=== PATIENT | female | born 1940 | race Caucasian/White ===

== ENCOUNTER → 2017-10-02 13:10 | Outpatient (CLI) | payer MEDICARE, OTHER, SELFPAY ==
[2017-10-02 16:22] LABS: Absolute Lymphocyte Count 1.46 X10^3/ul (0.83-4.51); Absolute Neutrophil Count 5.2 X10^3/uL (2.0-7.7); Basophil# 0.03 X10^3/uL; Basophil% 0.4 % (0-1); Eosinophil# 0.06 X10^3/uL; Eosinophils% 0.8 % (0-5); Hematocrit 39.6 % (37-47); Lymphocyte # 1.46 X10^3/ul (4.0); Lymphocyte % 19.6 % (19-41); Mean Corp Hgb Conc 32.8 g/gl (32-36); Mean Corpuscular Hgb 30.4 pg (27.0-32.0); Mean Corpuscular Volume 92.7 fL (81-99); Mean Platelet Vol. 9.5 fl (6.2-12.0); Monocyte# 0.67 X10^3/uL; Neutrophil % 69.8 % (47-70); Platelet Count 321 K/mm3 (150-450); RBC Distribution Width CV 13.4 % (11.6-14.6); RBC Distribution Width SD 44.6 fl (35.1-43.9); Red Blood Count 4.27 M/mm3 (4.2-5.4); White Blood Count 7.5 K/mm3 (4.4-11.0)
[2017-10-02 16:24] LABS: POSITIVE COUNT NO; POSITIVE DIFFERENTIAL NO; POSITIVE MORPHOLOGY NO
[2017-10-02 16:40] LABS: Vitamin D,25 Hydroxy 45.8 ng/mL (29.95-100.01)
[2017-10-02 16:42] LABS: ALB/GLOB Ratio 0.9 RATIO (0.9-2.4); AST(SGOT) 28 U/L (15-37); Alanine Aminotransfer ALT/SGPT 31 U/L (13-56); Albumin, Serum 3.4 g/dL (3.2-5.0); Alkaline Phosphatase 78 U/L (45-117); Anion Gap 6 (5-15); BUN 19 mg/dL (7-18); BUN/Creat Ratio 23.5 RATIO (10-20); Calcium,Total 8.5 mg/dL (8.5-10.1); Chloride 98 mmol/L (98-107); Creatinine, Serum 0.81 mg/dL (0.55-1.02); EST Glomerular Filtration Rate 73 mL/min (>60); Est Glom Filt Rate - Afr Amer 88 mL/min (>60); Globulin 3.6 g/dL (2.2-4.2); Glucose 83 mg/dL (74-106); Potassium 4.3 mmol/L (3.5-5.1); Sodium Level 134 mmol/L (136-145)
== END ==
PROVIDERS: Family Provider Family Medicine Geriatric Medicine; PCP Family Medicine Geriatric Medicine; Visit Provider Family Medicine Geriatric Medicine
DX: I10 Essential (primary) hypertension (principal); E55.9 Vitamin D deficiency, unspecified
CPT/HCPCS: 36415; 80053; 82306; 84443; 85025

== ENCOUNTER → 2017-10-08 15:44 | Outpatient (CLI) | payer MEDICARE, OTHER, SELFPAY | PROVIDERS: Family Provider Family Medicine Geriatric Medicine; PCP Family Medicine Geriatric Medicine; Visit Provider Family Medicine Geriatric Medicine | DX: R68.83 Chills (without fever) (principal) | CPT/HCPCS: 87633 ==

== ENCOUNTER 2017-10-12 21:29 | Emergency (ER) | payer OTHER, MEDICARE, SELFPAY ==
[2017-10-12 21:31] VITALS: BP 212/98; PULSE 76; RESP 16; TEMP 36.6; O2SAT 94; BMI 22.2
--- NOTE | 2017-10-12 22:11 | CT_ITS ---
CT Spine Cervical W/O Contrast INDICATION: FALL,NECK PAIN COMPARISON: None TECHNIQUE: High-resolution axial CT imaging of the cervical spine with coronal and sagittal reformatted images. Radiation dose optimization technique applied. FINDINGS: The osseous structures are diffusely osteopenic. There is mild retrolisthesis of C3 on C4 and mild anterolisthesis of C4 on C5 and C5 on C6. There is normal alignment at the atlantoaxial articulation, craniocervical junction, and at the facet joints. Mild facet arthritic changes are noted. Anterior bridging osteophytes are noted at C5-6 and C6-7. No evidence of osseous spinal stenosis. No evidence of fracture. CT/Spine Cervical without Contras IMPRESSION: Osteopenia and multilevel degenerative changes. No evidence of acute fracture. at 0001 Reported and signed by: Stella Holland MD Electronically Signed: Stella Holland MD at 22:59 EDT Tel , Service support ,
--- NOTE | 2017-10-12 22:11 | CT_ITS ---
STUDY: CT BRAIN WITHOUT CONTRAST REASON FOR EXAM: Female, 77 years old. Fall, neck pain, laceration back of head. RADIATION DOSAGE (If Supplied By Facility): CTDIvol = ( 44.99 ) mGy, DLP = ( 762.36 ) mGycm TECHNIQUE: Transaxial CT imaging of the brain was performed without administration of intravenous contrast material. Individualized dose optimization techniques were used for this CT. COMPARISON: October 05, 2016. FINDINGS: Left posterior parietal scalp swelling. 2 cm peripheral hematoma. Normal calvarium. Normal size ventricles and extra-axial spaces for the patient's age. Normal white matter tracts of the cerebral hemispheres. Normal basal ganglia and thalami. Normal brainstem. Normal cerebellum. There is no intracranial hemorrhage. There are no findings of an acute ischemic infarction. Mild ethmoid sinus mucosal thickening unchanged. Mild right maxillary sinus mucosal thickening. Moderate air-fluid level left maxillary sinus acute versus chronic sinusitis. On the prior study there was near total opacification of the left maxillary sinus. CT/Brain/Head without Contrast IMPRESSION: No acute intracranial abnormality. Left posterior parietal scalp swelling. Air-fluid level left maxillary sinus, acute versus chronic sinusitis. Additional mild paranasal sinus mucosal thickening as above. Electronically Signed: Jus Faith MD at 0:22 EDT , Service support ,
--- NOTE | 2017-10-12 22:12 | RAD_ITS ---
STUDY: X-RAY - THORACIC SPINE REASON FOR EXAM: Female, 77 years old. Pain after fall TECHNIQUE: 2 view(s) of the thoracic spine were obtained. COMPARISON: Chest x-ray 10/05/2016 FINDINGS: A mild compression deformity is suggested involving a lower thoracic vertebral body on the lateral view. Exact level is uncertain based on the frontal view, likely T10 or T11. An acute injury cannot be excluded. Consider CT or MRI correlation if possible. RAD/Thoracic Spine 3 Views IMPRESSION: A mild lower thoracic compression deformity cannot be excluded. Consider CT or MRI correlation if possible. Electronically Signed: Renato Reveles MD at 23:37 EDT Tel , Service support ,
--- NOTE | 2017-10-12 22:14 | ED.VISSUMM ---
- ER Visit Summary Date of Service: 10/12/17 Chief Complaint: Fall History of Present Illness: The patient is a 77 F presenting after fall. Patient was square dancing and tripped. She fell hitting her head. She had no loss of consciousness. No vomiting. Denies chest pain or shortness of breath. She complains of neck and upper back pain. No other complaints. Physical Examination: Vitals are stable. Patient is afebrile. Alert no acute distress. HEENT exam is unremarkable. Posterior scalp hematoma with mild abrasion, no laceration. Neck is right paraspinal tenderness, no stepoff Lungs are clear and equal bilaterally. Heart is regular rate and rhythm. Abdomen is soft nontender nondistended. Back: right paraspinal thoracic muscle tenderness, no midline tenderness Extremities are unremarkable. Skin is warm and dry. No focal neurologic deficit. Remainder of exam is unremarkable. Emergency Department Course and Treatment: Patient was given tetanus IM. Thoracic spine x-ray read as unable to rule out compression deformity recommending CT scan. CT thoracic spine shows no fracture. CT cervical spine shows no fracture. CT head shows no acute intracranial abnormality, left posterior parietal scalp swelling. Patient is resting comfortably in the ED. She is able to ambulate in the ED without difficulty. She will be discharged to follow-up with her primary care physician. Advised return to ED for worsening complaints. Disposition: Discharge home Impression: Status post mechanical fall, closed head injury, neck strain This note was generated with [employer] dictation software. It may contain incorrect words, spelling, and punctuation that were not noted in review of the chart prior to signing ED Disposition - Plan for ED Patient: Chief Complaint: Fall Instructions: ED Mechanical Fall Referrals: Yang Washington Chi, MD [Primary Care Provider] -
[2017-10-12] MEDS: Diphth,Pertuss(Acell),Tet Vac 0.5 ML Vial IM (23:16)
[2017-10-13 00:12] VITALS: BP 213/97; PULSE 70; RESP 18; O2SAT 100
--- NOTE | 2017-10-13 02:00 | ED.DEP ---
ED Disposition - Plan for ED Patient: Chief Complaint: Fall Instructions: ED Mechanical Fall Referrals: Yang Washington Chi, MD [Primary Care Provider] -
[2017-10-13 02:20] VITALS: BP 171/94; PULSE 89; RESP 18; O2SAT 98
--- NOTE | 2017-10-13 23:54 | CT_ITS ---
STUDY: CT THORACIC SPINE WITHOUT CONTRAST REASON FOR EXAM: Female, 77 years old. Fall RADIATION DOSAGE (If Supplied By Facility): CTDIvol = ( 18.42 ) mGy, DLP = ( 650.27 ) mGycm TECHNIQUE: The patient was scanned in a multi detector CT scanner. High resolution imaging was performed. Images were obtained from T1 to T12. Sagittal and coronal images were reconstructed. Individualized dose optimization techniques were used for this CT. COMPARISON: Radiographs 10/12/2017 FINDINGS: No fractures or dislocations. Diffuse degenerative disease. Multiple remote rib deformities. No paraspinal hematoma is seen. CT/Spine Thoracic without Contras IMPRESSION: No acute osseous injury is evident. Electronically Signed: Renato Reveles MD at 1:45 EDT Tel , Service support ,
== END 2017-10-13 02:21 | disposition home or self-care (01) ==
LOC: ED 23:23
PROVIDERS: Emergency Provider Emergency Medicine; Family Provider Family Medicine Geriatric Medicine; PCP Family Medicine Geriatric Medicine
DX: S09.90XA Unspecified injury of head, initial encounter (principal); S16.1XXA Strain of muscle, fascia and tendon at neck level, initial encounter; W01.198A Fall on same level from slipping, tripping and stumbling with subsequent striking against other object, initial encounter; Y93.41 Activity, dancing; Y92.89 Other specified places as the place of occurrence of the external cause; Y99.9 Unspecified external cause status; I10 Essential (primary) hypertension
CPT/HCPCS: 70450; 72072; 72125; 72128; 90715; 99284; A4216

== ENCOUNTER → 2017-12-23 14:00 | Outpatient (CLI) | payer MEDICARE, OTHER, SELFPAY ==
[2017-12-23 17:29] LABS: Absolute Neutrophil Count 6.3 X10^3/uL (2.0-7.7); Basophil# 0.03 X10^3/uL; Basophil% 0.3 % (0-1); Eosinophil# 0.06 X10^3/uL; Eosinophils% 0.7 % (0-5); Hematocrit 38.3 % (37-47); Hemoglobin 13.3 g/dl (12.0-15.0); Lymphocyte % 16.3 % (19-41); Mean Corp Hgb Conc 34.7 g/gl (32-36); Mean Corpuscular Hgb 31.7 pg (27.0-32.0); Mean Corpuscular Volume 91.4 fL (81-99); Mean Platelet Vol. 9.5 fl (6.2-12.0); Monocyte# 0.81 X10^3/uL; Monocyte% 9.4 % (0-10); Neutrophil # 6.26 X10^3/uL (2.7-7.7); Neutrophil % 72.8 % (47-70); Platelet Count 299 K/mm3 (150-450); RBC Distribution Width CV 13.4 % (11.6-14.6); RBC Distribution Width SD 44.6 fl (35.1-43.9); Red Blood Count 4.19 M/mm3 (4.2-5.4); White Blood Count 8.6 K/mm3 (4.4-11.0)
[2017-12-23 17:31] LABS: POSITIVE COUNT NO; POSITIVE DIFFERENTIAL NO; POSITIVE MORPHOLOGY NO
[2017-12-23 17:32] LABS: Anion Gap 6 (5-15); BUN 12 mg/dL (7-18); BUN/Creat Ratio 17.1 RATIO (10-20); Calcium,Total 8.4 mg/dL (8.5-10.1); Chloride 95 mmol/L (98-107); EST Glomerular Filtration Rate 86 mL/min (>60); Est Glom Filt Rate - Afr Amer 104 mL/min (>60); Glucose 90 mg/dL (74-106); Potassium 4.1 mmol/L (3.5-5.1); Sodium Level 130 mmol/L (136-145)
== END ==
PROVIDERS: Family Provider Family Medicine Geriatric Medicine; PCP Family Medicine Geriatric Medicine; Visit Provider Family Medicine Geriatric Medicine
DX: R11.0 Nausea (principal)
CPT/HCPCS: 36415; 80048; 85025

== ENCOUNTER → 2018-01-02 09:00 | Outpatient (CLI) | payer MEDICARE, OTHER, SELFPAY ==
[2018-01-02 17:47] LABS: Absolute Neutrophil Count 5.5 X10^3/uL (2.0-7.7); Basophil# 0.03 X10^3/uL; Basophil% 0.4 % (0-1); Eosinophil# 0.05 X10^3/uL; Eosinophils% 0.7 % (0-5); Hemoglobin 12.4 g/dl (12.0-15.0); Lymphocyte % 16.2 % (19-41); Mean Corp Hgb Conc 33.5 g/gl (32-36); Mean Corpuscular Hgb 30.4 pg (27.0-32.0); Mean Corpuscular Volume 90.7 fL (81-99); Mean Platelet Vol. 9.2 fl (6.2-12.0); Monocyte# 0.64 X10^3/uL; Monocyte% 8.6 % (0-10); Neutrophil # 5.46 X10^3/uL (2.7-7.7); Neutrophil % 73.7 % (47-70); Platelet Count 317 K/mm3 (150-450); RBC Distribution Width CV 13.3 % (11.6-14.6); RBC Distribution Width SD 43.6 fl (35.1-43.9); Red Blood Count 4.08 M/mm3 (4.2-5.4); White Blood Count 7.4 K/mm3 (4.4-11.0)
[2018-01-02 17:51] LABS: POSITIVE DIFFERENTIAL NO; POSITIVE MORPHOLOGY NO
[2018-01-02 17:52] LABS: POSITIVE COUNT NO
[2018-01-02 18:09] LABS: ALB/GLOB Ratio 0.9 RATIO (0.9-2.4); AST(SGOT) 23 U/L (15-37); Alanine Aminotransfer ALT/SGPT 28 U/L (13-56); Albumin, Serum 3.3 g/dL (3.2-5.0); Alkaline Phosphatase 65 U/L (45-117); Anion Gap 8 (5-15); BUN 18 mg/dL (7-18); BUN/Creat Ratio 21.1 RATIO (10-20); Calcium,Total 8.4 mg/dL (8.5-10.1); Chloride 96 mmol/L (98-107); Creatinine, Serum 0.85 mg/dL (0.55-1.02); EST Glomerular Filtration Rate 68 mL/min (>60); Est Glom Filt Rate - Afr Amer 83 mL/min (>60); Globulin 3.5 g/dL (2.2-4.2); Glucose 90 mg/dL (74-106); Potassium 4.6 mmol/L (3.5-5.1); Protein, Total 6.8 g/dL (6.4-8.2); Sodium Level 129 mmol/L (136-145); Thyroid Stim Hormone (TSH) 1.03 uIU/mL (0.358-3.74)
[2018-01-03 08:45] LABS: Vitamin D,25 Hydroxy 44.6 ng/mL (29.95-100.01)
== END ==
PROVIDERS: Family Provider Family Medicine Geriatric Medicine; PCP Family Medicine Geriatric Medicine; Visit Provider Family Medicine Geriatric Medicine
DX: I10 Essential (primary) hypertension (principal); E55.9 Vitamin D deficiency, unspecified
CPT/HCPCS: 36415; 80053; 82306; 84443; 85025

== ENCOUNTER 2018-03-19 14:31 | Emergency (ER) | payer MEDICARE, OTHER, SELFPAY ==
[2018-03-19 14:32] VITALS: BP 172/91; PULSE 63; RESP 18; TEMP 36.6; O2SAT 97; BMI 29.2
[2018-03-19] MEDS: Acetaminophen 500 MG Tablet 1000 MG PO (15:00)
[2018-03-19] MEDS: LORazepam 0.5 MG Tablet PO (15:01)
[2018-03-19 15:15] VITALS: O2SAT 99
--- NOTE | 2018-03-19 16:05 | ED.VISSUMM ---
- ER Visit Summary Date of Service: 03/19/18 Chief Complaint: Fall History of Present Illness: 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 Washington and [facility]. She reports it is prior to coming emergency permit she lost her balance fell and hit her head on the pavement. No loss of consciousness. She is not anticoagulated. Tetanus is up-to-date. Patient reports that she has facial pain is 4 out of 10 severity. She denies any neck, back, shoulder, wrist, or hip pain. Physical Examination: Vitals: Stable. Afebrile. Head: Approximately 4 cm abrasion to the lateral portion of her left maxilla. She has 2 1 cm lacerations to her upper lip. 1 of these does cross the vermilion border. She has Camacho 2 fractures of her right and left central incisors and her left lateral incisor. Neck: No vertebral tenderness. Full ROM without difficulty. Cleared by NEXUS criteria. Back: No vertebral tenderness. General: A&O x 3. NAD. Cardiovascular exam: Regular rate and rhythm, no murmur, rub or gallop. Respiratory exam: Chest nontender. No crepitus. Clear to auscultation bilaterally. No wheezes or stridor. Abdominal exam: Soft, nontender, nondistended, normal bowel sounds. No pain in RUQ or LUQ specifically. No peritoneal signs. Extremity: Atraumatic. No pain with range of motion. Emergency Department Course and Treatment: Patient was quite anxious about having his sutures placed. She was pretreated with Tylenol and Ativan p.o. She had her wound anesthetized and repaired. She tolerated it well. She had Dycal placed to the fractured teeth. Treatment Plan: Patient was discussed with her dental office. She will be instructed to follow-up with her dentist as soon as possible. She is instructed to keep her wounds clean and place antibiotic ointment on them. Follow-up with Dr. Smith as needed. Return to the emergency department for any signs of infection. Disposition: To home in improved and stable condition. Impression: 1. Fall. 2. Laceration upper lip, 1 cm, repaired. 3. Camacho 2 fractures right central incisor, left central and lateral incisors. Procedure note: Wound was cleansed with chlorhexidine soap. Anesthetized with 1% lidocaine without epinephrine. Copiously irrigated with normal saline. Wound was explored there is no foreign material present. It was closed with 5 simple interrupted 5-0 rapid Vicryl sutures. The first of these sutures was placed across the vermilion border and meticulous care was undertaken to align this. The patient tolerated it well. This note was generated with [employer] dictation software. It may contain incorrect words, spelling, and punctuation that were not noted in review of the chart prior to signing ED Disposition - Plan for ED Patient: Chief Complaint: Fall Instructions: ED Fx Tooth, ED Laceration Facial Sutr Tape Referrals: Yang Washington Chi, MD [Primary Care Provider] - As Needed Dentist,Your [STAFF PHYSICIAN] - As soon as possible
--- NOTE | 2018-03-19 16:08 | ED.DCSUM_ITS ---
- ER Visit Summary Date of Service: 03/19/18 Chief Complaint: Fall History of Present Illness: 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 Washington and [facility]. She reports it is prior to coming emergency permit she lost her balance fell and hit her head on the pavement. No loss of consciousness. She is not anticoagulated. Tetanus is up-to-date. Patient reports that she has facial pain is 4 out of 10 severity. She denies any neck, back, shoulder, wrist, or hip pain. Physical Examination: Vitals: Stable. Afebrile. Head: Approximately 4 cm abrasion to the lateral portion of her left maxilla. She has 2 1 cm lacerations to her upper lip. 1 of these does cross the vermilion border. She has Camacho 2 fractures of her right and left central incisors and her left lateral incisor. Neck: No vertebral tenderness. Full ROM without difficulty. Cleared by NEXUS criteria. Back: No vertebral tenderness. General: A&O x 3. NAD. Cardiovascular exam: Regular rate and rhythm, no murmur, rub or gallop. Respiratory exam: Chest nontender. No crepitus. Clear to auscultation bilaterally. No wheezes or stridor. Abdominal exam: Soft, nontender, nondistended, normal bowel sounds. No pain in RUQ or LUQ specifically. No peritoneal signs. Extremity: Atraumatic. No pain with range of motion. Emergency Department Course and Treatment: Patient was quite anxious about having his sutures placed. She was pretreated with Tylenol and Ativan p.o. She had her wound anesthetized and repaired. She tolerated it well. She had Dycal placed to the fractured teeth. Treatment Plan: Patient was discussed with her dental office. She will be instructed to follow-up with her dentist as soon as possible. She is instructed to keep her wounds clean and place antibiotic ointment on them. Follow-up with Dr. Smith as needed. Return to the emergency department for any signs of infection. Disposition: To home in improved and stable condition. Impression: 1. Fall. 2. Laceration upper lip, 1 cm, repaired. 3. Camacho 2 fractures right central incisor, left central and lateral incisors. Procedure note: Wound was cleansed with chlorhexidine soap. Anesthetized with 1% lidocaine without epinephrine. Copiously irrigated with normal saline. Wound was explored there is no foreign material present. It was closed with 5 simple interrupted 5- 0 rapid Vicryl sutures. The first of these sutures was placed across the vermilion border and meticulous care was undertaken to align this. The patient tolerated it well. This note was generated with [employer] dictation software. It may contain incorrect words, spelling, and punctuation that were not noted in review of the chart prior to signing ED Disposition - Plan for ED Patient: Chief Complaint: Fall Instructions: ED Fx Tooth, ED Laceration Facial Sutr Tape Referrals: Yang Washington Chi, MD [Primary Care Provider] - As Needed Dentist,Your [STAFF PHYSICIAN] - As soon as possible
== END 2018-03-19 16:41 | disposition home or self-care (01) ==
PROVIDERS: Emergency Provider Emergency Medicine; Family Provider Family Medicine Geriatric Medicine; PCP Family Medicine Geriatric Medicine
DX: S01.511A Laceration without foreign body of lip, initial encounter (principal); S02.5XXA Fracture of tooth (traumatic), initial encounter for closed fracture; W19.XXXA Unspecified fall, initial encounter; Y93.9 Activity, unspecified; Y92.480 Sidewalk as the place of occurrence of the external cause; S00.81XA Abrasion of other part of head, initial encounter; Z79.82 Long term (current) use of aspirin; Z79.899 Other long term (current) drug therapy; I10 Essential (primary) hypertension; F03.90 Unspecified dementia, unspecified severity, without behavioral disturbance, psychotic disturbance, mood disturbance, and anxiety
CPT/HCPCS: 12011; 99284

== ENCOUNTER → 2018-03-24 16:40 | Outpatient (CLI) | payer MEDICARE, OTHER, SELFPAY ==
[2018-03-24 17:30] LABS: Absolute Lymphocyte Count 1.36 X10^3/ul (0.83-4.51); Absolute Neutrophil Count 6.3 X10^3/uL (2.0-7.7); Basophil# 0.03 X10^3/uL; Basophil% 0.3 % (0-1); Eosinophil# 0.19 X10^3/uL; Eosinophils% 2.2 % (0-5); Hemoglobin 13.3 g/dl (12.0-15.0); Lymphocyte # 1.36 X10^3/ul (4.0); Lymphocyte % 15.6 % (19-41); Mean Corp Hgb Conc 34.1 g/gl (32-36); Mean Corpuscular Hgb 30.8 pg (27.0-32.0); Mean Corpuscular Volume 90.3 fL (81-99); Mean Platelet Vol. 9.4 fl (6.2-12.0); Monocyte% 9.2 % (0-10); Neutrophil % 72.2 % (47-70); Platelet Count 322 K/mm3 (150-450); RBC Distribution Width CV 13.2 % (11.6-14.6); Red Blood Count 4.32 M/mm3 (4.2-5.4); White Blood Count 8.7 K/mm3 (4.4-11.0)
[2018-03-24 17:31] LABS: POSITIVE COUNT NO; POSITIVE DIFFERENTIAL NO; POSITIVE MORPHOLOGY NO
[2018-03-24 17:46] LABS: Vitamin D,25 Hydroxy 42.2 ng/mL (29.95-100.01)
[2018-03-24 17:48] LABS: AST(SGOT) 22 U/L (15-37); Alanine Aminotransfer ALT/SGPT 30 U/L (13-56); Albumin, Serum 3.5 g/dL (3.2-5.0); Alkaline Phosphatase 74 U/L (45-117); Anion Gap 8 (5-15); BUN 19 mg/dL (7-18); BUN/Creat Ratio 23.5 RATIO (10-20); Calcium,Total 8.8 mg/dL (8.5-10.1); Chloride 94 mmol/L (98-107); Creatinine, Serum 0.81 mg/dL (0.55-1.02); EST Glomerular Filtration Rate 73 mL/min (>60); Est Glom Filt Rate - Afr Amer 88 mL/min (>60); Globulin 3.5 g/dL (2.2-4.2); Glucose 100 mg/dL (74-106); Potassium 4.5 mmol/L (3.5-5.1); Sodium Level 131 mmol/L (136-145); Thyroid Stim Hormone (TSH) 1.66 uIU/mL (0.358-3.74)
== END ==
PROVIDERS: Family Provider Family Medicine Geriatric Medicine; PCP Family Medicine Geriatric Medicine; Visit Provider Family Medicine Geriatric Medicine
DX: I10 Essential (primary) hypertension (principal); E55.9 Vitamin D deficiency, unspecified
CPT/HCPCS: 36415; 80053; 82306; 84443; 85025

== ENCOUNTER 2018-03-31 17:13 | Observation (INO) | payer MEDICARE, OTHER, SELFPAY ==
[2018-03-31 17:14] VITALS: BP 150/106; PULSE 57; PULSE 77; RESP 16; RESP 17; O2SAT 100; O2SAT 97; BMI 22.4
[2018-03-31] MEDS: MethylPREDNISolone 125 MG/2 ML Vial IV (17:20)
--- NOTE | 2018-03-31 17:28 | ED.VISSUMM ---
- ER Visit Summary Date of Service: 03/31/18 Chief Complaint: Allergic reaction History of Present Illness: The patient is a 77 F who presents with anaphylaxis reaction that began today. Patient has a history of dementia and is a poor historian. Patient had injection of Rocephin today for cellulitis of her left leg. Patient was also given prescriptions for Keflex and doxycycline. Patient developed redness and swelling to her face, chest, trunk, and upper extremities. Patient denies any difficulty swallowing or shortness of breath at the present time. Patient denies any chest pain. Patient was given a dose of subcu epinephrine and IV Benadryl by EMS Physical Examination: Oral mucosa is pink and moist. Oropharynx is clear. Airway is patent. Neck is supple. Trachea is midline. There is no JVD noted. Heart was regular rate and rhythm. Lungs are clear and equal bilaterally. There is good respiratory effort noted. Abdomen is soft. Bowel sounds are normal. There is no tenderness. Cranial nerves II through XII are intact. There are no focal motor or sensory deficits noted. Extremities are intact. There is some erythema around a superficial wound over the anterior aspect of the left lower leg. There is no discharge or drainage. There is no fluctuance. Skin is warm and dry. There is erythema and edema over the face, chest, and upper extremities. There are no vesicles or pustules noted. The remaining physical exam is within normal limits. Emergency Department Course and Treatment: Patient was given a dose of subcutaneous epinephrine here. Patient was given Solu-Medrol and Pepcid here. Patient was observed here in emergency department. Patient swelling appeared to improve however, family is concerned that this may rebound when she goes home. Patient will be admitted for observation. Patient and family understood and were agreeable with the plan. All questions were answered. Disposition: Admit for observation Impression: Anaphylactic reaction This note was generated with [employer] dictation software. It may contain incorrect words, spelling, and punctuation that were not noted in review of the chart prior to signing ED Disposition - Plan for ED Patient: Disposition: Acute Care Hospital [facility] Chief Complaint: Allergic Reaction Diagnosis: Anaphylactic reaction Referrals: Yang Washington Chi, MD [Primary Care Provider] -
--- NOTE | 2018-03-31 17:32 | ED.DCSUM_ITS ---
- ER Visit Summary Date of Service: 03/31/18 Chief Complaint: Allergic reaction History of Present Illness: The patient is a 77 F who presents with anaphylaxis reaction that began today. Patient has a history of dementia and is a poor historian. Patient had injection of Rocephin today for cellulitis of her left leg. Patient was also given prescriptions for Keflex and doxycycline. Patient developed redness and swelling to her face, chest, trunk, and upper extremities. Patient denies any difficulty swallowing or shortness of breath at the present time. Patient denies any chest pain. Patient was given a dose of subcu epinephrine and IV Benadryl by EMS Physical Examination: Oral mucosa is pink and moist. Oropharynx is clear. Airway is patent. Neck is supple. Trachea is midline. There is no JVD noted. Heart was regular rate and rhythm. Lungs are clear and equal bilaterally. There is good respiratory effort noted. Abdomen is soft. Bowel sounds are normal. There is no tenderness. Cranial nerves II through XII are intact. There are no focal motor or sensory deficits noted. Extremities are intact. There is some erythema around a superficial wound over the anterior aspect of the left lower leg. There is no discharge or drainage. There is no fluctuance. Skin is warm and dry. There is erythema and edema over the face, chest, and upper extremities. There are no vesicles or pustules noted. The remaining physical exam is within normal limits. Emergency Department Course and Treatment: Patient was given a dose of subcutaneous epinephrine here. Patient was given Solu-Medrol and Pepcid here. Patient was observed here in emergency department. Patient swelling appeared to improve however, family is concerned that this may rebound when she goes home. Patient will be admitted for observation. Patient and family understood and were agreeable with the plan. All questions were answered. Disposition: Admit for observation Impression: Anaphylactic reaction This note was generated with [employer] dictation software. It may contain incorrect words, spelling, and punctuation that were not noted in review of the chart prior to signing ED Disposition - Plan for ED Patient: Disposition: Acute Care Hospital [facility] Chief Complaint: Allergic Reaction Diagnosis: Anaphylactic reaction Referrals: Yang Washington Chi, MD [Primary Care Provider] -
[2018-03-31 18:18] VITALS: BP 194/96; PULSE 56; RESP 16; O2SAT 99
[2018-03-31 19:00] VITALS: BP 140/79; PULSE 60; RESP 16; O2SAT 99
[2018-03-31 20:00] VITALS: BP 132/74; PULSE 60; RESP 16; O2SAT 98
--- NOTE | 2018-03-31 20:16 | HP.PCM_ITS ---
Problem List (1) Anaphylactic reaction Status: Acute Qualifiers: Encounter type: initial encounter Qualified Code(s): T78.2XXA - Anaphylactic shock, unspecified, initial encounter (2) History of cholecystectomy Status: Resolved (3) History of tonsillectomy Status: Resolved (4) H/O: hysterectomy Status: Resolved (5) Non-rheumatic tricuspid valve insufficiency Status: Chronic (6) Nonrheumatic aortic valve insufficiency Status: Chronic (7) Nonrheumatic mitral valve insufficiency Status: Chronic (8) Hyperlipidemia Status: Chronic Qualifiers: (9) Cardiomyopathy Status: Chronic Qualifiers: (10) HTN (hypertension) Status: Chronic Qualifiers: History of Present Illness Date of Admission: 03/31/18 Chief Complaint: acute anaphylaxis The patient is a 77 year old female patient who presents to the ER following an acute allergic reaction. The patient has dementia and is therefore a poor historian. The patient was being treated by her primary care physician for a skin infection of her left leg. She received a dose of IM Rocephin and also a prescription for doxycycline and Keflex. The patient developed swelling of her face, chest and upper extremities. She received a dose of sc Epinephrine and Benadryl in the squad and a second dose of subcutaneous Epinephrine and steroids were initiated in the ER. She improved yet still has facial swelling. No chest pain or shortness of breath. She will be admitted for overnight observation Past Medical History Past Medical History (Chronic Problems): Chronic Problems Non-rheumatic tricuspid valve insufficiency (Chronic) Nonrheumatic aortic valve insufficiency (Chronic) Nonrheumatic mitral valve insufficiency (Chronic) Hyperlipidemia (Chronic) Cardiomyopathy (Chronic) Confusion (Chronic) HTN (hypertension) (Chronic) Medical History: Medical History Hyperlipidemia (Chronic) E78.5 Cardiomyopathy (Chronic) I42.9 HTN (hypertension) (Chronic) I10 Allergies ceftriaxone [From Rocephin] Allergy (Verified 03/31/18 20:03) Anaphylaxis cephalexin [From Keflex] Allergy (Verified 03/31/18 20:03) Angioedema doxycycline Allergy (Verified 03/31/18 20:03) Angioedema sulfamethoxazole [From Bactrim] Allergy (Verified 03/19/18 14:34) Hives trimethoprim [From Bactrim] Allergy (Verified 03/19/18 14:34) Hives Home Medications: Ambulatory Orders Medication Instructions Recorded Cholecalciferol (VIT D3) [Vitamin 2,000 unit PO DAILY 06/26/14 D3] Propranolol HCl [Inderal LA (Beta 80 mg PO DAILY #30 cap.sa.24h 06/18/16 Leigh Ann)] Ramipril [Ramipril] 10 mg PO DAILY 10/12/17 escitalopram 5 mg tablet 5 mg PO QDAY MDD t 02/14/18 galantamine 4 mg tablet 4 mg PO BID tab 02/14/18 multivitamin tablet 1 tab PO QDAY #30 tab 02/14/18 omega-3 fatty acids 1,000 mg 1,000 mg PO TID #90 cap 02/14/18 capsule Aspirin E.C. 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 SCIENTIST history Smoking Status: Never smoker - *Family History Paternal Family History: Family History (Last Updated 02/14/18 @ 10:05 by Amanda Peoples) Father CAD (coronary artery disease) Hypertension Mother Hypertension Sister Hypertension CAD (coronary artery disease) History Items: No pertinent history Maternal Family History: Family History (Last Updated 02/14/18 @ 10:05 by Amanda Peoples) Father CAD (coronary artery disease) Hypertension Mother Hypertension Sister Hypertension CAD (coronary artery disease) History Items: No pertinent history Review of Systems Constitutional: Denies: Chills, Fever, Weight Change HEENT: Reports: - - facial swelling. Denies: Head Aches, Sinus Congestion, Sinus Drainage Cardiovascular: Denies: Chest Pain, Palpitations Respiratory: Denies: Cough, Shortness of breath at rest, Sputum production Gastrointestinal: Denies: Abdominal Pain, Nausea, Vomiting Genitourinary: Denies: Dysuria Musculoskeletal: Denies: Joint Pain, Joint Tenderness Skin: Reports: Skin Changes. Denies: Rash, Wounds Neurological: Denies: Numbness, Tingling, Focal weakness Psychiatric: Reports: Anxiety. Denies: Depression, Homicidal Ideations, Suicidal Ideations Hematologic/ Lymphatic: Denies: Easy Bruising, Easy Bleeding VTE Information - Inpt Only VTE Present on Admission: No VTE Mechan Device Prophylaxis: SCD's VTE Pharm Prophylaxis ordered?: No Patient Problems: Active and Suspected Problems Anaphylactic reaction (Acute) - Physical Exam General: Alert, Oriented x3, Cooperative HEENT: Atraumatic, Normocephalic, - - lips swollen, tongue and oral mucosa within normal limits Neck: Supple Lungs: Clear to auscultation, Normal air movement Cardiovascular: Regular rate, Normal S1, Normal S2, No murmurs Abdomen: Bowel Sounds Present Extremities: No edema, Capillary Refill Less than 3 Seconds Skin: No rashes Musculoskeletal: No Tenderness to Palpation of Joints or Extremities Neurological: Neuro grossly intact Psych/Mental Status: Normal Affect, Appropriate Vital Signs Pulse Resp BP Pulse Ox 60 16 132/74 H 98 03/31/18 20:00 03/31/18 20:00 03/31/18 20:00 03/31/18 20:00 Oxygen Flow Rate (L/min) 2 Oxygen Delivery Method Nasal Cannula Weight: 130 lb 4.338 oz Body Mass Index (BMI) 22.4 Finger Stick Blood Glucose 114 Assessment/Plan All Active Problems (Last Updated 02/14/18 @ 10:06 by Amanda Peoples) Anaphylactic reaction (Acute) History of cholecystectomy (Resolved) History of tonsillectomy (Resolved) H/O: hysterectomy (Resolved) Plan - admit to general medical floor for observation - benadryl 25mg IV q 6 hrs - solumedrol 40mg IV q 8hrs - cbc, bmp in am - continue routine oral medications for stable medical conditions - regular diet. - SCDs for DVT prophylaxis Code Visit OBSV E&M: 08555 Initial observation care L2
[2018-03-31 20:41] VITALS: BP 131/62; PULSE 80; RESP 15; TEMP 36.6; O2SAT 96
[2018-03-31 21:06] VITALS: BMI 24.5
[2018-03-31 21:12] VITALS: BMI 24.6
[2018-03-31 21:22] VITALS: BP 143/70; PULSE 58; RESP 16; TEMP 36.8; O2SAT 96
[2018-03-31] MEDS: 0.9% NaCl Peripheral Flush Adult/Peds IV (22:05)
[2018-03-31] MEDS: Galantamine Hydrobromide 4 MG Tablet PO (22:09)
[2018-04-01 03:22] VITALS: BP 153/89; PULSE 76; RESP 16; TEMP 36.8; O2SAT 98
[2018-04-01] MEDS: 0.9% NaCl Peripheral Flush Adult/Peds IV (05:21)
[2018-04-01 06:30] LABS: BUN 15 mg/dL (7-18); Creatinine, Serum 0.97 mg/dL (0.55-1.02); Glucose 164 mg/dL (74-106)
[2018-04-01 06:31] LABS: Anion Gap 9 (5-15); BUN/Creat Ratio 15.4 RATIO (10-20); Calcium,Total 8.2 mg/dL (8.5-10.1); Chloride 97 mmol/L (98-107); EST Glomerular Filtration Rate 59 mL/min (>60); Est Glom Filt Rate - Afr Amer 71 mL/min (>60); Estimated Creatinine Clearance 40.61 ml/min; Potassium 4.5 mmol/L (3.5-5.1); Sodium Level 130 mmol/L (136-145)
[2018-04-01 07:05] LABS: Absolute Neutrophil Count 7.4 X10^3/uL (2.0-7.7); Basophil# 0.01 X10^3/uL; Basophil% 0.1 % (0-1); Hematocrit 40.8 % (37-47); Hemoglobin 14.4 g/dl (12.0-15.0); Lymphocyte % 7.4 % (19-41); Mean Corp Hgb Conc 35.3 g/gl (32-36); Mean Corpuscular Volume 87.7 fL (81-99); Mean Platelet Vol. 8.7 fl (6.2-12.0); Monocyte# 0.08 X10^3/uL; Neutrophil # 7.42 X10^3/uL (2.7-7.7); Platelet Count 342 K/mm3 (150-450); RBC Distribution Width CV 13.5 % (11.6-14.6); RBC Distribution Width SD 42.4 fl (35.1-43.9); Red Blood Count 4.65 M/mm3 (4.2-5.4); White Blood Count 8.2 K/mm3 (4.4-11.0)
[2018-04-01 07:09] LABS: Differential Indicated SCAN CRITERIA MET; POSITIVE COUNT NO; POSITIVE DIFFERENTIAL YES; POSITIVE MORPHOLOGY NO
--- NOTE | 2018-04-01 07:52 | DCINST_ITS ---
- Discharge Diagnoses Current Active Problems: Current Active and Chronic Problems Anaphylactic reaction (Acute) You will use the following diet at home:: No restrictions Allergies/Adverse Reactions: Allergies ceftriaxone [From Rocephin] Allergy (Verified 03/31/18 20:03) Anaphylaxis cephalexin [From Keflex] Allergy (Verified 03/31/18 20:03) Angioedema doxycycline Allergy (Verified 03/31/18 20:03) Angioedema sulfamethoxazole [From Bactrim] Allergy (Verified 03/19/18 14:34) Hives trimethoprim [From Bactrim] Allergy (Verified 03/19/18 14:34) Hives Medications to take at Discharge Cholecalciferol (VIT D3) [Vitamin D3] 2,000 unit PO DAILY 06/26/14 Propranolol HCl [Inderal LA (Beta Leigh Ann)] 80 mg PO DAILY #30 cap.sa.24h 06/18/16 escitalopram 5 mg tablet 5 mg PO QDAY MDD t 02/14/18 galantamine 4 mg tablet 4 mg PO BID tab 02/14/18 multivitamin tablet 1 tab PO QDAY #30 tab 02/14/18 omega-3 fatty acids 1,000 mg capsule 1,000 mg PO TID #90 cap 02/14/18 Aspirin E.C. [Ecotrin] 81 mg PO DAILY 03/19/18 Donepezil HCl 5 mg PO DAILY 03/19/18 Amlodipine [Norvasc] 5 mg PO DAILY #30 tablet 04/01/18 Famotidine [Pepcid] 20 mg PO BID #14 tablet 04/01/18 Prednisone 20 mg PO BID #10 tablet 04/01/18 The following prescriptions were given: Amlodipine [Norvasc] 5 mg PO DAILY #30 tablet Famotidine [Pepcid] 20 mg PO BID #14 tablet Prednisone 20 mg PO BID #10 tablet Primary Care Physician: Yang Washington Chi, MD [Primary Care Provider] - Please follow up with your Primary Care Physician in: IN 2-3 DAYS Test Results: Test results from this visit will be discussed in further detail at your follow- up appointment, if applicable. Proposed Discharge Date: 04/01/18
--- NOTE | 2018-04-01 07:55 | DS.PCM_ITS ---
Discharge Date and Diagnosis - Problem List Patient Problems: Active and Suspected Problems Anaphylactic reaction (Acute) Date of Admission: 03/31/18 Date of Discharge: 04/01/18 - Primary Discharge Diagnosis Active and Suspected Problems Anaphylactic reaction (Acute) - Secondary Discharge Diagnosis Chronic Problems Non-rheumatic tricuspid valve insufficiency (Chronic) Nonrheumatic aortic valve insufficiency (Chronic) Nonrheumatic mitral valve insufficiency (Chronic) Hyperlipidemia (Chronic) Cardiomyopathy (Chronic) Confusion (Chronic) HTN (hypertension) (Chronic) Hospital Course and Treatment Summary of Care Provided: The patient is a 77 year old F admitted following allergic reaction to Rocephin 1. Allergic reaction to Rocephin administered by patient's PCP for a scalp on her left lower extremity. Patient did develop facial and lip swelling seen in the ED did receive epinephrine Benadryl and monitored overnight on a regular nursing floor without any further reaction. Patient facial swelling did resolve. She was discharged home on Pepcid as well as prednisone 2. Hypertension patient was on ramipril discontinued prescribed amlodipine instead 3. Mild dementia supportive care; patient also on Aricept Discharge Diet: No Restrictions Discharge Activity: Return to Normal Activity Home Medications: Medications to take at Discharge Cholecalciferol (VIT D3) [Vitamin D3] 2,000 unit PO DAILY 06/26/14 Propranolol HCl [Inderal LA (Beta Leigh Ann)] 80 mg PO DAILY #30 cap.sa.24h 06/18/16 escitalopram 5 mg tablet 5 mg PO QDAY MDD t 02/14/18 galantamine 4 mg tablet 4 mg PO BID tab 02/14/18 multivitamin tablet 1 tab PO QDAY #30 tab 02/14/18 omega-3 fatty acids 1,000 mg capsule 1,000 mg PO TID #90 cap 02/14/18 Aspirin E.C. [Ecotrin] 81 mg PO DAILY 03/19/18 Donepezil HCl 5 mg PO DAILY 03/19/18 Amlodipine [Norvasc] 5 mg PO DAILY #30 tablet 04/01/18 Famotidine [Pepcid] 20 mg PO BID #14 tablet 04/01/18 Prednisone 20 mg PO BID #10 tablet 04/01/18 Following Prescrptions Were Given to Patient: Amlodipine [Norvasc] 5 mg PO DAILY #30 tablet Famotidine [Pepcid] 20 mg PO BID #14 tablet Prednisone 20 mg PO BID #10 tablet Primary Care Physician: Yang Washington Chi, MD [Primary Care Provider] - Please follow up with your Primary Care Physician in: IN 2-3 DAYS Disposition: Home Minutes spent on discharge:: 35 Medical Necessity - Tobacco Use Smoking Status: Never smoker Meaningful Use Info Meaningful Use Diagnoses (Choose all that apply): None applicable Code Visit OBSV E&M: 83126 Observation care discharge Patient Problems: Active and Suspected Problems Anaphylactic reaction (Acute) - Physical Exam General: Alert HEENT: Atraumatic Neck: No JVD Neurological: Neuro grossly intact Psych/Mental Status: Normal Affect Vital Signs Temp Pulse Resp BP Pulse Ox 98.3 F 76 16 153/89 H 98 04/01/18 03:22 04/01/18 03:22 04/01/18 03:22 04/01/18 03:22 04/01/18 03:22 Oxygen Flow Rate (L/min) 1 Oxygen Delivery Method Nasal Cannula Weight: 65 kg Body Mass Index (BMI) 24.5 Finger Stick Blood Glucose 114 Laboratory Tests Past 24 Hrs 04/01/18 04/01/18 06:05 06:05 WBC 8.2 RBC 4.65 Hgb 14.4 Hct 40.8 MCV 87.7 MCH 31.0 MCHC 35.3 RDW 13.5 RDW Differential 42.4 Plt Count 342 MPV 8.7 Immature Gran % (Auto) 0.500 Neut % (Auto) 91.0 H Lymph % (Auto) 7.4 L [place] % (Auto) 1.0 Eos % (Auto) 0.0 Baso % (Auto) 0.1 Absolute Neuts (auto) 7.4 Absolute Lymphs (auto) 0.60 L Total Counted Not Reportable Differential Comment COMMENT Sodium 130 L Potassium 4.5 Chloride 97 L Carbon Dioxide 24.0 Anion Gap 9 BUN 15 Creatinine 0.97 Estim Creat Clear Calc 40.61 Est GFR (MDRD) Af Amer 71 Est GFR (MDRD) Non-Af 59 L BUN/Creatinine Ratio 15.4 Glucose 164 H Calcium 8.2 L
[2018-04-01 09:51] VITALS: BP 133/68; PULSE 72; RESP 18; TEMP 36.5; O2SAT 99
[2018-04-01] MEDS: amLODIPine 5 MG Tablet PO (09:53)
[2018-04-01] MEDS: Famotidine 20 MG Tablet PO (09:53)
[2018-04-01] MEDS: Galantamine Hydrobromide 4 MG Tablet PO (09:54)
[2018-04-01] MEDS: Aspirin E.C. 81 MG Tablet PO (09:54)
[2018-04-01] MEDS: Escitalopram Oxalate 10 MG Tablet 5 MG PO (09:55)
[2018-04-01] MEDS: Donepezil HCl 5 MG Tablet PO (09:55)
[2018-04-01] MEDS: Multivitamins,Therapeutic Tablet 1 TABLET PO (09:55)
[2018-04-01] MEDS: Omega-3 Acid Ethyl Esters 1 GM Capsule PO (09:55)
[2018-04-01] MEDS: Propranolol LA 80 MG Capsule PO (09:56)
== END 2018-04-01 10:50 | disposition home or self-care (01) ==
LOC: ED 20:06 → MS2 20:37
PROVIDERS: Admitting Provider Family Medicine; Emergency Provider Emergency Medicine; Family Provider Family Medicine Geriatric Medicine; PCP Family Medicine Geriatric Medicine; Visit Provider Internal Medicine
DX: T88.6XXA Anaphylactic reaction due to adverse effect of correct drug or medicament properly administered, initial encounter (principal); T36.1X5A Adverse effect of cephalosporins and other beta-lactam antibiotics, initial encounter; I10 Essential (primary) hypertension; E78.5 Hyperlipidemia, unspecified; F03.90 Unspecified dementia, unspecified severity, without behavioral disturbance, psychotic disturbance, mood disturbance, and anxiety; Z79.899 Other long term (current) drug therapy; Z79.82 Long term (current) use of aspirin
CPT/HCPCS: 36415; 80048; 85025; 96365; 96375; 96376; 99218; 99283; J7030; A4216; G0378; J3490

== ENCOUNTER 2018-04-05 09:23 | Emergency (ER) | payer MEDICARE, OTHER, SELFPAY ==
[2018-04-05 09:23] VITALS: BP 188/83; PULSE 64; RESP 20; TEMP 36.9; O2SAT 97; BMI 25.9
[2018-04-05] MEDS: MethylPREDNISolone 125 MG/2 ML Vial IV (09:46)
--- NOTE | 2018-04-05 10:12 | ED.VISSUMM ---
- ER Visit Summary Date of Service: 04/05/18 Chief Complaint: [Allergic reaction] History of Present Illness: The patient is a 77 F [presents the emergency department complaint of allergic reaction that started around 8:30 AM. Patient states that she took a dose of doxycycline and Keflex about half an hour prior to her symptoms starting. Patient then follow-up itching and swelling of her lip. Patient is concerned because she was admitted to the hospital 5 days ago after having an anaphylactic reaction to Rocephin. Patient currently being treated for a wound on her left lower extremity sustained from a fall about 10 days ago. Patient was seen by her primary care physician who initially gave her the dose of Rocephin and prescribed Keflex and doxycycline. Patient was seen by her primary care physician yesterday who gave the patient the okay apparently to continue with the doxycycline and the Keflex. On arrival patient denies any difficulty breathing.] Physical Examination: [HEENT-PERRLA, EOMI. Cranial nerves II through XII grossly intact. TMs clear. Mucous membranes moist. No adenopathy. Patient does have some facial erythema noted. Patient does have some mild swelling of the left upper lip. No angioedema of the tongue noted or oropharynx. Cardiovascular-regular rate and rhythm without murmur or ectopy Lungs-clear to auscultation, chest wall stable without crepitus or subcu emphysema Abdomen-normoactive bowel sounds, soft, nontender, no rebound or rigidity, no peritoneal signs. Extremities-intact ?4, normal range of motion, normal pulses, atraumatic] Test Results: [None indicated] Emergency Department Course and Treatment: [Patient received Benadryl via EMS prior to arrival in the emergency department. Patient was given Solu-Medrol and Pepcid in the emergency department.] Treatment Plan: [Patient will be observed for 4 hours.] Patient will be started on prednisone for 3 days. Disposition: [Discharged home in stable condition.] Impression: Allergic reaction-suspect secondary to Keflex [] This note was generated with [employer] dictation software. It may contain incorrect words, spelling, and punctuation that were not noted in review of the chart prior to signing ED Disposition - Plan for ED Patient: Chief Complaint: Allergic Reaction Referrals: Yang Washington Chi, MD [Primary Care Provider] -
[2018-04-05 10:24] VITALS: BP 172/69; PULSE 56; RESP 16; O2SAT 98
[2018-04-05 11:33] VITALS: BP 169/75; PULSE 57; RESP 16; O2SAT 97
--- NOTE | 2018-04-05 13:21 | ED.DEP ---
ED Disposition - Plan for ED Patient: Chief Complaint: Allergic Reaction Instructions: ED Drug React Adverse Other Prescriptions: Prednisone [Deltasone] 20 mg PO BID #6 tab Referrals: Yang Washington Chi, MD [Primary Care Provider] - 3-5 Days Additional Instructions: Do not take Keflex or other Cephalosporin antibiotics.
[2018-04-05 13:32] VITALS: BP 141/83
== END 2018-04-05 13:32 | disposition home or self-care (01) ==
LOC: ED 09:54
PROVIDERS: Emergency Provider Emergency Medicine; Family Provider Family Medicine Geriatric Medicine; PCP Family Medicine Geriatric Medicine
DX: T88.6XXA Anaphylactic reaction due to adverse effect of correct drug or medicament properly administered, initial encounter (principal); T36.1X5A Adverse effect of cephalosporins and other beta-lactam antibiotics, initial encounter; Y92.9 Unspecified place or not applicable; I10 Essential (primary) hypertension
CPT/HCPCS: 99284; J7030; J3490

== ENCOUNTER → 2018-04-08 09:40 | Outpatient (CLI) | payer MEDICARE, OTHER, SELFPAY ==
--- NOTE | 2018-04-08 09:43 | NM_ITS ---
CLINICAL: 77-year-old female with apparent history of clinical gastroparesis. SEMI-SOLID PHASE 99m Tc SULFUR COLLOID GASTRIC EMPTYING STUDY COMPARISON: None available FINDINGS: The patient was administered 1.0 mCi of 99m Tc sulfur colloid mixed with oatmeal and consumed per os. Image acquisitions in the anterior-posterior projections for a total of 60 minutes. There is prompt visualization of the stomach. There is no gastroesophageal reflux identified. First order kinetics are maintained throughout the duration of the acquisitions. The T1/2 linear fit was calculated to be 58.53 minutes, (Normal: 12-56 minutes). NM/Gastric Emptying Study IMPRESSION: 1. MILDLY ABNORMAL 99m Tc sulfur colloid semi-solid phase (oatmeal) gastric emptying imaging examination. A. There is minimal delayed semi-solid phase gastric emptying compared to normal controls with maintained first order kinetics throughout all components of the examination. (Keyona et al, J Nucl Med Tech 38: 186, 2010). Electronically Signed: Trever Schultz DO at 23:09 EDT Tel , Service support ,
== END ==
PROVIDERS: Family Provider Family Medicine Geriatric Medicine; PCP Family Medicine Geriatric Medicine; Referring Provider Family Medicine Geriatric Medicine; Visit Provider Family Medicine Geriatric Medicine
DX: R11.0 Nausea (principal)
CPT/HCPCS: 78264; A9541

== ENCOUNTER 2018-04-25 14:51 | Emergency (ER) | payer MEDICARE, OTHER, SELFPAY ==
[2018-04-25 14:53] VITALS: BP 208/91; PULSE 60; RESP 14; TEMP 36.5; O2SAT 98; BMI 23.8
[2018-04-25 15:11] LABS: Bedside Glucose 109 mg/dL (70-110)
--- NOTE | 2018-04-25 15:13 | EKG12_ITS ---
Test Reason : Blood Pressure : / mmHG Vent. Rate : 061 BPM Atrial Rate : 061 BPM P-R Int : 166 ms QRS Dur : 098 ms QT Int : 432 ms P-R-T Axes : 013 -09 049 degrees QTc Int : 434 ms Normal sinus rhythm Nonspecific ST abnormality Abnormal ECG Confirmed by JOSE ROBERTO MERCHANT, KAITLIN ([id number]), state editor EBONY MEDLEY ([id number]) on 04/28/2018 12:23:10 PM Referred By: DEXTER Confirmed By:KAITLIN CID MD
--- NOTE | 2018-04-25 15:13 | CT_ITS ---
STUDY: CT BRAIN WITHOUT CONTRAST REASON FOR EXAM: Female, 77 years old. Confusion RADIATION DOSAGE (If Supplied By Facility): CTDIvol = ( 44.99 ) mGy, DLP = ( 745.49 ) mGycm TECHNIQUE: Transaxial CT imaging of the brain was performed without administration of intravenous contrast material. Individualized dose optimization techniques were used for this CT. COMPARISON: 10/12/2017 FINDINGS: There is no acute bleed or infarct. 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 There are stable chronic ischemic and atrophic changes. The ventricles are normal in configuration. There is no hydrocephalus. The visualized paranasal sinuses are clear. The mastoid air cells are well aerated. There is no skull fracture. CT/Brain/Head without Contrast IMPRESSION: Stable chronic ischemic and atrophic changes. 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 No acute intracranial abnormality. Electronically Signed: Ayad Tobias, at 16:15 EDT Tel , Service support ,
--- NOTE | 2018-04-25 15:15 | RAD_ITS ---
STUDY: X-RAY CHEST REASON FOR EXAM: Female, 77 years old. PT WITH INCREASED CONFUSION SINCE YESTERDAY. UNABLE TO FORM THOUGHTS. PT REPORTS TIREDNESS. HX OF DEMENTIA TECHNIQUE: Single AP portable view of the chest. # of Images: 1 COMPARISON: None. FINDINGS: The lungs are clear and expanded. There is no demonstrated pleural abnormality. Normal size heart. Normal mediastinum and janice. Normal visualized pulmonary arteries. There is atherosclerotic tortuosity of the aortic arch and descending thoracic aorta. There is a dextroscoliosis of the thoracic spine. There is degenerative osteoarthritis of the bilateral shoulders. There is no demonstrated abnormality of the visualized soft tissue structures of the upper abdomen. RAD/Chest 1 View (Portable) IMPRESSION: Degenerative changes, as described above. No demonstrated acute cardiopulmonary process. Electronically Signed: Cedric Lewis MD at 15:29 EDT Tel , Service support ,
--- NOTE | 2018-04-25 15:16 | ED.DCSUM_ITS ---
- ER Visit Summary Date of Service: 04/25/18 Chief Complaint: Confusion History of Present Illness: The patient is a 77 F presenting with fatigue and confusion. Patient states she woke up this morning and felt generally weak. She had trouble finding her blood pressure cuff which is unusual for her. She h as a history of dementia. Denies speech or vision changes. Denies weakness or numbness. Denies chest pain or shortness of breath. Denies fever. Denies abdominal pain, nausea, vomiting. Denies other complaints. Physical Examination: Vitals are stable. Patient is afebrile. Alert no acute distress. HEENT exam is unremarkable. Neck is supple. Lungs are clear and equal bilaterally. Heart is regular rate and rhythm. Abdomen is soft nontender nondistended. Extremities are unremarkable. Skin is warm and dry. No focal neurologic deficit. NIH 0 Remainder of exam is unremarkable. Emergency Department Course and Treatment: EKG is sinus rate of 61 with no acute ischemic changes. Chest x-ray shows no acute process. CT head shows chronic changes. CBC, chemistries unremarkable other than sodium 128. This is near her baseline. Troponin is negative. Urinalysis unremarkable. Patient and are comfortable with discharge home. She will follow-up with Dr. Washington. Advised return to ED if worsening complaints. Disposition: Discharge home Impression: Confusion, history of dementia This note was generated with [employer] dictation software. It may contain incorrect words, spelling, and punctuation that were not noted in review of the chart prior to signing ED Disposition - Plan for ED Patient: Chief Complaint: Confusion Instructions: ED Dementia Alzheimer Referrals: Yang Washington Chi, MD [Primary Care Provider] -
[2018-04-25 15:29] LABS: Absolute Lymphocyte Count 1.12 X10^3/ul (0.83-4.51); Absolute Neutrophil Count 4.6 X10^3/uL (2.0-7.7); Basophil# 0.03 X10^3/uL; Basophil% 0.4 % (0-1); Eosinophil# 0.16 X10^3/uL; Eosinophils% 2.4 % (0-5); Hematocrit 38.8 % (37-47); Lymphocyte # 1.12 X10^3/ul (4.0); Lymphocyte % 16.8 % (19-41); Mean Corp Hgb Conc 33.5 g/gl (32-36); Mean Corpuscular Hgb 30.2 pg (27.0-32.0); Mean Platelet Vol. 8.5 fl (6.2-12.0); Monocyte# 0.69 X10^3/uL; Monocyte% 10.3 % (0-10); Neutrophil # 4.63 X10^3/uL (2.7-7.7); Neutrophil % 69.5 % (47-70); Platelet Count 300 K/mm3 (150-450); RBC Distribution Width CV 13.6 % (11.6-14.6); RBC Distribution Width SD 45.1 fl (35.1-43.9); Red Blood Count 4.31 M/mm3 (4.2-5.4); White Blood Count 6.7 K/mm3 (4.4-11.0)
[2018-04-25 15:30] LABS: POSITIVE COUNT NO; POSITIVE DIFFERENTIAL NO; POSITIVE MORPHOLOGY NO
[2018-04-25 15:42] LABS: Anion Gap 8 (5-15); BUN 13 mg/dL (7-18); BUN/Creat Ratio 15.7 RATIO (10-20); Calcium,Total 8.3 mg/dL (8.5-10.1); Chloride 93 mmol/L (98-107); Creatinine, Serum 0.83 mg/dL (0.55-1.02); EST Glomerular Filtration Rate 70 mL/min (>60); Est Glom Filt Rate - Afr Amer 85 mL/min (>60); Estimated Creatinine Clearance 51.45 ml/min; Glucose 95 mg/dL (74-106); Potassium 3.9 mmol/L (3.5-5.1); Sodium Level 128 mmol/L (136-145)
[2018-04-25 16:21] VITALS: BP 157/75; PULSE 60; RESP 14; O2SAT 97
[2018-04-25 16:52] LABS: Bacteria 0 SEEN /hpf (None Seen); Mucous, Urine 0 SEEN /hpf (<or=2+); Red Blood Cells-Urine 0 SEEN /hpf (0-5); Squamous Epithelial Cells - UA 0 SEEN /hpf (5-10); White Blood Cells 0 SEEN /hpf (0-5)
[2018-04-25 16:53] LABS: Color, Urine Yellow (Yellow); Glucose, Dipstick Normal (Normal); Ketone-Dipstick 5 mg/dl (Negative); Leukocyte Esterase-Dipstick Negative /ul (Negative); Nitrite-Dipstick Negative (Negative); Occult Blood-Urine Negative /ul (Negative); Protein-Dipstick Negative (Negative); Urine Bilirubin Dipstick Negative (Negative); Urine Clarity Clear (Clear); Urine Urobilinogen Normal (Normal)
[2018-04-25 17:05] VITALS: PULSE 58; RESP 15; O2SAT 94
--- NOTE | 2018-04-25 18:07 | ED.DEP ---
ED Disposition - Plan for ED Patient: Chief Complaint: Confusion Instructions: ED Dementia Alzheimer Referrals: Yang Washington Chi, MD [Primary Care Provider] -
[2018-04-25 18:23] VITALS: BP 163/78; PULSE 63; RESP 18; O2SAT 95
--- NOTE | 2018-04-25 18:24 | ED.RN ---
REVIEWED D/C INSTRUCTIONS, FOLLOW UP CARE, AND S/S THAT WOULD WARRANT A RETURN TO THE ED WITH PT AND PT'S . BOTH VERBALIZED AN UNDERSTANDING. PT AND VERBALIZED FRUSTRATION WITH HOW LONG THEY HAVE BEEN WAITING FOR RESULTS. REASSURED PT. PT SKIN P/W/D, RESP EVEN AND UNLABORED, NO DISTRESS NOTED. PT AMBULATED OUT OF ED, GAIT STEADY.
== END 2018-04-25 18:28 | disposition home or self-care (01) ==
PROVIDERS: Emergency Provider Emergency Medicine; Family Provider Family Medicine Geriatric Medicine; PCP Family Medicine Geriatric Medicine
DX: R41.0 Disorientation, unspecified (principal); Z79.899 Other long term (current) drug therapy
CPT/HCPCS: 70450; 71045; 80048; 81001; 82962; 84484; 85025; 93005; 99284; A4216

== ENCOUNTER → 2018-05-08 15:39 | Outpatient (CLI) | payer MEDICARE, OTHER, SELFPAY ==
[2018-05-08 16:44] LABS: Absolute Lymphocyte Count 1.43 X10^3/ul (0.83-4.51); Absolute Neutrophil Count 4.6 X10^3/uL (2.0-7.7); Basophil# 0.04 X10^3/uL; Basophil% 0.6 % (0-1); Eosinophil# 0.04 X10^3/uL; Eosinophils% 0.6 % (0-5); Hematocrit 40.2 % (37-47); Hemoglobin 13.9 g/dl (12.0-15.0); Lymphocyte # 1.43 X10^3/ul (4.0); Lymphocyte % 20.8 % (19-41); Mean Corp Hgb Conc 34.6 g/gl (32-36); Mean Corpuscular Hgb 31.2 pg (27.0-32.0); Mean Corpuscular Volume 90.1 fL (81-99); Mean Platelet Vol. 8.7 fl (6.2-12.0); Monocyte# 0.73 X10^3/uL; Monocyte% 10.6 % (0-10); Neutrophil # 4.58 X10^3/uL (2.7-7.7); Neutrophil % 66.7 % (47-70); Platelet Count 399 K/mm3 (150-450); RBC Distribution Width CV 13.4 % (11.6-14.6); RBC Distribution Width SD 43.6 fl (35.1-43.9); Red Blood Count 4.46 M/mm3 (4.2-5.4); White Blood Count 6.9 K/mm3 (4.4-11.0)
[2018-05-08 16:47] LABS: POSITIVE COUNT NO; POSITIVE DIFFERENTIAL NO; POSITIVE MORPHOLOGY NO
[2018-05-08 17:13] LABS: BUN 10 mg/dL (7-18); Creatinine, Serum 0.82 mg/dL (0.55-1.02); Glucose 103 mg/dL (74-106)
[2018-05-08 17:14] LABS: AST(SGOT) 28 U/L (15-37); Alanine Aminotransfer ALT/SGPT 28 U/L (13-56); Albumin, Serum 3.5 g/dL (3.2-5.0); Alkaline Phosphatase 92 U/L (45-117); Anion Gap 10 (5-15); BUN/Creat Ratio 12.2 RATIO (10-20); Calcium,Total 8.7 mg/dL (8.5-10.1); Chloride 97 mmol/L (98-107); EST Glomerular Filtration Rate 71 mL/min (>60); Est Glom Filt Rate - Afr Amer 86 mL/min (>60); Globulin 3.6 g/dL (2.2-4.2); Potassium 4.2 mmol/L (3.5-5.1); Protein, Total 7.1 g/dL (6.4-8.2); Sodium Level 133 mmol/L (136-145); Thyroid Stim Hormone (TSH) 1.03 uIU/mL (0.358-3.74)
== END ==
PROVIDERS: Family Provider Family Medicine Geriatric Medicine; PCP Family Medicine Geriatric Medicine; Visit Provider Family Medicine Geriatric Medicine
DX: R10.9 Unspecified abdominal pain (principal); R53.83 Other fatigue; N39.0 Urinary tract infection, site not specified
CPT/HCPCS: 36415; 80053; 84443; 85025; 87086; 87088

== ENCOUNTER → 2018-05-14 13:51 | Outpatient (CLI) | payer MEDICARE, OTHER, SELFPAY ==
[2018-05-14 16:35] LABS: Anion Gap 10 (5-15); BUN 11 mg/dL (7-18); BUN/Creat Ratio 12.5 RATIO (10-20); Chloride 100 mmol/L (98-107); Creatinine, Serum 0.88 mg/dL (0.55-1.02); EST Glomerular Filtration Rate 66 mL/min (>60); Est Glom Filt Rate - Afr Amer 80 mL/min (>60); Glucose 115 mg/dL (74-106); Potassium 3.6 mmol/L (3.5-5.1); Sodium Level 136 mmol/L (136-145)
== END ==
PROVIDERS: Family Provider Family Medicine Geriatric Medicine; PCP Family Medicine Geriatric Medicine; Visit Provider Internal Medicine Nephrology
DX: I10 Essential (primary) hypertension (principal)
CPT/HCPCS: 36415; 80048

== ENCOUNTER → 2018-05-15 11:31 | Outpatient (CLI) | payer MEDICARE, OTHER, SELFPAY ==
[2018-05-15 12:54] LABS: Urine Sodium 17 mmol/L (Not Establ.)
[2018-05-15 13:02] LABS: Osmolality, Urine 545 mOsm/KG
== END ==
PROVIDERS: Family Provider Family Medicine Geriatric Medicine; PCP Family Medicine Geriatric Medicine; Visit Provider Internal Medicine Nephrology
DX: E87.1 Hypo-osmolality and hyponatremia (principal)
CPT/HCPCS: 83935; 84300

== ENCOUNTER 2018-05-27 11:45 | Emergency (ER) | payer MEDICARE, OTHER, SELFPAY ==
[2018-05-27 11:46] VITALS: BP 166/98; PULSE 109; RESP 16; TEMP 36.7; O2SAT 98; BMI 21.9
[2018-05-27] MEDS: LORazepam 0.5 MG Tablet PO (12:54)
[2018-05-27 12:56] LABS: Bacteria 0 SEEN /hpf (None Seen); Mucous, Urine 0 SEEN /hpf (<or=2+); Red Blood Cells-Urine 0 SEEN /hpf (0-5); Squamous Epithelial Cells - UA 0 SEEN /hpf (5-10); White Blood Cells 0 SEEN /hpf (0-5)
[2018-05-27 13:08] LABS: Color, Urine Yellow (Yellow); Glucose, Dipstick Normal (Normal); Ketone-Dipstick Negative (Negative); Leukocyte Esterase-Dipstick 25 /ul (Negative); Nitrite-Dipstick Negative (Negative); Occult Blood-Urine Negative /ul (Negative); Protein-Dipstick Negative (Negative); Urine Bilirubin Dipstick Negative (Negative); Urine Clarity Cloudy (Clear); Urine Urobilinogen Normal (Normal)
[2018-05-27 13:09] LABS: Absolute Lymphocyte Count 1.32 X10^3/ul (0.83-4.51); Absolute Neutrophil Count 6.6 X10^3/uL (2.0-7.7); Basophil# 0.02 X10^3/uL; Basophil% 0.2 % (0-1); Eosinophil# 0.02 X10^3/uL; Eosinophils% 0.2 % (0-5); Hematocrit 42.5 % (37-47); Hemoglobin 14.4 g/dl (12.0-15.0); Lymphocyte # 1.32 X10^3/ul (4.0); Lymphocyte % 15.3 % (19-41); Mean Corp Hgb Conc 33.9 g/gl (32-36); Mean Corpuscular Hgb 30.2 pg (27.0-32.0); Mean Corpuscular Volume 89.1 fL (81-99); Mean Platelet Vol. 8.6 fl (6.2-12.0); Monocyte# 0.68 X10^3/uL; Monocyte% 7.9 % (0-10); Neutrophil # 6.57 X10^3/uL (2.7-7.7); Neutrophil % 75.9 % (47-70); Platelet Count 355 K/mm3 (150-450); RBC Distribution Width CV 13.4 % (11.6-14.6); RBC Distribution Width SD 43.3 fl (35.1-43.9); Red Blood Count 4.77 M/mm3 (4.2-5.4); White Blood Count 8.7 K/mm3 (4.4-11.0)
[2018-05-27 13:10] LABS: Anion Gap 6 (5-15); BUN 9 mg/dL (7-18); BUN/Creat Ratio 11.2 RATIO (10-20); Calcium,Total 8.7 mg/dL (8.5-10.1); Chloride 101 mmol/L (98-107); EST Glomerular Filtration Rate 73 mL/min (>60); Est Glom Filt Rate - Afr Amer 88 mL/min (>60); Estimated Creatinine Clearance 51.31 ml/min; Glucose 102 mg/dL (74-106); Potassium 3.6 mmol/L (3.5-5.1); Sodium Level 134 mmol/L (136-145)
[2018-05-27 13:13] LABS: POSITIVE COUNT NO; POSITIVE DIFFERENTIAL NO; POSITIVE MORPHOLOGY NO
[2018-05-27 13:20] LABS: Amorphous Sediment 2+
--- NOTE | 2018-05-27 13:53 | ED.VISSUMM ---
- ER Visit Summary Date of Service: 05/27/18 Chief Complaint: Anxiety History of Present Illness: The patient is a 77 F here for evaluation Natasha with significant other. Patient history of dementia states has anxiety in the mornings. Been going on for the past couple years. Been having symptoms past few hours per significant other. Has seen PCP Dr. Washington, significant other states medications have been changed from her dementia status. Taken off her blood pressure medicines. She started on Celexa a week ago. Reports that by afternoon her symptoms would calm down. She denies any suicidal homicidal regions. Denies any upper respiratory symptoms. No nausea or vomiting. No urinary symptoms. She would have tremors in her upper extremities. Physical Examination: General: Alert and oriented, no acute distress HEENT: Normocephalic, atraumatic. Moist mucosa membranes Neck: supple, nontender. Cardiovascular: Regular rate and rhythm, no murmurs Respiratory: Normal breath sounds, symmetric, no distress Abdomen: Soft, nontender, nondistended Extremities: Nontender, no edema, pulses intact ?4 Neuro: no focal neurological deficits. Psych: No suicidal homicidal ideation. Admits to anxiety. Test Results: White count 8.7 hemoglobin 14.4. Platelets 355. potassium 3.6. Creatinine 0.8 Urine 25 leukocytes. No other findings. Emergency Department Course and Treatment: Patient admits to anxiety with out suicidal homicidal ideations. With their concerns for symptoms come the ED and have an ongoing symptoms for last couple years. She was treated with Ativan 0.5 p.o. in the ED. secondary to age, she was monitored, there is no immediate side effects. I did check labs, stable. Reevaluation improving symptoms. Discussed with patient's mother will write for 10 tabs to use in the morning as needed. She will follow-up with PCP for reevaluation for further management. Treatment Plan: [] Disposition: Discharge Impression: Anxiety This note was generated with [employer] dictation software. It may contain incorrect words, spelling, and punctuation that were not noted in review of the chart prior to signing ED Disposition - Plan for ED Patient: Disposition: Home or Assisted Living Chief Complaint: General Illness Diagnosis: Anxiety Instructions: Understanding Anxiety Disorders, Treating Anxiety Disorders with Medication Prescriptions: Lorazepam [Ativan] 0.5 mg PO DAILY PRN #10 tablet PRN Reason: Anxiety Referrals: Yang Washington Chi, MD [Primary Care Provider] - 3-5 Days
[2018-05-27 14:27] VITALS: BP 195/101; BP 195/105; PULSE 74; RESP 14; RESP 18
--- NOTE | 2018-05-27 14:29 | ED.RN ---
pt instructed to follow up with dr clinton about being placed back on blood pressure medications.
== END 2018-05-27 14:30 | disposition home or self-care (01) ==
PROVIDERS: Emergency Provider Emergency Medicine; Family Provider Family Medicine Geriatric Medicine; PCP Family Medicine Geriatric Medicine
DX: F41.9 Anxiety disorder, unspecified (principal); F03.90 Unspecified dementia, unspecified severity, without behavioral disturbance, psychotic disturbance, mood disturbance, and anxiety; I10 Essential (primary) hypertension; R25.1 Tremor, unspecified
CPT/HCPCS: 80048; 81001; 85025; 99283; A4216

== ENCOUNTER 2018-06-09 17:29 | Inpatient (IN) | payer MEDICARE, OTHER, SELFPAY ==
[2018-06-09 17:31] VITALS: BP 144/102; PULSE 87; RESP 16; TEMP 36.1; O2SAT 97; BMI 20.7
[2018-06-09 21:20] LABS: Absolute Lymphocyte Count 1.65 X10^3/ul (0.83-4.51); Absolute Neutrophil Count 4.5 X10^3/uL (2.0-7.7); Basophil# 0.02 X10^3/uL; Basophil% 0.3 % (0-1); Eosinophil# 0.05 X10^3/uL; Eosinophils% 0.7 % (0-5); Hematocrit 38.6 % (37-47); Hemoglobin 13.3 g/dl (12.0-15.0); Lymphocyte # 1.65 X10^3/ul (4.0); Lymphocyte % 24.6 % (19-41); Mean Corp Hgb Conc 34.5 g/gl (32-36); Mean Corpuscular Hgb 30.3 pg (27.0-32.0); Mean Corpuscular Volume 87.9 fL (81-99); Mean Platelet Vol. 8.4 fl (6.2-12.0); Monocyte# 0.48 X10^3/uL; Monocyte% 7.1 % (0-10); POSITIVE COUNT NO; POSITIVE DIFFERENTIAL NO; POSITIVE MORPHOLOGY NO; Platelet Count 291 K/mm3 (150-450); RBC Distribution Width CV 13.3 % (11.6-14.6); RBC Distribution Width SD 42.9 fl (35.1-43.9); Red Blood Count 4.39 M/mm3 (4.2-5.4); White Blood Count 6.7 K/mm3 (4.4-11.0)
[2018-06-09 21:26] LABS: Bacteria 0 SEEN /hpf (None Seen); Mucous, Urine 0 SEEN /hpf (<or=2+); Red Blood Cells-Urine 0 SEEN /hpf (0-5)
[2018-06-09 21:28] VITALS: RESP 14
[2018-06-09 21:37] LABS: Anion Gap 11 (5-15); BUN 8 mg/dL (7-18); BUN/Creat Ratio 10.1 RATIO (10-20); Calcium,Total 8.8 mg/dL (8.5-10.1); Chloride 99 mmol/L (98-107); EST Glomerular Filtration Rate 74 mL/min (>60); Est Glom Filt Rate - Afr Amer 89 mL/min (>60); Estimated Creatinine Clearance 51.04 ml/min; Glucose 96 mg/dL (74-106); Sodium Level 136 mmol/L (136-145)
[2018-06-09 21:45] LABS: Color, Urine Yellow (Yellow); Glucose, Dipstick Normal (Normal); Ketone-Dipstick 5 mg/dl (Negative); Leukocyte Esterase-Dipstick 25 /ul (Negative); Nitrite-Dipstick Negative (Negative); Occult Blood-Urine Negative /ul (Negative); Protein-Dipstick Negative (Negative); Specific Gravity, Urine 1.015 (1.002-1.030); Urine Bilirubin Dipstick Negative (Negative); Urine Clarity Clear (Clear); Urine Urobilinogen Normal (Normal)
[2018-06-09 21:46] LABS: Squamous Epithelial Cells - UA 0-5 SEEN /hpf (5-10); White Blood Cells 0-5 SEEN /hpf (0-5)
--- NOTE | 2018-06-09 22:00 | ED.DCSUM_ITS ---
- ER Visit Summary Date of Service: 06/09/18 Chief Complaint: Increased confusion and inability to care for self History of Present Illness: The patient is a 77 F who has history of dementia, hypertension, hypercholesterolemia and cardiomyopathy who was brought to the ER because she is unable to care for herself. Daughter and friend of 25 years concerned that she is no longer able to care for self. She is unable to dress herself nor make her meals. She is more forgetful according the daughter. She complains of abdominal pain and is under duress upon awakening. Symptoms improve as the day goes on. She has been seen numerous times by her PCP, Dr. Washington with no determine cause. Daughter states she was prescribed multiple medicines which has since been discontinued. Her only complaint is abdominal pain in the morning. Daughter is concerned regarding depression anxiety secondary dementia. Past medical history dementia, hypertension, hypercholesteremia and cardiomyopathy. Past surgical history cholecystectomy, hysterectomy and tonsillectomy. Physical Examination: Vital signs noted. Blood pressure is elevated 144 102. She is not febrile nor she hypoxic. She appears pale. Head is atraumatic normocephalic. Pupils are equal round reactive. Extraocular muscles are intact. TMs are pearly white with landmarks noted. Nares patent with no drainage. Posterior pharynx without erythema or exudate. Uvula is midline. There is no dysphonia or dysphasia. Trachea is midline. There is no stridor with auscultation of the neck. Heart is regular without murmur, gallop or rub. S1 and S2 are normal. Lungs are clear to auscultation with good movement of air bilaterally. Abdomen is soft nontender bowel sounds are present normal. She is alert but is not oriented. Motor sensory intact. DTRs symmetric. Cranial 2 through 12 intact. Test Results: CBC is unremarkable. Basic metabolic panel reveals a potassium of 3.0. UA is unremarkable. Patient had a CAT scan in April which was unremarkable. Emergency Department Course and Treatment: Will look for metabolic infectious causes otherwise patient will need 20-hour observation with consult to case management for discharge planning since patient is not able to care for herself nor is she is safe at home. Treatment Plan: Case management to assist with discharge planning and correction placement Disposition: 23 hours observation medical/surgical unit Impression: 1. Worsening dementia 2. Depression anxiety not suicidal 3. History of hypertension 4. History hypercholesterolemia This note was generated with Dragon dictation software. It may contain incorrect words, spelling, and punctuation that were not noted in review of the chart prior to signing ED Disposition - Plan for ED Patient: Chief Complaint: Confusion Referrals: Yang Washington Chi, MD [Primary Care Provider] -
--- NOTE | 2018-06-09 22:18 | PCM.HP.STD ---
Problem List (1) History of cholecystectomy Status: Resolved (2) History of tonsillectomy Status: Resolved (3) H/O: hysterectomy Status: Resolved (4) Non-rheumatic tricuspid valve insufficiency Status: Chronic (5) Hyperlipidemia Status: Chronic Qualifiers: (6) Cardiomyopathy Status: Chronic Qualifiers: (7) HTN (hypertension) Status: Chronic Qualifiers: (8) Dementia Status: Acute Qualifiers: Dementia type: unspecified type History of Present Illness Date of Admission: 06/09/18 Chief Complaint: unable to care for herself The patient is a 77 year old female patient with a history of progressive dementia presents to the ER with confusion. She lives alone at this time and has a male freight and passenger agent and daughter (durable power of telephone service representative) who are prsnt during my evaluation. Patient is a poor historian. Others report her having morning abdominal complaint that seems to relent as the day progresses. She has been seen several times by her PCP but underlying cause of abdominal discomfort in AM is undetermined. Medications have been changed but confusion has progressed. Potassium is noted to be low at admission. The patient is a risk to herself and will be admitted for observation for her safety. Past Medical History Past Medical History (Chronic Problems): Chronic Problems Non-rheumatic tricuspid valve insufficiency (Chronic) Nonrheumatic aortic valve insufficiency (Chronic) Nonrheumatic mitral valve insufficiency (Chronic) Hyperlipidemia (Chronic) Cardiomyopathy (Chronic) Confusion (Chronic) HTN (hypertension) (Chronic) Medical History: Medical History H/O: hysterectomy (Resolved) Z90.710 Hyperlipidemia (Chronic) E78.5 Cardiomyopathy (Chronic) I42.9 HTN (hypertension) (Chronic) I10 Allergies ceftriaxone [From Rocephin] Allergy (Verified 06/09/18 21:33) Anaphylaxis cephalexin [From Keflex] Allergy (Verified 06/09/18 21:33) Angioedema doxycycline Allergy (Verified 06/09/18 21:33) Angioedema sulfamethoxazole [From Bactrim] Allergy (Verified 06/09/18 21:33) Hives trimethoprim [From Bactrim] Allergy (Verified 06/09/18 21:33) Hives Home Medications: Ambulatory Orders Medication Instructions Recorded Aspirin E.C. [Ecotrin] 81 mg PO DAILY 03/19/18 Escitalopram Oxalate [Lexapro] 10 mg PO DAILY 05/27/18 Oxybutynin [Ditropan] 5 mg PO TID 05/27/18 Memantine HCl 5 mg PO DAILY 06/09/18 Surgical History: Surgical History (Last Updated 02/14/18 @ 10:06 by Amanda Peoples) History of cholecystectomy (Resolved) Z90.49 History of tonsillectomy (Resolved) Z90.89 Surgical History: cholecystectomy, tonsillectomy Psychiatric History: Anxiety NUCLEAR MEDICAL TECH History: No pertinent NUCLEAR MEDICAL TECH history Smoking Status: Never smoker - *Family History Paternal Family History: Family History (Last Updated 02/14/18 @ 10:05 by Amanda Peoples) Father CAD (coronary artery disease) Hypertension Mother Hypertension Sister Hypertension CAD (coronary artery disease) History Items: No pertinent history Maternal Family History: Family History (Last Updated 02/14/18 @ 10:05 by Amanda Peoples) Father CAD (coronary artery disease) Hypertension Mother Hypertension Sister Hypertension CAD (coronary artery disease) History Items: No pertinent history Review of Systems Constitutional: Denies: Chills, Fever, Weight Change HEENT: Denies: Head Aches, Sinus Congestion, Sinus Drainage Cardiovascular: Denies: Chest Pain, Palpitations Respiratory: Denies: Cough, Shortness of breath at rest, Sputum production Gastrointestinal: Reports: Abdominal Pain. Denies: Nausea, Vomiting Genitourinary: Denies: Dysuria Musculoskeletal: Denies: Joint Pain, Joint Tenderness Skin: Denies: Rash, Wounds Neurological: Reports: Confusion, - - alert to name but disoriented to time, she was vaguely able to answer the location. She has difficulty answering questions. She has a resting essential tremor. Denies: Focal weakness, Numbness, Tingling Psychiatric: Denies: Anxiety, Depression, Homicidal Ideations, Suicidal Ideations Hematologic/ Lymphatic: Denies: Easy Bruising, Easy Bleeding VTE Information - Inpt Only VTE Present on Admission: No VTE Mechan Device Prophylaxis: None VTE Pharm Prophylaxis ordered?: Yes Patient Problems: Active and Suspected Problems Dementia (Acute) - Physical Exam General: Alert, Cooperative, Confused, Disoriented, - HEENT: Atraumatic, Normocephalic Neck: Supple Lungs: Clear to auscultation, Normal air movement Cardiovascular: Regular rate, Regular Rhythm, Normal S1, Normal S2, No murmurs Abdomen: Bowel Sounds Present, Soft, Non Tender Extremities: No edema, Capillary Refill Less than 3 Seconds Skin: No rashes Musculoskeletal: No Tenderness to Palpation of Joints or Extremities Neurological: Neuro grossly intact, - - essential tremor present--slow to respond to questions Psych/Mental Status: Anxious Vital Signs Temp Pulse Resp BP Pulse Ox 96.9 F L 87 14 144/102 H 97 06/09/18 17:31 18 17:31 06/09/18 21:28 06/09/18 17:31 06/09/18 17:31 Oxygen Delivery Method Room Air Weight: 125 lb Body Mass Index (BMI) 20.7 Finger Stick Blood Glucose 109 Laboratory Tests Past 24 Hrs 06/09/18 06/09/18 06/09/18 21:05 21:05 21:20 WBC 6.7 RBC 4.39 Hgb 13.3 Hct 38.6 MCV 87.9 MCH 30.3 MCHC 34.5 RDW 13.3 RDW Differential 42.9 Plt Count 291 MPV 8.4 Immature Gran % (Auto) 0.300 Neut % (Auto) 67.0 Lymph % (Auto) 24.6 Lane % (Auto) 7.1 Eos % (Auto) 0.7 Baso % (Auto) 0.3 Absolute Neuts (auto) 4.5 Absolute Lymphs (auto) 1.65 Total Counted Not Reportable Sodium 136 Potassium 3.0 L Chloride 99 Carbon Dioxide 26.0 Anion Gap 11 BUN 8 Creatinine 0.80 Estim Creat Clear Calc 51.04 Est GFR (MDRD) Af Amer 89 Est GFR (MDRD) Non-Af 74 BUN/Creatinine Ratio 10.1 Glucose 96 Calcium 8.8 Urine Color Yellow Urine Clarity Clear Urine pH 8.0 Ur Specific [place] 1.015 Urine Protein Negative Urine Glucose (UA) Normal Urine Ketones 5 H Urine Occult Blood Negative Urine Nitrite Negative Urine Bilirubin Negative Urine Urobilinogen Normal Ur Leukocyte Esterase 25 H Urine RBC 0 SEEN Urine WBC 0-5 SEEN Ur Squamous Epith Cells 0-5 SEEN Urine Bacteria 0 SEEN Urine Mucus 0 SEEN Assessment/Plan All Active Problems Anaphylactic reaction (Acute) Dementia (Acute) History of cholecystectomy (Resolved) History of tonsillectomy (Resolved) H/O: hysterectomy (Resolved) Assessment - Risk to self , unable to live alone safely due to Dementia - patient is disoriented Plan - admit to general medical floor for observation - consult case management for DC plan in am - continue routine home medications - full code at this time - replace potassium - regular diet - fall precautions - replace potassium and check bmp in am Code Visit OBSV E&M: [id number] Initial observation care L2
--- NOTE | 2018-06-09 22:23 | HP.PCM_ITS ---
Problem List (1) History of cholecystectomy Status: Resolved (2) History of tonsillectomy Status: Resolved (3) H/O: hysterectomy Status: Resolved (4) Non-rheumatic tricuspid valve insufficiency Status: Chronic (5) Hyperlipidemia Status: Chronic Qualifiers: (6) Cardiomyopathy Status: Chronic Qualifiers: (7) HTN (hypertension) Status: Chronic Qualifiers: (8) Dementia Status: Acute Qualifiers: Dementia type: unspecified type History of Present Illness Date of Admission: 06/09/18 Chief Complaint: unable to care for herself The patient is a 77 year old female patient with a history of progressive dementia presents to the ER with confusion. She lives alone at this time and has a male entry level manufacturing engineer and daughter (durable power of claims attorney) who are prsnt during my evaluation. Patient is a poor historian. Others report her having morning abdominal complaint that seems to relent as the day progresses. She has been seen several times by her PCP but underlying cause of abdominal discomfort in AM is undetermined. Medications have been changed but confusion has progressed. Potassium is noted to be low at admission. The patient is a risk to herself and will be admitted for observation for her safety. Past Medical History Past Medical History (Chronic Problems): Chronic Problems Non-rheumatic tricuspid valve insufficiency (Chronic) Nonrheumatic aortic valve insufficiency (Chronic) Nonrheumatic mitral valve insufficiency (Chronic) Hyperlipidemia (Chronic) Cardiomyopathy (Chronic) Confusion (Chronic) HTN (hypertension) (Chronic) Medical History: Medical History H/O: hysterectomy (Resolved) Z90.710 Hyperlipidemia (Chronic) E78.5 Cardiomyopathy (Chronic) I42.9 HTN (hypertension) (Chronic) I10 Allergies ceftriaxone [From Rocephin] Allergy (Verified 06/09/18 21:33) Anaphylaxis cephalexin [From Keflex] Allergy (Verified 06/09/18 21:33) Angioedema doxycycline Allergy (Verified 06/09/18 21:33) Angioedema sulfamethoxazole [From Bactrim] Allergy (Verified 06/09/18 21:33) Hives trimethoprim [From Bactrim] Allergy (Verified 06/09/18 21:33) Hives Home Medications: Ambulatory Orders Medication Instructions Recorded Aspirin E.C. [Ecotrin] 81 mg PO DAILY 03/19/18 Escitalopram Oxalate [Lexapro] 10 mg PO DAILY 05/27/18 Oxybutynin [Ditropan] 5 mg PO TID 05/27/18 Memantine HCl 5 mg PO DAILY 06/09/18 Surgical History: Surgical History (Last Updated 02/14/18 @ 10:06 by Amanda Peoples) History of cholecystectomy (Resolved) Z90.49 History of tonsillectomy (Resolved) Z90.89 Surgical History: cholecystectomy, tonsillectomy Psychiatric History: Anxiety CULTURE MANAGER History: No pertinent CULTURE MANAGER history Smoking Status: Never smoker - *Family History Paternal Family History: Family History (Last Updated 02/14/18 @ 10:05 by Amanda Peoples) Father CAD (coronary artery disease) Hypertension Mother Hypertension Sister Hypertension CAD (coronary artery disease) History Items: No pertinent history Maternal Family History: Family History (Last Updated 02/14/18 @ 10:05 by Amanda Peoples) Father CAD (coronary artery disease) Hypertension Mother Hypertension Sister Hypertension CAD (coronary artery disease) History Items: No pertinent history Review of Systems Constitutional: Denies: Chills, Fever, Weight Change HEENT: Denies: Head Aches, Sinus Congestion, Sinus Drainage Cardiovascular: Denies: Chest Pain, Palpitations Respiratory: Denies: Cough, Shortness of breath at rest, Sputum production Gastrointestinal: Reports: Abdominal Pain. Denies: Nausea, Vomiting Genitourinary: Denies: Dysuria Musculoskeletal: Denies: Joint Pain, Joint Tenderness Skin: Denies: Rash, Wounds Neurological: Reports: Confusion, - - alert to name but disoriented to time, she was vaguely able to answer the location. She has difficulty answering questions. She has a resting essential tremor. Denies: Focal weakness, Numbness, Tingling Psychiatric: Denies: Anxiety, Depression, Homicidal Ideations, Suicidal Ideations Hematologic/ Lymphatic: Denies: Easy Bruising, Easy Bleeding VTE Information - Inpt Only VTE Present on Admission: No VTE Mechan Device Prophylaxis: None VTE Pharm Prophylaxis ordered?: Yes Patient Problems: Active and Suspected Problems Dementia (Acute) - Physical Exam General: Alert, Cooperative, Confused, Disoriented, - HEENT: Atraumatic, Normocephalic Neck: Supple Lungs: Clear to auscultation, Normal air movement Cardiovascular: Regular rate, Regular Rhythm, Normal S1, Normal S2, No murmurs Abdomen: Bowel Sounds Present, Soft, Non Tender Extremities: No edema, Capillary Refill Less than 3 Seconds Skin: No rashes Musculoskeletal: No Tenderness to Palpation of Joints or Extremities Neurological: Neuro grossly intact, - - essential tremor present--slow to respond to questions Psych/Mental Status: Anxious Vital Signs Temp Pulse Resp BP Pulse Ox 96.9 F L 87 14 144/102 H 97 06/09/18 17:31 18 17:31 06/09/18 21:28 06/09/18 17:31 06/09/18 17:31 Oxygen Delivery Method Room Air Weight: 125 lb Body Mass Index (BMI) 20.7 Finger Stick Blood Glucose 109 Laboratory Tests Past 24 Hrs 06/09/18 06/09/18 06/09/18 21:05 21:05 21:20 WBC 6.7 RBC 4.39 Hgb 13.3 Hct 38.6 MCV 87.9 MCH 30.3 MCHC 34.5 RDW 13.3 RDW Differential 42.9 Plt Count 291 MPV 8.4 Immature Gran % (Auto) 0.300 Neut % (Auto) 67.0 Lymph % (Auto) 24.6 [place] % (Auto) 7.1 Eos % (Auto) 0.7 Baso % (Auto) 0.3 Absolute Neuts (auto) 4.5 Absolute Lymphs (auto) 1.65 Total Counted Not Reportable Sodium 136 Potassium 3.0 L Chloride 99 Carbon Dioxide 26.0 Anion Gap 11 BUN 8 Creatinine 0.80 Estim Creat Clear Calc 51.04 Est GFR (MDRD) Af Amer 89 Est GFR (MDRD) Non-Af 74 BUN/Creatinine Ratio 10.1 Glucose 96 Calcium 8.8 Urine Color Yellow Urine Clarity Clear Urine pH 8.0 Ur Specific [place] 1.015 Urine Protein Negative Urine Glucose (UA) Normal Urine Ketones 5 H Urine Occult Blood Negative Urine Nitrite Negative Urine Bilirubin Negative Urine Urobilinogen Normal Ur Leukocyte Esterase 25 H Urine RBC 0 SEEN Urine WBC 0-5 SEEN Ur Squamous Epith Cells 0-5 SEEN Urine Bacteria 0 SEEN Urine Mucus 0 SEEN Assessment/Plan All Active Problems Anaphylactic reaction (Acute) Dementia (Acute) History of cholecystectomy (Resolved) History of tonsillectomy (Resolved) H/O: hysterectomy (Resolved) Assessment - Risk to self , unable to live alone safely due to Dementia - patient is disoriented Plan - admit to general medical floor for observation - consult case management for DC plan in am - continue routine home medications - full code at this time - replace potassium - regular diet - fall precautions - replace potassium and check bmp in am Code Visit OBSV E&M: [id number] Initial observation care L2
[2018-06-09 22:49] VITALS: BMI 21.4; BMI 21.5
[2018-06-09 23:00] VITALS: BP 191/85; PULSE 60; RESP 16; TEMP 36.6; O2SAT 95
[2018-06-10 05:00] VITALS: BP 164/96; PULSE 93; RESP 16; TEMP 36.8; O2SAT 96
[2018-06-10] MEDS: Oxybutynin 5 MG Tablet PO ×3 (05:20→21:16)
[2018-06-10 06:14] LABS: Anion Gap 9 (5-15); BUN 7 mg/dL (7-18); BUN/Creat Ratio 9.3 RATIO (10-20); Calcium,Total 8.4 mg/dL (8.5-10.1); Chloride 101 mmol/L (98-107); Creatinine, Serum 0.75 mg/dL (0.55-1.02); EST Glomerular Filtration Rate 79 mL/min (>60); Est Glom Filt Rate - Afr Amer 96 mL/min (>60); Estimated Creatinine Clearance 41.05 ml/min; Glucose 102 mg/dL (74-106); Potassium 3.7 mmol/L (3.5-5.1); Sodium Level 134 mmol/L (136-145)
--- NOTE | 2018-06-10 07:10 | PCM.PN.HOSP ---
Patient Problems: Active and Suspected Problems Dementia (Acute) Subjective: Patient with no acute events overnight per self and per nursing report. Patient with decreased orientation which is her baseline per discussion with family although has worsened but can wax and wane the note. Discussion with family today as well and family preference for transition to assisted facility for ongoing therapies given difficulty in caring for patient at home secondary to progressively worsening debility and dementia. Patient this morning did have mild abdominal discomfort primarily left upper quadrant although some midline which is chronic for her and often in the morning and has resolved since. Patient denies fevers, chills, nausea, emesis, chest pain or dyspnea. Objective: Physical Examination: General: awake, alert, oriented this AM to self, some recent events, family notes waxing and waning common, cooperative, seated upright in bedside chair, in no apparent distress. Skin: normal color, turgor, no icterus, cyanosis. HEENT: AT/NC, EOMI, PERRLA, mildly dry MM, no carotid bruits or JVD noted. Lungs: CTA bilaterally, moderate effort, mild decrease BL bases, no rales, ronchi or wheezing. Heart: Regular rate and rhythm; no gallop, rub audible. Abdomen: soft, NTTP, ND, normal BS. Extremities: no cyanosis, clubbing, or edema. Neurological: patient awake, alert, oriented as noted; cognitive function decreased, underlying dementia, family notes worsening; pupils equally reactive to light and accomodation; cranial nerves II-XII grossly normal, moving all 4 extremities, no focal deficits, strength moderately to severely globally decreased. Psychiatric: affect appears mildly agitated, fidgeting, no acute evidence of depressive or anxiety feelings. Vitals/I&O's: Vital Signs Temp Pulse Resp BP Pulse Ox 98.2 F 93 16 164/96 H 96 06/10/18 05:00 06/10/18 05:00 06/10/18 05:00 06/10/18 05:00 06/10/18 05:00 Oxygen Delivery Method Room Air Weight: 129 lb 3.054 oz Body Mass Index (BMI) 21.4 Finger Stick Blood Glucose 109 Intake and Output for Last 24 Hours 06/08/18 06/09/18 06/10/18 23:59 23:59 23:59 Intake Total 720 / 720 875 / 875 Balance 720 / 720 875 / 875 Laboratory Results 06/09/18 21:05: WBC 6.7, RBC 4.39, Hgb 13.3, Hct 38.6, MCV 87.9, MCH 30.3, MCHC 34.5, RDW 13.3, RDW Differential 42.9, Plt Count 291, MPV 8.4, Immature Gran % (Auto) 0.300, Neut % (Auto) 67.0, Lymph % (Auto) 24.6, [place] % (Auto) 7.1, Eos % (Auto) 0.7, Baso % (Auto) 0.3, Absolute Neuts (auto) 4.5, Absolute Lymphs (auto) 1.65, Total Counted Not Reportable 06/09/18 21:05: Sodium 136, Potassium 3.0 L, Chloride 99, Carbon Dioxide 26.0, Anion Gap 11, BUN 8, Creatinine 0.80, Estim Creat Clear Calc 51.04, Est GFR (MDRD) Af Amer 89, Est GFR (MDRD) Non-Af 74, BUN/Creatinine Ratio 10.1, Glucose 96, Calcium 8.8 06/09/18 21:20: Urine Color Yellow, Urine Clarity Clear, Urine pH 8.0, Ur Specific [place] 1.015, Urine Protein Negative, Urine Glucose (UA) Normal, Urine Ketones 5 H, Urine Occult Blood Negative, Urine Nitrite Negative, Urine Bilirubin Negative, Urine Urobilinogen Normal, Ur Leukocyte Esterase 25 H, Urine RBC 0 SEEN, Urine WBC 0-5 SEEN, Ur Squamous Epith Cells 0-5 SEEN, Urine Bacteria 0 SEEN, Urine Mucus 0 SEEN 06/10/18 05:42: Sodium 134 L, Potassium 3.7, Chloride 101, Carbon Dioxide 24.0, Anion Gap 9, BUN 7, Creatinine 0.75, Estim Creat Clear Calc 41.05, Est GFR (MDRD) Af Amer 96, Est GFR (MDRD) Non-Af 79, BUN/Creatinine Ratio 9.3 L, Glucose 102, Calcium 8.4 L Current Medications Aspirin (Ecotrin) 81 mg PO DAILYCM [facility] Escitalopram Oxalate (Lexapro) 10 mg PO DAILY [facility] Magnesium Hydroxide (Milk Of Magnesia) 30 ml PO DAILY PRN PRN PRN Reason: Constipation Memantine (Namenda) 5 mg PO DAILY [facility] Nutritional Formula (Lactose Free) (Ensure Enlive) 120 ml PO 4X/DAY [facility] Oxybutynin Chloride (Ditropan) 5 mg PO TID [facility] Last Admin: 06/10/18 05:20 Dose: 5 mg Pantoprazole Sodium (Protonix) 40 mg PO BID [facility] Sodium Chloride () 5 - 15 ml IV UD PRN PRN Reason: SALINE FLUSH Medical Necessity - Tobacco Use Smoking Status: Never smoker Assessment/Plan All Active Problems Anaphylactic reaction (Acute) Dementia (Acute) History of cholecystectomy (Resolved) History of tonsillectomy (Resolved) H/O: hysterectomy (Resolved) The patient is a 77 y/o F w/ PMHx: HTN, HLD, Dementia unclear type with unclear behavior disturbance history, Mild Cardiomyopathy, Valvular Heart Disease who presents to the [facility] ED on 06/09/18 with history of progressing dementia, unable to care for self at home, generalized debility and weakness. (1) Debility, Weakness, Failure to Thrive as Adult: Admitted to PA, given unsafe at home, unsafe caring for herself, maintain on fall precautions, PT, OT, CM for discharge planning. Mag, TSH pending. Additionally, given family noted progressive decline, suspect likely worsening dementia, but to be cautious will obtain brain MRI to evaluate for alternate etiology, lower suspicion. On ASA, BP regimen (2) Hypokalemia: Admission K+ 3.0, supplementation given, repeat level in AM normalized 3.7. (3) Mild Cardiomyopathy, Unclear Type: Noted in last Cardiology records as mild, 2015 ECHO w/ normal LV size, EF 52%, impaired relaxation LV, maintained on asa, propranolol, ramipril. (4) Hypertension: Had previously been on norvasc, currently not listed, will restart, PRN hydralazine. (5) Hyperlipidemia: Patient is not on statin and from prior records have discontinued her fish oil concentrate. (6) Valvular Heart Disease: Noted history of nonrheumatic mitral valve insufficiency, aortic valve insufficiency and tricuspid valve insufficiency, all mild on 2015 echocardiogram. (7) Dementia, Unclear Type, Unclear Behavioral Disturbance History: Continue home memantine regimen. MRI brain pending as noted. (8) Anxiety and Depression: Continue home escitalopram regimen. (9) Chronic Early AM Abdominal Pain: Chronic, noted to have had work-up with PCP, will need to assess if GI evaluation performed prior, possibilities including IBS versus gastritis/ulcer, unclear if had endoscopy prior. Will had protonix in interim and recommend GI outpatient evaluation prior to which family was amenable. (10) DVT Prophylaxis: SCDs, lovenox. Code Visit Inpatient E&M: [id number] Subs Hosp L2
--- NOTE | 2018-06-10 07:34 | PN_ITS ---
Patient Problems: Active and Suspected Problems Dementia (Acute) Subjective: Patient with no acute events overnight per self and per nursing report. Patient with decreased orientation which is her baseline per discussion with family although has worsened but can wax and wane the note. Discussion with family today as well and family preference for transition to [facility] facility for ongoing therapies given difficulty in caring for patient at home secondary to progressively worsening debility and dementia. Patient this morning did have mild abdominal discomfort primarily left upper quadrant although some midline which is chronic for her and often in the morning and has resolved since. Patient denies fevers, chills, nausea, emesis, chest pain or dyspnea. Objective: Physical Examination: General: awake, alert, oriented this AM to self, some recent events, family notes waxing and waning common, cooperative, seated upright in bedside chair, in no apparent distress. Skin: normal color, turgor, no icterus, cyanosis. HEENT: AT/NC, EOMI, PERRLA, mildly dry MM, no carotid bruits or JVD noted. Lungs: CTA bilaterally, moderate effort, mild decrease BL bases, no rales, ronchi or wheezing. Heart: Regular rate and rhythm; no gallop, rub audible. Abdomen: soft, NTTP, ND, normal BS. Extremities: no cyanosis, clubbing, or edema. Neurological: patient awake, alert, oriented as noted; cognitive function decreased, underlying dementia, family notes worsening; pupils equally reactive to light and accomodation; cranial nerves II-XII grossly normal, moving all 4 extremities, no focal deficits, strength moderately to severely globally decreased. Psychiatric: affect appears mildly agitated, fidgeting, no acute evidence of depressive or anxiety feelings. Vitals/I&O's: Vital Signs Temp Pulse Resp BP Pulse Ox 98.2 F 93 16 164/96 H 96 06/10/18 05:00 06/10/18 05:00 06/10/18 05:00 06/10/18 05:00 06/10/18 05:00 Oxygen Delivery Method Room Air Weight: 129 lb 3.054 oz Body Mass Index (BMI) 21.4 Finger Stick Blood Glucose 109 Intake and Output for Last 24 Hours 06/08/18 06/09/18 06/10/18 23:59 23:59 23:59 Intake Total 720 / 720 875 / 875 Balance 720 / 720 875 / 875 Laboratory Results 06/09/18 21:05: WBC 6.7, RBC 4.39, Hgb 13.3, Hct 38.6, MCV 87.9, MCH 30.3, MCHC 34.5, RDW 13.3, RDW Differential 42.9, Plt Count 291, MPV 8.4, Immature Gran % (Auto) 0.300, Neut % (Auto) 67.0, Lymph % (Auto) 24.6, [place] % (Auto) 7.1, Eos % (Auto) 0.7, Baso % (Auto) 0.3, Absolute Neuts (auto) 4.5, Absolute Lymphs (auto) 1.65, Total Counted Not Reportable 06/09/18 21:05: Sodium 136, Potassium 3.0 L, Chloride 99, Carbon Dioxide 26.0, Anion Gap 11, BUN 8, Creatinine 0.80, Estim Creat Clear Calc 51.04, Est GFR (MDRD) Af Amer 89, Est GFR (MDRD) Non-Af 74, BUN/Creatinine Ratio 10.1, Glucose 96, Calcium 8.8 06/09/18 21:20: Urine Color Yellow, Urine Clarity Clear, Urine pH 8.0, Ur Specific Diagonal 1.015, Urine Protein Negative, Urine Glucose (UA) Normal, Urine Ketones 5 H, Urine Occult Blood Negative, Urine Nitrite Negative, Urine Bilirubin Negative, Urine Urobilinogen Normal, Ur Leukocyte Esterase 25 H, Urine RBC 0 SEEN, Urine WBC 0-5 SEEN, Ur Squamous Epith Cells 0-5 SEEN, Urine Bacteria 0 SEEN, Urine Mucus 0 SEEN 06/10/18 05:42: Sodium 134 L, Potassium 3.7, Chloride 101, Carbon Dioxide 24.0, Anion Gap 9, BUN 7, Creatinine 0.75, Estim Creat Clear Calc 41.05, Est GFR (MDRD) Af Amer 96, Est GFR (MDRD) Non-Af 79, BUN/Creatinine Ratio 9.3 L, Glucose 102, Calcium 8.4 L Current Medications Aspirin (Ecotrin) 81 mg PO DAILYCM [facility] Escitalopram Oxalate (Lexapro) 10 mg PO DAILY [facility] Magnesium Hydroxide (Milk Of Magnesia) 30 ml PO DAILY PRN PRN PRN Reason: Constipation Memantine (Namenda) 5 mg PO DAILY [facility] Nutritional Formula (Lactose Free) (Ensure Enlive) 120 ml PO 4X/DAY [facility] Oxybutynin Chloride (Ditropan) 5 mg PO TID [facility] Last Admin: 06/10/18 05:20 Dose: 5 mg Pantoprazole Sodium (Protonix) 40 mg PO BID [facility] Sodium Chloride () 5 - 15 ml IV UD PRN PRN Reason: SALINE FLUSH Medical Necessity - Tobacco Use Smoking Status: Never smoker Assessment/Plan All Active Problems Anaphylactic reaction (Acute) Dementia (Acute) History of cholecystectomy (Resolved) History of tonsillectomy (Resolved) H/O: hysterectomy (Resolved) The patient is a 77 y/o F w/ PMHx: HTN, HLD, Dementia unclear type with unclear behavior disturbance history, Mild Cardiomyopathy, Valvular Heart Disease who presents to the [facility] ED on 06/09/18 with history of progressing dementia, unable to care for self at home, generalized debility and weakness. (1) Debility, Weakness, Failure to Thrive as Adult: Admitted to [place], given unsafe at home, unsafe caring for herself, maintain on fall precautions, PT, OT, CM for discharge planning. Mag, TSH pending. Additionally, given family noted progressive decline, suspect likely worsening dementia, but to be cautious will obtain brain MRI to evaluate for alternate etiology, lower suspicion. On ASA, BP regimen (2) Hypokalemia: Admission K+ 3.0, supplementation given, repeat level in AM normalized 3.7. (3) Mild Cardiomyopathy, Unclear Type: Noted in last Cardiology records as mild, 2015 ECHO w/ normal LV size, EF 52%, impaired relaxation LV, maintained on asa, propranolol, ramipril. (4) Hypertension: Had previously been on norvasc, currently not listed, will restart, PRN hydralazine. (5) Hyperlipidemia: Patient is not on statin and from prior records have discontinued her fish oil concentrate. (6) Valvular Heart Disease: Noted history of nonrheumatic mitral valve insufficiency, aortic valve insufficiency and tricuspid valve insufficiency, all mild on 2015 echocardiogram. (7) Dementia, Unclear Type, Unclear Behavioral Disturbance History: Continue home memantine regimen. MRI brain pending as noted. (8) Anxiety and Depression: Continue home escitalopram regimen. (9) Chronic Early AM Abdominal Pain: Chronic, noted to have had work-up with PCP, will need to assess if GI evaluation performed prior, possibilities including IBS versus gastritis/ulcer, unclear if had endoscopy prior. Will had protonix in interim and recommend GI outpatient evaluation prior to which family was amenable. (10) DVT Prophylaxis: SCDs, lovenox. Code Visit Inpatient E&M: 59021 Subs Hosp L2
[2018-06-10 07:59] LABS: Thyroid Stim Hormone (TSH) 1.44 uIU/mL (0.358-3.74)
--- NOTE | 2018-06-10 08:26 | NURSING ---
0820-PT CALLED OUT REPORTING NAUSEA. PER PATIENT, THIS HAS BEEN AN ONGOING PROBLEM AT HOME WELL. UPON ENTERING ROOM, NO ACTIVE SIGNS OF NAUSEA/DRY HEAVING PRESENT. SALTINES/NABOR JOMAR PROVIDED TO PATIENT. EMESIS BAG AT BEDSIDE IF NEEDED. NO PRN NAUSEA MEDICATIONS AVAILABLE. MD NOTIFIED. WILL UPDATE PRIMARY RN.
[2018-06-10] MEDS: Enoxaparin 40 MG/0.4 ML Syringe SC (09:09)
[2018-06-10] MEDS: Aspirin E.C. 81 MG Tablet PO (09:09)
[2018-06-10] MEDS: Escitalopram Oxalate 10 MG Tablet PO (09:10)
[2018-06-10] MEDS: Ondansetron 4 MG/2 ML Vial IV (09:10)
[2018-06-10] MEDS: Memantine Hydrochloride 5 MG Tablet PO (09:10)
[2018-06-10] MEDS: 0.9% NaCl Peripheral Flush Adult/Peds IV (09:10)
[2018-06-10] MEDS: Pantoprazole Sodium 40 MG Tablet PO ×2 (09:12→21:16)
[2018-06-10 09:23] VITALS: BP 176/91; PULSE 81; RESP 16; TEMP 36.6; O2SAT 95
--- NOTE | 2018-06-10 10:59 | CASEMGMT ---
RN KLAUS NOTE: Met with pt, pt's significant other/Vitaliy, and pt's daughter, Michelle Arteaga/LISA. Michelle/POLo states pt lives alone and has not been able to care for herself in the home and states is interested in pt going to a custodial facility for therapy to get stronger so she can return home if possible. Michelle states first choice for SNF is [facility], 2nd choice would be [facility], and 3rd choice [facility]. Alhaji DOUGHERTY, notified. Michelle made aware, per [facility] requirements, pt would need to meet 3 MN stay in hospital and hospitalization would need to be medically necessary in order to qualify for placement. Michelle voices understanding. David YANGN COLETTE ENRIQUE
--- NOTE | 2018-06-10 13:07 | MRI_ITS ---
STUDY: MRI BRAIN WITHOUT CONTRAST REASON FOR EXAM: Female, 77 years old. Confusion and dementia TECHNIQUE: Standardized multiplanar fat and water weighted pulse sequences were obtained. COMPARISON: MRI on June 18, 2016 CT of the brain on April 25, 2018 FINDINGS: Moderate atrophy and periventricular white matter ischemic changes without mass effect or restricted diffusion.. There is gliosis of the right anterior temporal lobe and encephalomalacia consistent with old infarct or other nonspecific brain injury. Normal bilateral basal ganglia. Normal thalami. There is no extra-axial fluid accumulation. Normal flow voids within the major intracranial circulation suggesting patency by spin echo criteria. Normal sella turcica, pituitary gland, infundibular stalk, optic chiasm and hypothalamus. Normal tectal plate and pineal gland. Normal midbrain, jese and medulla. Normal cerebellum. Normal basal cisterns. Normal bilateral temporal bones. Normal bilateral internal auditory canals. No demonstrated orbital abnormality, within the constraints of a routine brain study. Normal visualized paranasal sinuses. Normal calvarium and skull base. Normal visualized soft tissue structures. Normal visualized upper cervical spine. MRI/Brain without Contrast IMPRESSION: Moderate atrophy and periventricular white matter ischemic changes without evidence for acute infarct. 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
--- NOTE | 2018-06-10 13:42 | CASEMGMT ---
Addendum entered by Joyce Padilla 06/10/18 14:10: PT/OT notes are not available at this time. PT/OT will need faxed when available. Original Note: Social Work Note SW received referral from RN KLAUS Randle stating pt's daughter Michelle (LISA) is wanting to get patient placed at SNF from [facility]. Per Amanda Randle Michelle's choices for SNF are 1. [facility], 2. [facility] 3. [facility]. SW met with pt. Pt's daughter Michelle present in room. SW introduced self and and role at [facility]. Pt is listed as having dementia. LADONNA spoke with Michelle in regards to discharge plans. Michelle confirms that she would like pt to go to SNF at discharge. LADONNA explained three midnight requirement to Michelle and informed her that pt's midnight last night didn't count as pt is currently still in observation and pt's third midnight would be with a discharge of Saturday. LADONNA informed Michelle that if pt doesn't get third midnight, pt would have to pay privately for SNF. Michelle states that paying privately wouldn't be an option. LADONNA educated Michelle to other options instead of SNF including HHC, private duty aides, and [facility]. Per Michelle, if pt doesn't get three midnight she would take pt home. Michelle states she feels pt is safe to return home if not able to go to SNF. LADONNA informed Michelle that this worker can send an initial referral to [facility] to see about bed availability and to determine if [facility] would be able to accept. Michelle states understanding. LADONNA informed Michelle that the SW on assigned unit can follow up with her tomorrow to confirm discharge plans to determine if pt will get three midnights for Medicare. Michelle states understanding. LADONNA faxed initial referral to [facility]. Plan: SNF if pt is able to get three midnight stay or home with services if pt doesn't need three midnight stay Joyce Padilla [employer], DAY CARE TEACHER
--- NOTE | 2018-06-10 14:10 | CASEMGMT ---
COLETTE ENRIQUE NOTE: Pt is out of room for MRI. Daughter/POA not in room at present. The following care providers, pharmacy, and demographics verified. by pt's significant other, Vitaliy. Vitaliy states he and pt have been together for 28 yrs and he states he is with her every day. PCP: Felix. Preferred Pharmacy: [facility] on day of d/c only. Insurance: [facility] Prescription Benefit: [employer] Living Will/HPOA: Pt has both LW and HCPOA LNOK: DaughterMichelle Living Arrangements: Pt lives alone in a mobile home. 3 steps to enter. Vitaliy lives just 5 places away from pt and is with pt every day from morning til night. Vitaliy states they just do not live together or sleep in the same home. Vitaliy states pt does her own personal care such as bathing and dressing and cleaning, but that it has been becoming more difficult for her. States they eat out most of the time. Vitaliy states he helps with finances/bills, stating he prepares her checks for bills to be paid and Michelle/LISA signs the checks. Transportation: Pt was driving up until about 3 months ago. Vitaliy states he provides transportation for her. DME: Vitaliy states pt has rails/grab bars in the home but does not use any other DME. Independent with ambulation. States she does have a script for a cane that she got from PCP, but that she has not wanted to get it yet. Vitaliy states he has spoken with Michelle about getting a shower chair and they may look into getting one for pt soon. He states is interested in Medical Alert button information. Provided Medical alert button information sheet. HHC/SNF: Vitaliy states pt has never received HHC or been to a SNF previously. Discharge Plan: TBD CM to follow for any further discharge planning needs that may arise. David OJEDA RN, CM
--- NOTE | 2018-06-10 15:08 | PCA ---
pt off floor
[2018-06-10] MEDS: amLODIPine 5 MG Tablet PO (15:26)
[2018-06-10 15:30] VITALS: BP 133/81; PULSE 74; RESP 16; TEMP 37; O2SAT 94
[2018-06-10 20:24] VITALS: BP 124/77; PULSE 69; RESP 16; TEMP 36.8; O2SAT 95
[2018-06-11 02:30] VITALS: BP 139/83; PULSE 90; RESP 18; TEMP 37.2; O2SAT 97
[2018-06-11] MEDS: Enoxaparin 40 MG/0.4 ML Syringe SC (06:09)
[2018-06-11] MEDS: Oxybutynin 5 MG Tablet PO (06:09)
--- NOTE | 2018-06-11 07:06 | PCM.PN.HOSP ---
Patient Problems: Active and Suspected Problems Dementia (Acute) Subjective: Patient with no acute events overnight per self and per nursing report. Patient alert and oriented this morning but often times forgets prior conversations and can repeat statements. Patient with no obvious abdominal discomfort at this time but does often have it in the morning and can be very anxious. Patient denies fevers, chills, nausea, emesis, abdominal pain, chest pain or dyspnea. Objective: Physical Examination: General: awake, alert, oriented this AM to self, place, year, recent events, cooperative, seated upright in bedside chair, in no apparent distress. Skin: normal color, turgor, no icterus, cyanosis. HEENT: AT/NC, EOMI, PERRLA, improved MMM. Lungs: CTA bilaterally, moderate effort, mild decrease BL bases, no rales, ronchi or wheezing. Heart: Regular rate and rhythm; no gallop, rub audible. Abdomen: soft, NTTP, ND, normal BS. Extremities: no cyanosis, clubbing, or edema. Neurological: patient awake, alert, oriented as noted; cognitive function improved this AM, waxes and wanes, underlying dementia, family notes worsening; pupils equally reactive to light and accomodation; cranial nerves II-XII grossly normal, moving all 4 extremities, no focal deficits, strength improved, moderately globally decreased, chronic BL UE tremors, subsides with usage. Psychiatric: affect appears calm this AM, no acute evidence of depressive or anxiety feelings. Vitals/I&O's: Vital Signs Temp Pulse Resp BP Pulse Ox 99.0 F 90 18 139/83 H 97 06/11/18 02:30 06/11/18 02:30 06/11/18 02:30 06/11/18 02:30 06/11/18 02:30 Oxygen Delivery Method Room Air Weight: 129 lb 3.054 oz Body Mass Index (BMI) 21.4 Finger Stick Blood Glucose 109 Intake and Output for Last 24 Hours 06/09/18 06/10/18 06/11/18 23:59 23:59 23:59 Intake Total 720 / 720 1175 / 1175 120 / 120 Balance 720 / 720 1175 / 1175 120 / 120 Laboratory Results 06/10/18 05:42: Magnesium 2.0, TSH 1.44 Current Medications Amlodipine Besylate (Norvasc) 5 mg PO DAILY [facility] Aspirin (Ecotrin) 81 mg PO DAILYCM [facility] Last Admin: 06/10/18 09:09 Dose: 81 mg Enoxaparin Sodium (Lovenox) 40 mg SC DAILY@0600 [facility] Last Admin: 06/11/18 06:09 Dose: 40 mg Escitalopram Oxalate (Lexapro) 10 mg PO DAILY [facility] Last Admin: 06/10/18 09:10 Dose: 10 mg Magnesium Hydroxide (Milk Of Magnesia) 30 ml PO DAILY PRN PRN PRN Reason: Constipation Memantine (Namenda) 5 mg PO DAILY [facility] Last Admin: 06/10/18 09:10 Dose: 5 mg Nutritional Formula (Lactose Free) (Ensure Enlive) 120 ml PO 4X/DAY [facility] Last Admin: 06/10/18 21:16 Dose: 120 ml Ondansetron HCl (Zofran) 4 mg IV Q6H PRN PRN PRN Reason: nausea, emesis Last Admin: 06/10/18 09:10 Dose: 4 mg Oxybutynin Chloride (Ditropan) 5 mg PO TID [facility] Last Admin: 06/11/18 06:09 Dose: 5 mg Pantoprazole Sodium (Protonix) 40 mg PO BID [facility] Last Admin: 06/10/18 21:16 Dose: 40 mg Sodium Chloride () 5 - 15 ml IV UD PRN PRN Reason: SALINE FLUSH Last Admin: 06/10/18 09:10 Dose: 10 ml Medical Necessity - Tobacco Use Smoking Status: Never smoker Assessment/Plan All Active Problems Anaphylactic reaction (Acute) Dementia (Acute) History of cholecystectomy (Resolved) History of tonsillectomy (Resolved) H/O: hysterectomy (Resolved) The patient is a 77 y/o F w/ PMHx: HTN, HLD, Dementia unclear type with unclear behavior disturbance history, Mild Cardiomyopathy, Valvular Heart Disease who presents to the [facility] ED on 06/09/18 with history of progressing dementia, unable to care for self at home, generalized debility and weakness. (1) Debility, Weakness, Failure to Thrive as Adult: Admitted to [place], given unsafe at home, unsafe caring for herself, maintain on fall precautions, PT, OT, CM for discharge planning with current plan for home with home health and aid as patient notably debilitated, unstable on feet, needs assist daily activities to appropriate care of self. Mag, TSH normal. UA normal. No evidence infection. Given family noted progressive decline, suspect likely worsening dementia, but to be cautious obtained brain MRI to evaluate for alternate etiology w/ noted moderate atrophy and periventricular white matter ischemic changes without any evidence of acute infarct but noted old infarct or other nonspecific brain injury in the right temporal lobe region. On ASA, BP regimen, given MRI findings possible old CVA, obtained FLP and not marked and add low dose statin given age for future CVA prevention. Hepatic profile, [place] level unremarkable. (2) Hypokalemia: Admission K+ 3.0, supplementation given, repeat level in AM normalized 3.7. (3) Mild Cardiomyopathy, Unclear Type: Noted in last Cardiology records as mild, 2015 ECHO w/ normal LV size, EF 52%, impaired relaxation LV, maintained on asa, propranolol, ramipril. Added low dose statin. (4) Hypertension: Had previously been on norvasc, currently not listed, restarted w/ improvement in BP, PRN hydralazine. (5) Hyperlipidemia: FLP not marked, added low dose statin given prior CVA noted and Cardiomyopathy. (6) Valvular Heart Disease: Noted history of nonrheumatic mitral valve insufficiency, aortic valve insufficiency and tricuspid valve insufficiency, all mild on 2015 echocardiogram. (7) Dementia, Unclear Type, Unclear Behavioral Disturbance History w/ Tremors, Chronic: Continue home memantine regimen. MRI brain with prior evidence CVA but no acute findings. Will refer to Neurology at discharge. (8) Anxiety and Depression: Continue home escitalopram regimen. (9) Chronic Early AM Abdominal Pain: Chronic, noted to have had work-up with PCP, will need to assess if GI evaluation performed prior, possibilities including IBS versus gastritis/ulcer, unclear if had endoscopy prior. Added protonix and upon discharge will recommend GI outpatient evaluation prior to which family was amenable. (10) DVT Prophylaxis: SCDs, lovenox.
--- NOTE | 2018-06-11 07:09 | PN_ITS ---
Patient Problems: Active and Suspected Problems Dementia (Acute) Subjective: Patient with no acute events overnight per self and per nursing report. Patient alert and oriented this morning but often times forgets prior conversations and can repeat statements. Patient with no obvious abdominal discomfort at this time but does often have it in the morning and can be very anxious. Patient denies fevers, chills, nausea, emesis, abdominal pain, chest pain or dyspnea. Objective: Physical Examination: General: awake, alert, oriented this AM to self, place, year, recent events, cooperative, seated upright in bedside chair, in no apparent distress. Skin: normal color, turgor, no icterus, cyanosis. HEENT: AT/NC, EOMI, PERRLA, improved MMM. Lungs: CTA bilaterally, moderate effort, mild decrease BL bases, no rales, ronchi or wheezing. Heart: Regular rate and rhythm; no gallop, rub audible. Abdomen: soft, NTTP, ND, normal BS. Extremities: no cyanosis, clubbing, or edema. Neurological: patient awake, alert, oriented as noted; cognitive function improved this AM, waxes and wanes, underlying dementia, family notes worsening; pupils equally reactive to light and accomodation; cranial nerves II-XII grossly normal, moving all 4 extremities, no focal deficits, strength improved, moderately globally decreased, chronic BL UE tremors, subsides with usage. Psychiatric: affect appears calm this AM, no acute evidence of depressive or anxiety feelings. Vitals/I&O's: Vital Signs Temp Pulse Resp BP Pulse Ox 99.0 F 90 18 139/83 H 97 06/11/18 02:30 06/11/18 02:30 06/11/18 02:30 06/11/18 02:30 06/11/18 02:30 Oxygen Delivery Method Room Air Weight: 129 lb 3.054 oz Body Mass Index (BMI) 21.4 Finger Stick Blood Glucose 109 Intake and Output for Last 24 Hours 06/09/18 06/10/18 06/11/18 23:59 23:59 23:59 Intake Total 720 / 720 1175 / 1175 120 / 120 Balance 720 / 720 1175 / 1175 120 / 120 Laboratory Results 06/10/18 05:42: Magnesium 2.0, TSH 1.44 Current Medications Amlodipine Besylate (Norvasc) 5 mg PO DAILY PEPPER Aspirin (Ecotrin) 81 mg PO DAILYCM [facility] Last Admin: 06/10/18 09:09 Dose: 81 mg Enoxaparin Sodium (Lovenox) 40 mg SC DAILY@0600 [facility] Last Admin: 06/11/18 06:09 Dose: 40 mg Escitalopram Oxalate (Lexapro) 10 mg PO DAILY [facility] Last Admin: 06/10/18 09:10 Dose: 10 mg Magnesium Hydroxide (Milk Of Magnesia) 30 ml PO DAILY PRN PRN PRN Reason: Constipation Memantine (Namenda) 5 mg PO DAILY [facility] Last Admin: 06/10/18 09:10 Dose: 5 mg Nutritional Formula (Lactose Free) (Ensure Enlive) 120 ml PO 4X/DAY [facility] Last Admin: 06/10/18 21:16 Dose: 120 ml Ondansetron HCl (Zofran) 4 mg IV Q6H PRN PRN PRN Reason: nausea, emesis Last Admin: 06/10/18 09:10 Dose: 4 mg Oxybutynin Chloride (Ditropan) 5 mg PO TID [facility] Last Admin: 06/11/18 06:09 Dose: 5 mg Pantoprazole Sodium (Protonix) 40 mg PO BID [facility] Last Admin: 06/10/18 21:16 Dose: 40 mg Sodium Chloride () 5 - 15 ml IV UD PRN PRN Reason: SALINE FLUSH Last Admin: 06/10/18 09:10 Dose: 10 ml Medical Necessity - Tobacco Use Smoking Status: Never smoker Assessment/Plan All Active Problems Anaphylactic reaction (Acute) Dementia (Acute) History of cholecystectomy (Resolved) History of tonsillectomy (Resolved) H/O: hysterectomy (Resolved) The patient is a 77 y/o F w/ PMHx: HTN, HLD, Dementia unclear type with unclear behavior disturbance history, Mild Cardiomyopathy, Valvular Heart Disease who presents to the [facility] ED on 06/09/18 with history of progressing dementia, unable to care for self at home, generalized debility and weakness. (1) Debility, Weakness, Failure to Thrive as Adult: Admitted to [place], given unsafe at home, unsafe caring for herself, maintain on fall precautions, PT, OT, CM for discharge planning with current plan for home with home health and aid as patient notably debilitated, unstable on feet, needs assist daily activities to appropriate care of self. Mag, TSH normal. UA normal. No evidence infection. Given family noted progressive decline, suspect likely worsening dementia, but to be cautious obtained brain MRI to evaluate for alternate etiology w/ noted moderate atrophy and periventricular white matter ischemic changes without any evidence of acute infarct but noted old infarct or other nonspecific brain injury in the right temporal lobe region. On ASA, BP regimen, given MRI findings possible old CVA, obtained FLP and not marked and add low dose statin given age for future CVA prevention. Hepatic profile, NH level unremarkable. (2) Hypokalemia: Admission K+ 3.0, supplementation given, repeat level in AM normalized 3.7. (3) Mild Cardiomyopathy, Unclear Type: Noted in last Cardiology records as mild, 2015 ECHO w/ normal LV size, EF 52%, impaired relaxation LV, maintained on asa, propranolol, ramipril. Added low dose statin. (4) Hypertension: Had previously been on norvasc, currently not listed, restarted w/ improvement in BP, PRN hydralazine. (5) Hyperlipidemia: FLP not marked, added low dose statin given prior CVA noted and Cardiomyopathy. (6) Valvular Heart Disease: Noted history of nonrheumatic mitral valve insufficiency, aortic valve insufficiency and tricuspid valve insufficiency, all mild on 2015 echocardiogram. (7) Dementia, Unclear Type, Unclear Behavioral Disturbance History w/ Tremors, Chronic: Continue home memantine regimen. MRI brain with prior evidence CVA but no acute findings. Will refer to Neurology at discharge. (8) Anxiety and Depression: Continue home escitalopram regimen. (9) Chronic Early AM Abdominal Pain: Chronic, noted to have had work-up with PCP, will need to assess if GI evaluation performed prior, possibilities including IBS versus gastritis/ulcer, unclear if had endoscopy prior. Added protonix and upon discharge will recommend GI outpatient evaluation prior to which family was amenable. (10) DVT Prophylaxis: SCDs, lovenox.
[2018-06-11 07:49] LABS: AST(SGOT) 17 U/L (15-37); Alanine Aminotransfer ALT/SGPT 19 U/L (13-56); Albumin, Serum 3.2 g/dL (3.2-5.0); Alkaline Phosphatase 62 U/L (45-117); Bilirubin, Direct 0.14 mg/dL (0.00-0.30); Cholesterol 173 mg/dL (200); High Density Lipoprotein 43 mg/dL; Protein, Total 6.2 g/dL (6.4-8.2); Triglycerides 124 mg/dL; Very Low Density Lipoprotein 25 mg/dL (5-40)
[2018-06-11 07:52] VITALS: BP 151/79; PULSE 81; RESP 18; TEMP 37.2; O2SAT 96
[2018-06-11 07:52] LABS: Ammonia < 10.0 umol/L (11-32)
[2018-06-11] MEDS: Escitalopram Oxalate 10 MG Tablet PO (08:01)
[2018-06-11] MEDS: Aspirin E.C. 81 MG Tablet PO (08:01)
[2018-06-11] MEDS: Memantine Hydrochloride 5 MG Tablet PO (08:01)
[2018-06-11] MEDS: Pantoprazole Sodium 40 MG Tablet PO (08:02)
[2018-06-11] MEDS: amLODIPine 5 MG Tablet PO (08:09)
--- NOTE | 2018-06-11 10:59 | CASEMGMT ---
SW spoke w/physician, pt may be ready soon for discharge. SW spoke w/pt and boyfriend Vitaliy Kim in the room. SW spoke w/them about going somewhere for rehab, and that it is yet to be determined if pt will be here long enough to qualify for SNF under Medicare. SW explained will speak w/the daughter about this(as she is POA). Pt states that with the dementia, she can't do what she used to do. Vitaliy states that she does okay at home, and he is with her from 10am-10pm. He states her difficulties are more for Vitaliy asked about home health care, SW explained that home health through Medicare would cover PT/OT/RN and an aide. Vitaliy states that this all pt would need. SW explained to pt and Vitaliy will check in w/daughter regarding plan. SW spoke w/daughter Michelle Parmarler. SW explained that pt will likely not get a hospital stay long enough to cover snf. SW inquired w/daughter what she would like to do, private pay for SNF, apply for Medicaid for SNF, or have pt go home w/home health care. Daughter states that they could privately pay, was hoping to get the start of the SNF stay covered by Medicare however and then pay privately. She knows pt will not qualify for Medicaid. Daughter states she thinks that once pt goes to SNF will not come home. After much discussion, daughter would like to try having pt go home w/[facility], daughter does not have preference for agency. Daughter also discussed that pt's boyfriend does not fully understand pt's needs, so daughter struggles w/getting pt what she needs without upsetting Vitaliy. Daughter explains that she will do what her mother needs however, even if it upsets him. SW offered support to daughter. SW explained can have the SW also come from [facility] to speak w/pt and family also, to help in discussing what pt needs w/Vitaliy. Daughter states understanding and is agreeable to this. SW called [facility], referral made, they can take pt. SW let physician know, she will discharge pt today. LADONNA called daughter back, let her know that [facility] can take pt. SW also left a message for SW in home health with daughter's concerns and to ask her to follow up w/daughter. SW also let daughter know therapy is recommending a cane for pt. Daughter may look into purchasing for pt. SW also asked daughter about pt at night, daughter feels pt is still safe at night at this time. SW also will email daughter some information on home health care agencies for private hire and nursing homes in the area. Otherwise, no further needs are anticipated. SW did also let Vitaliy and pt know the discharge plan. URBANO Major, SEMICONDUCTOR PROCESSOR
--- NOTE | 2018-06-11 11:33 | DCINST_ITS ---
- Discharge Diagnoses Current Active Problems: Current Active and Chronic Problems (1) Debility, Weakness, Failure to Thrive as Adult, Suspected likely to Advancing Dementia (2) Hypokalemia (3) Mild Cardiomyopathy, Unclear Type (4) Hypertension (5) Hyperlipidemia (6) Valvular Heart Disease (7) Dementia, Unclear Type, Unclear Behavioral Disturbance History w/ Tremors, Chronic (8) Anxiety and Depression (9) Chronic Early AM Abdominal Pain, Suspected secondary to IBS You will use the following diet at home:: Cardiac Your food should be the consistency of: Regular Your liquids should be the consistency of: Regular/Thin Discharge Activity: May Not Drive, Use Walker - Use assistive devices including walker or cane. May resume sexual activity in: No Restrictions Weight Bearing Status: Weight bearing as tolerated Call your doctor if you observe: Fever of 101 or Higher, Inability to urinate, Inability to have a bowel movement, Shortness of breath, Dizziness, Fainting spells, Chest pain, Uncontrolled pain Instructions: For Caregivers: Safety Tips for Dementia Patients, For Caregivers: Daily Care for Dementia Patients, Understanding Dementia Additional Instructions: Please have repeat blood pressure assessment with primary care at follow-up and may increase or add to your regimen to achieve control. Allergies/Adverse Reactions: Allergies ceftriaxone [From Rocephin] Allergy (Verified 06/09/18 21:33) Anaphylaxis cephalexin [From Keflex] Allergy (Verified 06/09/18 21:33) Angioedema doxycycline Allergy (Verified 06/09/18 21:33) Angioedema sulfamethoxazole [From Bactrim] Allergy (Verified 06/09/18 21:33) Hives trimethoprim [From Bactrim] Allergy (Verified 06/09/18 21:33) Hives Medications to take at Discharge Aspirin E.C. [Ecotrin] 81 mg PO DAILY 03/19/18 Escitalopram Oxalate [Lexapro] 10 mg PO DAILY 05/27/18 Oxybutynin [Ditropan] 5 mg PO TID 05/27/18 Memantine HCl 5 mg PO DAILY 06/09/18 Amlodipine [Norvasc] 5 mg PO DAILY #30 tablet 06/11/18 Atorvastatin Calcium [Lipitor] 10 mg PO QHS #30 tablet 06/11/18 Pantoprazole Sodium [Protonix] 20 mg PO BID #60 tablet 06/11/18 The following prescriptions were given: Amlodipine [Norvasc] 5 mg PO DAILY #30 tablet Atorvastatin Calcium [Lipitor] 10 mg PO QHS #30 tablet Pantoprazole Sodium [Protonix] 20 mg PO BID #60 tablet Primary Care Physician: Yang Washington Chi, MD [Primary Care Provider] - Please follow up with your Primary Care Physician in: Follow-up within 3-5 days to review admission. Test Results: Test results from this visit will be discussed in further detail at your follow- up appointment, if applicable. Please Follow Up With: Krystian Gonzalez MD When: Follow-up within 1-2 weeks, evaluation chronic AM abdominal pain. Please Follow Up With: Reina Tang MD When: Evaluation for dementia, advancing in 2-4 weeks. Proposed Discharge Date: 06/11/18
--- NOTE | 2018-06-11 11:33 | PCM.DC.SUM ---
Discharge Date and Diagnosis - Problem List Patient Problems: Active and Suspected Problems Dementia (Acute) Date of Admission: 06/09/18 Date of Discharge: 06/11/18 - Primary Discharge Diagnosis Active and Suspected Problems (1) Debility, Weakness, Failure to Thrive as Adult, Suspected likely to Advancing Dementia (2) Hypokalemia (3) Mild Cardiomyopathy, Unclear Type (4) Hypertension (5) Hyperlipidemia (6) Valvular Heart Disease (7) Dementia, Unclear Type, Unclear Behavioral Disturbance History w/ Tremors, Chronic (8) Anxiety and Depression (9) Chronic Early AM Abdominal Pain, Suspected secondary to IBS - Secondary Discharge Diagnosis Chronic Problems Non-rheumatic tricuspid valve insufficiency (Chronic) Nonrheumatic aortic valve insufficiency (Chronic) Nonrheumatic mitral valve insufficiency (Chronic) Hyperlipidemia (Chronic) Cardiomyopathy (Chronic) Confusion (Chronic) HTN (hypertension) (Chronic) Hospital Course and Treatment Operations: None Procedures: EKG Summary of Care Provided: The patient is a 77 y/o F w/ PMHx: HTN, HLD, Dementia unclear type with unclear behavior disturbance history, Mild Cardiomyopathy, Valvular Heart Disease who presented to the [facility] ED on 06/09/18 with history of progressing dementia, unable to care for self at home, generalized debility and weakness. Admitted to [place], given unsafe at home, unsafe caring for herself, maintain on fall precautions, PT, OT, CM for discharge planning with current plan for home with home health and aid as patient notably debilitated, unstable on feet, needs assist daily activities to appropriate care of self. Mag, TSH normal. UA normal. No evidence infection. Given family noted progressive decline, suspect likely worsening dementia, but to be cautious obtained brain MRI to evaluate for alternate etiology w/ noted moderate atrophy and periventricular white matter ischemic changes without any evidence of acute infarct but noted old infarct or other nonspecific brain injury in the right temporal lobe region. On ASA, BP regimen, given MRI findings possible old CVA, obtained FLP and not marked and added low dose statin given age for future CVA prevention. Hepatic profile, NH level unremarkable. Dementia, Unclear Type, Unclear Behavioral Disturbance History w/ Tremors, Chronic with as noted unremarkable MRI for acute findings, noted prior evidence remote CVA. Chronic Early AM Abdominal Pain, noted to have had work-up with PCP. Discussed patient dementia and GI upset chronic discomfort with patient and family and will upon discharge refer to Dr. Gonzalez for IBS/possible upper endoscopy evaluation in addition to Dr. Tang for dementia assessment and further evaluation if felt appropriate. Patient Problems: Active and Suspected Problems Dementia (Acute) - Physical Exam Vital Signs Temp Pulse Resp BP Pulse Ox 99.0 F 81 18 151/79 H 96 06/11/18 07:52 06/11/18 07:52 06/11/18 07:52 06/11/18 07:52 06/11/18 07:52 Oxygen Delivery Method Room Air Weight: 129 lb 3.054 oz Body Mass Index (BMI) 21.4 Finger Stick Blood Glucose 109 Intake and Output for Last 24 Hours 06/09/18 06/10/18 06/11/18 23:59 23:59 23:59 Intake Total 720 / 720 1175 / 1175 120 / 120 Balance 720 / 720 1175 / 1175 120 / 120 Laboratory Tests Past 24 Hrs 06/11/18 06/11/18 07:22 07:22 Total Bilirubin 0.40 Direct Bilirubin 0.14 AST 17 ALT 19 Alkaline Phosphatase 62 Ammonia < 10.0 L Total Protein 6.2 L Albumin 3.2 Globulin 3.0 Triglycerides 124 Cholesterol 173 LDL Cholesterol 105 VLDL Cholesterol 25 HDL Cholesterol 43 Discharge Activity: May Not Drive, Use Walker - Use assistive devices including walker or cane. May resume sexual activity in: No Restrictions Weight Bearing Status: Weight bearing as tolerated Call your doctor if you observe: Fever of 101 or Higher, Inability to urinate, Inability to have a bowel movement, Shortness of breath, Dizziness, Fainting spells, Chest pain, Uncontrolled pain Home Medications: Medications to take at Discharge Aspirin E.C. [Ecotrin] 81 mg PO DAILY 03/19/18 Escitalopram Oxalate [Lexapro] 10 mg PO DAILY 05/27/18 Oxybutynin [Ditropan] 5 mg PO TID 05/27/18 Memantine HCl 5 mg PO DAILY 06/09/18 Amlodipine [Norvasc] 5 mg PO DAILY #30 tablet 06/11/18 Atorvastatin Calcium [Lipitor] 10 mg PO QHS #30 tablet 06/11/18 Pantoprazole Sodium [Protonix] 20 mg PO BID #60 tablet 06/11/18 Following Prescrptions Were Given to Patient: Amlodipine [Norvasc] 5 mg PO DAILY #30 tablet Atorvastatin Calcium [Lipitor] 10 mg PO QHS #30 tablet Pantoprazole Sodium [Protonix] 20 mg PO BID #60 tablet Primary Care Physician: Yang Washington Chi, MD [Primary Care Provider] - Please follow up with your Primary Care Physician in: Follow-up within 3-5 days to review admission. Please Follow Up With: Krystian Gonzalez MD When: Follow-up within 1-2 weeks, evaluation chronic AM abdominal pain. Please Follow Up With: Reina Tang MD When: Evaluation for dementia, advancing in 2-4 weeks. Patient Instructions: For Caregivers: Safety Tips for Dementia Patients, For Caregivers: Daily Care for Dementia Patients, Understanding Dementia Disposition: Home with Home Health Minutes spent on discharge:: 35 Patient Condition:: Fair Medical Necessity - Tobacco Use Smoking Status: Never smoker Meaningful Use Info Meaningful Use Diagnoses (Choose all that apply): None applicable Code Visit Inpatient E&M: 15477 Disch Hosp
--- NOTE | 2018-06-11 11:44 | NURSING ---
Pharmacy called and notified that patient has been d/c'ed and that medications can be delivered to her room when ready. Understanding verbalized.
--- NOTE | 2018-06-11 11:49 | NURSING ---
Addendum entered by Zoë Montes 06/11/18 12:28: Daughter Michelle returned call and verified that it is fine for Vitaliy to transport her mother, Xuan, home at time of discharge today. Original Note: significant other Vitaliy at bedside and states that he will be transporting patient home. This RN attempted to call daughter- left message for her to return phone call when able.
--- NOTE | 2018-06-11 12:29 | NURSING ---
retail pharmacy in at this time to give patient her discharge medications.
[2018-06-11 13:53] VITALS: BP 107/70; PULSE 89; RESP 20; TEMP 36.7; O2SAT 95
--- NOTE | 2018-06-11 13:56 | NURSING ---
disc at length w/pt and her boyfriend need for diligence in safety. He remains very resistant to the idea pt is unable to make safe choices for herself. disc at length meds to be taken and time to start. He indicates understanding but remains short/irritated. pt mentioned she took meds out of her purse during this hospital stay. disc importance of allowing hosp staff to give meds as pt current condition may have required a change. He indicates understanding but then says but she didn't hurt anything
--- NOTE | 2018-06-12 14:02 | CASEMGMT ---
COLETTE ENRIQUE Discharge Follow-Up Phone Call. RANDY: 13 Strata: 4 Discharge Date: 06/11/18 Adm Dx: Confusion Call placed to pt's daughter, Nilson, to inquire with her about how pt has been doing since she left the hospital. Michelle states that pt was clearer last night than she has been. Michelle states she has talked with [facility] and they are going to be calling her back to set up appt for the initial visit. She stated Vitaliy, pt's significant other, was able to pickle sorter her prescriptions last evening. Discussed the 3 follow-up appts that need to be made. Michelle states she has not been able to look over the discharge instructions yet, but plans on doing so this evening and stated she will call and make the appts. She states that Vitaliy and pt would have the D/C instructions at pt's home. Informed Michelle that if she is not able to locate the d/c instructions that the [facility] nurse would have them or she can call into CM office to get another copy. She was also made aware that if she would have any questions, concerns, or needs to call in to CM office. She voiced understanding. David OJEDA RN, CM
== END 2018-06-11 13:59 | disposition home or self-care (01) | DRG 884 ==
LOC: ED 20:37 → MS2 22:13
PROVIDERS: Admitting Provider Family Medicine; Emergency Provider Emergency Medicine; Family Provider Family Medicine Geriatric Medicine; PCP Family Medicine Geriatric Medicine; Visit Provider Family Medicine
DX: F03.90 Unspecified dementia, unspecified severity, without behavioral disturbance, psychotic disturbance, mood disturbance, and anxiety (principal); I42.9 Cardiomyopathy, unspecified; E87.6 Hypokalemia; I10 Essential (primary) hypertension; F41.8 Other specified anxiety disorders; R10.9 Unspecified abdominal pain; R62.7 Adult failure to thrive; R53.1 Weakness; R53.81 Other malaise; E78.5 Hyperlipidemia, unspecified; K58.9 Irritable bowel syndrome, unspecified; I36.1 Nonrheumatic tricuspid (valve) insufficiency; I35.1 Nonrheumatic aortic (valve) insufficiency; I34.0 Nonrheumatic mitral (valve) insufficiency; Z90.49 Acquired absence of other specified parts of digestive tract; Z90.710 Acquired absence of both cervix and uterus; Z79.899 Other long term (current) drug therapy; Z79.82 Long term (current) use of aspirin
CPT/HCPCS: 36415; 70551; 80048; 80061; 80076; 81001; 82140; 83735; 84443; 85025; 97161; 97165; 97802; 99284; P9612; A4216; J2405

== ENCOUNTER 2018-06-21 17:58 | Emergency (ER) | payer MEDICARE, OTHER, SELFPAY ==
[2018-06-21 17:58] VITALS: BMI 20.7
[2018-06-21 17:59] VITALS: BP 125/100; PULSE 100; RESP 24; TEMP 36.6; O2SAT 98; BMI 20.5
[2018-06-21 18:12] VITALS: BP 158/82; BP 164/92; PULSE 77; PULSE 99; RESP 19; TEMP 36.5; O2SAT 99
--- NOTE | 2018-06-21 18:20 | EKG12_ITS ---
Test Reason : SOB Blood Pressure : / mmHG Vent. Rate : 076 BPM Atrial Rate : 076 BPM P-R Int : 142 ms QRS Dur : 102 ms QT Int : 416 ms P-R-T Axes : -14 -05 042 degrees QTc Int : 468 ms Normal sinus rhythm Normal ECG Confirmed by MATILDA JAY MD ([id number]), supervising editor trailer GEETA JAMES ([id number]) on 06/25/2018 3:32:08 PM Referred By: TORI Confirmed By:MATILDA JAY MD
--- NOTE | 2018-06-21 18:28 | RAD_ITS ---
STUDY: X-RAY CHEST REASON FOR EXAM: Female, 77 years old. Increasing shortness of breath TECHNIQUE: AP COMPARISON: 04/25/2018 FINDINGS: EKG leads project over the chest. The lungs are clear and expanded. There is no demonstrated pleural abnormality. Normal size heart. Normal mediastinum and janice. Normal visualized pulmonary arteries. There is atherosclerotic calcification of the aortic arch with tortuosity. Normal visualized thoracic spine. Normal visualized ribs, clavicles, and shoulders. There is no demonstrated abnormality of the visualized soft tissue structures of the upper abdomen. RAD/Chest 1 View (Portable) IMPRESSION: Stable, nonacute portable x-ray examination of the chest. Electronically Signed: Bobby Stein MD at 18:52 EST , Service support ,
--- NOTE | 2018-06-21 18:34 | ED.VISSUMM ---
- ER Visit Summary Date of Service: 06/21/18 Chief Complaint: Shortness of breath History of Present Illness: The patient is a 77 F presenting with shortness of breath. Patient states that she has had shortness of breath today. Her friend noticed this while she was at [employer]. She denies chest pain. Shortness of breath is worse with exertion. She was recently admitted to the hospital June 09 - June 11. At that time it was felt she was not safe to be at home alone. She was sent home with plan for home health care. Friend states that home health never contacted them and she continues to live alone. Physical Examination: Vitals are stable. Patient is afebrile. Alert no acute distress. HEENT exam is unremarkable. Neck is supple. Lungs are clear and equal bilaterally. Heart is regular rate and rhythm. Abdomen is soft nontender nondistended. Extremities are unremarkable. Skin is warm and dry. No focal neurologic deficit. Remainder of exam is unremarkable. Emergency Department Course and Treatment: EKG is sinus rate of 76 with no acute ischemic changes. Chest x-ray shows no acute process. CBC, chemistries unremarkable other than sodium 130, potassium 3.3. Urinalysis unremarkable. Troponin is negative. Patient remains 98% on room air. There is still concern for her ability to care for herself at home and whether she is safe at home alone. Will discuss with the hospitalist for admission. Disposition: Admission Impression: Hyponatremia, dyspnea, functional decline This note was generated with [employer] dictation software. It may contain incorrect words, spelling, and punctuation that were not noted in review of the chart prior to signing ED Disposition - Plan for ED Patient: Chief Complaint: Shortness of Breath Referrals: Yang Washington Chi, MD [Primary Care Provider] -
[2018-06-21 18:47] LABS: Basophil# 0.01 X10^3/uL; Basophil% 0.1 % (0-1); Eosinophil# 0.04 X10^3/uL; Eosinophils% 0.5 % (0-5); Hematocrit 38.2 % (37-47); Hemoglobin 13.3 g/dl (12.0-15.0); Mean Corp Hgb Conc 34.8 g/gl (32-36); Mean Corpuscular Hgb 30.5 pg (27.0-32.0); Mean Corpuscular Volume 87.6 fL (81-99); Mean Platelet Vol. 8.3 fl (6.2-12.0); Monocyte# 0.75 X10^3/uL; Neutrophil % 72.2 % (47-70); POSITIVE COUNT NO; POSITIVE DIFFERENTIAL NO; POSITIVE MORPHOLOGY NO; Platelet Count 318 K/mm3 (150-450); RBC Distribution Width CV 13.2 % (11.6-14.6); RBC Distribution Width SD 42.7 fl (35.1-43.9); Red Blood Count 4.36 M/mm3 (4.2-5.4); White Blood Count 8.3 K/mm3 (4.4-11.0)
[2018-06-21 19:13] LABS: Anion Gap 10 (5-15); BUN 9 mg/dL (7-18); BUN/Creat Ratio 11.4 RATIO (10-20); Calcium,Total 8.9 mg/dL (8.5-10.1); Chloride 96 mmol/L (98-107); Creatinine, Serum 0.79 mg/dL (0.55-1.02); EST Glomerular Filtration Rate 74 mL/min (>60); Est Glom Filt Rate - Afr Amer 90 mL/min (>60); Glucose 108 mg/dL (74-106); Potassium 3.3 mmol/L (3.5-5.1); Sodium Level 130 mmol/L (136-145)
[2018-06-21 19:32] VITALS: BP 150/75; PULSE 90; RESP 15; TEMP 36.4
[2018-06-21 19:35] LABS: Bacteria 0 SEEN /hpf (None Seen); Mucous, Urine 0 SEEN /hpf (<or=2+); Red Blood Cells-Urine 0 SEEN /hpf (0-5)
[2018-06-21 19:36] VITALS: O2SAT 100
[2018-06-21 19:45] LABS: Color, Urine Straw (Yellow); Glucose, Dipstick Normal (Normal); Ketone-Dipstick 15 mg/dl (Negative); Leukocyte Esterase-Dipstick 25 /ul (Negative); Nitrite-Dipstick Negative (Negative); Occult Blood-Urine Negative /ul (Negative); Protein-Dipstick Negative (Negative); Specific Gravity, Urine 1.015 (1.002-1.030); Urine Bilirubin Dipstick Negative (Negative); Urine Clarity Clear (Clear); Urine Urobilinogen Normal (Normal)
[2018-06-21 19:57] LABS: Squamous Epithelial Cells - UA 0-5 SEEN /hpf (5-10); White Blood Cells 0-5 SEEN /hpf (0-5)
[2018-06-21 20:47] VITALS: BP 144/80; BP 148/75; PULSE 85; PULSE 95; RESP 14; RESP 16; TEMP 36.4; O2SAT 93
[2018-06-21 21:10] VITALS: BP 177/81; PULSE 74; RESP 22; O2SAT 95
--- NOTE | 2018-06-22 11:04 | ED.RN ---
Pt's daughter called today asking why she was not notified her mother was here as a pt. She is the pt's POA though I verified there was no POA paperwork attached to chart. Daughter understands and has concern over pt possibly needing placement to ECF.
--- OUTSIDE RECORDS SUMMARY | 2018-09-24 12:23 | XMS RPT_ITS ---
:1940 Author Organization OHIP Support Name Relationship Address Phone DALILA ORELLANA Unavailable [address] + [place] [address] R Unavailable Unavailable Unavailable WATSON, CHELSEA Unavailable [address] + [address] [place] [address] REYNA DALILA Unavailable [address] + [place] [address] R Unavailable Unavailable Unavailable WATSON, CHELSEA Unavailable [address] + [address] [place] [address] REYNA, DALILA Unavailable [address] + [place] [address] R Unavailable Unavailable Unavailable WATSON, CHELSEA Unavailable [address] + [address] [place] [address] REYNA, DALILA Unavailable [address] + [place] [address] R Unavailable Unavailable Unavailable WATSON, CHELSEA Unavailable [address] + [address] [place] [address] REYNA, DALILA Unavailable [address] + [place] [address] R Unavailable Unavailable Unavailable WATSON, CHELSEA Unavailable [address] + [address] [place] [address] REYNA, DALILA Unavailable [address] + [place] [address] R Unavailable Unavailable Unavailable WATSON, CHELSEA Unavailable [address] + [address] [place] [address] REYNA, DALILA Unavailable [address] + [place] [address] R Unavailable Unavailable Unavailable WATSON, CHELSEA Unavailable [address] + [address] [place] [address] REYNA, DALILA Unavailable [address] + [place] [address] R Unavailable Unavailable Unavailable WATSON, CHELSEA Unavailable [address] + [address] [place] [address] REYNA, DALILA Unavailable [address] + [place] [address] R Unavailable Unavailable Unavailable WATSON, CHELSEA Unavailable [address] + [address] [place] [address] REYNA, DALILA Unavailable [address] + [place] [address] R Unavailable Unavailable Unavailable WATSON, CHELSEA Unavailable [address] + [address] [place] [address] REYNA, DALILA Unavailable [address] + [place] [address] R Unavailable Unavailable Unavailable WATSON, CHELSEA Unavailable [address] + [address] [place] [address] REYNA, DALILA Unavailable [address] + [place] [address] R Unavailable Unavailable Unavailable WATSON, CHELSEA Unavailable [address] + [address] [place] [address] REYNA, DALILA Unavailable [address] + [place] [address] R Unavailable Unavailable Unavailable WATSON, CHELSEA Unavailable [address] + [address] [place] [address] REYNA, DALILA Unavailable [address] + [place] [address] R Unavailable Unavailable Unavailable WATSON, CHELSEA Unavailable [address] + [address] [place] [address] REYNA, DALILA Unavailable [address] + [place] [address] R Unavailable Unavailable Unavailable WATSON, CHELSEA Unavailable [address] + [address] [place] [address] REYNA, ADLILA Unavailable [address] + [place] [address] R Unavailable Unavailable Unavailable WATSON, CHELSEA Unavailable [address] + [address] [place] [address] REYNA, DALILA Unavailable [address] + [place] [address] R Unavailable Unavailable Unavailable WATSON, CHELSEA Unavailable [address] + [address] [place] [address] REYNA, DALILA Unavailable [address] + [place] [address] R Unavailable Unavailable Unavailable WATSON, CHELSEA Unavailable [address] + [address] [place] [address] REYNA, DALILA Unavailable [address] + [place] [address] R Unavailable Unavailable Unavailable WATSON, CHELSEA Unavailable [address] + [address] [place] [address] REYNA, DALILA Unavailable [address] + [place] [address] R Unavailable Unavailable Unavailable WATSON, CHELSEA Unavailable [address] + [address] [place] [address] REYNA, DALILA Unavailable [address] + [place] [address] R Unavailable Unavailable Unavailable WATSON, CHELSEA Unavailable [address] + [address] [place] [address] REYNA, DALILA Unavailable [address] + [place] [address] R Unavailable Unavailable Unavailable WATSON, CHELSEA Unavailable [address] + [address] [place] [address] REYNA, DALILA Unavailable [address] + [place] [address] R Unavailable Unavailable Unavailable WATSON, CHELSEA Unavailable [address] + [address] [place] [address] REYNA, DALILA Unavailable [address] + [place] [address] R Unavailable Unavailable Unavailable WATSON, CHELSEA Unavailable [address] + [address] [place] [address] REYNA, DALILA Unavailable [address] [phone] [place] [address] R Unavailable Unavailable Unavailable WATSON, CHELSEA Unavailable [address] + [address] [place] [address] FUENTES ORELLANAY Unavailable [address] [phone] [place] [address] R Unavailable Unavailable Unavailable WATSON, CHELSEA Unavailable [address] + [address] [place] [address] FUENTES ORELLANAY Unavailable [address] [phone] [place] [address] R Unavailable Unavailable Unavailable WATSON, CHELSEA Unavailable [address] + [address] [place] [address] Care Team Providers Name Role Phone Felix, Yang Chi Primary Care Unavailable Kamilah Mejias Attending Unavailable Oseas Milton Admitting Unavailable Felix, Yang Chi Primary Care Unavailable Lv Abernathy Attending Unavailable Ana María Coyne Attending Unavailable Felix, Yang Chi Primary Care Unavailable Felix, Yang Chi Primary Care Unavailable Baez, Trenton Admitting Unavailable Connie Mota Attending Unavailable Baez, Trenton Admitting Unavailable Connie Mota Attending Unavailable Felix, Yang Chi Primary Care Unavailable White, Connie Consulting Unavailable Baez, Trenton Admitting Unavailable WhiteConnie Attending Unavailable Felix, Yang Chi Primary Care Unavailable White Connie Consulting Unavailable Baez, Trenton Admitting Unavailable Baez, [place]on Attending Unavailable Felix, Yang Chi Primary Care Unavailable Baez, [place] Consulting Unavailable Felix, Yang Chi Primary Care Unavailable Angel Leonard Attending Unavailable Felix, Yang Chi Primary Care Unavailable Ana María Coyne Attending Unavailable Felix, Yang Chi Attending Unavailable Felix, Yang Chi Primary Care Unavailable Felix, Yang Chi Primary Care Unavailable Kamilah Mejias Attending Unavailable Felix, Yang Chi Attending Unavailable Felix, Yang Chi Referring Unavailable Felix, Yang Chi Primary Care Unavailable Felix, Yang Chi Primary Care Unavailable Vincent Damon Attending Unavailable Baez, Trenton Admitting Unavailable Lopez March Attending Unavailable Felix, Yang Chi Primary Care Unavailable Lopez March Consulting Unavailable [place] Baez Attending Unavailable Felix, Yang Chi Primary Care Unavailable Felix, Yang Chi Primary Care Unavailable Baez, [place]on Admitting Unavailable Lopez March Attending Unavailable Felix, Yang Chi Primary Care Unavailable Dick Cornell Attending Unavailable Mauricio Perez Attending Unavailable Felix, Yang Chi Referring Unavailable Felix, Yang Chi Primary Care Unavailable Felix, Yang Chi Attending Unavailable Felix, Yang Chi Primary Care Unavailable Felix, Yang Chi Attending Unavailable Felix, Yang Chi Primary Care Unavailable Felix, Yang Chi Primary Care Unavailable Kamilah Mejias Attending Unavailable Felix, Yang Chi Attending Unavailable Felix, Yang Chi Primary Care Unavailable Ana María Coyne Attending Unavailable Felix, Yang Chi Primary Care Unavailable Felix, Yang Chi Attending Unavailable Felix, Yang Chi Primary Care Unavailable Felix, Yang Chi Attending Unavailable Felix, Yang Chi Primary Care Unavailable Felix, Yang Chi Attending Unavailable Felix, Yang Chi Referring Unavailable Felix, Yang Chi Primary Care Unavailable Felix, Yang Chi Attending Unavailable Felix, Yang Chi Primary Care Unavailable PROBLEMS PROBLEMS DATE TYPE CONDITION / CODE ATTENDING STATUS SOURCE 06/18/2018 Unknown F41.9 - Anxiety Le, Angel Active [place] disorder, Community unspecified / Hospital F41.9(ICD-10) Repository 01/23/2018 Unknown I10 - Essential Felix, Yang Chi Active [place] (primary) Community hypertension / Hospital I10(ICD-10) Repository 01/23/2018 Unknown R11.0 - Nausea / Felix, Yang Chi Active [place] R11.0(ICD-10) [facility] Repository 10/02/2017 Unknown E55.9 - Vitamin D Felix, Yang Chi Active [place] deficiency, Community unspecified / Hospital E55.9(ICD-10) Repository PROCEDURES PROCEDURES No Procedure Records FoundRESULTS RESULTS EMERGENCY DEPARTMENT Observed: 07/29/2018 Status: F Source: [place] SUMMARY 4:21 PM [facility] REPOSITORY [facility] Medical Records Department [address] [facility] [place] [address] Emergency Department Summary 07/29/18 1521 MR#: [id number] Acct: [id number] Name: FRANK LUNDY Rep #: [id number] : 1940 77 From: Lv Abernathy MD PCP: Yang Carver MD, Chi Status: REG ER - ER Visit Summary Date of Service: 07/29/18 Chief Complaint: Unable to care for self History of Present Illness: The patient is a 77 F who was seen approximately 1 month ago. She declined admission. Her significant other was with her. Significant other is not the POA. The daughter who is in the room is the POA. Patient was diagnosed with dementia 2 years ago. Patient denies fever, chills night sweats. Denies weight gain or weight loss. She denies ocular, visual or auditory symptoms. She denies cardiac respiratory symptoms. She denies nausea, vomiting diarrhea. She denies dysuria, frequency, urgency or hematuria. She denies paresthesia, anesthesia motors. She has not fallen since March. Review of prior records indicates she has a history of hypercholesterolemia, hypertension, cardiomyopathy and depression. There is a history of tricuspid regurgitation, aortic insufficiency and mitral regurgitation. Physical Examination: Pleasant elderly woman in no distress. HEENT exam is unremarkable. Heart is regular without murmur, gallop or rub. S1 and S2 are normal. Lungs are clear to auscultation with good movement of air bilaterally. Abdomen is soft nontender bowel sounds are present normal. Patient is alert and oriented 3. Motor is 5 over 5. Sensory is intact. DTRs are symmetric with no clonus or Babinski sign. Cranial 2 through 12 are intact. Cerebellar testing is normal. Test Results: CBC is unremarkable. Electric panel is unremarkable. UA is unremarkable. Emergency Department Course and Treatment: With history of dementia, urinary tract infection and hyponatremia in the past metabolic infectious workup was undertaken for a asymptomatic elderly woman. Treatment Plan: nurse case manager was consulted for [place] [facility] [place] Disposition: Recommend [place] [facility] [place] since patient is unable to care for herself. She admits now she is unable to care for herself. Daughter brings her prepared meals that she needs to warm up in the microwave. She will not warm up her food. Case management was able to arrange for meeting at [facility] tomorrow morning at 10 AM. Daughter feels comfortable taking home her mother. Impression: 1. Dementia 2. Inability to care for self 3. History of hypercholesterolemia 4. History of hypertension 5. History of nonrheumatic valvular heart disease 6. History of depression This note was generated with Yurpy dictation software. It may contain incorrect words, spelling, and punctuation that were not noted in review of the chart prior to signing ED Disposition - Plan for ED Patient: Disposition: Home or Assisted Living Chief Complaint: Dizziness Instructions: ED Dementia Caregiver Support Referrals: Yang Carver Chi, MD [Primary Care Provider] - As Needed What to do if you have Problems For any increased pain, shortness of breath, bleeding, nausea or vomiting, chest pain, or any unexpected problems, contact your Primary Care Provider. Call [facility] ([phone]) or report to the closest Emergency Room. Call 911 if necessary. 07/29/18 1621 <Electronically signed by Lv Abernathy MD> Date Lv Abernathy MD Cosigner Signature (If Indicated): Date CC: Yang Carver MD URINALYSIS, COMPLETE Collected: 07/29/2018 Status: F Source: [place] 1:55 PM [facility] REPOSITORY Order Comment: How was Urine Obtained? METER AND SERVICE LINE INSPECTOR TO SPECIFY TYPE CODE TESTS RESULT OUT OF RANGE REFERENCE UNITS LAB L400.3000 Yellow COLOR Normal Yellow LAB L400.3050 Clear Normal CLARITY Clear LAB L400.3200 Normal mg/dl Normal GLUCOSE, UR Normal LAB L400.3300 Negative mg/dL Normal BILIRUBIN URINE Negative LAB L400.3400 Negative mg/dl High 5 KETONE UR LAB L400.3465 1.002-1.030 Normal SP.GR. DIPSTX 1.020 LAB L400.3550 5.0 - 8.0 pH UR Normal 6.5 LAB L400.3600 Negative mg/dl High PROT 30 DIPSTX LAB L400.3700 Normal mg/dl High 1 UROBILI LAB L400.3750 Negative Normal NITRITE UR Negative LAB L400.3780 Negative /ul High 25 OCCULT BLOOD-UR LAB L400.3800 Negative /ul High LEUK ESTERASE 500 LAB L400.4050 0-5 /hpf WBC Normal 0-5 SEEN LAB L400.4100 0-5 /hpf Normal RBC-UA 0-5 SEEN LAB L400.4150 5-10 /hpf SQUAM Normal EPI 0-5 SEEN LAB L400.4300 None Seen /hpf Normal BACTERIA RARE LAB L400.4350 <or=2+ /hpf 0 Normal MUCUS, URINE SEEN LAB L400.4700 <or=2+ /hpf CA OX Normal CRYSTAL RARE Performed By: #### L400.0001 #### [facility] [address] [place], [place], [address] CBC W/DIFF, AUTOMATED Collected: 07/29/2018 Status: F Source: [place] 1:35 PM [facility] REPOSITORY TYPE CODE TESTS RESULT OUT OF RANGE REFERENCE UNITS LAB L100.1000 4.4-11.0 K/mm3 Normal WBC 8.1 LAB L100.1200 4.2-5.4 M/mm3 Normal RBC 4.43 LAB L100.1300 12.0-15.0 g/dl Normal HGB 13.4 LAB L100.1400 37-47 % Normal HCT 40.2 LAB L100.1500 81-99 fL Normal MCV 90.7 LAB L100.1600 27.0-32.0 pg Normal MCH 30.2 LAB L100.1700 32-36 g/gl Normal MCHC 33.3 LAB L100.1810 11.6-14.6 % Normal RDW CV 13.8 LAB L100.1820 35.1-43.9 fl High RDW SD 45.9 LAB L100.1900 150-450 K/mm3 Normal PLT 272 LAB L100.2000 6.2-12.0 fl Normal MPV 8.8 LAB L100.2100 47-70 % High NEUT% 75.7 LAB L100.2200 19-41 % Low LY% 14.7 LAB L100.2300 0-10 % Normal MONO% 8.3 LAB L100.2400 0-5 % Normal EO% 0.5 LAB L100.2500 0-1 % Normal BASO% 0.4 LAB L100.2550 0.0-0.9 % Normal IM GRAN % 0.400 Result Comment: IG% - Immature Granulocytes (promyelocytes, myelocytes and metamyelocytes) > 1% indicates that a LEFT SHIFT is Present. LAB L100.2620 2.0-7.7 X10 3/uL Normal Absolute Neut 6.1 LAB L100.2720 0.83-4.51 X10 3/ul Normal Absolute Lymph 1.19 Performed By: #### L100.0100 #### [facility] [place], [address] BASIC METABOLIC Collected: 07/29/2018 Status: F Source: [place] PROFILE (BMP) 1:35 PM [facility] REPOSITORY TYPE CODE TESTS RESULT OUT OF RANGE REFERENCE UNITS LAB L501.0100 74-106 mg/dL High GLU 127 Result Comment: Fasting Glucose result greater than or equal to 126 mg/dL suggests DIABETES MELLITUS per A.D.A. criteria. Please note revised GLUCOSE reference range effective 2017. LAB L501.1000 7-18 mg/dL Normal BUN 9 LAB L501.1100 0.55-1.02 mg/dL Normal CREAT,SERUM 0.92 Result Comment: The validity of the calculated GFR AND GFRAA in patients over 70 years has not been determined. Clinical correlation is essential. LAB L501.1110 >60 mL/min Normal EST GFR 62 Result Comment: Non- GFR Calc LAB L501.1115 >60 mL/min Normal EST GFR - AA 75 Result Comment: GFR Calc LAB L501.1255 ml/min Normal Estimated CRCL 42.82 LAB L501.1300 10-20 RATIO Low BUN/CRE 9.8 LAB L501.2200 8.5-10 mg/dL Normal .1 CA 8.9 LAB L501.5300 136-14 mmol/L Low 5 NA 135 LAB L501.5600 3.5-5. mmol/L Low 1 K 3.4 LAB L501.5900 98-107 mmol/L Normal CL 99 LAB L501.6100 21.0-3 mmol/L Normal 2.0 CO2 25.0 LAB L501.6200 5-15 Normal GAP 11 Performed By: #### L500.2500 #### [facility] [address] [place], [place], [address] VITAMIN D,25 HYDROXY Collected: 07/14/2018 Status: F Source: [place] 2:39 PM [facility] REPOSITORY TYPE CODE TESTS RESULT OUT OF RANGE REFERENCE UNITS LAB L506.1000 29.95-100.01 ng/mL Normal Vitamin D 43.3 25-OH Result Comment: Vitamin D 25(OH) Status Range Deficiency <20 ng/mL (50nmol/L) Insuffciency 20 - 30 ng/mL (50 - 75 nmol/L) Sufficiency 30 - 100 ng/mL (75 - 250 nmol/L) Toxicity >100 ng/mL (>250 nmol/L) Performed By: #### L506.1000 #### [facility] [address] [place], [address] COMPREHENSIVE METABOLIC Collected: 07/14/2018 Status: F Source: [place] 2:39 PM [facility] REPOSITORY TYPE CODE TESTS RESULT OUT OF RANGE REFERENCE UNITS LAB L501.0100 74-106 mg/dL Normal GLU 101 Result Comment: Fasting Glucose result from 100 to 125 mg/dL suggests IMPAIRED HOMEOSTASIS per A.D.A. criteria. Please note revised GLUCOSE reference range effective 2017. LAB L501.1000 7-18 mg/dL Normal BUN 11 LAB L501.1100 0.55-1.02 mg/dL Normal CREAT,SERUM 0.82 Result Comment: The validity of the calculated GFR AND GFRAA in patients over 70 years has not been determined. Clinical correlation is essential. LAB L501.1110 >60 mL/min Normal EST GFR 72 Result Comment: Non- GFR Calc LAB L501.1115 >60 mL/min Normal EST GFR - AA 87 Result Comment: GFR Calc LAB L501.1300 10-20 RATIO Normal BUN/CRE 13.5 LAB L501.1500 6.4-8.2 g/dL T Normal PROT 6.5 LAB L501.1800 3.2-5.0 g/dL Normal ALB 3.5 LAB L501.1950 2.2-4.2 g/dL Normal GLOB 3.0 LAB L501.2000 0.9-2.4 RATIO Normal A/G 1.2 LAB L501.2200 8.5-10.1 mg/dL CA Normal 8.6 LAB L501.4100 15-37 U/L Normal AST 18 LAB L501.4305 45-117 U/L Normal ALK P 77 LAB L501.4405 13-56 U/L Normal ALT 23 LAB L501.4600 0.20-1.00 mg/dL T Normal BILI 0.30 LAB L501.5300 136-145 mmol/L Low NA 133 LAB L501.5600 3.5-5.1 mmol/L K Normal 4.2 LAB L501.5900 98-107 mmol/L Low CL 96 LAB L501.6100 21.0-32.0 mmol/L Normal CO2 27.0 LAB L501.6200 5-15 Normal GAP 10 Performed By: #### L500.4050, L501.9520 #### [facility] [address] [place], [place], [address] THYROID STIM HORMONE Collected: 07/14/2018 Status: F Source: [place] (TSH) 2:39 PM [facility] REPOSITORY TYPE CODE TESTS RESULT OUT OF RANGE REFERENCE UNITS LAB L501.9520 0.358-3.74 uIU/mL Normal TSH 1.29 Performed By: #### L500.4050, L501.9520 #### [facility] [address] [place], [address] CBC W/DIFF, AUTOMATED Collected: 07/14/2018 Status: F Source: [place] 2:39 PM [facility] REPOSITORY TYPE CODE TESTS RESULT OUT OF RANGE REFERENCE UNITS LAB L100.1000 4.4-11.0 K/mm3 Normal WBC 8.2 LAB L100.1200 4.2-5.4 M/mm3 Low RBC 4.11 LAB L100.1300 12.0-15.0 g/dl Normal HGB 12.7 LAB L100.1400 37-47 % Normal HCT 37.4 LAB L100.1500 81-99 fL Normal MCV 91.0 LAB L100.1600 27.0-32.0 pg Normal MCH 30.9 LAB L100.1700 32-36 g/gl Normal MCHC 34.0 LAB L100.1810 11.6-14.6 % Normal RDW CV 13.6 LAB L100.1820 35.1-43.9 fl High RDW SD 44.8 LAB L100.1900 150-450 K/mm3 Normal PLT 348 LAB L100.2000 6.2-12.0 fl Normal MPV 9.4 LAB L100.2100 47-70 % High NEUT% 76.4 LAB L100.2200 19-41 % Low LY% 15.3 LAB L100.2300 0-10 % Normal MONO% 7.3 LAB L100.2400 0-5 % Normal EO% 0.4 LAB L100.2500 0-1 % Normal BASO% 0.4 LAB L100.2550 0.0-0.9 % Normal IM GRAN % 0.200 Result Comment: IG% - Immature Granulocytes (promyelocytes, myelocytes and metamyelocytes) > 1% indicates that a LEFT SHIFT is Present. LAB L100.2620 2.0-7.7 X10 3/uL Normal Absolute Neut 6.3 LAB L100.2720 0.83-4.51 X10 3/ul Normal Absolute Lymph 1.25 LAB L100.5500 ADEQ Normal PLT EST ADEQUATE LAB L100.7000 NORM C AND C NORMAL Normal RED CELL MORPH NORM C+C Performed By: #### L100.0100 #### [facility] [address] [place], [address] ABD INC DECUB Observed: 06/26/2018 Status: F Source: [place] AND/OR ERECT 12:50 PM [facility] REPOSITORY [facility] Imaging Services [address] [facility] [address] Abd Inc Decub and/or Erect MR#: [id number] Acct: [id number] Name: FRANK LUNDY Rep #: [id number] : 1940 F 77 From: Howard Kinsey MD PCP: Yang Carver MD, Chi Status: REG CLI Study: Abd Inc Decub and/or Erect Date of Exam: 06/26/18 Exam# [id number] Ordering Dr: Yang Carver MD STUDY: X-RAY - ABDOMEN/PELVIS REASON FOR EXAM: Female, 77 years old. Constipation. TECHNIQUE: AP supine and upright views of the abdomen and pelvis on 4 images. COMPARISON: Supine and upright views of the abdomen and pelvis on 3 films February 19, 2017. FINDINGS: Normal visualized lung bases. There are a few non-distended to borderline distended gas- filled small bowel loops in the medial left flank, accompanied by segments of nondistended colon down to the rectum. On upright exam, there are occasional fluid levels that may reflect a mild generalized ileus. There is no demonstrated free abdominal air. The visualized liver, spleen and kidneys are grossly normal in size and morphology. Normal soft tissue structures. There are stable multilevel degenerative changes of the visualized lumbar spine and 15 degree levorotoscoliosis centered near L4. RAD/Abd Inc Decub and/or Erect IMPRESSION: Findings suggesting mild ileus without significant distention. No free gas. Electronically Signed: Mack Kinsey MD at 14:57 EST , Service support , CC: Yang Carver MD License Examiner: Signed 12 LEAD ELECTROCARDIOGRAM Observed: 06/25/2018 Status: F Source: [place] 3:32 PM [facility] REPOSITORY [facility] Cardiovascular Services [address] [place] [address] 12 Lead EKG 06/21/18 1830 MR#: [id number] Acct: [id number] Name: FRANK LUNDY Rep #: [id number] : 1940 77 From: Angel Humphries MD Attending Dr: Status: DEP ER Ordering Dr: Kamilah Mejias MD Date: 06/21/18 Location: ED Sex: F C Admitted: Test Reason : SOB Blood Pressure : / mmHG Vent. Rate : 076 BPM Atrial Rate : 076 BPM P-R Int : 142 ms QRS Dur : 102 ms QT Int : 416 ms P-R-T Axes : -14 -05 042 degrees QTc Int : 468 ms Normal sinus rhythm Normal ECG Confirmed by PIERRE MERCHANT, ANGEL ([id number]), fan mail editor STELLA JAMES ([id number]) on 06/25/2018 3:32:08 PM Referred By: TORI Confirmed By:ANGEL HUMPHRIES MD 06/25/18 1532 Date Angel Humphries MD CC: Kamilah Mejias MD; Yang Carver MD Signed EMERGENCY DEPARTMENT Observed: 06/21/2018 Status: F Source: [place] SUMMARY 8:23 PM [facility] REPOSITORY [facility] Medical Records Department [address] [place] [address] Emergency Department Summary 06/21/18 1834 MR#: [id number] Acct: [id number] Name: FRANK LUNDY Rep #: [id number] : 1940 77 From: Kamilah Mejias MD PCP: Yang Carver MD, Chi Status: REG ER - ER Visit Summary Date of Service: 06/21/18 Chief Complaint: Shortness of breath History of Present Illness: The patient is a 77 F presenting with shortness of breath. Patient states that she has had shortness of breath today. Her friend noticed this while she was at [employer]. She denies chest pain. Shortness of breath is worse with exertion. She was recently admitted to the hospital June 09 - June 11. At that time it was felt she was not safe to be at home alone. She was sent home with plan for home health care. Friend states that home health never contacted them and she continues to live alone. Physical Examination: Vitals are stable. Patient is afebrile. Alert no acute distress. HEENT exam is unremarkable. Neck is supple. Lungs are clear and equal bilaterally. Heart is regular rate and rhythm. Abdomen is soft nontender nondistended. Extremities are unremarkable. Skin is warm and dry. No focal neurologic deficit. Remainder of exam is unremarkable. Emergency Department Course and Treatment: EKG is sinus rate of 76 with no acute ischemic changes. Chest x-ray shows no acute process. CBC, chemistries unremarkable other than sodium 130, potassium 3.3. Urinalysis unremarkable. Troponin is negative. Patient remains 98% on room air. There is still concern for her ability to care for herself at home and whether she is safe at home alone. Will discuss with the hospitalist for admission. Disposition: Admission Impression: Hyponatremia, dyspnea, functional decline This note was generated with Yurpy dictation software. It may contain incorrect words, spelling, and punctuation that were not noted in review of the chart prior to signing ED Disposition - Plan for ED Patient: Chief Complaint: Shortness of Breath Referrals: Yang Carver Chi, MD [Primary Care Provider] - What to do if you have Problems For any increased pain, shortness of breath, bleeding, nausea or vomiting, chest pain, or any unexpected problems, contact your Primary Care Provider. Call [facility]clog Registry ([phone]) or report to the closest Emergency Room. Call 911 if necessary. 06/21/182022 <Electronically signed by Kamilah Mejias MD> Date Kamilah Mejias MD Cosigner Signature (If Indicated): Date CC: Yang Carver MD URINALYSIS, COMPLETE Collected: 06/21/2018 Status: F Source: [place] 7:29 PM [facility] REPOSITORY Order Comment: Order Date: 06/21/18 Has pt arrived? Y How was Urine Obtained? METER AND SERVICE LINE INSPECTOR TO SPECIFY TYPE CODE TESTS RESULT OUT OF RANGE REFERENCE UNITS LAB L400.3000 Yellow COLOR Normal Straw LAB L400.3050 Clear Normal CLARITY Clear LAB L400.3200 Normal mg/dl Normal GLUCOSE, UR Normal LAB L400.3300 Negative mg/dL Normal BILIRUBIN URINE Negative LAB L400.3400 Negative mg/dl High 15 KETONE UR LAB L400.3465 1.002-1.030 Normal SP.GR. DIPSTX 1.015 LAB L400.3550 5.0 - 8.0 pH UR Normal 8.0 LAB L400.3600 Negative mg/dl PROT Normal DIPSTX Negative LAB L400.3700 Normal mg/dl Normal UROBILI Normal LAB L400.3750 Negative Normal NITRITE UR Negative LAB L400.3780 Negative /ul Normal OCCULT BLOOD-UR Negative LAB L400.3800 Negative /ul High LEUK 25 ESTERASE LAB L400.4050 0-5 /hpf WBC Normal 0-5 SEEN LAB L400.4100 0-5 /hpf 0 Normal RBC-UA SEEN LAB L400.4150 5-10 /hpf SQUAM Normal EPI 0-5 SEEN LAB L400.4300 None Seen /hpf 0 Normal BACTERIA SEEN LAB L400.4350 <or=2+ /hpf 0 Normal MUCUS, URINE SEEN Performed By: #### L400.0001 #### [facility] [address] [place], [place], [address] CBC W/DIFF, AUTOMATED Collected: 06/21/2018 Status: F Source: [place] 6:30 PM [facility] REPOSITORY TYPE CODE TESTS RESULT OUT OF RANGE REFERENCE UNITS LAB L100.1000 4.4-11.0 K/mm3 Normal WBC 8.3 LAB L100.1200 4.2-5.4 M/mm3 Normal RBC 4.36 LAB L100.1300 12.0-15.0 g/dl Normal HGB 13.3 LAB L100.1400 37-47 % Normal HCT 38.2 LAB L100.1500 81-99 fL Normal MCV 87.6 LAB L100.1600 27.0-32.0 pg Normal MCH 30.5 LAB L100.1700 32-36 g/gl Normal MCHC 34.8 LAB L100.1810 11.6-14.6 % Normal RDW CV 13.2 LAB L100.1820 35.1-43.9 fl Normal RDW SD 42.7 LAB L100.1900 150-450 K/mm3 Normal PLT 318 LAB L100.2000 6.2-12.0 fl Normal MPV 8.3 LAB L100.2100 47-70 % High NEUT% 72.2 LAB L100.2200 19-41 % Low LY% 18.0 LAB L100.2300 0-10 % Normal MONO% 9.0 LAB L100.2400 0-5 % Normal EO% 0.5 LAB L100.2500 0-1 % Normal BASO% 0.1 LAB L100.2550 0.0-0.9 % Normal IM GRAN % 0.200 Result Comment: IG% - Immature Granulocytes (promyelocytes, myelocytes and metamyelocytes) > 1% indicates that a LEFT SHIFT is Present. LAB L100.2620 2.0-7.7 X10 3/uL Normal Absolute Neut 6.0 LAB L100.2720 0.83-4.51 X10 3/ul Normal Absolute Lymph 1.50 Performed By: #### L100.0100 #### [facility] [address] [place], [address] BASIC METABOLIC Collected: 06/21/2018 Status: F Source: [place] PROFILE (BMP) 6:30 PM [facility] REPOSITORY TYPE CODE TESTS RESULT OUT OF RANGE REFERENCE UNITS LAB L501.0100 74-106 mg/dL High GLU 108 Result Comment: Fasting Glucose result from 100 to 125 mg/dL suggests IMPAIRED HOMEOSTASIS per A.D.A. criteria. Please note revised GLUCOSE reference range effective 2017. LAB L501.1000 7-18 mg/dL Normal BUN 9 LAB L501.1100 0.55-1.02 mg/dL Normal CREAT,SERUM 0.79 Result Comment: The validity of the calculated GFR AND GFRAA in patients over 70 years has not been determined. Clinical correlation is essential. LAB L501.1110 >60 mL/min Normal EST GFR 74 Result Comment: Non- GFR Calc LAB L501.1115 >60 mL/min Normal EST GFR - AA 90 Result Comment: GFR Calc LAB L501.1255 ml/min Normal Estimated CRCL 42.70 LAB L501.1300 10-20 RATIO Normal BUN/CRE 11.4 LAB L501.2200 8.5-10 mg/dL Normal .1 CA 8.9 LAB L501.5300 136-14 mmol/L Low 5 NA 130 LAB L501.5600 3.5-5. mmol/L Low 1 K 3.3 LAB L501.5900 98-107 mmol/L Low CL 96 LAB L501.6100 21.0-3 mmol/L Normal 2.0 CO2 24.0 LAB L501.6200 5-15 Normal GAP 10 Performed By: #### L500.2500, L501.4010 #### [facility] [place], [address] TROPONIN-I Collected: 06/21/2018 Status: F Source: [place] 6:30 PM [facility] REPOSITORY TYPE CODE TESTS RESULT OUT OF RANGE REFERENCE UNITS LAB L501.4010 <0.045 ng/mL Normal < 0.015 TROPONIN-I Result Comment: TROPONIN-I EXPECTED VALUES <0.045 Negative 0.045 - 0.590 Consistent with Cardiac Damage > OR = 0.600 Critical Value Not every elevated troponin is indicative of TN. These values should be used with clinical judgement in examining the patient's clinical picture for diagnosis. To establish a diagnosis of TN versus myocardial injury, there must be a demonstrated rise and/or fall in the troponin values, in addition to ischemic symptoms, EKG changes, new regional wall motion abnormality, and/or angiographical evidence. PLEASE NOTE: REFERENCE RANGES EDITED 17 Performed By: #### L500.2500, L501.4010 #### [facility] [address] [place], [address] CHEST 1 VIEW Observed: 06/21/2018 Status: F Source: [place] (PORTABLE) 6:21 PM [facility] REPOSITORY [facility] Imaging Services [address] [place] [address] Chest 1 View (Portable) MR#: [id number] Acct: [id number] Name: FRANK LUNDY Rep #: [id number] : 1940 F 77 From: Bobby Stein MD PCP: Felix MERCHANT,Yang James Status: REG ER Study: Chest 1 View (Portable) Date of Exam: 06/21/18 Exam# [id number] Ordering Dr: Kamilah Mejias MD STUDY: X-RAY CHEST REASON FOR EXAM: Female, 77 years old. Increasing shortness of breath TECHNIQUE: AP COMPARISON: 04/25/2018 FINDINGS: EKG leads project over the chest. The lungs are clear and expanded. There is no demonstrated pleural abnormality. Normal size heart. Normal mediastinum and janice. Normal visualized pulmonary arteries. There is atherosclerotic calcification of the aortic arch with tortuosity. Normal visualized thoracic spine. Normal visualized ribs, clavicles, and shoulders. There is no demonstrated abnormality of the visualized soft tissue structures of the upper abdomen. RAD/Chest 1 View (Portable) IMPRESSION: Stable, nonacute portable x-ray examination of the chest. Electronically Signed: Bobby Stein MD at 18:52 EST , Service support , CC: Kamilah Mejias MD; Yang Carver MD License Examiner: Signed DISCHARGE SUMMARY Observed: 06/11/2018 Status: F Source: [place] 11:36 AM [facility] REPOSITORY [facility] Medical Records Department [address] [place] [address] Discharge Summary 06/11/18 1133 MR#: [id number] Acct: [id number] Name: FRANK LUNDY Rep #: [id number] : 1940 77 From: Connie Mota PCP: Felix MERCHANT,Yang James Status: ADM IN Y Location: [place] [address] Discharge Date and Diagnosis - Problem List Patient Problems: Active and Suspected Problems Dementia (Acute) Date of Admission: 06/09/18 Date of Discharge: 06/11/18 - Primary Discharge Diagnosis Active and Suspected Problems (1) Debility, Weakness, Failure to Thrive as Adult, Suspected likely to Advancing Dementia (2) Hypokalemia (3) Mild Cardiomyopathy, Unclear Type (4) Hypertension (5) Hyperlipidemia (6) Valvular Heart Disease (7) Dementia, Unclear Type, Unclear Behavioral Disturbance History w/ Tremors, Chronic (8) Anxiety and Depression (9) Chronic Early AM Abdominal Pain, Suspected secondary to IBS - Secondary Discharge Diagnosis Chronic Problems Non-rheumatic tricuspid valve insufficiency (Chronic) Nonrheumatic aortic valve insufficiency (Chronic) Nonrheumatic mitral valve insufficiency (Chronic) Hyperlipidemia (Chronic) Cardiomyopathy (Chronic) Confusion (Chronic) HTN (hypertension) (Chronic) Hospital Course and Treatment Operations: None Procedures: EKG Summary of Care Provided: The patient is a 77 y/o F w/ PMHx: HTN, HLD, Dementia unclear type with unclear behavior disturbance history, Mild Cardiomyopathy, Valvular Heart Disease who presented to the [facility] ED on 06/09/18 with history of progressing dementia, unable to care for self at home, generalized debility and weakness. Admitted to [facility], given unsafe at home, unsafe caring for herself, maintain on fall precautions, PT, OT, CM for discharge planning with current plan for home with home health and aid as patient notably debilitated, unstable on feet, needs assist daily activities to appropriate care of self. Mag, TSH normal. UA normal. No evidence infection. Given family noted progressive decline, suspect likely worsening dementia, but to be cautious obtained brain MRI to evaluate for alternate etiology w/ noted moderate atrophy and periventricular white matter ischemic changes without any evidence of acute infarct but noted old infarct or other nonspecific brain injury in the right temporal lobe region. On ASA, BP regimen, given MRI findings possible old CVA, obtained FLP and not marked and added low dose statin given age for future CVA prevention. Hepatic profile, NH level unremarkable. Dementia, Unclear Type, Unclear Behavioral Disturbance History w/ Tremors, Chronic with as noted unremarkable MRI for acute findings, noted prior evidence remote CVA. Chronic Early AM Abdominal Pain, noted to have had work-up with PCP. Discussed patient dementia and GI upset chronic discomfort with patient and family and will upon discharge refer to Dr. Gonzalez for IBS/possible upper endoscopy evaluation in addition to Dr. Tang for dementia assessment and further evaluation if felt appropriate. Patient Problems: Active and Suspected Problems Dementia (Acute) - Physical Exam Vital Signs Temp Pulse Resp BP Pulse Ox 99.0 F 81 18 151/79 H 96 06/11/18 07:52 06/11/18 07:52 06/11/18 07:52 06/11/18 07:52 06/11/18 07:52 Oxygen Delivery Method Room Air Weight: 129 lb 3.054 oz Body Mass Index (BMI) 21.4 Finger Stick Blood Glucose 109 Intake and Output for Last 24 Hours Intake Total 720 / 720 1175 / 1175 120 / 120 Balance 720 / 720 1175 / 1175 120 / 120 Laboratory Tests Past 24 Hrs Total Bilirubin 0.40 Direct Bilirubin 0.14 AST 17 ALT 19 Alkaline Phosphatase 62 Discharge Activity: May Not Drive, Use Walker - Use assistive devices including walker or cane. May resume sexual activity in: No Restrictions Weight Bearing Status: Weight bearing as tolerated Call your doctor if you observe: Fever of 101 or Higher, Inability to urinate, Inability to have a bowel movement, Shortness of breath, Dizziness, Fainting spells, Chest pain, Uncontrolled pain Home Medications: Medications to take at Discharge Aspirin E.C. [Ecotrin] 81 mg PO DAILY 03/19/18 Escitalopram Oxalate [Lexapro] 10 mg PO DAILY 05/27/18 Oxybutynin [Ditropan] 5 mg PO TID 05/27/18 Memantine HCl 5 mg PO DAILY 06/09/18 Amlodipine [Norvasc] 5 mg PO DAILY #30 tablet 06/11/18 Atorvastatin Calcium [Lipitor] 10 mg PO QHS #30 tablet 06/11/18 Pantoprazole Sodium [Protonix] 20 mg PO BID #60 tablet 06/11/18 Following Prescrptions Were Given to Patient: Amlodipine [Norvasc] 5 mg PO DAILY #30 tablet Atorvastatin Calcium [Lipitor] 10 mg PO QHS #30 tablet Pantoprazole Sodium [Protonix] 20 mg PO BID #60 tablet Primary Care Physician: Yang Carver Chi, MD [Primary Care Provider] - Please follow up with your Primary Care Physician in: Follow- up within 3-5 days to review admission. Please Follow Up With: Krystian Gonzalez MD When: Follow-up within 1-2 weeks, evaluation chronic AM abdominal pain. Please Follow Up With: Reina Tang MD When: Evaluation for dementia, advancing in 2-4 weeks. Patient Instructions: For Caregivers: Safety Tips for Dementia Patients, For Caregivers: Daily Care for Dementia Patients, Understanding Dementia Disposition: Home with Home Health Minutes spent on discharge:: 35 Patient Condition:: Fair Medical Necessity - Tobacco Use Smoking Status: Never smoker Meaningful Use Info Meaningful Use Diagnoses (Choose all that apply): None applicable Code Visit Inpatient E AND M: 97594 Disch Hosp 06/11/18 1136 <Electronically signed by Connie Mota > Date Connie Mota Cosigner Signature (if applicable): Date CC: Connie Mota; Yang Carver MD Signed DISCHARGE INSTRUCTION Observed: 06/11/2018 Status: F Source: [place] 11:33 AM [facility] REPOSITORY [facility] Medical Records Department [address] [place] [address] Instructions for Home/Discharge Instructions 06/11/18 1129 MR#: [id number] Acct: [id number] Name: FRANK LUNDY Rep #: [id number] : 1940 77 From: Connie Mota PCP: Felix MERCHANT,Physcient Status: ADM IN - Discharge Diagnoses Current Active Problems: Current Active and Chronic Problems (1) Debility, Weakness, Failure to Thrive as Adult, Suspected likely to Advancing Dementia (2) Hypokalemia (3) Mild Cardiomyopathy, Unclear Type (4) Hypertension (5) Hyperlipidemia (6) Valvular Heart Disease (7) Dementia, Unclear Type, Unclear Behavioral Disturbance History w/ Tremors, Chronic (8) Anxiety and Depression (9) Chronic Early AM Abdominal Pain, Suspected secondary to IBS You will use the following diet at home:: Cardiac Your food should be the consistency of: Regular Your liquids should be the consistency of: Regular/Thin Discharge Activity: May Not Drive, Use Walker - Use assistive devices including walker or cane. May resume sexual activity in: No Restrictions Weight Bearing Status: Weight bearing as tolerated Call your doctor if you observe: Fever of 101 or Higher, Inability to urinate, Inability to have a bowel movement, Shortness of breath, Dizziness, Fainting spells, Chest pain, Uncontrolled pain Instructions: For Caregivers: Safety Tips for Dementia Patients, For Caregivers: Daily Care for Dementia Patients, Understanding Dementia Additional Instructions: Please have repeat blood pressure assessment with primary care at follow-up and may increase or add to your regimen to achieve control. Allergies/Adverse Reactions: Allergies ceftriaxone [From Rocephin] Allergy (Verified 06/09/18 21:33) Anaphylaxis cephalexin [From Keflex] Allergy (Verified 06/09/18 21:33) Angioedema doxycycline Allergy (Verified 06/09/18 21:33) Angioedema sulfamethoxazole [From Bactrim] Allergy (Verified 06/09/18 21:33) Hives trimethoprim [From Bactrim] Allergy (Verified 06/09/18 21:33) Hives Medications to take at Discharge Aspirin E.C. [Ecotrin] 81 mg PO DAILY 03/19/18 Escitalopram Oxalate [Lexapro] 10 mg PO DAILY 05/27/18 Oxybutynin [Ditropan] 5 mg PO TID 05/27/18 Memantine HCl 5 mg PO DAILY 06/09/18 Amlodipine [Norvasc] 5 mg PO DAILY #30 tablet 06/11/18 Atorvastatin Calcium [Lipitor] 10 mg PO QHS #30 tablet 06/11/18 Pantoprazole Sodium [Protonix] 20 mg PO BID #60 tablet 06/11/18 The following prescriptions were given: Amlodipine [Norvasc] 5 mg PO DAILY #30 tablet Atorvastatin Calcium [Lipitor] 10 mg PO QHS #30 tablet Pantoprazole Sodium [Protonix] 20 mg PO BID #60 tablet Primary Care Physician: Yang Carver Chi, MD [Primary Care Provider] - Please follow up with your Primary Care Physician in: Follow- up within 3-5 days to review admission. Test Results: Test results from this visit will be discussed in further detail at your follow-up appointment, if applicable. Please Follow Up With: Krystian Gonzalez MD When: Follow-up within 1-2 weeks, evaluation chronic AM abdominal pain. Please Follow Up With: Reina Tang MD When: Evaluation for dementia, advancing in 2-4 weeks. Proposed Discharge Date: 06/11/18 06/11/18 1133 <Electronically signed by Connie Mota > Date Connie Mota CC: Yang Carver MD LIVER PROFILE Collected: 06/11/2018 Status: F Source: [place] 7:22 AM [facility] REPOSITORY TYPE CODE TESTS RESULT OUT OF RANGE REFERENCE UNITS LAB L501.1500 6.4-8.2 g/dL Low T PROT 6.2 LAB L501.1800 3.2-5.0 g/dL Normal ALB 3.2 LAB L501.1950 2.2-4.2 g/dL Normal GLOB 3.0 LAB L501.4100 15-37 U/L Normal AST 17 LAB L501.4305 45-117 U/L Normal ALK P 62 LAB L501.4405 13-56 U/L Normal ALT 19 LAB L501.4600 0.20-1.00 mg/dL Normal T BILI 0.40 LAB L501.4700 0.00-0.30 mg/dL Normal D BILI 0.14 Performed By: #### L500.3400, L500.4100 #### [facility] [place], [address] LIPID PROFILE Collected: 06/11/2018 Status: F Source: [place] 7:22 AM [facility] REPOSITORY TYPE CODE TESTS RESULT OUT OF RANGE REFERENCE UNITS LAB L501.4900 200 mg/dL Normal CHOL 173 Result Comment: <200 mg/dL Desirable 200-240 mg/dL Borderline >240 mg/dL High Risk LAB L501.5000 mg/dL Normal TRIG 124 Result Comment: The drugs N-Acetylcysteine and Metamizole may falsely depress this assay. Serum Triglycerides Reference Interval Normal <150 mg/dL Borderline high 150 - 199 mg/dL High 200 - 499 mg/dL Very High > or = 500 mg/dL LAB L501.6400 mg/dL Normal HDL 43 Result Comment: The drugs N-Acetylcysteine and Metamizole may falsely depress this assay. Reference Range HDL <40 mg/dL Low HDL Cholesterol HDL >or= 60 mg/dL High HDL Cholesterol LAB L501.6500 0-130 mg/dL Normal LDL 105 LAB L501.6600 5-40 mg/dL Normal VLDL 25 Performed By: #### L500.3400, L500.4100 #### [facility] [address] [facility] [place], [address] AMMONIA Collected: 06/11/2018 Status: F Source: [place] 7:22 AM [facility] REPOSITORY TYPE CODE TESTS RESULT OUT OF REFERENCE UNITS RANGE LAB L503.5510 11-32 umol/L Low AMMONIA < 10.0 Performed By: #### L503.5510 #### [facility] [address] [place], [address] BRAIN WITHOUT Observed: 06/10/2018 Status: F Source: [place] CONTRAST 1:08 PM [facility] REPOSITORY [facility] Imaging Services [address] [place] [address] Brain without Contrast MR#: [id number] Acct: [id number] Name: FRANK LUNDY Rep #: [id number] : 1940 F 77 From: Ector Blake MD PCP: Felix MERCHANT,Yang Chi Status: ADM [place] Study: Brain without Contrast Date of Exam: 06/10/18 Exam# [id number] Ordering Dr: Connie Mota STUDY: MRI BRAIN WITHOUT CONTRAST REASON FOR EXAM: Female, 77 years old. Confusion and dementia TECHNIQUE: Standardized multiplanar fat and water weighted pulse sequences were obtained. COMPARISON: MRI on June 18, 2016 CT of the brain on April 25, 2018 FINDINGS: Moderate atrophy and periventricular white matter ischemic changes without mass effect or restricted diffusion.. There is gliosis of the right anterior temporal lobe and encephalomalacia consistent with old infarct or other nonspecific brain injury. Normal bilateral basal ganglia. Normal thalami. There is no extra-axial fluid accumulation. Normal flow voids within the major intracranial circulation suggesting patency by spin echo criteria. Normal sella turcica, pituitary gland, infundibular stalk, optic chiasm and hypothalamus. Normal tectal plate and pineal gland. Normal midbrain, jese and medulla. Normal cerebellum. Normal basal cisterns. Normal bilateral temporal bones. Normal bilateral internal auditory canals. No demonstrated orbital abnormality, within the constraints of a routine brain study. Normal visualized paranasal sinuses. Normal calvarium and skull base. Normal visualized soft tissue structures. Normal visualized upper cervical spine. MRI/Brain without Contrast IMPRESSION: Moderate atrophy and periventricular white matter ischemic changes without evidence for acute infarct. 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 criteria. Please note revised GLUCOSE reference range effective 2017. LAB L501.1000 7-18 mg/dL Normal BUN 7 LAB L501.1100 0.55-1.02 mg/dL Normal CREAT,SERUM 0.75 Result Comment: The validity of the calculated GFR AND GFRAA in patients over 70 years has not been determined. Clinical correlation is essential. LAB L501.1110 >60 mL/min Normal EST GFR 79 Result Comment: Non- GFR Calc LAB L501.1115 >60 mL/min Normal EST GFR - AA 96 Result Comment: GFR Calc LAB L501.1255 ml/min Normal Estimated CRCL 41.05 LAB L501.1300 10-20 RATIO Low BUN/CRE 9.3 LAB L501.2200 8.5-10 mg/dL Low .1 CA 8.4 LAB L501.5300 136-14 mmol/L Low 5 NA 134 LAB L501.5600 3.5-5. mmol/L Normal 1 K 3.7 LAB L501.5900 98-107 mmol/L Normal CL 101 LAB L501.6100 21.0-3 mmol/L Normal 2.0 CO2 24.0 LAB L501.6200 5-15 Normal GAP 9 Performed By: #### L500.2500 #### [facility] [address] [facility] [place], [place], [id number] MAGNESIUM Collected: 06/10/2018 Status: F Source: TOM 5:42 AM [facility] REPOSITORY TYPE CODE TESTS RESULT OUT OF RANGE REFERENCE UNITS LAB L501.5200 1.6-2.6 mg/dL Normal MG 2.0 Performed By: #### L501.5200, L501.9520 #### [facility] [address] [place], [address] THYROID STIM HORMONE Collected: 06/10/2018 Status: F Source: TOM (TSH) 5:42 AM [facility] REPOSITORY TYPE CODE TESTS RESULT OUT OF RANGE REFERENCE UNITS LAB L501.9520 0.358-3.74 uIU/mL Normal TSH 1.44 Performed By: #### L501.5200, L501.9520 #### [facility] [address] [place], [place], [id number] HISTORY AND PHYSICAL Observed: 06/09/2018 Status: F Source: [place] EXAM 10:29 PM [facility] REPOSITORY [facility] Medical Records Department [address] [place] [address] History and Physical 06/09/188 MR#: [id number] Acct: [id number] Name: FRANK LUNDY Rep #: [id number] : 1940 77 From: Trenton Baez MD PCP: Yang Carver MD, Chi Status: ADM [place] Y Location: [place] [address] Problem List (1) History of cholecystectomy Status: Resolved (2) History of tonsillectomy Status: Resolved (3) H/O: hysterectomy Status: Resolved (4) Non-rheumatic tricuspid valve insufficiency Status: Chronic (5) Hyperlipidemia Status: Chronic Qualifiers: (6) Cardiomyopathy Status: Chronic Qualifiers: (7) HTN (hypertension) Status: Chronic Qualifiers: (8) Dementia Status: Acute Qualifiers: Dementia type: unspecified type History of Present Illness Date of Admission: 06/09/18 Chief Complaint: unable to care for herself The patient is a 77 year old female patient with a history of progressive dementia presents to the ER with confusion. 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 Patient is a poor historian. Others report her having morning abdominal complaint that seems to relent as the day progresses. She has been seen several times by her PCP but underlying cause of abdominal discomfort in AM is undetermined. Medications have been changed but confusion has progressed. Potassium is noted to be low at admission. The patient is a risk to herself and will be admitted for observation for her safety. Past Medical History Past Medical History (Chronic Problems): Chronic Problems Non-rheumatic tricuspid valve insufficiency (Chronic) Nonrheumatic aortic valve insufficiency (Chronic) Nonrheumatic mitral valve insufficiency (Chronic) Hyperlipidemia (Chronic) Cardiomyopathy (Chronic) Confusion (Chronic) HTN (hypertension) (Chronic) Medical History: Medical History H/O: hysterectomy (Resolved) Z90.710 Hyperlipidemia (Chronic) E78.5 Cardiomyopathy (Chronic) I42.9 HTN (hypertension) (Chronic) I10 Allergies ceftriaxone [From Rocephin] Allergy (Verified 06/09/18 21:33) Anaphylaxis cephalexin [From Keflex] Allergy (Verified 06/09/18 21:33) Angioedema doxycycline Allergy (Verified 06/09/18 21:33) Angioedema sulfamethoxazole [From Bactrim] Allergy (Verified 06/09/18 21:33) Hives trimethoprim [From Bactrim] Allergy (Verified 06/09/18 21:33) Hives Home Medications: Ambulatory Orders Medication Instructions Recorded Surgical History: Surgical History (Last Updated 02/14/18 @ 10:06 by Amanda Peoples) History of cholecystectomy (Resolved) Z90.49 History of tonsillectomy (Resolved) Z90.89 Surgical History: cholecystectomy, tonsillectomy Psychiatric History: Anxiety 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 Smoking Status: Never smoker - *Family History Paternal Family History: Family History (Last Updated 02/14/18 @ 10:05 by Amanda Peoples) Father CAD (coronary artery disease) Hypertension Mother Hypertension Sister Hypertension CAD (coronary artery disease) History Items: No pertinent history Maternal Family History: Family History (Last Updated 02/14/18 @ 10:05 by Amanda Peoples) Father CAD (coronary artery disease) Hypertension Mother Hypertension Sister Hypertension CAD (coronary artery disease) History Items: No pertinent history Review of Systems Constitutional: Denies: Chills, Fever, Weight Change HEENT: Denies: Head Aches, Sinus Congestion, Sinus Drainage Cardiovascular: Denies: Chest Pain, Palpitations Respiratory: Denies: Cough, Shortness of breath at rest, Sputum production Gastrointestinal: Reports: Abdominal Pain. Denies: Nausea, Vomiting Genitourinary: Denies: Dysuria Musculoskeletal: Denies: Joint Pain, Joint Tenderness Skin: Denies: Rash, Wounds Neurological: Reports: Confusion, - - alert to name but disoriented to time, she was vaguely able to answer the location. She has difficulty answering questions. She has a resting essential tremor. Denies: Focal weakness, Numbness, Tingling Psychiatric: Denies: Anxiety, Depression, Homicidal Ideations, Suicidal Ideations Hematologic/ Lymphatic: Denies: Easy Bruising, Easy Bleeding VTE Information - Inpt Only VTE Present on Admission: No VTE Mechan Device Prophylaxis: None VTE Pharm Prophylaxis ordered?: Yes Patient Problems: Active and Suspected Problems Dementia (Acute) - Physical Exam General: Alert, Cooperative, Confused, Disoriented, - HEENT: Atraumatic, Normocephalic Neck: Supple Lungs: Clear to auscultation, Normal air movement Cardiovascular: Regular rate, Regular Rhythm, Normal S1, Normal S2, No murmurs Abdomen: Bowel Sounds Present, Soft, Non Tender Extremities: No edema, Capillary Refill Less than 3 Seconds Skin: No rashes Musculoskeletal: No Tenderness to Palpation of Joints or Extremities Neurological: Neuro grossly intact, - - essential tremor present--slow to respond to questions Psych/Mental Status: Anxious Vital Signs Temp Pulse Resp BP Pulse Ox 96.9 F L 87 14 144/102 H 97 06/09/18 17:31 06/09/18 17:31 06/09/18 21:28 06/09/18 17:31 06/09/18 17:31 Oxygen Delivery Method Room Air Weight: 125 lb Body Mass Index (BMI) 20.7 Finger Stick Blood Glucose 109 Laboratory Tests Past 24 Hrs Assessment/Plan All Active Problems Anaphylactic reaction (Acute) Dementia (Acute) History of cholecystectomy (Resolved) History of tonsillectomy (Resolved) H/O: hysterectomy (Resolved) Assessment - Risk to self , unable to live alone safely due to Dementia - patient is disoriented Plan - admit to general medical floor for observation - consult case management for DC plan in am - continue routine home medications - full code at this time - replace potassium - regular diet - fall precautions - replace potassium and check bmp in am Code Visit OBSV E AND M: [id number] Initial observation care L2 06/09/182228 <Electronically signed by Trenton Baez MD> Date Trenton Baez MD Cosigner Signature: Date (if applicable) CC: Trenton Baez MD; Yang Carver MD Signed EMERGENCY DEPARTMENT Observed: 06/09/2018 Status: F Source: [place] SUMMARY 10:00 PM [facility] RE[facility] Medical Records Department [address] [place] [address] [place] [address] Emergency Department Summary 12/09/22 2154 MR#: [id number] Acct: [id number] Name: FRANK LUNDY Rep #: [id number] : 1940 77 From: Lv Abernathy MD PCP: Felix MERCHANT,Yang James Status: REG ER - ER Visit Summary Date of Service: 06/09/18 Chief Complaint: Increased confusion and inability to care for self History of Present Illness: The patient is a 77 F who has history of dementia, hypertension, hypercholesterolemia and cardiomyopathy who was brought to the ER because she is unable to care for herself. Daughter and friend of 25 years concerned that she is no longer able to care for self. She is unable to dress herself nor make her meals. She is more forgetful according the daughter. She complains of abdominal pain and is under duress upon awakening. Symptoms improve as the day goes on. She has been seen numerous times by her PCP, Dr. Carver with no determine cause. Daughter states she was prescribed multiple medicines which has since been discontinued. Her only complaint is abdominal pain in the morning. Daughter is concerned regarding depression anxiety secondary dementia. Past medical history dementia, hypertension, hypercholesteremia and cardiomyopathy. Past surgical history cholecystectomy, hysterectomy and tonsillectomy. Physical Examination: Vital signs noted. Blood pressure is elevated 144 102. She is not febrile nor she hypoxic. She appears pale. Head is atraumatic normocephalic. Pupils are equal round reactive. Extraocular muscles are intact. TMs are pearly white with landmarks noted. Nares patent with no drainage. Posterior pharynx without erythema or exudate. Uvula is midline. There is no dysphonia or dysphasia. Trachea is midline. There is no stridor with auscultation of the neck. Heart is regular without murmur, gallop or rub. S1 and S2 are normal. Lungs are clear to auscultation with good movement of air bilaterally. Abdomen is soft nontender bowel sounds are present normal. She is alert but is not oriented. Motor sensory intact. DTRs symmetric. Cranial 2 through 12 intact. Test Results: CBC is unremarkable. Basic metabolic panel reveals a potassium of 3.0. UA is unremarkable. Patient had a CAT scan in April which was unremarkable. Emergency Department Course and Treatment: Will look for metabolic infectious causes otherwise patient will need 20-hour observation with consult to case management for discharge planning since patient is not able to care for herself nor is she is safe at home. Treatment Plan: Case management to assist with discharge planning and [place] [facility] placement Disposition: 23 hours observation medical/surgical unit Impression: 1. Worsening dementia 2. Depression anxiety not suicidal 3. History of hypertension 4. History hypercholesterolemia This note was generated with Yurpy dictation software. It may contain incorrect words, spelling, and punctuation that were not noted in review of the chart prior to signing ED Disposition - Plan for ED Patient: Chief Complaint: Confusion Referrals: Yang Carver Chi, MD [Primary Care Provider] - What to do if you have Problems For any increased pain, shortness of breath, bleeding, nausea or vomiting, chest pain, or any unexpected problems, contact your Primary Care Provider. Call [facility] ([phone]) or report to the closest Emergency Room. Call 911 if necessary. 06/09/18 2200 <Electronically signed by Lv Abernathy MD> Date Lv Abernathy MD Cosigner Signature (If Indicated): Date CC: Yang Carver MD URINALYSIS, COMPLETE Collected: 06/09/2018 Status: F Source: [place] 9:20 PM [facility] REPOSITORY Order Comment: How was Urine Obtained? CLEAN CATCH TYPE CODE TESTS RESULT OUT OF RANGE REFERENCE UNITS LAB L400.3000 Yellow COLOR Normal Yellow LAB L400.3050 Clear Normal CLARITY Clear LAB L400.3200 Normal mg/dl Normal GLUCOSE, UR Normal LAB L400.3300 Negative mg/dL Normal BILIRUBIN URINE Negative LAB L400.3400 Negative mg/dl High 5 KETONE UR LAB L400.3465 1.002-1.030 Normal SP.GR. DIPSTX 1.015 LAB L400.3550 5.0 - 8.0 pH UR Normal 8.0 LAB L400.3600 Negative mg/dl PROT Normal DIPSTX Negative LAB L400.3700 Normal mg/dl Normal UROBILI Normal LAB L400.3750 Negative Normal NITRITE UR Negative LAB L400.3780 Negative /ul Normal OCCULT BLOOD-UR Negative LAB L400.3800 Negative /ul High LEUK 25 ESTERASE LAB L400.4050 0-5 /hpf WBC Normal 0-5 SEEN LAB L400.4100 0-5 /hpf 0 Normal RBC-UA SEEN LAB L400.4150 5-10 /hpf SQUAM Normal EPI 0-5 SEEN LAB L400.4300 None Seen /hpf 0 Normal BACTERIA SEEN LAB L400.4350 <or=2+ /hpf 0 Normal MUCUS, URINE SEEN Performed By: #### L400.0001 #### [facility] [address] [place], [place], [id number] CBC W/DIFF, AUTOMATED Collected: 06/09/2018 Status: F Source: [place] 9:05 PM [facility] REPOS[facility] TYPE CODE TESTS RESULT OUT OF RANGE REFERENCE UNITS LAB L100.1000 4.4-11.0 K/mm3 Normal WBC 6.7 LAB L100.1200 4.2-5.4 M/mm3 Normal RBC 4.39 LAB L100.1300 12.0-15.0 g/dl Normal HGB 13.3 LAB L100.1400 37-47 % Normal HCT 38.6 LAB L100.1500 81-99 fL Normal MCV 87.9 LAB L100.1600 27.0-32.0 pg Normal MCH 30.3 LAB L100.1700 32-36 g/gl Normal MCHC 34.5 LAB L100.1810 11.6-14.6 % Normal RDW CV 13.3 LAB L100.1820 35.1-43.9 fl Normal RDW SD 42.9 LAB L100.1900 150-450 K/mm3 Normal PLT 291 LAB L100.2000 6.2-12.0 fl Normal MPV 8.4 LAB L100.2100 47-70 % Normal NEUT% 67.0 LAB L100.2200 19-41 % Normal LY% 24.6 LAB L100.2300 0-10 % Normal MONO% 7.1 LAB L100.2400 0-5 % Normal EO% 0.7 LAB L100.2500 0-1 % Normal BASO% 0.3 LAB L100.2550 0.0-0.9 % Normal IM GRAN % 0.300 Result Comment: IG% - Immature Granulocytes (promyelocytes, myelocytes and metamyelocytes) > 1% indicates that a LEFT SHIFT is Present. LAB L100.2620 2.0-7.7 X10 3/uL Normal Absolute Neut 4.5 LAB L100.2720 0.83-4.51 X10 3/ul Normal Absolute Lymph 1.65 Performed By: #### L100.0100 #### [facility] [address] [facility]. [place], [place], [id number] BASIC METABOLIC Collected: 06/09/2018 Status: F Source: [place] PROFILE (BMP) 9:05 PM [facility] REPOSITORY TYPE CODE TESTS RESULT OUT OF RANGE REFERENCE UNITS LAB L501.0100 74-106 mg/dL Normal GLU 96 Result Comment: Please note revised GLUCOSE reference range effective 2017. LAB L501.1000 7-18 mg/dL Normal BUN 8 LAB L501.1100 0.55-1.02 mg/dL Normal CREAT,SERUM 0.80 Result Comment: The validity of the calculated GFR AND GFRAA in patients over 70 years has not been determined. Clinical correlation is essential. LAB L501.1110 >60 mL/min Normal EST GFR 74 Result Comment: Non- GFR Calc LAB L501.1115 >60 mL/min Normal EST GFR - AA 89 Result Comment: GFR Calc LAB L501.1255 ml/min Normal Estimated CRCL 51.04 LAB L501.1300 10-20 RATIO Normal BUN/CRE 10.1 LAB L501.2200 8.5-10 mg/dL Normal .1 CA 8.8 LAB L501.5300 136-14 mmol/L Normal 5 NA 136 LAB L501.5600 3.5-5. mmol/L Low 1 K 3.0 LAB L501.5900 98-107 mmol/L Normal CL 99 LAB L501.6100 21.0-3 mmol/L Normal 2.0 CO2 26.0 LAB L501.6200 5-15 Normal GAP 11 Performed By: #### L500.2500 #### [facility] [address] [facility] [place], [address] EMERGENCY DEPARTMENT Observed: 05/27/2018 Status: F Source: [place] SUMMARY 1:59 PM [facility] REPOSITORY [facility] Medical Records Department [address] [place] [address] Emergency Department Summary 05/27/18 1353 MR#: [id number] Acct: [id number] Name: FRANK LUNDY Rep #: [id number] : 1940 77 From: Angel Mcdonald PCP: Felix MERCHANT,Yang James Status: REG ER - ER Visit Summary Date of Service: 05/27/18 Chief Complaint: Anxiety History of Present Illness: The patient is a 77 F here for evaluation Natasha with significant other. Patient history of dementia states has anxiety in the mornings. Been going on for the past couple years. Been having symptoms past few hours per significant other. Has seen PCP Dr. Carver, significant other states medications have been changed from her dementia status. Taken off her blood pressure medicines. She started on Celexa a week ago. Reports that by afternoon her symptoms would calm down. She denies any suicidal homicidal regions. Denies any upper respiratory symptoms. No nausea or vomiting. No urinary symptoms. She would have tremors in her upper extremities. Physical Examination: General: Alert and oriented, no acute distress HEENT: Normocephalic, atraumatic. Moist mucosa membranes Neck: supple, nontender. Cardiovascular: Regular rate and rhythm, no murmurs Respiratory: Normal breath sounds, symmetric, no distress Abdomen: Soft, nontender, nondistended Extremities: Nontender, no edema, pulses intact 4 Neuro: no focal neurological deficits. Psych: No suicidal homicidal ideation. Admits to anxiety. Test Results: White count 8.7 hemoglobin 14.4. Platelets 355. potassium 3.6. Creatinine 0.8 Urine 25 leukocytes. No other findings. Emergency Department Course and Treatment: Patient admits to anxiety with out suicidal homicidal ideations. With their concerns for symptoms come the ED and have an ongoing symptoms for last couple years. She was treated with Ativan 0.5 p.o. in the ED. secondary to age, she was monitored, there is no immediate side effects. I did check labs, stable. Reevaluation improving symptoms. Discussed with patient's mother will write for 10 tabs to use in the morning as needed. She will follow-up with PCP for reevaluation for further management. Treatment Plan: [] Disposition: Discharge Impression: Anxiety This note was generated with Yurpy dictation software. It may contain incorrect words, spelling, and punctuation that were not noted in review of the chart prior to signing ED Disposition - Plan for ED Patient: Disposition: Home or Assisted Living Chief Complaint: General Illness Diagnosis: Anxiety Instructions: Understanding Anxiety Disorders, Treating Anxiety Disorders with Medication Prescriptions: Lorazepam [Ativan] 0.5 mg PO DAILY PRN #10 tablet PRN Reason: Anxiety Referrals: Yang Carver Chi, MD [Primary Care Provider] - 3-5 Days What to do if you have Problems For any increased pain, shortness of breath, bleeding, nausea or vomiting, chest pain, or any unexpected problems, contact your Primary Care Provider. Call [facility] ([phone]) or report to the closest Emergency Room. Call 911 if necessary. 05/27/18 1359 <Electronically signed by Angel Mcdonald> Date Angel Mcdonald Cosigner Signature (If Indicated): Date CC: Yang Carver MD BASIC METABOLIC Collected: 05/27/2018 Status: F Source: [place] PROFILE ([facility]) 12:50 PM [facility] REPOSITORY TYPE CODE TESTS RESULT OUT OF RANGE REFERENCE UNITS LAB L501.0100 74-106 mg/dL Normal GLU 102 Result Comment: Fasting Glucose result from 100 to 125 mg/dL suggests IMPAIRED HOMEOSTASIS per A.D.A. criteria. Please note revised GLUCOSE reference range effective 2017. LAB L501.1000 7-18 mg/dL Normal BUN 9 LAB L501.1100 0.55-1.02 mg/dL Normal CREAT,SERUM 0.80 Result Comment: The validity of the calculated GFR AND GFRAA in patients over 70 years has not been determined. Clinical correlation is essential. LAB L501.1110 >60 mL/min Normal EST GFR 73 Result Comment: Non- GFR Calc LAB L501.1115 >60 mL/min Normal EST GFR - AA 88 Result Comment: GFR Calc LAB L501.1255 ml/min Normal Estimated CRCL 51.31 LAB L501.1300 10-20 RATIO Normal BUN/CRE 11.2 LAB L501.2200 8.5-10 mg/dL Normal .1 CA 8.7 LAB L501.5300 136-14 mmol/L Low 5 NA 134 LAB L501.5600 3.5-5. mmol/L Normal 1 K 3.6 LAB L501.5900 98-107 mmol/L Normal CL 101 LAB L501.6100 21.0-3 mmol/L Normal 2.0 CO2 27.0 LAB L501.6200 5-15 Normal GAP 6 Performed By: #### L500.2500 #### [facility] [address] [place], [address] CBC W/DIFF, AUTOMATED Collected: 05/27/2018 Status: F Source: [place] 12:50 PM [facility] REPOSITORY TYPE CODE TESTS RESULT OUT OF RANGE REFERENCE UNITS LAB L100.1000 4.4-11.0 K/mm3 Normal WBC 8.7 LAB L100.1200 4.2-5.4 M/mm3 Normal RBC 4.77 LAB L100.1300 12.0-15.0 g/dl Normal HGB 14.4 LAB L100.1400 37-47 % Normal HCT 42.5 LAB L100.1500 81-99 fL Normal MCV 89.1 LAB L100.1600 27.0-32.0 pg Normal MCH 30.2 LAB L100.1700 32-36 g/gl Normal MCHC 33.9 LAB L100.1810 11.6-14.6 % Normal RDW CV 13.4 LAB L100.1820 35.1-43.9 fl Normal RDW SD 43.3 LAB L100.1900 150-450 K/mm3 Normal PLT 355 LAB L100.2000 6.2-12.0 fl Normal MPV 8.6 LAB L100.2100 47-70 % High NEUT% 75.9 LAB L100.2200 19-41 % Low LY% 15.3 LAB L100.2300 0-10 % Normal MONO% 7.9 LAB L100.2400 0-5 % Normal EO% 0.2 LAB L100.2500 0-1 % Normal BASO% 0.2 LAB L100.2550 0.0-0.9 % Normal IM GRAN % 0.500 Result Comment: IG% - Immature Granulocytes (promyelocytes, myelocytes and metamyelocytes) > 1% indicates that a LEFT SHIFT is Present. LAB L100.2620 2.0-7.7 X10 3/uL Normal Absolute Neut 6.6 LAB L100.2720 0.83-4.51 X10 3/ul Normal Absolute Lymph 1.32 Performed By: #### L100.0100 #### [facility] [address] [place], [place], [address] URINALYSIS, COMPLETE Collected: 05/27/2018 Status: F Source: [place] 12:50 PM [facility] REPOSITORY Order Comment: Order Date: 05/27/18 How was Urine Obtained? CLEAN CATCH TYPE CODE TESTS RESULT OUT OF RANGE REFERENCE UNITS LAB L400.3000 Yellow COLOR Normal Yellow LAB L400.3050 Clear Normal CLARITY Cloudy LAB L400.3200 Normal mg/dl Normal GLUCOSE, UR Normal LAB L400.3300 Negative mg/dL Normal BILIRUBIN URINE Negative LAB L400.3400 Negative mg/dl Normal KETONE UR Negative LAB L400.3465 1.002-1.030 Normal SP.GR. DIPSTX 1.010 LAB L400.3550 5.0 - 8.0 pH UR Normal 8.0 LAB L400.3600 Negative mg/dl PROT Normal DIPSTX Negative LAB L400.3700 Normal mg/dl Normal UROBILI Normal LAB L400.3750 Negative Normal NITRITE UR Negative LAB L400.3780 Negative /ul Normal OCCULT BLOOD-UR Negative LAB L400.3800 Negative /ul High LEUK 25 ESTERASE LAB L400.4050 0-5 /hpf WBC 0 Normal SEEN LAB L400.4100 0-5 /hpf 0 Normal RBC-UA SEEN LAB L400.4150 5-10 /hpf SQUAM 0 Normal EPI SEEN LAB L400.4300 None Seen /hpf 0 Normal BACTERIA SEEN LAB L400.4350 <or=2+ /hpf 0 Normal MUCUS, URINE SEEN LAB L400.4900 2+ Normal AMORPHOUS Performed By: #### L400.0001 #### [facility] [address] [place], [address] URINE SODIUM Collected: 05/15/2018 Status: F Source: [place] 11:32 AM [facility] REPOSITORY Order Comment: PER DR COYNE DO NA URINE FIRST AND THEN IF THERE IS ENOUGH TO DO OSMOLOLITY URINE. TYPE CODE TESTS RESULT OUT OF RANGE REFERENCE UNITS LAB L501.5500 Not Establ. mmol/L Normal UR NA 17 Performed By: #### L501.5500, L501.7400 #### [facility] [address] [place], [address] OSMOLALITY, URINE Collected: 05/15/2018 Status: F Source: [place] 11:32 AM [facility] REPOS[facility]ORY Order Comment: PER DR CYONE DO NA URINE FIRST AND THEN IF THERE IS ENOUGH TO DO OSMOLOLITY URINE. TYPE CODE TESTS RESULT OUT OF RANGE REFERENCE UNITS LAB L501.7400 mOsm/KG Normal 545 OSMOLALITY,U R Result Comment: OSMOLALITY URINE REFERENCE INTERVALS 24-hour Urine 300 - 900 mOsm/kg Random Urine 50 - 1400 mOsm/kg After 12 Hr fluid restriction >850 mOsm/kg Performed By: #### L501.5500, L501.7400 #### [facility] [address] [facility] [place], [address] BASIC METABOLIC Collected: 05/14/2018 Status: F Source: [place] PROFILE (BMP) 1:53 PM [facility] REPOSIT[facility] TYPE CODE TESTS RESULT OUT OF RANGE REFERENCE UNITS LAB L501.0100 74-106 mg/dL High GLU 115 Result Comment: Fasting Glucose result from 100 to 125 mg/dL suggests IMPAIRED HOMEOSTASIS per A.D.A. criteria. Please note revised GLUCOSE reference range effective 2017. LAB L501.1000 7-18 mg/dL Normal BUN 11 LAB L501.1100 0.55-1.02 mg/dL Normal CREAT,SERUM 0.88 Result Comment: The validity of the calculated GFR AND GFRAA in patients over 70 years has not been determined. Clinical correlation is essential. LAB L501.1110 >60 mL/min Normal EST GFR 66 Result Comment: Non- GFR Calc LAB L501.1115 >60 mL/min Normal EST GFR - AA 80 Result Comment: GFR Calc LAB L501.1300 10-20 RATIO Normal BUN/CRE 12.5 LAB L501.2200 8.5-10.1 mg/dL CA Normal 9.0 LAB L501.5300 136-145 mmol/L NA Normal 136 LAB L501.5600 3.5-5.1 mmol/L K Normal 3.6 LAB L501.5900 98-107 mmol/L CL Normal 100 LAB L501.6100 21.0-32.0 mmol/L Normal CO2 26.0 LAB L501.6200 5-15 Normal GAP 10 Performed By: #### L500.2500 #### [facility] [address] [place], [place], [address] Observed: 05/08/2018 Status: F Source: [place] CULTURE, URINE 3:56 PM [facility] REPOSITORY Urine Culture Below infection level. ORGANISM 1: Mixed Gram Pos AND Gram Neg Org [place] Count <1000 Performed By: #### M100.0650 #### [facility] [address] [place], [address] CBC W/DIFF, AUTOMATED Collected: 05/08/2018 Status: F Source: [place] 3:40 PM [facility] REPOS[facility] TYPE CODE TESTS RESULT OUT OF RANGE REFERENCE UNITS LAB L100.1000 4.4-11.0 K/mm3 Normal WBC 6.9 LAB L100.1200 4.2-5.4 M/mm3 Normal RBC 4.46 LAB L100.1300 12.0-15.0 g/dl Normal HGB 13.9 LAB L100.1400 37-47 % Normal HCT 40.2 LAB L100.1500 81-99 fL Normal MCV 90.1 LAB L100.1600 27.0-32.0 pg Normal MCH 31.2 LAB L100.1700 32-36 g/gl Normal MCHC 34.6 LAB L100.1810 11.6-14.6 % Normal RDW CV 13.4 LAB L100.1820 35.1-43.9 fl Normal RDW SD 43.6 LAB L100.1900 150-450 K/mm3 Normal PLT 399 LAB L100.2000 6.2-12.0 fl Normal MPV 8.7 LAB L100.2100 47-70 % Normal NEUT% 66.7 LAB L100.2200 19-41 % Normal LY% 20.8 LAB L100.2300 0-10 % High MONO% 10.6 LAB L100.2400 0-5 % Normal EO% 0.6 LAB L100.2500 0-1 % Normal BASO% 0.6 LAB L100.2550 0.0-0.9 % Normal IM GRAN % 0.700 Result Comment: IG% - Immature Granulocytes (promyelocytes, myelocytes and metamyelocytes) > 1% indicates that a LEFT SHIFT is Present. LAB L100.2620 2.0-7.7 X10 3/uL Normal Absolute Neut 4.6 LAB L100.2720 0.83-4.51 X10 3/ul Normal Absolute Lymph 1.43 Performed By: #### L100.0100 #### [facility] [address] [place], [address] COMPREHENSIVE METABOLIC Collected: 05/08/2018 Status: F Source: [facility] 3:40 PM [facility] REPOSITORY TYPE CODE TESTS RESULT OUT OF RANGE REFERENCE UNITS LAB L501.0100 74-106 mg/dL Normal GLU 103 Result Comment: Fasting Glucose result from 100 to 125 mg/dL suggests IMPAIRED HOMEOSTASIS per A.D.A. criteria. Please note revised GLUCOSE reference range effective 2017. LAB L501.1000 7-18 mg/dL Normal BUN 10 LAB L501.1100 0.55-1.02 mg/dL Normal CREAT,SERUM 0.82 Result Comment: The validity of the calculated GFR AND GFRAA in patients over 70 years has not been determined. Clinical correlation is essential. LAB L501.1110 >60 mL/min Normal EST GFR 71 Result Comment: Non- GFR Calc LAB L501.1115 >60 mL/min Normal EST GFR - AA 86 Result Comment: GFR Calc LAB L501.1300 10-20 RATIO Normal BUN/CRE 12.2 LAB L501.1500 6.4-8.2 g/dL T Normal PROT 7.1 LAB L501.1800 3.2-5.0 g/dL Normal ALB 3.5 LAB L501.1950 2.2-4.2 g/dL Normal GLOB 3.6 LAB L501.2000 0.9-2.4 RATIO Normal A/G 1.0 LAB L501.2200 8.5-10.1 mg/dL CA Normal 8.7 LAB L501.4100 15-37 U/L Normal AST 28 LAB L501.4305 45-117 U/L Normal ALK P 92 LAB L501.4405 13-56 U/L Normal ALT 28 LAB L501.4600 0.20-1.00 mg/dL T Normal BILI 0.40 LAB L501.5300 136-145 mmol/L Low NA 133 LAB L501.5600 3.5-5.1 mmol/L K Normal 4.2 LAB L501.5900 98-107 mmol/L Low CL 97 LAB L501.6100 21.0-32.0 mmol/L Normal CO2 26.0 LAB L501.6200 5-15 Normal GAP 10 Performed By: #### L500.4050, L501.9520 #### [facility] [address] [place], [address] THYROID STIM HORMONE Collected: 05/08/2018 Status: F Source: [place] ([facility]) 3:40 PM [facility] REPOSITORY TYPE CODE TESTS RESULT OUT OF RANGE REFERENCE UNITS LAB L501.9520 0.358-3.74 uIU/mL Normal TSH 1.03 Performed By: #### L500.4050, L501.9520 #### [facility] [address] [place], [address] 12 LEAD ELECTROCARDIOGRAM Observed: 04/28/2018 Status: F Source: TOM 12:23 PM [facility] REPOSITORY [facility] Cardiovascular Services [address] [place] [id number] 12 Lead EKG 04/25/18 1455 MR#: [id number] Acct: [id number] Name: FRANK LUNDY Rep #: [id number] : 1940 77 From: Trenton Cid MD Attending Dr: Status: DEP ER Ordering Dr: Kamilah Mejias MD Date: 04/25/18 Location: ED Sex: F C Admitted: Test Reason : Blood Pressure : / mmHG Vent. Rate : 061 BPM Atrial Rate : 061 BPM P-R Int : 166 ms QRS Dur : 098 ms QT Int : 432 ms P-R-T Axes : 013 -09 049 degrees QTc Int : 434 ms Normal sinus rhythm Nonspecific ST abnormality Abnormal ECG Confirmed by JOSE ROBERTO MERCHANT, TRENTON ([id number]), fan mail editor EBONY MEDLEY ([id number]) on 04/28/2018 12:23:10 PM Referred By: DEXTER Confirmed By:TRENTON CID MD 04/28/18 1223 Date Trenton Cid MD CC: Kamilah Mejias MD; Yang Carver MD Signed EMERGENCY DEPARTMENT Observed: 04/26/2018 Status: F Source: [place] SUMMARY 1:38 AM [facility] REPOSITORY [facility] Medical Records Department [address] [place] [address] Emergency Department Summary 04/25/18 1514 MR#: [id number] Acct: [id number] Name: FRANK LUNDY Rep #: [id number] : 1940 77 From: Kamilah Mejias MD PCP: Yang Carver MD, Chi Status: DEP ER - ER Visit Summary Date of Service: 04/25/18 Chief Complaint: Confusion History of Present Illness: The patient is a 77 F presenting with fatigue and confusion. Patient states she woke up this morning and felt generally weak. She had trouble finding her blood pressure cuff which is unusual for her. She has a history of dementia. Denies speech or vision changes. Denies weakness or numbness. Denies chest pain or shortness of breath. Denies fever. Denies abdominal pain, nausea, vomiting. Denies other complaints. Physical Examination: Vitals are stable. Patient is afebrile. Alert no acute distress. HEENT exam is unremarkable. Neck is supple. Lungs are clear and equal bilaterally. Heart is regular rate and rhythm. Abdomen is soft nontender nondistended. Extremities are unremarkable. Skin is warm and dry. No focal neurologic deficit. NIH 0 Remainder of exam is unremarkable. Emergency Department Course and Treatment: EKG is sinus rate of 61 with no acute ischemic changes. Chest x-ray shows no acute process. CT head shows chronic changes. CBC, chemistries unremarkable other than sodium 128. This is near her baseline. Troponin is negative. Urinalysis unremarkable. Patient and are comfortable with discharge home. She will follow-up with Dr. Carver. Advised return to ED if worsening complaints. Disposition: Discharge home Impression: Confusion, history of dementia This note was generated with Yurpy dictation software. It may contain incorrect words, spelling, and punctuation that were not noted in review of the chart prior to signing ED Disposition - Plan for ED Patient: Chief Complaint: Confusion Instructions: ED Dementia Alzheimer Referrals: Yang Carver Chi, MD [Primary Care Provider] - What to do if you have Problems For any increased pain, shortness of breath, bleeding, nausea or vomiting, chest pain, or any unexpected problems, contact your Primary Care Provider. Call [facility] ([phone]) or report to the closest Emergency Room. Call 911 if necessary. 04/26/18 0138 <Electronically signed by Kamilah Mejias MD> Date Kamilah Mejias MD Cosigner Signature (If Indicated): Date CC: Yang Carver MD DISCHARGE INSTRUCTION Observed: 04/25/2018 Status: F Source: [place] 6:07 PM [facility] REPOSITORY [facility] Medical Records Department [address] [place] [address] Discharge Instruction 04/25/18 1807 MR#: [id number] Acct: [id number] Name: FRANK LUNDY Rep #: [id number] : 1940 77 From: Kamilah Mejias MD PCP: Yang Carver MD, Chi Status: REG ER ED Disposition - Plan for ED Patient: Chief Complaint: Confusion Instructions: ED Dementia Alzheimer Referrals: Yang Carver Chi, MD [Primary Care Provider] - What to do if you have Problems For any increased pain, shortness of breath, bleeding, nausea or vomiting, chest pain, or any unexpected problems, contact your Primary Care Provider. Call [facility] ([phone]) or report to the closest Emergency Room. Call 911 if necessary. 04/25/18 1807 <Electronically signed by Kamilah Mejias MD> Date Kamilah Mejias MD Cosigner Signature (If Indicated): Date CC: Yang Carver MD URINALYSIS, COMPLETE Collected: 04/25/2018 Status: F Source: TOM 4:35 PM [facility] REPOSITORY Order Comment: Order Date: 04/25/18 How was Urine Obtained? METER AND SERVICE LINE INSPECTOR TO SPECIFY TYPE CODE TESTS RESULT OUT OF RANGE REFERENCE UNITS LAB L400.3000 Yellow COLOR Normal Yellow LAB L400.3050 Clear Normal CLARITY Clear LAB L400.3200 Normal mg/dl Normal GLUCOSE, UR Normal LAB L400.3300 Negative mg/dL Normal BILIRUBIN URINE Negative LAB L400.3400 Negative mg/dl High 5 KETONE UR LAB L400.3465 1.002-1.030 Normal SP.GR. DIPSTX 1.010 LAB L400.3550 5.0 - 8.0 pH UR Normal 7.0 LAB L400.3600 Negative mg/dl PROT Normal DIPSTX Negative LAB L400.3700 Normal mg/dl Normal UROBILI Normal LAB L400.3750 Negative Normal NITRITE UR Negative LAB L400.3780 Negative /ul Normal OCCULT BLOOD-UR Negative LAB L400.3800 Negative /ul LEUK Normal ESTERASE Negative LAB L400.4050 0-5 /hpf WBC 0 Normal SEEN LAB L400.4100 0-5 /hpf 0 Normal RBC-UA SEEN LAB L400.4150 5-10 /hpf SQUAM 0 Normal EPI SEEN LAB L400.4300 None Seen /hpf 0 Normal BACTERIA SEEN LAB L400.4350 <or=2+ /hpf 0 Normal MUCUS, URINE SEEN Performed By: #### L400.0001 #### [facility] [address] [place], [address] CHEST 1 VIEW Observed: 04/25/2018 Status: F Source: TOM (PORTABLE) 3:15 PM [facility] REPOSITORY [facility] Imaging Services [address] [place] [address] Chest 1 View (Portable) MR#: [id number] Acct: [id number] Name: FRANK LUNDY Rep #: [id number] : 1940 F 77 From: Cedric Lewis MD PCP: Yang Carver MD, Chi Status: PRE ER Study: Chest 1 View (Portable) Date of Exam: 04/25/18 Exam# [id number] Ordering Dr: Kamilah Mejias MD STUDY: X-RAY CHEST REASON FOR EXAM: Female, 77 years old. PT WITH INCREASED CONFUSION SINCE YESTERDAY. UNABLE TO FORM THOUGHTS. PT REPORTS TIREDNESS. HX OF DEMENTIA TECHNIQUE: Single AP portable view of the chest. # of Images: 1 COMPARISON: None. FINDINGS: The lungs are clear and expanded. There is no demonstrated pleural abnormality. Normal size heart. Normal mediastinum and janice. Normal visualized pulmonary arteries. There is atherosclerotic tortuosity of the aortic arch and descending thoracic aorta. There is a dextroscoliosis of the thoracic spine. There is degenerative osteoarthritis of the bilateral shoulders. There is no demonstrated abnormality of the visualized soft tissue structures of the upper abdomen. RAD/Chest 1 View (Portable) IMPRESSION: Degenerative changes, as described above. No demonstrated acute cardiopulmonary process. Electronically Signed: Cedric Lewis MD at 15:29 EDT Tel , Service support , CC: Kamilah Mejias MD; Yang Carver MD License Examiner: Signed BRAIN/HEAD WITHOUT Observed: 04/25/2018 Status: F Source: [place] CONTRAST 3:15 PM [facility] REPOSITORY [facility] Imaging Services [address] [place] [address] Brain/Head without Contrast MR#: [id number] Acct: [id number] Name: FRANK LUNDY Rep #: [id number] : 1940 F 77 From: Ayad Tobias MD PCP: Yang Carver MD, Chi Status: REG ER Study: Brain/Head without Contrast Date of Exam: 04/25/18 Exam# [id number] Ordering Dr: Kamilah Mejias MD STUDY: CT BRAIN WITHOUT CONTRAST REASON FOR EXAM: Female, 77 years old. Confusion RADIATION DOSAGE (If Supplied By Facility): CTDIvol = ( 44.99 ) mGy, DLP = ( 745.49 ) mGycm TECHNIQUE: Transaxial CT imaging of the brain was performed without administration of intravenous contrast material. Individualized dose optimization techniques were used for this CT. COMPARISON: 10/12/2017 FINDINGS: There is no acute bleed or infarct. 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 There are stable chronic ischemic and atrophic changes. The ventricles are normal in configuration. There is no hydrocephalus. The visualized paranasal sinuses are clear. The mastoid air cells are well aerated. There is no skull fracture. CT/Brain/Head without Contrast IMPRESSION: Stable chronic ischemic and atrophic changes. 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 No acute intracranial abnormality. Electronically Signed: Ayad Tobias, at 16:15 EDT Tel , Service support , CC: Kamilah Mejias MD; Yang Carver MD License Examiner: Signed BEDSIDE GLUCOSE Collected: 04/25/2018 Status: F Source: TOM 3:05 PM [facility] REPOSITORY TYPE CODE TESTS RESULT OUT OF RANGE REFERENCE UNITS LAB L501.080 70-110 mg/dL Normal BEDSIDE GLU 109 Result Comment: MANAGEMENT OF PATIENT CARE PER NURSING PROTOCOL Performed By: #### L501.080 #### [facility] Point of Care [address] [place] [address] CBC W/DIFF, AUTOMATED Collected: 04/25/2018 Status: F Source: TOM 2:55 PM [facility] REPOSITORY TYPE CODE TESTS RESULT OUT OF RANGE REFERENCE UNITS LAB L100.1000 4.4-11.0 K/mm3 Normal WBC 6.7 LAB L100.1200 4.2-5.4 M/mm3 Normal RBC 4.31 LAB L100.1300 12.0-15.0 g/dl Normal HGB 13.0 LAB L100.1400 37-47 % Normal HCT 38.8 LAB L100.1500 81-99 fL Normal MCV 90.0 LAB L100.1600 27.0-32.0 pg Normal MCH 30.2 LAB L100.1700 32-36 g/gl Normal MCHC 33.5 LAB L100.1810 11.6-14.6 % Normal RDW CV 13.6 LAB L100.1820 35.1-43.9 fl High RDW SD 45.1 LAB L100.1900 150-450 K/mm3 Normal PLT 300 LAB L100.2000 6.2-12.0 fl Normal MPV 8.5 LAB L100.2100 47-70 % Normal NEUT% 69.5 LAB L100.2200 19-41 % Low LY% 16.8 LAB L100.2300 0-10 % High MONO% 10.3 LAB L100.2400 0-5 % Normal EO% 2.4 LAB L100.2500 0-1 % Normal BASO% 0.4 LAB L100.2550 0.0-0.9 % Normal IM GRAN % 0.600 Result Comment: IG% - Immature Granulocytes (promyelocytes, myelocytes and metamyelocytes) > 1% indicates that a LEFT SHIFT is Present. LAB L100.2620 2.0-7.7 X10 3/uL Normal Absolute Neut 4.6 LAB L100.2720 0.83-4.51 X10 3/ul Normal Absolute Lymph 1.12 Performed By: #### L100.0100 #### [facility] [address] [facility] [address] [place], [place], [address] BASIC METABOLIC Collected: 04/25/2018 Status: F Source: [place] PROFILE (BMP) 2:55 PM [facility] REPOSITORY TYPE CODE TESTS RESULT OUT OF RANGE REFERENCE UNITS LAB L501.0100 74-106 mg/dL Normal GLU 95 Result Comment: Please note revised GLUCOSE reference range effective 2017. LAB L501.1000 7-18 mg/dL Normal BUN 13 LAB L501.1100 0.55-1.02 mg/dL Normal CREAT,SERUM 0.83 Result Comment: The validity of the calculated GFR AND GFRAA in patients over 70 years has not been determined. Clinical correlation is essential. LAB L501.1110 >60 mL/min Normal EST GFR 70 Result Comment: Non- GFR Calc LAB L501.1115 >60 mL/min Normal EST GFR - AA 85 Result Comment: GFR Calc LAB L501.1255 ml/min Normal Estimated CRCL 51.45 LAB L501.1300 10-20 RATIO Normal BUN/CRE 15.7 LAB L501.2200 8.5-10 mg/dL Low .1 CA 8.3 LAB L501.5300 136-14 mmol/L Low 5 NA 128 LAB L501.5600 3.5-5. mmol/L Normal 1 K 3.9 LAB L501.5900 98-107 mmol/L Low CL 93 LAB L501.6100 21.0-3 mmol/L Normal 2.0 CO2 27.0 LAB L501.6200 5-15 Normal GAP 8 Performed By: #### L500.2500, L501.4010 #### [facility] [address] [place], [address] TROPONIN-I Collected: 04/25/2018 Status: F Source: TMO 2:55 PM [facility] REPOSITORY TYPE CODE TESTS RESULT OUT OF RANGE REFERENCE UNITS LAB L501.4010 <0.045 ng/mL Normal < 0.015 TROPONIN-I Result Comment: TROPONIN-I EXPECTED VALUES <0.045 Negative 0.045 - 0.590 Consistent with Cardiac Damage > OR = 0.600 Critical Value Not every elevated troponin is indicative of TN. These values should be used with clinical judgement in examining the patient's clinical picture for diagnosis. To establish a diagnosis of TN versus myocardial injury, there must be a demonstrated rise and/or fall in the troponin values, in addition to ischemic symptoms, EKG changes, new regional wall motion abnormality, and/or angiographical evidence. PLEASE NOTE: REFERENCE RANGES EDITED 17 Performed By: #### L500.2500, L501.4010 #### [facility] [address] [place], [address] GASTRIC EMPTYING Observed: 04/08/2018 Status: F Source: [place] STUDY 9:43 AM [facility] REPOSITORY [facility] Imaging Services [address] [place] [address] Gastric Emptying Study MR#: [id number] Acct: [id number] Name: FRANK LUNDY Rep #: [id number] : 1940 F 77 From: Trever Schultz DO PCP: Felix MERCHANT,Yang James Status: REG CLI Study: Gastric Emptying Study Date of Exam: 04/08/18 Exam# [id number] Ordering Dr: Yang Carver MD CLINICAL: 77-year-old female with apparent history of clinical gastroparesis. SEMI-SOLID PHASE 99m Tc SULFUR COLLOID GASTRIC EMPTYING STUDY COMPARISON: None available FINDINGS: The patient was administered 1.0 mCi of 99m Tc sulfur colloid mixed with oatmeal and consumed per os. Image acquisitions in the anterior-posterior projections for a total of 60 minutes. There is prompt visualization of the stomach. There is no gastroesophageal reflux identified. First order kinetics are maintained throughout the duration of the acquisitions. The T1/2 linear fit was calculated to be 58.53 minutes, (Normal: 12-56 minutes). NM/Gastric Emptying Study IMPRESSION: 1. MILDLY ABNORMAL 99m Tc sulfur colloid semi-solid phase (oatmeal) gastric emptying imaging examination. A. There is minimal delayed semi-solid phase gastric emptying compared to normal controls with maintained first order kinetics throughout all components of the examination. (Keyona dickinson al, J Nucl Med Tech 38: 186, 2010). Electronically Signed: Trever Schultz DO at 23:09 EDT Tel , Service support , CC: Yang Carver MD License Examiner: Signed EMERGENCY DEPARTMENT Observed: 04/06/2018 Status: F Source: [place] SUMMARY 3:00 PM [facility] REPOSITORY [facility] Medical Records Department [address] [place] [address] Emergency Department Summary 04/05/18 1012 MR#: [id number] Acct: [id number] Name: FRANK LUNDY Rep #: [id number] : 1940 77 From: Vincent Damon DO PCP: Yang Carver MD, Chi Status: DEP ER - ER Visit Summary Date of Service: 04/05/18 Chief Complaint: [Allergic reaction] History of Present Illness: The patient is a 77 F [presents the emergency department complaint of allergic reaction that started around 8:30 AM. Patient states that she took a dose of doxycycline and Keflex about half an hour prior to her symptoms starting. Patient then follow-up itching and swelling of her lip. Patient is concerned because she was admitted to the hospital 5 days ago after having an anaphylactic reaction to Rocephin. Patient currently being treated for a wound on her left lower extremity sustained from a fall about 10 days ago. Patient was seen by her primary care physician who initially gave her the dose of Rocephin and prescribed Keflex and doxycycline. Patient was seen by her primary care physician yesterday who gave the patient the okay apparently to continue with the doxycycline and the Keflex. On arrival patient denies any difficulty breathing.] Physical Examination: [HEENT-PERRLA, EOMI. Cranial nerves II through XII grossly intact. TMs clear. Mucous membranes moist. No adenopathy. Patient does have some facial erythema noted. Patient does have some mild swelling of the left upper lip. No angioedema of the tongue noted or oropharynx. Cardiovascular-regular rate and rhythm without murmur or ectopy Lungs-clear to auscultation, chest wall stable without crepitus or subcu emphysema Abdomen-normoactive bowel sounds, soft, nontender, no rebound or rigidity, no peritoneal signs. Extremities-intact 4, normal range of motion, normal pulses, atraumatic] Test Results: [None indicated] Emergency Department Course and Treatment: [Patient received Benadryl via EMS prior to arrival in the emergency department. Patient was given Solu-Medrol and Pepcid in the emergency department.] Treatment Plan: [Patient will be observed for 4 hours.] Patient will be started on prednisone for 3 days. Disposition: [Discharged home in stable condition.] Impression: Allergic reaction-suspect secondary to Keflex [] This note was generated with Yurpy dictation software. It may contain incorrect words, spelling, and punctuation that were not noted in review of the chart prior to signing ED Disposition - Plan for ED Patient: Chief Complaint: Allergic Reaction Referrals: Yang Carver Chi, MD [Primary Care Provider] - What to do if you have Problems For any increased pain, shortness of breath, bleeding, nausea or vomiting, chest pain, or any unexpected problems, contact your Primary Care Provider. Call [facility] ([phone]) or report to the closest Emergency Room. Call 911 if necessary. 04/06/18 1500 <Electronically signed by Vincent Damon DO> Date Vincent Damon DO Cosigner Signature (If Indicated): Date CC: Yang Carver MD DISCHARGE INSTRUCTION Observed: 04/05/2018 Status: F Source: [place] 1:22 PM [facility] REPOSITORY [facility] Medical Records Department [address] [place] [address] Discharge Instruction 04/05/18 1321 MR#: [id number] Acct: [id number] Name: FRANK LUNDY Rep #: [id number] : 1940 77 From: Vincent Damon DO PCP: Yang Carver MD, Chi Status: REG ER ED Disposition - Plan for ED Patient: Chief Complaint: Allergic Reaction Instructions: ED Drug React Adverse Other Prescriptions: Prednisone [Deltasone] 20 mg PO BID #6 tab Referrals: Yang Carver Chi, MD [Primary Care Provider] - 3-5 Days Additional Instructions: Do not take Keflex or other Cephalosporin antibiotics. What to do if you have Problems For any increased pain, shortness of breath, bleeding, nausea or vomiting, chest pain, or any unexpected problems, contact your Primary Care Provider. Call [facility] ([phone]) or report to the closest Emergency Room. Call 911 if necessary. 04/05/18 1322 <Electronically signed by Vincent Damon DO> Date Vincent Damon DO Cosigner Signature (If Indicated): Date CC: Yang Carver MD DISCHARGE SUMMARY Observed: 04/01/2018 Status: F Source: [place] 7:55 AM [facility] REPOSITORY [facility] Medical Records Department [address] [place] [address] Discharge Summary 04/01/18 0752 MR#: [id number] Acct: [id number] Name: FRANK LUNDY Rep #: [id number] : 1940 77 From: Lopez March MD PCP: Yang Carver MD, Chi Status: ADM [facility] Y Location: [place] [address] Discharge Date and Diagnosis - Problem List Patient Problems: Active and Suspected Problems Anaphylactic reaction (Acute) Date of Admission: 03/31/18 Date of Discharge: 04/01/18 - Primary Discharge Diagnosis Active and Suspected Problems Anaphylactic reaction (Acute) - Secondary Discharge Diagnosis Chronic Problems Non-rheumatic tricuspid valve insufficiency (Chronic) Nonrheumatic aortic valve insufficiency (Chronic) Nonrheumatic mitral valve insufficiency (Chronic) Hyperlipidemia (Chronic) Cardiomyopathy (Chronic) Confusion (Chronic) HTN (hypertension) (Chronic) Hospital Course and Treatment Summary of Care Provided: The patient is a 77 year old F admitted following allergic reaction to Rocephin 1. Allergic reaction to Rocephin administered by patient's PCP for a scalp on her left lower extremity. Patient did develop facial and lip swelling seen in the ED did receive epinephrine Benadryl and monitored overnight on a regular nursing floor without any further reaction. Patient facial swelling did resolve. She was discharged home on Pepcid as well as prednisone 2. Hypertension patient was on ramipril discontinued prescribed amlodipine instead 3. Mild dementia supportive care; patient also on Aricept Discharge Diet: No Restrictions Discharge Activity: Return to Normal Activity Home Medications: Medications to take at Discharge Cholecalciferol (VIT D3) [Vitamin D3] 2,000 unit PO DAILY 06/26/14 Propranolol HCl [Inderal LA (Beta Leigh Ann)] 80 mg PO DAILY #30 cap.sa.24h 06/18/16 escitalopram 5 mg tablet 5 mg PO QDAY MDD t 02/14/18 galantamine 4 mg tablet 4 mg PO BID tab 02/14/18 multivitamin tablet 1 tab PO QDAY #30 tab 02/14/18 omega-3 fatty acids 1,000 mg capsule 1,000 mg PO TID #90 cap 02/14/18 Aspirin E.C. [Ecotrin] 81 mg PO DAILY 03/19/18 Donepezil HCl 5 mg PO DAILY 03/19/18 Amlodipine [Norvasc] 5 mg PO DAILY #30 tablet 04/01/18 Famotidine [Pepcid] 20 mg PO BID #14 tablet 04/01/18 Prednisone 20 mg PO BID #10 tablet 04/01/18 Following Prescrptions Were Given to Patient: Amlodipine [Norvasc] 5 mg PO DAILY #30 tablet Famotidine [Pepcid] 20 mg PO BID #14 tablet Prednisone 20 mg PO BID #10 tablet Primary Care Physician: Yang Carver Chi, MD [Primary Care Provider] - Please follow up with your Primary Care Physician in: IN 2- 3 DAYS Disposition: Home Minutes spent on discharge:: 35 Medical Necessity - Tobacco Use Smoking Status: Never smoker Meaningful Use Info Meaningful Use Diagnoses (Choose all that apply): None applicable Code Visit OBSV E AND M: 81590 Observation care discharge Patient Problems: Active and Suspected Problems Anaphylactic reaction (Acute) - Physical Exam General: Alert HEENT: Atraumatic Neck: No JVD Neurological: Neuro grossly intact Psych/Mental Status: Normal Affect Vital Signs Temp Pulse Resp BP Pulse Ox 98.3 F 76 16 153/89 H 98 04/01/18 03:22 04/01/18 03:22 04/01/18 03:22 04/01/18 03:22 04/01/18 03:22 Oxygen Flow Rate (L/min) 1 Oxygen Delivery Method Nasal Cannula Weight: 65 kg Body Mass Index (BMI) 24.5 Finger Stick Blood Glucose 114 Laboratory Tests Past 24 Hrs WBC 8.2 RBC 4.65 Hgb 14.4 Hct 40.8 MCV 87.7 MCH 31.0 MCHC 35.3 RDW 13.5 RDW Differential 42.4 04/01/18 0755 <Electronically signed by Lopez March MD> Date Lopez March MD Cosigner Signature (if applicable): Date CC: Lopez March MD; Yang Carver MD Signed DISCHARGE INSTRUCTION Observed: 04/01/2018 Status: F Source: [place] 7:52 AM [facility] REPOSITORY [facility] Medical Records Department [address] [place] [address] Instructions for Home/Discharge Instructions 04/01/18 0751 MR#: [id number] Acct: [id number] Name: FRANK LUNDY Rep #: [id number] : 1940 77 From: Lopez March MD PCP: Yang Carver MD, Chi Status: ADM [place] - Discharge Diagnoses Current Active Problems: Current Active and Chronic Problems Anaphylactic reaction (Acute) You will use the following diet at home:: No restrictions Allergies/Adverse Reactions: Allergies ceftriaxone [From Rocephin] Allergy (Verified 03/31/18 20:03) Anaphylaxis cephalexin [From Keflex] Allergy (Verified 03/31/18 20:03) Angioedema doxycycline Allergy (Verified 03/31/18 20:03) Angioedema sulfamethoxazole [From Bactrim] Allergy (Verified 03/19/18 14:34) Hives trimethoprim [From Bactrim] Allergy (Verified 03/19/18 14:34) Hives Medications to take at Discharge Cholecalciferol (VIT D3) [Vitamin D3] 2,000 unit PO DAILY 06/26/14 Propranolol HCl [Inderal LA (Beta Leigh Ann)] 80 mg PO DAILY #30 cap.sa.24h 06/18/16 escitalopram 5 mg tablet 5 mg PO QDAY MDD t 02/14/18 galantamine 4 mg tablet 4 mg PO BID tab 02/14/18 multivitamin tablet 1 tab PO QDAY #30 tab 02/14/18 omega-3 fatty acids 1,000 mg capsule 1,000 mg PO TID #90 cap 02/14/18 Aspirin E.C. [Ecotrin] 81 mg PO DAILY 03/19/18 Donepezil HCl 5 mg PO DAILY 03/19/18 Amlodipine [Norvasc] 5 mg PO DAILY #30 tablet 04/01/18 Famotidine [Pepcid] 20 mg PO BID #14 tablet 04/01/18 Prednisone 20 mg PO BID #10 tablet 04/01/18 The following prescriptions were given: Amlodipine [Norvasc] 5 mg PO DAILY #30 tablet Famotidine [Pepcid] 20 mg PO BID #14 tablet Prednisone 20 mg PO BID #10 tablet Primary Care Physician: Yang Carver Chi, MD [Primary Care Provider] - Please follow up with your Primary Care Physician in: IN 2- 3 DAYS Test Results: Test results from this visit will be discussed in further detail at your follow-up appointment, if applicable. Proposed Discharge Date: 04/01/18 04/01/18 0752 <Electronically signed by Lopez March MD> Date Lopez March MD CC: Yang Carver MD BASIC METABOLIC Collected: 04/01/2018 Status: F Source: TOM PROFILE (BMP) 6:05 AM [facility] REPOSITORY TYPE CODE TESTS RESULT OUT OF RANGE REFERENCE UNITS LAB L501.0100 74-106 mg/dL High GLU 164 Result Comment: Fasting Glucose result greater than or equal to 126 mg/dL suggests DIABETES MELLITUS per A.D.A. criteria. Please note revised GLUCOSE reference range effective 2017. LAB L501.1000 7-18 mg/dL Normal BUN 15 LAB L501.1100 0.55-1.02 mg/dL Normal CREAT,SERUM 0.97 Result Comment: The validity of the calculated GFR AND GFRAA in patients over 70 years has not been determined. Clinical correlation is essential. LAB L501.1110 >60 mL/min Low EST GFR 59 Result Comment: Non- GFR Calc LAB L501.1115 >60 mL/min Normal EST GFR - AA 71 Result Comment: GFR Calc LAB L501.1255 ml/min Normal Estimated CRCL 40.61 LAB L501.1300 10-20 RATIO Normal BUN/CRE 15.4 LAB L501.2200 8.5-10 mg/dL Low .1 CA 8.2 LAB L501.5300 136-14 mmol/L Low 5 NA 130 LAB L501.5600 3.5-5. mmol/L Normal 1 K 4.5 LAB L501.5900 98-107 mmol/L Low CL 97 LAB L501.6100 21.0-3 mmol/L Normal 2.0 CO2 24.0 LAB L501.6200 5-15 Normal GAP 9 Performed By: #### L500.2500 #### [facility] [address] [place], [address] CBC W/DIFF, AUTOMATED Collected: 04/01/2018 Status: F Source: [place] 6:05 AM [facility] REPOSITORY TYPE CODE TESTS RESULT OUT OF RANGE REFERENCE UNITS LAB L100.1000 4.4-11.0 K/mm3 Normal WBC 8.2 LAB L100.1200 4.2-5.4 M/mm3 Normal RBC 4.65 LAB L100.1300 12.0-15.0 g/dl Normal HGB 14.4 LAB L100.1400 37-47 % Normal HCT 40.8 LAB L100.1500 81-99 fL Normal MCV 87.7 LAB L100.1600 27.0-32.0 pg Normal MCH 31.0 LAB L100.1700 32-36 g/gl Normal MCHC 35.3 LAB L100.1810 11.6-14.6 % Normal RDW CV 13.5 LAB L100.1820 35.1-43.9 fl Normal RDW SD 42.4 LAB L100.1900 150-450 K/mm3 Normal PLT 342 LAB L100.2000 6.2-12.0 fl Normal MPV 8.7 LAB L100.2100 47-70 % High NEUT% 91.0 LAB L100.2200 19-41 % Low LY% 7.4 LAB L100.2300 0-10 % Normal MONO% 1.0 LAB L100.2400 0-5 % Normal EO% 0.0 LAB L100.2500 0-1 % Normal BASO% 0.1 LAB L100.2550 0.0-0.9 % Normal IM GRAN % 0.500 Result Comment: IG% - Immature Granulocytes (promyelocytes, myelocytes and metamyelocytes) > 1% indicates that a LEFT SHIFT is Present. LAB L100.2620 2.0-7.7 X10 3/uL Normal Absolute Neut 7.4 LAB L100.2720 0.83-4.51 X10 3/ul Low Absolute Lymph 0.60 LAB L100.4500 Normal SMEAR COMMENT COMMENT Result Comment: SLIDE SCANNED - LYMPHOPENIA NOTED. Performed By: #### L100.0100 #### [facility] [address] [place], [address] HISTORY AND PHYSICAL Observed: 03/31/2018 Status: F Source: [place] EXAM 8:19 PM [facility] REPOSITORY [facility] Medical Records Department [address] [place] [address] History and Physical 03/31/182009 MR#: [id number] Acct: [id number] Name: FRANK LUNDY Rep #: [id number] : 1940 77 From: Trenton Baez MD PCP: Felix MERCHANT,Yang James Status: REG ER Y Location: ED Problem List (1) Anaphylactic reaction Status: Acute Qualifiers: Encounter type: initial encounter Qualified Code(s): T78.2XXA - Anaphylactic shock, unspecified, initial encounter (2) History of cholecystectomy Status: Resolved (3) History of tonsillectomy Status: Resolved (4) H/O: hysterectomy Status: Resolved (5) Non-rheumatic tricuspid valve insufficiency Status: Chronic (6) Nonrheumatic aortic valve insufficiency Status: Chronic (7) Nonrheumatic mitral valve insufficiency Status: Chronic (8) Hyperlipidemia Status: Chronic Qualifiers: (9) Cardiomyopathy Status: Chronic Qualifiers: (10) HTN (hypertension) Status: Chronic Qualifiers: History of Present Illness Date of Admission: 03/31/18 Chief Complaint: acute anaphylaxis The patient is a 77 year old female patient who presents to the ER following an acute allergic reaction. The patient has dementia and is therefore a poor historian. The patient was being treated by her primary care physician for a skin infection of her left leg. She received a dose of IM Rocephin and also a prescription for doxycycline and Keflex. The patient developed swelling of her face, chest and upper extremities. She received a dose of sc Epinephrine and Benadryl in the squad and a second dose of subcutaneous Epinephrine and steroids were initiated in the ER. She improved yet still has facial swelling. No chest pain or shortness of breath. She will be admitted for overnight observation Past Medical History Past Medical History (Chronic Problems): Chronic Problems Non-rheumatic tricuspid valve insufficiency (Chronic) Nonrheumatic aortic valve insufficiency (Chronic) Nonrheumatic mitral valve insufficiency (Chronic) Hyperlipidemia (Chronic) Cardiomyopathy (Chronic) Confusion (Chronic) HTN (hypertension) (Chronic) Medical History: Medical History Hyperlipidemia (Chronic) E78.5 Cardiomyopathy (Chronic) I42.9 HTN (hypertension) (Chronic) I10 Allergies ceftriaxone [From Rocephin] Allergy (Verified 03/31/18 20:03) Anaphylaxis cephalexin [From Keflex] Allergy (Verified 03/31/18 20:03) Angioedema doxycycline Allergy (Verified 03/31/18 20:03) Angioedema sulfamethoxazole [From Bactrim] Allergy (Verified 03/19/18 14:34) Hives trimethoprim [From Bactrim] Allergy (Verified 03/19/18 14:34) Hives Home Medications: Ambulatory Orders Medication Instructions Recorded Cholecalciferol (VIT D3) [Vitamin 2,000 unit PO DAILY 06/26/14 D3] Propranolol HCl [Inderal LA (Beta 80 mg PO DAILY #30 cap.sa.24h 06/18/16 Surgical History: Surgical History (Last Updated 02/14/18 @ 10:06 by Amanda Peoples) History of cholecystectomy (Resolved) Z90.49 History of tonsillectomy (Resolved) Z90.89 H/O: hysterectomy (Resolved) Z90.710 Surgical History: cholecystectomy, tonsillectomy Psychiatric History: Anxiety 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 Smoking Status: Never smoker - *Family History Paternal Family History: Family History (Last Updated 02/14/18 @ 10:05 by Amanda Peoples) Father CAD (coronary artery disease) Hypertension Mother Hypertension Sister Hypertension CAD (coronary artery disease) History Items: No pertinent history Maternal Family History: Family History (Last Updated 02/14/18 @ 10:05 by Amanda Peoples) Father CAD (coronary artery disease) Hypertension Mother Hypertension Sister Hypertension CAD (coronary artery disease) History Items: No pertinent history Review of Systems Constitutional: Denies: Chills, Fever, Weight Change HEENT: Reports: - - facial swelling. Denies: Head Aches, Sinus Congestion, Sinus Drainage Cardiovascular: Denies: Chest Pain, Palpitations Respiratory: Denies: Cough, Shortness of breath at rest, Sputum production Gastrointestinal: Denies: Abdominal Pain, Nausea, Vomiting Genitourinary: Denies: Dysuria Musculoskeletal: Denies: Joint Pain, Joint Tenderness Skin: Reports: Skin Changes. Denies: Rash, Wounds Neurological: Denies: Numbness, Tingling, Focal weakness Psychiatric: Reports: Anxiety. Denies: Depression, Homicidal Ideations, Suicidal Ideations Hematologic/ Lymphatic: Denies: Easy Bruising, Easy Bleeding VTE Information - Inpt Only VTE Present on Admission: No VTE Mechan Device Prophylaxis: SCD's VTE Pharm Prophylaxis ordered?: No Patient Problems: Active and Suspected Problems Anaphylactic reaction (Acute) - Physical Exam General: Alert, Oriented x3, Cooperative HEENT: Atraumatic, Normocephalic, - - lips swollen, tongue and oral mucosa within normal limits Neck: Supple Lungs: Clear to auscultation, Normal air movement Cardiovascular: Regular rate, Normal S1, Normal S2, No murmurs Abdomen: Bowel Sounds Present Extremities: No edema, Capillary Refill Less than 3 Seconds Skin: No rashes Musculoskeletal: No Tenderness to Palpation of Joints or Extremities Neurological: Neuro grossly intact Psych/Mental Status: Normal Affect, Appropriate Vital Signs Pulse Resp BP Pulse Ox 60 16 132/74 H 98 03/31/18 20:00 03/31/18 20:00 03/31/18 20:00 03/31/18 20:00 Oxygen Flow Rate (L/min) 2 Oxygen Delivery Method Nasal Cannula Weight: 130 lb 4.338 oz Body Mass Index (BMI) 22.4 Finger Stick Blood Glucose 114 Assessment/Plan All Active Problems (Last Updated 02/14/18 @ 10:06 by Amanda Peoples) Anaphylactic reaction (Acute) History of cholecystectomy (Resolved) History of tonsillectomy (Resolved) H/O: hysterectomy (Resolved) Plan - admit to general medical floor for observation - benadryl 25mg IV q 6 hrs - solumedrol 40mg IV q 8hrs - cbc, bmp in am - continue routine oral medications for stable medical conditions - regular diet. - SCDs for DVT prophylaxis Code Visit OBSV E AND M: [id number] Initial observation care L2 03/31/18 2019 <Electronically signed by Trenton Baez MD> Date Trenton Baez MD Cosigner Signature: Date (if applicable) CC: Trenton Baez MD; Yang Carvre MD Signed EMERGENCY DEPARTMENT Observed: 03/31/2018 Status: F Source: [place] SUMMARY 8:09 PM [facility] REPOSITORY [facility] Medical Records Department [address] [place] [address] Emergency Department Summary 03/31/18 1728 MR#: [id number] Acct: [id number] Name: FRANK LUNDY Rep #: [id number] : 1940 77 From: Siddhartha Almeida DO PCP: Yang Carver MD, Chi Status: REG ER - ER Visit Summary Date of Service: 03/31/18 Chief Complaint: Allergic reaction History of Present Illness: The patient is a 77 F who presents with anaphylaxis reaction that began today. Patient has a history of dementia and is a poor historian. Patient had injection of Rocephin today for cellulitis of her left leg. Patient was also given prescriptions for Keflex and doxycycline. Patient developed redness and swelling to her face, chest, trunk, and upper extremities. Patient denies any difficulty swallowing or shortness of breath at the present time. Patient denies any chest pain. Patient was given a dose of subcu epinephrine and IV Benadryl by EMS Physical Examination: Oral mucosa is pink and moist. Oropharynx is clear. Airway is patent. Neck is supple. Trachea is midline. There is no JVD noted. Heart was regular rate and rhythm. Lungs are clear and equal bilaterally. There is good respiratory effort noted. Abdomen is soft. Bowel sounds are normal. There is no tenderness. Cranial nerves II through XII are intact. There are no focal motor or sensory deficits noted. Extremities are intact. There is some erythema around a superficial wound over the anterior aspect of the left lower leg. There is no discharge or drainage. There is no fluctuance. Skin is warm and dry. There is erythema and edema over the face, chest, and upper extremities. There are no vesicles or pustules noted. The remaining physical exam is within normal limits. Emergency Department Course and Treatment: Patient was given a dose of subcutaneous epinephrine here. Patient was given Solu-Medrol and Pepcid here. Patient was observed here in emergency department. Patient swelling appeared to improve however, family is concerned that this may rebound when she goes home. Patient will be admitted for observation. Patient and family understood and were agreeable with the plan. All questions were answered. Disposition: Admit for observation Impression: Anaphylactic reaction This note was generated with Yurpy dictation software. It may contain incorrect words, spelling, and punctuation that were not noted in review of the chart prior to signing ED Disposition - Plan for ED Patient: Disposition: [facility] Chief Complaint: Allergic Reaction Diagnosis: Anaphylactic reaction Referrals: Yang Carver Chi, MD [Primary Care Provider] - What to do if you have Problems For any increased pain, shortness of breath, bleeding, nausea or vomiting, chest pain, or any unexpected problems, contact your Primary Care Provider. Call [facility] ([phone]) or report to the closest Emergency Room. Call 911 if necessary. 03/31/182008 <Electronically signed by Siddhartha Almeida DO> Date Siddhartha Almeida DO Cosigner Signature (If Indicated): Date CC: Yang Carver MD CBC W/DIFF, AUTOMATED Collected: 03/24/2018 Status: F Source: [place] 4:41 PM [facility] REPOSITORY TYPE CODE TESTS RESULT OUT OF RANGE REFERENCE UNITS LAB L100.1000 4.4-11.0 K/mm3 Normal WBC 8.7 LAB L100.1200 4.2-5.4 M/mm3 Normal RBC 4.32 LAB L100.1300 12.0-15.0 g/dl Normal HGB 13.3 LAB L100.1400 37-47 % Normal HCT 39.0 LAB L100.1500 81-99 fL Normal MCV 90.3 LAB L100.1600 27.0-32.0 pg Normal MCH 30.8 LAB L100.1700 32-36 g/gl Normal MCHC 34.1 LAB L100.1810 11.6-14.6 % Normal RDW CV 13.2 LAB L100.1820 35.1-43.9 fl Normal RDW SD 43.0 LAB L100.1900 150-450 K/mm3 Normal PLT 322 LAB L100.2000 6.2-12.0 fl Normal MPV 9.4 LAB L100.2100 47-70 % High NEUT% 72.2 LAB L100.2200 19-41 % Low LY% 15.6 LAB L100.2300 0-10 % Normal MONO% 9.2 LAB L100.2400 0-5 % Normal EO% 2.2 LAB L100.2500 0-1 % Normal BASO% 0.3 LAB L100.2550 0.0-0.9 % Normal IM GRAN % 0.500 Result Comment: IG% - Immature Granulocytes (promyelocytes, myelocytes and metamyelocytes) > 1% indicates that a LEFT SHIFT is Present. LAB L100.2620 2.0-7.7 X10 3/uL Normal Absolute Neut 6.3 LAB L100.2720 0.83-4.51 X10 3/ul Normal Absolute Lymph 1.36 Performed By: #### L100.0100 #### [facility] [address] [place], [place], [address] VITAMIN D,25 HYDROXY Collected: 03/24/2018 Status: F Source: [place] 4:41 PM [facility] REPOSITORY TYPE CODE TESTS RESULT OUT OF RANGE REFERENCE UNITS LAB L506.1000 29.95-100.01 ng/mL Normal Vitamin D 42.2 25-OH Result Comment: Vitamin D 25(OH) Status Range Deficiency <20 ng/mL (50nmol/L) Insuffciency 20 - 30 ng/mL (50 - 75 nmol/L) Sufficiency 30 - 100 ng/mL (75 - 250 nmol/L) Toxicity >100 ng/mL (>250 nmol/L) Performed By: #### L506.1000 #### [facility] [address] [place], [place], [address] COMPREHENSIVE METABOLIC Collected: 03/24/2018 Status: F Source: [facility] 4:41 PM [facility] REPOSITORY TYPE CODE TESTS RESULT OUT OF RANGE REFERENCE UNITS LAB L501.0100 74-106 mg/dL Normal GLU 100 Result Comment: Fasting Glucose result from 100 to 125 mg/dL suggests IMPAIRED HOMEOSTASIS per A.D.A. criteria. Please note revised GLUCOSE reference range effective 2017. LAB L501.1000 7-18 mg/dL High BUN 19 LAB L501.1100 0.55-1.02 mg/dL Normal CREAT,SERUM 0.81 Result Comment: The validity of the calculated GFR AND GFRAA in patients over 70 years has not been determined. Clinical correlation is essential. LAB L501.1110 >60 mL/min Normal EST GFR 73 Result Comment: Non- GFR Calc LAB L501.1115 >60 mL/min Normal EST GFR - AA 88 Result Comment: GFR Calc LAB L501.1300 10-20 RATIO High BUN/CRE 23.5 LAB L501.1500 6.4-8.2 g/dL T Normal PROT 7.0 LAB L501.1800 3.2-5.0 g/dL Normal ALB 3.5 LAB L501.1950 2.2-4.2 g/dL Normal GLOB 3.5 LAB L501.2000 0.9-2.4 RATIO Normal A/G 1.0 LAB L501.2200 8.5-10.1 mg/dL CA Normal 8.8 LAB L501.4100 15-37 U/L Normal AST 22 LAB L501.4305 45-117 U/L Normal ALK P 74 LAB L501.4405 13-56 U/L Normal ALT 30 LAB L501.4600 0.20-1.00 mg/dL T Normal BILI 0.40 LAB L501.5300 136-145 mmol/L Low NA 131 LAB L501.5600 3.5-5.1 mmol/L K Normal 4.5 LAB L501.5900 98-107 mmol/L Low CL 94 LAB L501.6100 21.0-32.0 mmol/L Normal CO2 29.0 LAB L501.6200 5-15 Normal GAP 8 Performed By: #### L500.4050, L501.9520 #### [facility] [address] [place], [address] THYROID STIM HORMONE Collected: 03/24/2018 Status: F Source: [place] (TSH) 4:41 PM [facility] REPOSITORY TYPE CODE TESTS RESULT OUT OF RANGE REFERENCE UNITS LAB L501.9520 0.358-3.74 uIU/mL Normal TSH 1.66 Performed By: #### L500.4050, L501.9520 #### [facility] [address] [place], [address] EMERGENCY DEPARTMENT Observed: 03/19/2018 Status: F Source: [place] SUMMARY 5:21 PM [facility] REPOSITORY [facility] Medical Records Department [address] [place] [address] Emergency Department Summary 03/19/18 1605 MR#: [id number] Acct: [id number] Name: FRANK LUNDY Rep #: [id number] : 1940 77 From: Dick Cornell MD PCP: Felix MERCHANT,Yang [facility] Status: DEP ER - ER Visit Summary Date of Service: 03/19/18 Chief Complaint: Fall History of Present Illness: 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 Carver and [facility]. She reports it is prior to coming emergency permit she lost her balance fell and hit her head on the pavement. No loss of consciousness. She is not anticoagulated. Tetanus is up-to-date. Patient reports that she has facial pain is 4 out of 10 severity. She denies any neck, back, shoulder, wrist, or hip pain. Physical Examination: Vitals: Stable. Afebrile. Head: Approximately 4 cm abrasion to the lateral portion of her left maxilla. She has 2 1 cm lacerations to her upper lip. 1 of these does cross the vermilion border. She has Camacho 2 fractures of her right and left central incisors and her left lateral incisor. Neck: No vertebral tenderness. Full ROM without difficulty. Cleared by NEXUS criteria. Back: No vertebral tenderness. General: A AND O x 3. NAD. Cardiovascular exam: Regular rate and rhythm, no murmur, rub or gallop. Respiratory exam: Chest nontender. No crepitus. Clear to auscultation bilaterally. No wheezes or stridor. Abdominal exam: Soft, nontender, nondistended, normal bowel sounds. No pain in RUQ or LUQ specifically. No peritoneal signs. Extremity: Atraumatic. No pain with range of motion. Emergency Department Course and Treatment: Patient was quite anxious about having his sutures placed. She was pretreated with Tylenol and Ativan p.o. She had her wound anesthetized and repaired. She tolerated it well. She had Dycal placed to the fractured teeth. Treatment Plan: Patient was discussed with her dental office. She will be instructed to follow-up with her dentist as soon as possible. She is instructed to keep her wounds clean and place antibiotic ointment on them. Follow-up with Dr. Smith as needed. Return to the emergency department for any signs of infection. Disposition: To home in improved and stable condition. Impression: 1. Fall. 2. Laceration upper lip, 1 cm, repaired. 3. Camacho 2 fractures right central incisor, left central and lateral incisors. Procedure note: Wound was cleansed with chlorhexidine soap. Anesthetized with 1% lidocaine without epinephrine. Copiously irrigated with normal saline. Wound was explored there is no foreign material present. It was closed with 5 simple interrupted 5-0 rapid Vicryl sutures. The first of these sutures was placed across the vermilion border and meticulous care was undertaken to align this. The patient tolerated it well. This note was generated with Yurpy dictation software. It may contain incorrect words, spelling, and punctuation that were not noted in review of the chart prior to signing ED Disposition - Plan for ED Patient: Chief Complaint: Fall Instructions: ED Fx Tooth, ED Laceration Facial Sutr Tape Referrals: Yang Carver Chi, MD [Primary Care Provider] - As Needed Dentist,Your [STAFF PHYSICIAN] - As soon as possible What to do if you have Problems For any increased pain, shortness of breath, bleeding, nausea or vomiting, chest pain, or any unexpected problems, contact your Primary Care Provider. Call [facility] ([phone]) or report to the closest Emergency Room. Call 911 if necessary. 03/19/18 1721 <Electronically signed by Dick Cornell MD> Date Dick Cornell MD Cosigner Signature (If Indicated): Date CC: Yang Carver MD CARDIOLOGY VISIT Observed: 02/19/2018 Status: F Source: [place] REPORT 11:51 AM [facility] REPOSITORY [facility] [address] [place] [address] [address] [place] [address] OFFICE VISIT Date of Service: 02/14/18 MR#: [id number] Acct: [id number] Name: FRANK LUNDY Rep #: [id number] : 1940 Provider: LITA Perez Age/Sex: 77/F [place] [facility] [place]: Signed HPI HPI Details: FRANK LUNDY, is a 77 F who presents to the office today for a cardiovascular outpatient follow-up. She has a history of hypertension, hyperlipidemia, mild cardiomyopathy, and dementia. Pt. denies chest, arm, jaw, or neck discomfort. Her exercise tolerance is stable via dancing. Pt. denies symptoms of CHF, palpitations, lightheadedness, dizziness, near syncope, or syncopal episodes. Pt. denies edema or claudication issues. Pt. denies orthopnea, PND, fever, chills, blood in urine, blood in stool, myalgia, or unexplainable fatigue. She states LUQ pain at times. He states some focus issues that causes her to trip and fall. Her main concern is frustration associated with her forgetfulness/dementia. 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 Accompanied by: Is patient in pain?: No Allergies sulfamethoxazole [From Bactrim] Allergy (Verified 10/12/17 21:34) Hives trimethoprim [From Bactrim] Allergy (Verified 10/12/17 21:34) Hives Medications Cholecalciferol (VIT D3) [Vitamin D3] 2,000 unit PO DAILY 06/26/14 [History Confirmed 02/14/18] Propranolol HCl [Inderal LA (Beta Leigh Ann)] 80 mg PO DAILY #30 cap.sa.24h 06/18/16 [Rx Confirmed 02/14/18] Aspirin [Aspirin, Baby] 81 mg PO DAILY 10/05/16 [History Confirmed 02/14/18] Ramipril [Ramipril] 10 mg PO DAILY 10/12/17 [History Confirmed 02/14/18] escitalopram 5 mg tablet 5 mg PO QDAY 02/14/18 [History Confirmed 02/14/18] galantamine 4 mg tablet 4 mg PO BID tab 02/14/18 [History Confirmed 02/14/18] multivitamin tablet 1 tab PO QDAY #30 tab 02/14/18 [Rx Confirmed 02/14/18] omega-3 fatty acids 1,000 mg capsule 1,000 mg PO TID #90 cap 02/14/18 [Rx Confirmed 02/14/18] PFSH Medical History Hyperlipidemia (Chronic) Cardiomyopathy (Chronic) HTN (hypertension) (Chronic) Surgical History History of cholecystectomy (Resolved) History of tonsillectomy (Resolved) H/O: hysterectomy (Resolved) Family History Father CAD (coronary artery disease) Hypertension Mother Hypertension Sister Hypertension CAD (coronary artery disease) Social History Smoking Status: Never smoker ROS Const Const: Negative for fatigue, weakness, body ache, fever(s) or chills ENT ENT: Negative for dizziness Cardio Chest Pain: No Palpitations: No Edema: None Muscle aches with walking: None Resp Respiratory: Negative for SOB with activity, SOB at rest, SOB orthopnea\SOB lying down or paroxysmal nocturnal dyspnea GI GI: Negative nausea, black,tarry stools, bright, red blood in stools or vomiting blood/hematemesis : Negative for hematuria or frequent nighttime urination/ nocturia Musc Musc: Negative for muscle aches/ myalgia Skin Skin: Negative non-healing lesions or rash Neuro Neuro: Positive for memory loss and lack of coordination; negative for weakness, dizziness, lightheadedness, near syncope, syncope or orthostatic symptoms Endo Endo: Negative for fatigue Allergy Allergy/Immunology: Negative for rash Cardiology Exam Const Appearance: cooperative, healthy appearing, comfortable and no acute distress Nutritional Appearance: average body habitus and well nourished Orientation: alert, awake and oriented x3 Head Head: normal to inspection Ears: hearing grossly normal bilaterally Nose: external nose normal Face and Sinus: face symmetric Mouth: oral mucosae normal Eyes General: appearance normal, both eyes and all related structures Eyelids: eyelids normal EOM: EOM intact bilaterally Neck Neck: no JVD and normal visual inspection Carotids: normal carotid upstroke Chest Chest inspection: normal inspection of the chest and normal respiratory effort; negative cough Auscultation: Bilateral: Clear to Auscultation Cardio Rate: regular rate Rhythm: regular rhythm Heart sounds: S1 normal and S2 normal; negative rub, gallop or murmur GI GI: normal to inspection Neuro General: alert, awake, oriented x3 and CN's II-XI intact bilaterally Skin Skin: no rashes or lesions noted Extremities Pulses: Normal: Right Posterior Tibial Pulse, Left Posterior Tibial Pulse, Right Radial Pulse, Left Radial Pulse Lower Extremity Edema: None: Bilateral Psych Psychological: normal affect Supplemental Info Echocardiogram from August 2014 showed normal LV size, estimated ejection fraction of 52%, impaired relaxation of left ventricle, mild mitral valve insufficiency, mild tricuspid valve insufficiency, and mild aortic valve insufficiency. Assessment AND Plan 1. Other cardiomyopathy I42.8 Plan - Mauricio Perez NP-Terri Echocardiogram in August 2014 showed normal LV size, estimated ejection fraction of 52%, and impaired relaxation of left ventricle. She denies any symptoms of congestive heart failure. She will continue current medications which include ramipril and propranolol. We will continue to monitor. 2. Essential hypertension I10 Plan - CECILE Leonard Patient's blood pressure is well-controlled today in the office. We will continue to monitor this. We will not make any medication regimen changes. 3. Pure hypercholesterolemia E78.00; E78.0 CECILE Dudley Lipid panel from March 2016 show cholesterol: 182, HDL: 38, LDL: 124, and triglycerides: 98. She states is being managed by primary care physician. She is not on any cholesterol lowering medication. 4. Nonrheumatic mitral valve insufficiency I34.0 Plan CECILE Garcia Echocardiogram August 2014 showed mild mitral valve insufficiency. She denies any shortness of breath or activity intolerance. She will continue current medications and we will continue to monitor. 5. Nonrheumatic aortic valve insufficiency I35.1 CECILE Dudley Echocardiogram from August 2014 showed mild aortic valve insufficiency. She denies any shortness of breath or activity intolerance. She will continue current medications and we will continue to monitor. 6. Non-rheumatic tricuspid valve insufficiency I36.1 CECILE Dudley Echocardiogram from August 2014 showed mild tricuspid valve insufficiency. She denies any shortness of breath or activity intolerance. She will continue current medications and we will continue to monitor. Plan Detail Other Medications New: Discontinued: Additional Comments - CECILE Leonard Discussed the above patient with Dr. Humphries, he agrees with the plan of care. Thank you for allowing us to participate in the patients plan of care, if you have any questions please do not hesitate to call. This note was generated using a voice recognition system and there may be incorrect words, spelling or punctuation that were not noted when reviewing the office note prior to saving. Follow Up 12 Months (DIRECTOR OF STRATEGIC ALLIANCES) Coding Level of Care Code Off vis,est,level 3 Diagnoses Other cardiomyopathy I42.8 Cardiomyopathy type: other Essential hypertension I10 Hypertension type: essential hypertension Pure hypercholesterolemia E78.00; E78.0 Hyperlipidemia type: pure hypercholesterolemia Nonrheumatic mitral valve insufficiency I34.0 Nonrheumatic aortic valve insufficiency I35.1 Non-rheumatic tricuspid valve insufficiency I36.1 Coding Level of Care Code Off vis,est,level 3 Diagnoses Other cardiomyopathy I42.8 Cardiomyopathy type: other Essential hypertension I10 Hypertension type: essential hypertension Pure hypercholesterolemia E78.00; E78.0 Hyperlipidemia type: pure hypercholesterolemia Nonrheumatic mitral valve insufficiency I34.0 Nonrheumatic aortic valve insufficiency I35.1 Non-rheumatic tricuspid valve insufficiency I36.1 02/14/18 1039 <Electronically signed by Mauricio Perez [facility]IN[facility] CMA-C> Date Mauricio Perez CLINIC CMA-C 02/19/18 1151<Electronically signed by Angel Humphries MD> Cosigner Signature: Date (if applicable) Angel Humphries MD CC: Yang Carver MD CBC W/DIFF, AUTOMATED Collected: 01/02/2018 Status: F Source: [place] 2:08 PM [facility] REPOSITORY TYPE CODE TESTS RESULT OUT OF RANGE REFERENCE UNITS LAB L100.1000 4.4-11.0 K/mm3 Normal WBC 7.4 LAB L100.1200 4.2-5.4 M/mm3 Low RBC 4.08 LAB L100.1300 12.0-15.0 g/dl Normal HGB 12.4 LAB L100.1400 37-47 % Normal HCT 37.0 LAB L100.1500 81-99 fL Normal MCV 90.7 LAB L100.1600 27.0-32.0 pg Normal MCH 30.4 LAB L100.1700 32-36 g/gl Normal MCHC 33.5 LAB L100.1810 11.6-14.6 % Normal RDW CV 13.3 LAB L100.1820 35.1-43.9 fl Normal RDW SD 43.6 LAB L100.1900 150-450 K/mm3 Normal PLT 317 LAB L100.2000 6.2-12.0 fl Normal MPV 9.2 LAB L100.2100 47-70 % High NEUT% 73.7 LAB L100.2200 19-41 % Low LY% 16.2 LAB L100.2300 0-10 % Normal MONO% 8.6 LAB L100.2400 0-5 % Normal EO% 0.7 LAB L100.2500 0-1 % Normal BASO% 0.4 LAB L100.2550 0.0-0.9 % Normal IM GRAN % 0.400 Result Comment: IG% - Immature Granulocytes (promyelocytes, myelocytes and metamyelocytes) > 1% indicates that a LEFT SHIFT is Present. LAB L100.2620 2.0-7.7 X10 3/uL Normal Absolute Neut 5.5 LAB L100.2720 0.83-4.51 X10 3/ul Normal Absolute Lymph 1.20 Performed By: #### L100.0100 #### [facility] [address] [place], [place], [address] COMPREHENSIVE METABOLIC Collected: 01/02/2018 Status: F Source: [facility] 2:08 PM [facility] REPOSITORY TYPE CODE TESTS RESULT OUT OF RANGE REFERENCE UNITS LAB L501.0100 74-106 mg/dL Normal GLU 90 Result Comment: Please note revised GLUCOSE reference range effective 2017. LAB L501.1000 7-18 mg/dL Normal BUN 18 LAB L501.1100 0.55-1.02 mg/dL Normal CREAT,SERUM 0.85 Result Comment: The validity of the calculated GFR AND GFRAA in patients over 70 years has not been determined. Clinical correlation is essential. LAB L501.1110 >60 mL/min Normal EST GFR 68 Result Comment: Non- GFR Calc LAB L501.1115 >60 mL/min Normal EST GFR - AA 83 Result Comment: GFR Calc LAB L501.1300 10-20 RATIO High BUN/CRE 21.1 LAB L501.1500 6.4-8.2 g/dL T Normal PROT 6.8 LAB L501.1800 3.2-5.0 g/dL Normal ALB 3.3 LAB L501.1950 2.2-4.2 g/dL Normal GLOB 3.5 LAB L501.2000 0.9-2.4 RATIO Normal A/G 0.9 LAB L501.2200 8.5-10.1 mg/dL Low CA 8.4 LAB L501.4100 15-37 U/L Normal AST 23 LAB L501.4305 45-117 U/L Normal ALK P 65 LAB L501.4405 13-56 U/L Normal ALT 28 LAB L501.4600 0.20-1.00 mg/dL T Normal BILI 0.30 LAB L501.5300 136-145 mmol/L Low NA 129 LAB L501.5600 3.5-5.1 mmol/L K Normal 4.6 LAB L501.5900 98-107 mmol/L Low CL 96 LAB L501.6100 21.0-32.0 mmol/L Normal CO2 25.0 LAB L501.6200 5-15 Normal GAP 8 Performed By: #### L500.4050, L501.9520 #### [facility] [address] [place], [place], [address] THYROID STIM HORMONE Collected: 01/02/2018 Status: F Source: [place] (TSH) 2:08 PM [facility] REPOSITORY TYPE CODE TESTS RESULT OUT OF RANGE REFERENCE UNITS LAB L501.9520 0.358-3.74 uIU/mL Normal TSH 1.03 Performed By: #### L500.4050, L501.9520 #### [facility] [address] [place], [place], [address] VITAMIN D,25 HYDROXY Collected: 01/02/2018 Status: F Source: [place] 2:08 PM [facility] REPOSITORY TYPE CODE TESTS RESULT OUT OF RANGE REFERENCE UNITS LAB L506.1000 29.95-100.01 ng/mL Normal Vitamin D 44.6 25-OH Result Comment: Vitamin D 25(OH) Status Range Deficiency <20 ng/mL (50nmol/L) Insuffciency 20 - 30 ng/mL (50 - 75 nmol/L) Sufficiency 30 - 100 ng/mL (75 - 250 nmol/L) Toxicity >100 ng/mL (>250 nmol/L) Performed By: #### L506.1000 #### [facility] [address] [place], [place], [address] BASIC METABOLIC Collected: 12/23/2017 Status: F Source: [place] PROFILE (BMP) 2:03 PM [facility] REPOSITORY TYPE CODE TESTS RESULT OUT OF RANGE REFERENCE UNITS LAB L501.0100 74-106 mg/dL Normal GLU 90 Result Comment: Please note revised GLUCOSE reference range effective 2017. LAB L501.1000 7-18 mg/dL Normal BUN 12 LAB L501.1100 0.55-1.02 mg/dL Normal CREAT,SERUM 0.70 Result Comment: The validity of the calculated GFR AND GFRAA in patients over 70 years has not been determined. Clinical correlation is essential. LAB L501.1110 >60 mL/min Normal EST GFR 86 Result Comment: Non- GFR Calc LAB L501.1115 >60 mL/min Normal EST GFR - AA 104 Result Comment: GFR Calc LAB L501.1300 10-20 RATIO Normal BUN/CRE 17.1 LAB L501.2200 8.5-10.1 mg/dL Low CA 8.4 LAB L501.5300 136-145 mmol/L Low NA 130 LAB L501.5600 3.5-5.1 mmol/L K Normal 4.1 LAB L501.5900 98-107 mmol/L Low CL 95 LAB L501.6100 21.0-32.0 mmol/L Normal CO2 29.0 LAB L501.6200 5-15 Normal GAP 6 Performed By: #### L500.2500 #### [facility] [facility] [place], [place], [id number] CBC W/DIFF, AUTOMATED Collected: 12/23/2017 Status: F Source: [place] 2:03 PM [facility] REPOSITORY TYPE CODE TESTS RESULT OUT OF RANGE REFERENCE UNITS LAB L100.1000 4.4-11.0 K/mm3 Normal WBC 8.6 LAB L100.1200 4.2-5.4 M/mm3 Low RBC 4.19 LAB L100.1300 12.0-15.0 g/dl Normal HGB 13.3 LAB L100.1400 37-47 % Normal HCT 38.3 LAB L100.1500 81-99 fL Normal MCV 91.4 LAB L100.1600 27.0-32.0 pg Normal MCH 31.7 LAB L100.1700 32-36 g/gl Normal MCHC 34.7 LAB L100.1810 11.6-14.6 % Normal RDW CV 13.4 LAB L100.1820 35.1-43.9 fl High RDW SD 44.6 LAB L100.1900 150-450 K/mm3 Normal PLT 299 LAB L100.2000 6.2-12.0 fl Normal MPV 9.5 LAB L100.2100 47-70 % High NEUT% 72.8 LAB L100.2200 19-41 % Low LY% 16.3 LAB L100.2300 0-10 % Normal MONO% 9.4 LAB L100.2400 0-5 % Normal EO% 0.7 LAB L100.2500 0-1 % Normal BASO% 0.3 LAB L100.2550 0.0-0.9 % Normal IM GRAN % 0.500 Result Comment: IG% - Immature Granulocytes (promyelocytes, myelocytes and metamyelocytes) > 1% indicates that a LEFT SHIFT is Present. LAB L100.2620 2.0-7.7 X10 3/uL Normal Absolute Neut 6.3 LAB L100.2720 0.83-4.51 X10 3/ul Normal Absolute Lymph 1.40 Performed By: #### L100.0100 #### [facility] [address] [facility] [place], [address] EMERGENCY DEPARTMENT Observed: 10/13/2017 Status: F Source: [place] SUMMARY 2:07 AM [facility] REPOSITORY [facility] Medical Records Department [address] [place] [address] Emergency Department Summary 10/12/17 2214 MR#: [id number] Acct: [id number] Name: FRANK LUNDY Rep #: [id number] : 1940 77 From: Kamilah Mejias MD PCP: Felix MERCHANT,Physcient Status: REG ER - ER Visit Summary Date of Service: 10/12/17 Chief Complaint: Fall History of Present Illness: The patient is a 77 F presenting after fall. Patient was square dancing and tripped. She fell hitting her head. She had no loss of consciousness. No vomiting. Denies chest pain or shortness of breath. She complains of neck and upper back pain. No other complaints. Physical Examination: Vitals are stable. Patient is afebrile. Alert no acute distress. HEENT exam is unremarkable. Posterior scalp hematoma with mild abrasion, no laceration. Neck is right paraspinal tenderness, no stepoff Lungs are clear and equal bilaterally. Heart is regular rate and rhythm. Abdomen is soft nontender nondistended. Back: right paraspinal thoracic muscle tenderness, no midline tenderness Extremities are unremarkable. Skin is warm and dry. No focal neurologic deficit. Remainder of exam is unremarkable. Emergency Department Course and Treatment: Patient was given tetanus IM. Thoracic spine x-ray read as unable to rule out compression deformity recommending CT scan. CT thoracic spine shows no fracture. CT cervical spine shows no fracture. CT head shows no acute intracranial abnormality, left posterior parietal scalp swelling. Patient is resting comfortably in the ED. She is able to ambulate in the ED without difficulty. She will be discharged to follow-up with her primary care physician. Advised return to ED for worsening complaints. Disposition: Discharge home Impression: Status post mechanical fall, closed head injury, neck strain This note was generated with Yur[employer] dictation software. It may contain incorrect words, spelling, and punctuation that were not noted in review of the chart prior to signing ED Disposition - Plan for ED Patient: Chief Complaint: Fall Instructions: ED Mechanical Fall Referrals: Yang Carver Chi, MD [Primary Care Provider] - What to do if you have Problems For any increased pain, shortness of breath, bleeding, nausea or vomiting, chest pain, or any unexpected problems, contact your Primary Care Provider. Call [facility] ([phone]) or report to the closest Emergency Room. Call 911 if necessary. 10/13/17206 <Electronically signed by Kamilah Mejias MD> Date Kamilah Mejias MD Cosigner Signature (If Indicated): Date CC: Yang Carver MD DISCHARGE INSTRUCTION Observed: 10/13/2017 Status: F Source: [place] 2:00 AM [facility] REPOSITORY [facility] Medical Records Department [address] [place] [address] Discharge Instruction 10/13/17199 MR#: [id number] Acct: [id number] Name: FRANK LUNDY Rep #: [id number] : 1940 77 From: Kamilah Mejias MD PCP: Yang Carver MD, Chi Status: REG ER ED Disposition - Plan for ED Patient: Chief Complaint: Fall Instructions: ED Mechanical Fall Referrals: Yang Carver Chi, MD [Primary Care Provider] - What to do if you have Problems For any increased pain, shortness of breath, bleeding, nausea or vomiting, chest pain, or any unexpected problems, contact your Primary Care Provider. Call [facility] ([phone]) or report to the closest Emergency Room. Call 911 if necessary. 10/13/17 0200 <Electronically signed by Kamilah Mejias MD> Date Kamilah Mejias MD Cosigner Signature (If Indicated): Date CC: Yang Carver MD SPINE THORACIC Observed: 10/12/2017 Status: F Source: [place] WITHOUT CONTRAS 11:55 PM [facility] REPOSITORY [facility] Imaging Services [address] [place] [address] Spine Thoracic without Contras MR#: [id number] Acct: [id number] Name: FRANK LUNDY Rep #: [id number] : 1940 F 77 From: Renato Reveles MD PCP: Yang Carver MD, Chi Status: REG ER Study: Spine Thoracic without Contras Date of Exam: 10/13/17 Exam# [id number] Ordering Dr: Kamilah Mejias MD STUDY: CT THORACIC SPINE WITHOUT CONTRAST REASON FOR EXAM: Female, 77 years old. Fall RADIATION DOSAGE (If Supplied By Facility): CTDIvol = ( 18.42 ) mGy, DLP = ( 650.27 ) mGycm TECHNIQUE: The patient was scanned in a multi detector CT scanner. High resolution imaging was performed. Images were obtained from T1 to T12. Sagittal and coronal images were reconstructed. Individualized dose optimization techniques were used for this CT. COMPARISON: Radiographs 10/12/2017 FINDINGS: No fractures or dislocations. Diffuse degenerative disease. Multiple remote rib deformities. No paraspinal hematoma is seen. CT/Spine Thoracic without Contras IMPRESSION: No acute osseous injury is evident. Electronically Signed: Renato Reveles MD at 1:45 EDT Tel , Service support , CC: Kamilah Mejias MD; Yang Carver MD License Examiner: Signed THORACIC SPINE 3 Observed: 10/12/2017 Status: F Source: [place] VIEWS 10:13 PM [facility] REPOSITORY [facility] Imaging Services [address] [place] [address] Thoracic Spine 3 Views MR#: [id number] Acct: [id number] Name: FRANK LUNDY Rep #: [id number] : 1940 F 77 From: Renato Reveles MD PCP: Yang Carver MD, Chi Status: REG ER Study: Thoracic Spine 3 Views Date of Exam: 10/12/17 Exam# [id number] Ordering Dr: Kamilah Mejias MD STUDY: X-RAY - THORACIC SPINE REASON FOR EXAM: Female, 77 years old. Pain after fall TECHNIQUE: 2 view(s) of the thoracic spine were obtained. COMPARISON: Chest x-ray 10/05/2016 FINDINGS: A mild compression deformity is suggested involving a lower thoracic vertebral body on the lateral view. Exact level is uncertain based on the frontal view, likely T10 or T11. An acute injury cannot be excluded. Consider CT or MRI correlation if possible. RAD/Thoracic Spine 3 Views IMPRESSION: A mild lower thoracic compression deformity cannot be excluded. Consider CT or MRI correlation if possible. Electronically Signed: Renato Reveles MD at 23:37 EDT Tel , Service support , CC: Kamilah Mejias MD; Yang Carver MD License Examiner: Signed SPINE CERVICAL Observed: 10/12/2017 Status: F Source: [place] WITHOUT CONTRAS 10:12 PM [facility] REPOSITORY [facility] Imaging Services [address] [place] [address] Spine Cervical without Contras MR#: [id number] Acct: [id number] Name: FRANK LUNDY Rep #: [id number] : 1940 F 77 From: Stella Holland MD PCP: Yang Carver MD, Chi Status: REG ER Study: Spine Cervical without Contras Date of Exam: 10/12/17 Exam# [id number] Ordering Dr: Kamilah Mejias MD CT Spine Cervical W/O Contrast INDICATION: FALL,NECK PAIN COMPARISON: None TECHNIQUE: High-resolution axial CT imaging of the cervical spine with coronal and sagittal reformatted images. Radiation dose optimization technique applied. FINDINGS: The osseous structures are diffusely osteopenic. There is mild retrolisthesis of C3 on C4 and mild anterolisthesis of C4 on C5 and C5 on C6. There is normal alignment at the atlantoaxial articulation, craniocervical junction, and at the facet joints. Mild facet arthritic changes are noted. Anterior bridging osteophytes are noted at C5-6 and C6-7. No evidence of osseous spinal stenosis. No evidence of fracture. CT/Spine Cervical without Contras IMPRESSION: Osteopenia and multilevel degenerative changes. No evidence of acute fracture. at 0001 Reported and signed by: Stella Holland MD Electronically Signed: Stella Holland MD at 22:59 EDT Tel , Service support , CC: Kamilah Mejias MD; Yang Carver MD License Examiner: Signed BRAIN/HEAD WITHOUT Observed: 10/12/2017 Status: F Source: [place] CONTRAST 10:12 PM [facility] REPOSITORY [facility] Imaging Services [address] [place] [address] Brain/Head without Contrast MR#: [id number] Acct: [id number] Name: FRANK LUNDY Rep #: [id number] : 1940 F 77 From: Jus Faith PCP: Yang Carver MD, Chi Status: REG ER Study: Brain/Head without Contrast Date of Exam: 10/12/17 Exam# [id number] Ordering Dr: Kamilah Mejias MD STUDY: CT BRAIN WITHOUT CONTRAST REASON FOR EXAM: Female, 77 years old. Fall, neck pain, laceration back of head. RADIATION DOSAGE (If Supplied By Facility): CTDIvol = ( 44.99 ) mGy, DLP = ( 762.36 ) mGycm TECHNIQUE: Transaxial CT imaging of the brain was performed without administration of intravenous contrast material. Individualized dose optimization techniques were used for this CT. COMPARISON: October 05, 2016. FINDINGS: Left posterior parietal scalp swelling. 2 cm peripheral hematoma. Normal calvarium. Normal size ventricles and extra-axial spaces for the patient's age. Normal white matter tracts of the cerebral hemispheres. Normal basal ganglia and thalami. Normal brainstem. Normal cerebellum. There is no intracranial hemorrhage. There are no findings of an acute ischemic infarction. Mild ethmoid sinus mucosal thickening unchanged. Mild right maxillary sinus mucosal thickening. Moderate air-fluid level left maxillary sinus acute versus chronic sinusitis. On the prior study there was near total opacification of the left maxillary sinus. CT/Brain/Head without Contrast IMPRESSION: No acute intracranial abnormality. Left posterior parietal scalp swelling. Air-fluid level left maxillary sinus, acute versus chronic sinusitis. Additional mild paranasal sinus mucosal thickening as above. Electronically Signed: Jus Faith MD at 0:22 EDT , Service support , CC: Kamilah Mejias MD; Yang Carver MD License Examiner: Signed Observed: 10/08/2017 Status: C Source: [place] RESPIRATORY PANEL 3:53 PM [facility] MOLECULAR REPOSITORY RESULTS CALLED TO VIKY YATES 10/09/17 1511 Jenny Torres. REPORT READ BACK BY SAME. RP PANEL Normal Reference Range = Not Detected Copy of report sent to Infection Control Printer [id number] 10/09/17 4712 DGRADY. RESULTS CALLED TO DR CARVER NURSE LINE 10/09/17 1503 Jenny Torres. REPORT READ BACK BY NO ONE. ADENOVIRUS Not Detected HUMAN METAPHNEUMO Positive for HUMAN METAPHNEUMO VIRUS by NAAT technology INFLUENZA A Not Detected INFLUENZA A (SUBTYPE H1) Not Detected INFLUENZA A (SUBTYPE H3) Not Detected INFLUENZA B Not Detected PARAINFLUENZA 1 Not Detected PARAINFLUENZA 2 Not Detected PARAINFLUENZA 3 Not Detected PARAINFLUENZA 4 Not Detected RHINOVIRUS Not Detected RSV A Not Detected RSV B Not Detected NAAT METHOD Testing was performed using nucleic acid amplification ORGANISM 1: HUMAN META Performed By: #### M100.638 #### [facility] [place], [address] CBC W/DIFF, AUTOMATED Collected: 10/02/2017 Status: F Source: [place] 1:13 PM [facility] REPOSITORY TYPE CODE TESTS RESULT OUT OF RANGE REFERENCE UNITS LAB L100.1000 4.4-11.0 K/mm3 Normal WBC 7.5 LAB L100.1200 4.2-5.4 M/mm3 Normal RBC 4.27 LAB L100.1300 12.0-15.0 g/dl Normal HGB 13.0 LAB L100.1400 37-47 % Normal HCT 39.6 LAB L100.1500 81-99 fL Normal MCV 92.7 LAB L100.1600 27.0-32.0 pg Normal MCH 30.4 LAB L100.1700 32-36 g/gl Normal MCHC 32.8 LAB L100.1810 11.6-14.6 % Normal RDW CV 13.4 LAB L100.1820 35.1-43.9 fl High RDW SD 44.6 LAB L100.1900 150-450 K/mm3 Normal PLT 321 LAB L100.2000 6.2-12.0 fl Normal MPV 9.5 LAB L100.2100 47-70 % Normal NEUT% 69.8 LAB L100.2200 19-41 % Normal LY% 19.6 LAB L100.2300 0-10 % Normal MONO% 9.0 LAB L100.2400 0-5 % Normal EO% 0.8 LAB L100.2500 0-1 % Normal BASO% 0.4 LAB L100.2550 0.0-0.9 % Normal IM GRAN % 0.400 Result Comment: IG% - Immature Granulocytes (promyelocytes, myelocytes and metamyelocytes) > 1% indicates that a LEFT SHIFT is Present. LAB L100.2620 2.0-7.7 X10 3/uL Normal Absolute Neut 5.2 LAB L100.2720 0.83-4.51 X10 3/ul Normal Absolute Lymph 1.46 Performed By: #### L100.0100 #### [facility] [address] [place] [address], [id number] VITAMIN D,25 HYDROXY Collected: 10/02/2017 Status: F Source: [place] 1:13 PM [facility] REPOSITORY TYPE CODE TESTS RESULT OUT OF RANGE REFERENCE UNITS LAB L506.1000 29.95-100.01 ng/mL Normal Vitamin D 45.8 25-OH Result Comment: Vitamin D 25(OH) Status Range Deficiency <20 ng/mL (50nmol/L) Insuffciency 20 - 30 ng/mL (50 - 75 nmol/L) Sufficiency 30 - 100 ng/mL (75 - 250 nmol/L) Toxicity >100 ng/mL (>250 nmol/L) Performed By: #### L506.1000 #### [facility] [address] [place], [place], [id number] COMPREHENSIVE METABOLIC Collected: 10/02/2017 Status: F Source: [place] 1:13 PM [facility] REPOSITORY TYPE CODE TESTS RESULT OUT OF RANGE REFERENCE UNITS LAB L501.0100 74-106 mg/dL Normal GLU 83 Result Comment: Please note revised GLUCOSE reference range effective 2017. LAB L501.1000 7-18 mg/dL High BUN 19 LAB L501.1100 0.55-1.02 mg/dL Normal CREAT,SERUM 0.81 Result Comment: The validity of the calculated GFR AND GFRAA in patients over 70 years has not been determined. Clinical correlation is essential. LAB L501.1110 >60 mL/min Normal EST GFR 73 Result Comment: Non- GFR Calc LAB L501.1115 >60 mL/min Normal EST GFR - AA 88 Result Comment: GFR Calc LAB L501.1300 10-20 RATIO High BUN/CRE 23.5 LAB L501.1500 6.4-8.2 g/dL T Normal PROT 7.0 LAB L501.1800 3.2-5.0 g/dL Normal ALB 3.4 LAB L501.1950 2.2-4.2 g/dL Normal GLOB 3.6 LAB L501.2000 0.9-2.4 RATIO Normal A/G 0.9 LAB L501.2200 8.5-10.1 mg/dL CA Normal 8.5 LAB L501.4100 15-37 U/L Normal AST 28 Result Comment: Slight Hemolysis, Result may be falsely increased. LAB L501.4305 45-117 U/L Normal ALK P 78 LAB L501.4405 13-56 U/L Normal ALT 31 Result Comment: Please note revised ALT reference range effective 2017. LAB L501.4600 0.20-1.00 mg/dL Normal T BILI 0.30 LAB L501.5300 136-145 mmol/L Low NA 134 LAB L501.5600 3.5-5.1 mmol/L Normal K 4.3 Result Comment: Slight Hemolysis, Result may be falsely increased. LAB L501.5900 98-107 mmol/L Normal CL 98 LAB L501.6100 21.0-32.0 mmol/L Normal CO2 30.0 LAB L501.6200 5-15 Normal GAP 6 Performed By: #### L500.4050, L501.9520 #### [facility] [address] [place], [address] THYROID STIM HORMONE Collected: 10/02/2017 Status: F Source: [place] (TSH) 1:13 PM [facility] REPOSITORY TYPE CODE TESTS RESULT OUT OF RANGE REFERENCE UNITS LAB L501.9520 0.358-3.74 uIU/mL Normal TSH 1.40 Performed By: #### L500.4050, L5.9520 #### [facility] [address] [place], [address] ALLERGIES ALLERGIES DATE TYPE / CODE NAME / CODE REACTION SEVERITY SOURCE 07/29/2018 Drug cephalexin/ Angioedema Unknown [facility] Allergy/4160 [id number]( Hospital [facility](SNOMED RXNORM) Repository CT) 07/29/2018 Drug doxycycline Angioedema Unknown [facility] Allergy/4160 /[id number] [facility](SNOMED (RXNORM) Repository CT) 07/29/2018 Drug sulfamethox Hives Unknown [facility] Allergy/4160 azole/F0060 [facility](SNOMED [address](RXNOR Repository CT) M) 07/29/2018 Drug trimethopri Hives Unknown [facility] Allergy/4160 m/[id number] [facility](SNOMED 3(RXNORM) Repository CT) 07/29/2018 Drug ceftriaxone Anaphylaxis Unknown [facility] Allergy/4160 /[id number] [facility](SNOMED (RXNORM) Repository CT) ENCOUNTERS ENCOUNTERS ADMIT/DISCHARGE ACCOUNT ADMITTING ENCOUNTER LOCATION SOURCE NUMBER CLASS 07/29/2018/ [id number] [facility] 2 [facility] ing:ED Repository 07/15/2018 [id number] Ambulatory Tom Morton 3 [facility] ing:LAB.FUTUR Repository E 07/14/2018 [id number] Ambulatory Morton Tom 3 [facility] ing:POLAB3 Repository 06/26/2018 [id number] Ambulatory Tom Morton 2 [facility] ing:RAD Repository 06/21/2018/ [id number] Oseas [place] Emergency Tom Tom 8 7 [facility] ing:EDRoom: Repository MS324 06/10/2018/ [id number] Trenton Baez Inpatient Tom Morton 8 9 Encounter [facility] ing:AX5Npxg: Repository KC721Qkr: 1 06/10/2018 [id number] Trenton Baez Ambulatory BMSBuilding:B Morton 0 [facility] Repository 06/09/2018 [id number] Trenton Baez Ambulatory BMSBuilding:B Morton 2 [facility] Repository 06/09/2018 [id number] Trenton Baez Ambulatory BMSBuilding:B Tom 0 [facility] Repository 05/27/2018/ [id number] Emergency Tom Morton 8 3 [facility] ing:ED Repository 05/15/2018 [id number] Ambulatory Tom Tom 0 [facility] ing:POLAB3 Repository 05/14/2018 [id number] Ambulatory Tom Tom 6 [facility] ing:POLAB3 Repository 05/08/2018 [id number] Ambulatory Morton Tom 5 [facility] ing:POLAB3 Repository 04/25/2018/ [id number] Emergency Tom Morton 8 7 [facility] ing:ED Repository 04/08/2018 [id number] Ambulatory Morton Tom 7 [facility] ing:NM Repository 04/05/2018/ [id number] Emergency Tom Tom 8 5 [facility] ing:ED Repository 03/31/2018 [id number] Trenton Baez Ambulatory BMSBuilding:B Tom 5 [facility] Repository 03/31/2018/ [id number] Trenton Baez Ambulatory Morton Tom 8 3 [facility] ing:DV6Dqrd: Repository AJ097Drd: 1 03/31/2018 [id number] Ambulatory BMSBuilding:B Morton 6 [facility] Repository 03/24/2018 [id number] Ambulatory Tom Tom 3 [facility] ing:POLAB3 Repository 03/19/2018/ [id number] Emergency Tom Tom 8 8 [facility] ing:ED Repository 02/14/2018/ [id number] Ambulatory BMSBuilding:B Tom 8 1 [facility] Repository 01/02/2018 [id number] Ambulatory Morton Tom 8 [facility] ing:POLAB3 Repository 12/23/2017 [id number] Ambulatory Tom Morton 3 [facility] ing:POLAB3 Repository 10/12/2017/ [id number] Emergency Tom Morton 8 0 [facility] ing:ED Repository 10/08/2017 [id number] Ambulatory Morton Morton 6 [facility] ing:PSN Repository 10/02/2017 [id number] Ambulatory Morton Morton 7 [facility] ing:POLAB3 Repository PAYERS PAYERS ENCOUNTER GUARANTOR PAYER SUBSCRIBER SOURCE 07/29/2018 FRANK M Primary FRANK M Tom [id number] Insurance:MEDICARE BRINKERHOFFDOB: [facility] PART A [facility] [id number] Number: Repository [id number]: ([phone] [id number] [id number] () Date:2018-07-29 07/29/2018 Secondary FRANK M Tom Insurance:FORE BRINKERHOFFDOB: [facility] Number: [id number] Hospital [id number] Repository Date:4218-73-42[address] [place], [place] [address]OD: 07/29/2018 Tertiary NOT GIVENUNK Morton Insurance:SELF PAY [facility] Number: Effective Repository Date:2018-07-29 07/15/2018 FRANK M Primary FRANK M Morton [id number] Insurance:MEDICARE BRINKERHOFFDOB: [facility] PART A [facility] [id number] Number: Repository [id number]: ([phone]) [id number] [phone] (HP) Date:2018-07-15 07/15/2018 Secondary FRANK M Morton Insurance:FORE BRINKERHOFFDOB: Community THOUGHTPolicy Number: [id number] Hospital [id number] Repository Date:4545-14-24MV [address] LILLIHEIDE Armijo [address]FX: 07/15/2018 Tertiary NOT GIVENUNK Morton Insurance:SELF PAY [facility] Number: Effective Repository Date:2018-07-15 07/14/2018 FRANK M Primary FRANK M Morton [id number] Insurance:MEDICARE BRINKERHOFFDOB: [facility] PART A [facility] [id number] Number: Repository [address]Wux: 330 [id number] [phone] () Date:2018-07-14 07/14/2018 Secondary FRANK M Morton Insurance:FORE BRINKERHOFFDOB: Community THOUGHTPolicy Number: [id number] Hospital [id number] Repository Date:9569-43-38IX [address] [place] SHI [address]TD: 07/14/2018 Tertiary NOT GIVENUNK Tom Insurance:SELF PAY [facility] Number: Effective Repository Date:2018-07-14 06/26/2018 FRANK M Primary FRANK M Tom [id number] Insurance:MEDICARE BRINKERHOFFDOB: [facility] PART A [facility] [id number] Number: Repository [id number]: 330 [id number] [phone] () Date:2018-06-26 06/26/2018 Secondary FRANK M Tom Insurance:FORE BRINKERHOFFDOB: [facility]: [id number] Hospital [id number] Repository Date:5632-38-14WZ [address] [place] [address]EA: 06/26/2018 Tertiary NOT GIVENUNK Morton Insurance:SELF PAY [facility] Number: Effective Repository Date:2018-06-26 06/21/2018 FRANK M Primary FRANK M Tom [id number] Insurance:MEDICARE BRINKERHOFFDOB: [facility] PART A olic [id number] Number: Repository [address]Kcm: ([phone]) [id number] [phone] () Date:2018-06-21 06/21/2018 Secondary FRANK M Tom Insurance:FORE BRINKERHOFFDOB: [facility] THOUGHTPolicy Number: [id number] Hospital [id number] Repository Date:0692-85-25CW [id number] [facility] [address]WZ: 06/21/2018 Tertiary NOT GIVENUNK Morton Insurance:SELF PAY [facility] Number: Effective Repository Date:2018-06-21 06/10/2018 FRANK M Primary FRANK M Morton [id number] Insurance:MEDICARE BRINKERHOFFDOB: [facility] PART A [facility] [id number] Number: Repository [address]Hsr: 330 [id number] [phone] () Date:2018-06-09 06/10/2018 Secondary FRANK M Morton Insurance:FORE BRINKERHOFFDOB: [facility] THOUGHTPolicy Number: [id number] Hospital [id number] Repository Date:6198-10-15[address] [place], [place] [address]AI: 06/10/2018 Tertiary NOT GIVENUNK Morton Insurance:SELF PAY [facility] Number: Effective Repository Date:2018-06-09 06/10/2018 FRANK M Primary FRANK M Tom [id number] Insurance:MEDICARE BRINKERHOFFDOB: [facility] PART A [facility] [id number] Number: Repository [address]Azl: ([phone] [id number] [phone] (HP) Date:2018-06-09 06/10/2018 Secondary FRANK M Morton Insurance:FORE BRINKERHOFFDOB: [facility] THOUGHTPolicy Number: [id number] Hospital [id number] Repository Date:2724-20-78UA [id number] LILLIHE[place] Armijo [address]LD: 06/10/2018 Tertiary NOT GIVENUNK Tom Insurance:SELF PAY [facility] Number: Effective Repository Date:2018-06-10 06/09/2018 FRANK M Primary FRANK M Morton [id number] Insurance:MEDICARE BRINKERHOFFDOB: [facility] PART A [facility] [id number] Number: Repository [address]Kbu: 330 [id number] [phone] () Date:2018-06-09 06/09/2018 Secondary FRANK M Morton Insurance:FORE BRINKERHOFFDOB: [facility]HTPolicy Number: [id number] Hospital [id number] Repository Date:0364-64-93EI [address] [place] SHI [address]FM: 06/09/2018 Tertiary NOT GIVENUNK Tom Insurance:SELF PAY [facility] Number: Effective Repository Date:2018-06-09 06/09/2018 FRANK M Primary FRANK M Tom [id number] Insurance:MEDICARE BRINKERHOFFDOB: [facility] PART A [facility] [id number] Number: Repository [address]Qiz: 330 [id number] [phone] (HP) Date:2018-06-09 06/09/2018 Secondary FRANK M Tom Insurance:FORE BRINKERHOFFDOB: [facility] THOUGHTPolicy Number: [id number] Hospital [id number] Repository Date:0402-97-83HA [address] [place]I [address]ZA: 06/09/2018 Tertiary NOT GIVENUNK Morton Insurance:SELF PAY [facility] Number: Effective Repository Date:2018-06-09 05/27/2018 FRANK M Primary FRANK M Tom [id number] Insurance:MEDICARE BRINKERHOFFDOB: [facility] PART A olic [id number] Number: Repository [address]Soh: ([phone]) [id number] [phone] () Date:2018-05-27 05/27/2018 Secondary FRANK M Morton Insurance:FORE BRINKERHOFFDOB: [facility] THOUGHTPolicy Number: [id number] Hospital [id number] Repository Date:7552-35-51SU [id number] [facility] [place] [address]HP: 05/27/2018 Tertiary NOT GIVENUNK Tom Insurance:SELF PAY [facility] Number: Effective Repository Date:2018-05-27 05/15/2018 FRANK M Primary FRANK M Morton [id number] Insurance:MEDICARE BRINKERHOFFDOB: [facility] PART A [facility] [id number] Number: Repository [address]Imd: 330 [id number] [phone] () Date:2018-05-15 05/15/2018 Secondary FRANK M Tom Insurance:FORE BRINKERHOFFDOB: [facility] THOUGHTPolicy Number: [id number] Hospital [id number] Repository Date:3231-84-12OM [address] [place], [place] [address]TT: 05/15/2018 Tertiary NOT GIVENUNK Morton Insurance:SELF PAY [facility] Number: Effective Repository Date:2018-05-15 05/14/2018 FRANK M Primary FRANK M Morton [id number] Insurance:MEDICARE BRINKERHOFFDOB: [facility] PART A [facility] [id number] Number: Repository [address]Xcp: ([phone] [id number] [phone] (HP) Date:2018-05-14 05/14/2018 Secondary FRANK M Tom Insurance:FORE BRINKERHOFFDOB: [facility]GHTPolicy Number: [id number] Hospital [id number] Repository Date:6896-06-27SP [address] [place] [address]NF: 05/14/2018 Tertiary NOT GIVENUNK Morton Insurance:SELF PAY [facility] Number: Effective Repository Date:2018-05-14 05/08/2018 FRANK M Primary FRANK M Morton [id number] Insurance:MEDICARE BRINKERHOFFDOB: [facility] PART A [facility] [id number] Number: Repository [address]Ypk: 330 [id number] [phone] () Date:2018-05-08 05/08/2018 Secondary RFANK M Tom Insurance:FORE BRINKERHOFFDOB: [facility]GHTPolicy Number: [id number] Hospital [id number] Repository Date:8103-98-61KI [address] [place] [address]OR: 05/08/2018 Tertiary NOT GIVENUNK Morton Insurance:SELF PAY [facility] Number: Effective Repository Date:2018-05-08 04/25/2018 FRANK M Primary FRANK M Tom [id number] Insurance:MEDICARE BRINKERHOFFDOB: [facility] PART A [facility] [id number] Number: Repository [address]Ceh: 330 [id number] [phone] (HP) Date:2018-04-25 04/25/2018 Secondary FRANK M Morton Insurance:FORE BRINKERHOFFDOB: [facility] THOUGHTPolicy Number: [id number] Hospital [id number] Repository Date:9676-41-78VI [address] [place] SHI [address]VZ: 04/25/2018 Tertiary NOT GIVENUNK Tom Insurance:SELF PAY [facility] Number: Effective Repository Date:2018-04-25 04/08/2018 FRANK M Primary FRANK M Tom [id number] Insurance:MEDICARE BRINKERHOFFDOB: [facility] PART A olic [id number] Number: Repository [address]Nqn: 330 [id number] [phone] () Date:2018-03-31 04/08/2018 Secondary FRANK M Morton Insurance:FORE BRINKERHOFFDOB: [facility] THOUGHTPolicy Number: [id number] Hospital [id number] Repository Date:0334-05-18QJ [address] [place] SHI [address]XC: 04/08/2018 Tertiary NOT GIVENUNK Tom Insurance:SELF PAY [facility] Number: Effective Repository Date:2018-03-31 04/05/2018 FRANK M Primary FRANK M Tom [id number] Insurance:MEDICARE BRINKERHOFFDOB: [facility] PART A [facility] [id number] Number: Repository [id number]: 330 [id number] [phone] () Date:2018-04-05 04/05/2018 Secondary FRANK M Tom Insurance:FORE BRINKERHOFFDOB: [facility] THOUGHTPolicy Number: [id number] Hospital [id number] Repository Date:1747-42-18CY [id number] [facility] [place] [address]LA: 04/05/2018 Tertiary NOT GIVENUNK Tom Insurance:SELF PAY [facility] Number: Effective Repository Date:2018-04-05 03/31/2018 FRANK M Primary FRANK M Morton [id number] Insurance:MEDICARE BRINKERHOFFDOB: [facility] PART A [facility] [id number] Number: Repository [address]Qkq: (437) [id number] [phone] (HP) Date:2018-03-31 03/31/2018 Secondary FRANK M Morton Insurance:FORE BRINKERHOFFDOB: [facility] THOUGHTPolicy Number: [id number] Hospital [id number] Repository Date:0934-88-36IX [address] HE[place] SIH [address]OV: 03/31/2018 Tertiary NOT GIVENUNK Morton Insurance:SELF PAY [facility] Number: Effective Repository Date:2018-03-31 03/31/2018 FRANK M Primary FRANK M Tom [id number] Insurance:MEDICARE BRINKERHOFFDOB: [facility] PART A [facility] [id number] Number: Repository [address]Blk: 330 [id number] [phone] (HP) Date:2018-03-31 03/31/2018 Secondary FRANK M Tom Insurance:FORE BRINKERHOFFDOB: [facility] Number: [id number] Hospital [id number] Repository Date:1563-32-78FP [address] [place] [address]KJ: 03/31/2018 Tertiary NOT GIVENUNK Tom Insurance:SELF PAY [facility] Number: Effective Repository Date:2018-03-31 03/31/2018 FRANK M Primary FRANK M Tom [id number] Insurance:MEDICARE BRINKERHOFFDOB: [facility] PART A [facility] [id number] Number: Repository [address]Zvt: 330 [id number] [phone] (HP) Date:2018-03-31 03/31/2018 Secondary FRANK M Tom Insurance:FORE BRINKERHOFFDOB: [facility] Number: [id number] Hospital [id number] Repository Date:0926-86-75MK [address] [place] SHI [address]BH: 03/31/2018 Tertiary NOT GIVENUNK Tom Insurance:SELF PAY [facility] Number: Effective Repository Date:2018-03-31 03/24/2018 FRANK M Primary FRANK M Morton [id number] Insurance:MEDICARE BRINKERHOFFDOB: [facility] PART A [facility] [id number] Number: Repository [id number]: 330 [id number] [phone] () Date:2018-03-24 03/24/2018 Secondary FRANK M Morton Insurance:FORE BRINKERHOFFDOB: [facility] THOUGHTPolicy Number: [id number] Hospital [id number] Repository Date:7590-11-32UA [address] [facility] [address]EK: 03/24/2018 Tertiary NOT GIVENUNK Morton Insurance:SELF PAY [facility] Number: Effective Repository Date:2018-03-24 03/19/2018 FRANK M Primary FRANK M Tom [id number] Insurance:MEDICARE BRINKERHOFFDOB: [facility] PART A [facility] [id number] Number: Repository [address]Egr: 330 [id number] [phone] () Date:2018-03-19 03/19/2018 Secondary FRANK M Morton Insurance:FORE BRINKERHOFFDOB: [facility] THOUGHTPolicy Number: [id number] Hospital [id number] Repository Date:1545-97-55VV [address] [place], [place] [address]EV: 03/19/2018 Tertiary NOT GIVENUNK Tom Insurance:SELF PAY [facility] Number: Effective Repository Date:2018-03-19 02/14/2018 FRANK M Primary FRANK M Tom [id number] Insurance:MEDICARE BRINKERHOFFDOB: [facility] PART A [facility] [id number] Number: Repository [address]Hxq: (401) [id number] [phone] (HP) Date:2017-06-25 02/14/2018 Secondary FRANK M Tom Insurance:FORE BRINKERHOFFDOB: Community THOUGHTPolicy Number: [id number] Hospital [id number] Repository Date:8950-90-11RJ [address] [place] [address]FK: 02/14/2018 Tertiary NOT GIVENUNK Morton Insurance:SELF PAY [facility] Number: Effective Repository Date:2017-06-25 01/02/2018 FRANK M Primary FRANK M Morton [id number] Insurance:MEDICARE BRINKERHOFFDOB: [facility] PART A [facility] [id number] Number: Repository [address]Lze: 330 [id number] [phone] () Date:2018-01-02 01/02/2018 Secondary FRANK M Morton Insurance:FORE BRINKERHOFFDOB: [facility] Number: [id number] Hospital [id number] Repository Date:2900-66-65JO [address] [place] [address]ZO: 01/02/2018 Tertiary NOT GIVENUNK Morton Insurance:SELF PAY [facility] Number: Effective Repository Date:2018-01-02 12/23/2017 FRANK M Primary FRANK M Tom [id number] Insurance:MEDICARE BRINKERHOFFDOB: [facility] PART A [facility] [id number] Number: Repository [address]Czi: 330 [id number] [phone] (HP) Date:2017-12-23 12/23/2017 Secondary FRANK M Morton Insurance:FORE BRINKERHOFFDOB: [facility] Number: [id number] Hospital [id number] Repository Date:3675-52-59AG [address] [place]I [address]AQ: 12/23/2017 Tertiary NOT GIVENUNK Tom Insurance:SELF PAY [facility] Number: Effective Repository Date:2017-12-23 10/12/2017 FRANK M Primary FRANK M Morton [id number] Insurance:COMMERCIAL BRINKERHOFFDOB: [facility] OTHER 2Policy Number: [id number] [id number] Repository [address]Auw: 330) Date:6785-68-66DOG [phone] () [address] [address]IK: 10/12/2017 Secondary FRANK M Tom Insurance:MEDICARE BRINKERHOFFDOB: [facility] PART A [facility] [id number] Hospital Number: Repository [id number] Date:2017-10-12 10/12/2017 Tertiary FRANK M Tom Insurance:FORE BRINKERHOFFDOB: [facility] Number: [id number] Hospital [id number] Repository Date:3457-86-61YM [address] [place] [address]FJ: 10/12/2017 Tertiary NOT GIVENUNK Morton Insurance:SELF PAY [facility] Number: Effective Repository Date:2017-10-12 10/08/2017 Frank Primary Frank Morton [id number] Insurance:MEDICARE BrinkerhoffDOB: [facility] PART A [facility] [id number] Number: Repository [id number]: 330 [id number] [phone] () Date:2017-10-08 10/08/2017 Secondary Frank Tom Insurance:FORE BrinkerhoffDOB: [facility] Number: [id number] Hospital [id number] Repository Date:5436-17-14LA [address] [place] [address]MT: 10/08/2017 Tertiary NOT GIVENUNK Morton Insurance:SELF PAY [facility] Number: Effective Repository Date:2017-10-08 10/02/2017 Frank Primary Frank Morton [id number] Insurance:MEDICARE BrinkerhoDOB: [facility] PART A BPolicy [id number] Hospital [address] Number: Repository [address]Uae: (877) [id number] [phone] () Date:2017-10-02 10/02/2017 Secondary Frank Tom Insurance:[facility] Number: [id number] Hospital [id number] Repository Date:5598-73-22UB [address] [place] [address]HB: 10/02/2017 Tertiary NOT GIVENUNK Tom Insurance:SELF PAY [facility] Number: Effective Repository Date:2017-10-02
== END 2018-06-21 21:11 | disposition left against medical advice (07) ==
LOC: ED 18:25 → MS3 20:45
PROVIDERS: Emergency Provider Emergency Medicine; Family Provider Family Medicine Geriatric Medicine; PCP Family Medicine Geriatric Medicine
DX: E87.1 Hypo-osmolality and hyponatremia (principal); R06.00 Dyspnea, unspecified; E78.00 Pure hypercholesterolemia, unspecified; I10 Essential (primary) hypertension; F03.90 Unspecified dementia, unspecified severity, without behavioral disturbance, psychotic disturbance, mood disturbance, and anxiety
CPT/HCPCS: 71045; 80048; 81001; 84484; 85025; 93005; 99284; A4216

== ENCOUNTER → 2018-06-26 12:32 | Outpatient (CLI) | payer MEDICARE, OTHER, SELFPAY ==
[2018-06-21 17:59] VITALS: BMI 20.5
--- NOTE | 2018-06-26 12:50 | RAD_ITS ---
STUDY: X-RAY - ABDOMEN/PELVIS REASON FOR EXAM: Female, 77 years old. Constipation. TECHNIQUE: AP supine and upright views of the abdomen and pelvis on 4 images. COMPARISON: Supine and upright views of the abdomen and pelvis on 3 films February 19, 2017. FINDINGS: Normal visualized lung bases. There are a few non-distended to borderline distended gas-filled small bowel loops in the medial left flank, accompanied by segments of nondistended colon down to the rectum. On upright exam, there are occasional fluid levels that may reflect a mild generalized ileus. There is no demonstrated free abdominal air. The visualized liver, spleen and kidneys are grossly normal in size and morphology. Normal soft tissue structures. There are stable multilevel degenerative changes of the visualized lumbar spine and 15 degree levorotoscoliosis centered near L4. RAD/Abd Inc Decub and/or Erect IMPRESSION: Findings suggesting mild ileus without significant distention. No free gas. Electronically Signed: Mack Kinsey MD at 14:57 EST , Service support ,
== END ==
PROVIDERS: Family Provider Family Medicine Geriatric Medicine; PCP Family Medicine Geriatric Medicine; Referring Provider Family Medicine Geriatric Medicine; Visit Provider Family Medicine Geriatric Medicine
DX: K59.00 Constipation, unspecified (principal)
CPT/HCPCS: 74019

== ENCOUNTER → 2018-07-14 14:37 | Outpatient (CLI) | payer MEDICARE, OTHER, SELFPAY ==
[2018-06-21 17:59] VITALS: BMI 20.5
[2018-07-14 18:14] LABS: Vitamin D,25 Hydroxy 43.3 ng/mL (29.95-100.01)
[2018-07-14 18:23] LABS: ALB/GLOB Ratio 1.2 RATIO (0.9-2.4); AST(SGOT) 18 U/L (15-37); Alanine Aminotransfer ALT/SGPT 23 U/L (13-56); Albumin, Serum 3.5 g/dL (3.2-5.0); Alkaline Phosphatase 77 U/L (45-117); Anion Gap 10 (5-15); BUN 11 mg/dL (7-18); BUN/Creat Ratio 13.5 RATIO (10-20); Calcium,Total 8.6 mg/dL (8.5-10.1); Chloride 96 mmol/L (98-107); Creatinine, Serum 0.82 mg/dL (0.55-1.02); EST Glomerular Filtration Rate 72 mL/min (>60); Est Glom Filt Rate - Afr Amer 87 mL/min (>60); Glucose 101 mg/dL (74-106); Potassium 4.2 mmol/L (3.5-5.1); Protein, Total 6.5 g/dL (6.4-8.2); Sodium Level 133 mmol/L (136-145); Thyroid Stim Hormone (TSH) 1.29 uIU/mL (0.358-3.74)
[2018-07-14 18:49] LABS: Absolute Lymphocyte Count 1.25 X10^3/ul (0.83-4.51); Absolute Neutrophil Count 6.3 X10^3/uL (2.0-7.7); Basophil# 0.03 X10^3/uL; Basophil% 0.4 % (0-1); Eosinophil# 0.03 X10^3/uL; Eosinophils% 0.4 % (0-5); Hematocrit 37.4 % (37-47); Hemoglobin 12.7 g/dl (12.0-15.0); Lymphocyte # 1.25 X10^3/ul (4.0); Lymphocyte % 15.3 % (19-41); Mean Corpuscular Hgb 30.9 pg (27.0-32.0); Mean Platelet Vol. 9.4 fl (6.2-12.0); Monocyte% 7.3 % (0-10); Neutrophil # 6.26 X10^3/uL (2.7-7.7); Neutrophil % 76.4 % (47-70); Platelet Count 348 K/mm3 (150-450); RBC Distribution Width CV 13.6 % (11.6-14.6); RBC Distribution Width SD 44.8 fl (35.1-43.9); Red Blood Count 4.11 M/mm3 (4.2-5.4); White Blood Count 8.2 K/mm3 (4.4-11.0)
[2018-07-14 18:51] LABS: Differential Indicated SCAN CRITERIA MET; POSITIVE COUNT NO; POSITIVE DIFFERENTIAL NO; POSITIVE MORPHOLOGY YES
[2018-07-14 19:19] LABS: Platelet Estimate ADEQUATE (ADEQ); Red Cell Morphology NORM C+C NORMAL (NORM C&C)
== END ==
PROVIDERS: Family Provider Family Medicine Geriatric Medicine; PCP Family Medicine Geriatric Medicine; Visit Provider Family Medicine Geriatric Medicine
DX: E55.9 Vitamin D deficiency, unspecified (principal); I10 Essential (primary) hypertension
CPT/HCPCS: 36415; 80053; 82306; 84443; 85025

== ENCOUNTER 2018-07-29 13:09 | Emergency (ER) | payer MEDICARE, OTHER, SELFPAY ==
[2018-07-29 13:11] VITALS: BP 155/89; PULSE 100; RESP 16; TEMP 36.5; O2SAT 96; BMI 22.4
[2018-07-29 13:50] LABS: Absolute Lymphocyte Count 1.19 X10^3/ul (0.83-4.51); Absolute Neutrophil Count 6.1 X10^3/uL (2.0-7.7); Basophil# 0.03 X10^3/uL; Basophil% 0.4 % (0-1); Eosinophil# 0.04 X10^3/uL; Eosinophils% 0.5 % (0-5); Hematocrit 40.2 % (37-47); Hemoglobin 13.4 g/dl (12.0-15.0); Lymphocyte # 1.19 X10^3/ul (4.0); Lymphocyte % 14.7 % (19-41); Mean Corp Hgb Conc 33.3 g/gl (32-36); Mean Corpuscular Hgb 30.2 pg (27.0-32.0); Mean Corpuscular Volume 90.7 fL (81-99); Mean Platelet Vol. 8.8 fl (6.2-12.0); Monocyte# 0.67 X10^3/uL; Monocyte% 8.3 % (0-10); Neutrophil # 6.13 X10^3/uL (2.7-7.7); Neutrophil % 75.7 % (47-70); Platelet Count 272 K/mm3 (150-450); RBC Distribution Width CV 13.8 % (11.6-14.6); RBC Distribution Width SD 45.9 fl (35.1-43.9); Red Blood Count 4.43 M/mm3 (4.2-5.4); White Blood Count 8.1 K/mm3 (4.4-11.0)
[2018-07-29 13:52] LABS: POSITIVE COUNT NO; POSITIVE DIFFERENTIAL NO; POSITIVE MORPHOLOGY NO
[2018-07-29 14:02] LABS: Anion Gap 11 (5-15); BUN 9 mg/dL (7-18); BUN/Creat Ratio 9.8 RATIO (10-20); Calcium,Total 8.9 mg/dL (8.5-10.1); Chloride 99 mmol/L (98-107); Creatinine, Serum 0.92 mg/dL (0.55-1.02); EST Glomerular Filtration Rate 62 mL/min (>60); Est Glom Filt Rate - Afr Amer 75 mL/min (>60); Estimated Creatinine Clearance 42.82 ml/min; Glucose 127 mg/dL (74-106); Potassium 3.4 mmol/L (3.5-5.1); Sodium Level 135 mmol/L (136-145)
[2018-07-29 14:04] LABS: Mucous, Urine 0 SEEN /hpf (<or=2+)
[2018-07-29 14:07] LABS: Color, Urine Yellow (Yellow); Glucose, Dipstick Normal (Normal); Ketone-Dipstick 5 mg/dl (Negative); Leukocyte Esterase-Dipstick 500 /ul (Negative); Nitrite-Dipstick Negative (Negative); Occult Blood-Urine 25 /ul (Negative); Protein-Dipstick 30 mg/dl (Negative); Urine Bilirubin Dipstick Negative (Negative); Urine Clarity Clear (Clear); Urine Urobilinogen 1 mg/dl (Normal); Urine pH 6.5 (5.0 - 8.0)
--- NOTE | 2018-07-29 14:11 | CM.ED ---
Social Work Note Referral from Dr. Abernathy for placement. Face to face with the pt and her daughter, Willow. Introduced self and role at [facility]. Willow reports to be the pt's HCPOA and both express interest in placement at this time. State that [facility] is their first choice. At this time they do not have a second option and Willow states anywhere and we would transfer her to [facility] once they had a bed. Explain that at this time the physician and is still completing a workup and we do not know if the pt will require admission. Willow expresses understanding and they are willing to privately pay. Inform this insurance writer will fax initial referral for review and update once [facility] has contacted this insurance writer with their determination regarding acceptance. Initial referral faxed to [facility], and placed call to Haylee. Left requesting a return phone call once she has had an opportunity to review the referral. SW to continue to follow and assist with discharge planning. PLAN: Placement pending acceptance. Veronica Jeffery, BUFFET WAITER/WAITRESS, DARSHAN
[2018-07-29 14:13] LABS: Bacteria RARE /hpf (None Seen); Calcium Oxalate Crystals Ur RARE /hpf (<or=2+); Red Blood Cells-Urine 0-5 SEEN /hpf (0-5); Squamous Epithelial Cells - UA 0-5 SEEN /hpf (5-10); White Blood Cells 0-5 SEEN /hpf (0-5)
--- NOTE | 2018-07-29 15:21 | ED.DCSUM_ITS ---
- ER Visit Summary Date of Service: 07/29/18 Chief Complaint: Unable to care for self History of Present Illness: The patient is a 77 F who was seen approximately 1 month ago. She declined admission. Her significant other was with her. Significant other is not the POA. The daughter who is in the room is the POA. Patient was diagnosed with dementia 2 years ago. Patient denies fever, chills night sweats. Denies weight gain or weight loss. She denies ocular, visual or auditory symptoms. She denies cardiac respiratory symptoms. She denies nausea, vomiting diarrhea. She denies dysuria, frequency, urgency or hematuria. She denies paresthesia, anesthesia motors. She has not fallen since March. Review of prior records indicates she has a history of hypercholesterolemia, hypertension, cardiomyopathy and depression. There is a history of tricuspid regurgitation, aortic insufficiency and mitral regurgitation. Physical Examination: Pleasant elderly woman in no distress. HEENT exam is unremarkable. Heart is regular without murmur, gallop or rub. S1 and S2 are n ormal. Lungs are clear to auscultation with good movement of air bilaterally. Abdomen is soft nontender bowel sounds are present normal. Patient is alert and oriented ?3. Motor is 5 over 5. Sensory is intact. DTRs are symmetric with no clonus or Babinski sign. Cranial 2 through 12 are intact. Cerebellar testing is normal. Test Results: CBC is unremarkable. Electric panel is unremarkable. UA is unremarkable. Emergency Department Course and Treatment: With history of dementia, urinary tract infection and hyponatremia in the past metabolic infectious workup was undertaken for a asymptomatic elderly woman. Treatment Plan: daycare manager [place] [facility] [place]. Disposition: [place] [facility] [place] since patient is unable to care for herself. She admits now she is unable to care for herself. Daughter brings her prepared meals that she needs to warm up in the microwave. She will not warm up her food. Case management was able to arrange for meeting at [facility] tomorrow morning at 10 AM. Daughter feels comfortable taking home her mother. Impression: 1. Dementia 2. Inability to care for self 3. History of hypercholesterolemia 4. History of hypertension 5. History of nonrheumatic valvular heart disease 6. History of depression This note was generated with [employer] software. It may contain incorrect words, spelling, and punctuation that were not noted in review of the chart prior to signing ED Disposition - Plan for ED Patient: Disposition: Home or Assisted Living Chief Complaint: Dizziness Instructions: ED Dementia Caregiver Support Referrals: Yang Washington Chi, MD [Primary Care Provider] - As Needed
--- NOTE | 2018-07-29 15:22 | CM.ED ---
Social Work Note Call back from Haylee inquiring if this would be long-term, if there is a need for therapy, and for further documentation from this visit. Placed call to Haylee and left vm. Informed that the pt would be long-term, do not see a need for therapy at this time, and that this public relations writer faxed the documentation from her last admission for additional clinicals and would fax clinicals from the ED once documented, but they typically require more information than just that of the ED physician. RN updated and will request that ED physician enter documentation on encounter. Will fax to [facility] once completed. SW to continue to follow and assist. Veronica Jeffery, HARNESS RIGGER, DRAWING CHECKER
--- NOTE | 2018-07-29 15:29 | CM.ED ---
Social Work Note Call back from Haylee stating that it appears the pt is independent. Explain that with her dementia she cannot live alone or take care of herself. Haylee inquires if the pt is more appropriate for [facility] and state that family wants the pt placed, but do not know that they are opposed to NURSING HOME placement. Haylee to contact daughter. LADONNA to continue to follow and assist. Veronica Jeffery, LIGHT OIL OPERATOR, HAIR OR BEAUTY SALON MANAGER
--- NOTE | 2018-07-29 15:52 | CM.ED ---
Social Work Note Face to face with pt and daughter, Willow. Willow states that she did hear from Haylee and Haylee told her that she would be calling this advertising copywriter. No call from Haylee and have placed 2 since speaking with Willow. Will continue to wait. Veronica Jeffery, DARRYN, DARSHAN
--- NOTE | 2018-07-29 16:20 | CM.ED ---
Social Work Note Face to face with Willow who states that [facility] has availability in their dementia [facility] unit and they would be assessing the pt at 10 am tomorrow. Willow feels comfortable taking the pt home and having her evaluated tomorrow. Also educate to other ALFs in the area including [place] and [place]. Provide Willow with their contact information and monthly rates along with additional resources including alzheimer's association and [facility] elder services directory. No further needs at this time. Physician and nursing updated and pt to be discharged home with support of family. PLAN: Home with support of family and evaluation at [facility] at 10am for potential admission. Veronica Jeffery, DARRYN, DARSHAN
[2018-07-29 16:42] VITALS: BP 160/87; PULSE 70; RESP 16; O2SAT 96
--- OUTSIDE RECORDS SUMMARY | 2018-09-30 18:44 | XMS RPT_ITS ---
:1940 Author Organization OHIP Support Name Relationship Address Phone DALILA ORELLANA Unavailable [address] + [place] [address] R Unavailable Unavailable Unavailable WATSON, CHELSEA Unavailable [address] + [address] [place] [address] REYNA DALILA Unavailable [address] + [place] [address] R Unavailable Unavailable Unavailable WATSON, CHELSEA Unavailable [address] + [address] [place] [address] REYNA, DALILA Unavailable [address] + [place] [address] R Unavailable Unavailable Unavailable WATSON, CHELSEA Unavailable [address] + [address] [place] [address] REYNA, DALILA Unavailable [address] + [place] [address] R Unavailable Unavailable Unavailable WATSON, CHELSEA Unavailable [address] + [address] [place] [address] REYNA, DALILA Unavailable [address] + [place] [address] R Unavailable Unavailable Unavailable WATSON, CHELSEA Unavailable [address] + [address] [place] [address] REYNA, DALILA Unavailable [address] + [place] [address] R Unavailable Unavailable Unavailable WATSON, CHELSEA Unavailable [address] + [address] [place] [address] REYNA, DALILA Unavailable [address] + [place] [address] R Unavailable Unavailable Unavailable WATSON, CHELSEA Unavailable [address] + [address] [place] [address] REYNA, DALILA Unavailable [address] + [place] [address] R Unavailable Unavailable Unavailable WATSON, CHELSEA Unavailable [address] + [address] [place] [address] REYNA, DALILA Unavailable [address] + [place] [address] R Unavailable Unavailable Unavailable WATSON, CHELSEA Unavailable [address] + [address] [place] [address] REYNA, DALILA Unavailable [address] + [place] [address] R Unavailable Unavailable Unavailable WATSON, CHELSEA Unavailable [address] + [address] [place] [address] REYNA, DALILA Unavailable [address] + [place] [address] R Unavailable Unavailable Unavailable WATSON, CHELSEA Unavailable [address] + [address] [place] [address] REYNA, DALILA Unavailable [address] + [place] [address] R Unavailable Unavailable Unavailable WATSON, CHELSEA Unavailable [address] + [address] [place] [address] REYNA, DALILA Unavailable [address] + [place] [address] R Unavailable Unavailable Unavailable WATSON, CHELSEA Unavailable [address] + [address] [place] [address] REYNA, DALILA Unavailable [address] + [place] [address] R Unavailable Unavailable Unavailable WATSON, CHELSEA Unavailable [address] + [address] [place] [address] REYNA, DALILA Unavailable [address] + [place] [address] R Unavailable Unavailable Unavailable WATSON, CHELSEA Unavailable [address] + [address] [place] [address] REYNA, DALILA Unavailable [address] + [place] [address] R Unavailable Unavailable Unavailable WATSON, CHELSEA Unavailable [address] + [address] [place] [address] REYNA, DALILA Unavailable [address] + [place] [address] R Unavailable Unavailable Unavailable WATSON, CHELSEA Unavailable [address] + [address] [place] [address] REYNA, DALILA Unavailable [address] + [place] [address] R Unavailable Unavailable Unavailable WATSON, CHELSEA Unavailable [address] + [address] [place] [address] REYNA, DALILA Unavailable [address] + [place] [address] R Unavailable Unavailable Unavailable WATSON, CHELSEA Unavailable [address] [place] [address] REYNA, DALILA Unavailable [address] + [place] [address] R Unavailable Unavailable Unavailable WATSON, CHELSEA Unavailable [address] [place] [address] REYNA, DALILA Unavailable [address] + [place] [address] R Unavailable Unavailable Unavailable WATSON, CHELSEA Unavailable [address] + [address] [place] [address] REYNA, DALILA Unavailable [address] + [place] [address] R Unavailable Unavailable Unavailable WATSON, CHELSEA Unavailable [address] + [address] [place] [address] REYNA, DALILA Unavailable [address] + [place] [address] R Unavailable Unavailable Unavailable WATSON, CHELSEA Unavailable [address] + [address] [place] [address] REYNA, DALILA Unavailable [address] + [place] [address] R Unavailable Unavailable Unavailable WATSON, CHELSEA Unavailable [address] + [address] [place] [address] REYNA, DALILA Unavailable [address] [phone] [place] [address] R Unavailable Unavailable Unavailable WATSON, CHELSEA Unavailable [address] + [address] [place] [address] FUENTES ORELLANAY Unavailable [address] [phone] [place] [address] R Unavailable Unavailable Unavailable WATSON, CHELSEA Unavailable [address] + [address] [place] [address] FUENTES ORELLANAY Unavailable [address] [phone] [place] [address] R Unavailable Unavailable Unavailable WATSON, CHELSEA Unavailable [address] + [address] [place] [address] Care Team Providers Name Role Phone Felix, Yang Chi Primary Care Unavailable Kamilah Mejias Attending Unavailable Oseas Milton Admitting Unavailable Felix, Yang Chi Attending Unavailable Felix, [...] Unavailable Felix, Yang Chi Primary Care Unavailable Mauricio Perez Attending Unavailable Felix, Yang Chi Referring Unavailable Felix, Yang Chi Primary Care Unavailable Felix, Yang Chi Primary Care Unavailable Dick Cornell Attending Unavailable Felix, Yang Chi Attending Unavailable Felix, Yang Chi Primary Care Unavailable Felix, Yang Chi Primary Care Unavailable Trenton Baez Admitting Unavailable Lopez March Attending Unavailable Trenton Baez Attending Unavailable Felix, Yang Chi Primary Care Unavailable Trenton Baez Admitting Unavailable Lopez March Attending Unavailable Felix, Yang Chi Primary Care Unavailable Lopez March Consulting Unavailable Felix, Yang Chi Primary Care Unavailable Vincent Damon Attending Unavailable Felix, Yang Chi Attending Unavailable Felix, Yang Chi Referring Unavailable Felix, Yang Chi Primary Care Unavailable Felix, Yang Chi Primary Care Unavailable Kamilah Mejias Attending Unavailable Felix, Yang Chi Attending Unavailable Felix, Yang Chi Primary Care Unavailable Ana María Coyne Attending Unavailable Felix, Yang Chi Primary Care Unavailable Felix, Yang Chi Primary Care Unavailable Elvin Coyneine Attending Unavailable Felix, Yang Chi Attending Unavailable Feilx, Yang Chi Primary Care Unavailable SherwinElvinAna María Attending Unavailable Felix, Yang Chi Primary Care Unavailable Felix, Yang Chi Primary Care Unavailable Abernathy, Lv Attending Unavailable Felix, Yang Chi Primary Care Unavailable Le, Angel Attending Unavailable Felix, Yang Chi Primary Care Unavailable Baez, Trenton Admitting Unavailable White, Cnonie Attending Unavailable Baez, Trenton Admitting Unavailable Baez, Trenton Attending Unavailable Felix, Yang Chi Primary Care Unavailable Baez, Trenton Consulting Unavailable Baez, Trenton Admitting Unavailable White, Connie Attending Unavailable Felix, Yang Chi Primary Care Unavailable White, Connie Consulting Unavailable Baez, Trenton Admitting Unavailable White, Connie Attending Unavailable Felix, Yang Chi Primary Care Unavailable White, Connie Consulting Unavailable PROBLEMS PROBLEMS DATE TYPE CONDITION / CODE ATTENDING STATUS SOURCE 06/18/2018 Unknown F41.9 - Anxiety Le, Angel Active [place] disorder, Community unspecified / Hospital F41.9(ICD-10) Repository 01/23/2018 Unknown I10 - Essential Felix, Yang Chi Active [place] (primary) Community hypertension / Hospital I10(ICD-10) Repository 01/23/2018 Unknown R11.0 - Nausea / Felix, Yang Chi Active [place] R11.0(ICD-10) [facility] Repository 10/02/2017 Unknown E55.9 - Vitamin D Felix, Yang Chi Active [place] deficiency, Community unspecified / Hospital E55.9(ICD-10) Repository PROCEDURES PROCEDURES No Procedure Records FoundRESULTS RESULTS EMERGENCY DEPARTMENT Observed: 07/29/2018 Status: F Source: [place] SUMMARY 4:21 PM [facility] REPOSITORY [facility] Medical Records Department [address] [place] [address] Emergency Department Summary 07/29/18 1521 MR#: [id number] Acct: [id number] Name: FRANK LUNDY Rep #: [id number] : 1940 77 From: Lv Abernathy MD [...] for a asymptomatic elderly woman. Treatment Plan: banquet manager was consulted for long-term placement. Disposition: Recommend long-term placement since patient is unable to care for herself. She admits now she is unable to care for herself. Daughter brings her prepared meals that she needs to warm up in the microwave. She will not warm up her food. Case management was able to arrange for meeting at [facility] tomorrow morning at 10 AM. Daughter feels comfortable taking home her mother. Impression: 1. Dementia 2. Inability to care for self 3. History of hypercholesterolemia 4. History of hypertension 5. History of nonrheumatic valvular heart disease 6. History of depression This note was generated with [employer] dictation software. It may contain incorrect words, [...] problems, contact your Primary Care Provider. Call [facility] ([phone]) or report to the closest Emergency Room. Call 911 if necessary. 07/29/18 1621 <Electronically signed by Lv Abernathy MD> Date Lv Abernathy MD Cosigner Signature (If Indicated): Date CC: Yang Carver MD URINALYSIS, COMPLETE Collected: 07/29/2018 Status: F Source: [place] 1:55 PM [facility] REPOSITORY Order Comment: How was Urine Obtained? NURSING EDUCATION CONSULTANT TO SPECIFY TYPE CODE TESTS RESULT OUT [...] CRYSTAL RARE Performed By: #### L400.0001 #### [facility] [address] [place], [place], [address] CBC W/DIFF, AUTOMATED Collected: 07/29/2018 Status: F Source: [place] 1:35 PM [facility] REPOSITORY TYPE CODE TESTS RESULT OUT [...] Lymph 1.19 Performed By: #### L100.0100 #### [facility] [place], [address] BASIC METABOLIC Collected: 07/29/2018 Status: F Source: [place] PROFILE (BMP) 1:35 PM [facility] REPOSITORY TYPE CODE TESTS RESULT OUT [...] GAP 11 Performed By: #### L500.2500 #### [facility] [address] [place], [place], [address] VITAMIN D,25 HYDROXY Collected: 07/14/2018 Status: F Source: [place] 2:39 PM [facility] REPOSITORY TYPE CODE TESTS RESULT OUT OF RANGE REFERENCE UNITS LAB L506.1000 29.95-100.01 ng/mL Normal Vitamin D 43.3 25-OH Result Comment: Vitamin D 25(OH) Status Range Deficiency <20 ng/mL (50nmol/L) Insuffciency 20 - 30 ng/mL (50 - 75 nmol/L) Sufficiency 30 - 100 ng/mL (75 - 250 nmol/L) Toxicity >100 ng/mL (>250 nmol/L) Performed By: #### L506.1000 #### [facility] [address] [facility] [place], [address] COMPREHENSIVE METABOLIC Collected: 07/14/2018 Status: F Source: [place] CONKLIN 2:39 PM [facility] REPOSITORY TYPE CODE TESTS RESULT OUT [...] 10 Performed By: #### L500.4050, L501.9520 #### [facility] [address] [place], [place], [address] THYROID STIM HORMONE Collected: 07/14/2018 Status: F Source: [place] (TSH) 2:39 PM [facility] REPOSITORY TYPE CODE TESTS RESULT OUT OF RANGE REFERENCE UNITS LAB L501.9520 0.358-3.74 uIU/mL Normal TSH 1.29 Performed By: #### L500.4050, L501.9520 #### [facility] [address] [facility] [address] [place], [address] CBC W/DIFF, AUTOMATED Collected: 07/14/2018 Status: F Source: [place] 2:39 PM [facility] REPOSITORY TYPE CODE TESTS RESULT OUT [...] NORM C+C Performed By: #### L100.0100 #### [facility] [address] [place], [address] ABD INC DECUB Observed: 06/26/2018 Status: F Source: [place] AND/OR ERECT 12:50 PM [facility] REPOSITORY [facility] Imaging Services [address] [facility] [place] [address] Abd Inc Decub and/or Erect MR#: [id number] Acct: [id number] Name: FRANK LUNDY Rep #: [id number] : 1940 F 77 From: Howard Kinsey MD PCP: Yang Carver MD, Chi Status: REG CLI Study: Abd Inc Decub and/or Erect Date of Exam: 06/26/18 Exam# [id number] Ordering Dr: Yang Carver MD STUDY: X-RAY [...] Service support , CC: Yang Carver MD Risk Control Director: Signed 12 LEAD ELECTROCARDIOGRAM Observed: 06/25/2018 Status: F Source: [place] 3:32 PM [facility] REPOSITORY [facility] Cardiovascular Services [address] [place] [address] 12 Lead EKG 06/21/18 1830 MR#: [id number] Acct: [id number] Name: FRANK LUNDY Rep #: [id number] : 1940 77 From: Angel Humphries MD [...] ECG Confirmed by PIERRE MERCHANT, ANGEL ([id number]), editor school photograph STELLA JAMES ([id number]) on 06/25/2018 3:32:08 PM Referred By: TORI Confirmed By:ANGEL HUMPHRIES MD 06/25/18 1532 Date Angel Humphries MD CC: Kamilah Mejias MD; Yang Carver MD Signed EMERGENCY DEPARTMENT Observed: 06/21/2018 Status: F Source: [place] SUMMARY 8:23 PM [facility] REPOSITORY [facility] Medical Records Department [address] [place] [address] Emergency Department Summary 06/21/18 1834 MR#: [id number] Acct: [id number] Name: FRANK LUNDY Rep #: [id number] : 1940 77 From: Kamilah Mejias MD PCP: Yang Carver MD, Chi Status: REG ER - ER Visit Summary Date of Service: 06/21/18 Chief Complaint: Shortness of breath History of Present Illness: The patient is a 77 F presenting with shortness of breath. Patient states that she has had shortness of breath today. Her friend noticed this while she was at [employer]oodoo. She denies chest pain. Shortness of breath [...] functional decline This note was generated with [employer] dictation software. It may contain incorrect words, [...] problems, contact your Primary Care Provider. Call [facility] ([phone]) or report to the closest Emergency Room. Call 911 if necessary. 06/21/182022 <Electronically signed by Kamilah Mejias MD> Date Kamilah Mejias MD Cosigner Signature (If Indicated): Date CC: Yang Carver MD URINALYSIS, COMPLETE Collected: 06/21/2018 Status: F Source: [place] 7:29 PM [facility] REPOSITORY Order Comment: Order Date: 06/21/18 Has pt arrived? Y How was Urine Obtained? NURSING EDUCATION CONSULTANT TO SPECIFY TYPE CODE TESTS RESULT OUT [...] URINE SEEN Performed By: #### L400.0001 #### [facility] [address] [place], [place], [address] CBC W/DIFF, AUTOMATED Collected: 06/21/2018 Status: F Source: [place] 6:30 PM [facility] REPOSITORY TYPE CODE TESTS RESULT OUT [...] Lymph 1.50 Performed By: #### L100.0100 #### [facility] [address] [place], [address] BASIC METABOLIC Collected: 06/21/2018 Status: F Source: [place] PROFILE (BMP) 6:30 PM [facility] REPOSITORY TYPE CODE TESTS RESULT OUT [...] 10 Performed By: #### L500.2500, L501.4010 #### [facility] [place], [address] TROPONIN-I Collected: 06/21/2018 Status: F Source: [place] 6:30 PM [facility] REPOSITORY TYPE CODE TESTS RESULT OUT OF RANGE REFERENCE UNITS LAB L501.4010 <0.045 ng/mL Normal < 0.015 TROPONIN-I Result Comment: TROPONIN-I EXPECTED VALUES <0.045 Negative 0.045 - 0.590 Consistent with Cardiac Damage > OR = 0.600 Critical Value Not every elevated troponin is indicative of GA. These values should be used with clinical judgement in examining the patient's clinical picture for diagnosis. To establish a diagnosis of GA versus myocardial injury, there must be a demonstrated rise and/or fall in the troponin values, in addition to ischemic symptoms, EKG changes, new regional wall motion abnormality, and/or angiographical evidence. PLEASE NOTE: REFERENCE RANGES EDITED 17 Performed By: #### L500.2500, L501.4010 #### [facility] [address] [place], [address] CHEST 1 VIEW Observed: 06/21/2018 Status: F Source: [place] (PORTABLE) 6:21 PM [facility] REPOSITORY [facility] Imaging Services [address] [place] [address] Chest 1 View (Portable) MR#: [id number] Acct: [id number] Name: FRANK LUNDY Rep #: [id number] : 1940 F 77 From: Bobby Stein MD PCP: Felix MERCHANT,Yang James Status: REG ER Study: Chest 1 View (Portable) Date of Exam: 06/21/18 Exam# [id number] Ordering Dr: Kamilah Mejias MD STUDY: X-RAY [...] CC: Kamilah Mejias MD; Yang Carver MD Risk Control Director: Signed DISCHARGE SUMMARY Observed: 06/11/2018 Status: F Source: [place] 11:36 AM [facility] REPOSITORY [facility] Medical Records Department [address] [place] [address] Discharge Summary 06/11/18 1133 MR#: [id number] Acct: [id number] Name: FRANK LUNDY Rep #: [id number] : 1940 77 From: Connie Mota PCP: Felix MERCHANT,Yang James Status: ADM IN Y Location: [place] [address] Discharge Date and Diagnosis - Problem List [...] Valvular Heart Disease who presented to the [facility] ED on 06/09/18 with history of progressing [...] applicable Code Visit Inpatient E AND M: 03020 Disch Hosp 06/11/18 1136 <Electronically signed by Connie Mota > Date Connie Mota Cosigner Signature (if applicable): Date CC: Connie Mota; Yang Carver MD Signed DISCHARGE INSTRUCTION Observed: 06/11/2018 Status: F Source: [place] 11:33 AM [facility] REPOSITORY [facility] Medical Records Department [address] [place] [address] Instructions for Home/Discharge Instructions 06/11/18 1129 MR#: [id number] Acct: [id number] Name: FRANK LUNDY Rep #: [id number] : 1940 77 From: Connie Mota PCP: Felix MERCHANT,[employer]ang[employer] Moteng Website Status: ADM IN - Discharge Diagnoses Current [...] LIVER PROFILE Collected: 06/11/2018 Status: F Source: [place] 7:22 AM [facility] REPOSITORY TYPE CODE TESTS RESULT OUT [...] 0.14 Performed By: #### L500.3400, L500.4100 #### [facility] [place], [address] LIPID PROFILE Collected: 06/11/2018 Status: F Source: [place] 7:22 AM [facility] REPOSITORY TYPE CODE TESTS RESULT OUT [...] 25 Performed By: #### L500.3400, L500.4100 #### [facility] [address] [facility] [place], [address] AMMONIA Collected: 06/11/2018 Status: F Source: [place] 7:22 AM [facility] REPOSITORY TYPE CODE TESTS RESULT OUT OF REFERENCE UNITS RANGE LAB L503.5510 11-32 umol/L Low AMMONIA < 10.0 Performed By: #### L503.5510 #### [facility] [address] [place], [address] BRAIN WITHOUT Observed: 06/10/2018 Status: F Source: [place] CONTRAST 1:08 PM [facility] REPOSITORY [facility] Imaging Services [address] [place] [address] Brain without Contrast MR#: [id number] Acct: [id number] Name: FRANK LUNDY Rep #: [id number] : 1940 F 77 From: Ector Blake MD PCP: Felix MERCHANT,Yang Chi Status: ADM [place] Study: Brain without Contrast Date of Exam: 06/10/18 Exam# [id number] Ordering Dr: Connie Mota STUDY: MRI BRAIN [...] , CC: Connie Mota; Yang Carver MD Risk Control Director: Signed BASIC METABOLIC Collected: 06/10/2018 Status: F Source: [place] PROFILE (BMP) 5:42 AM [facility] REPOSITORY TYPE CODE TESTS RESULT OUT [...] GAP 9 Performed By: #### L500.2500 #### [facility] [address] [facility] [place], [place], [address] MAGNESIUM Collected: 06/10/2018 Status: F Source: [place] 5:42 AM [facility] REPOSITORY TYPE CODE TESTS RESULT OUT OF RANGE REFERENCE UNITS LAB L501.5200 1.6-2.6 mg/dL Normal MG 2.0 Performed By: #### L501.5200, L501.9520 #### [facility] [address] [place], [address] THYROID STIM HORMONE Collected: 06/10/2018 Status: F Source: [place] (TSH) 5:42 AM [facility] REPOSITORY TYPE CODE TESTS RESULT OUT OF RANGE REFERENCE UNITS LAB L501.9520 0.358-3.74 uIU/mL Normal TSH 1.44 Performed By: #### L501.5200, L501.9520 #### [facility] [address] 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 Smoking Status: Never smoker - *Family [...] am Code Visit OBSV E AND M: 98291 Initial observation care L2 06/09/182228 <Electronically signed by Trenton Baez MD> Date Trenton Baez MD Cosigner Signature: Date (if applicable) CC: Trenton Baez MD; Yang Carevr MD Signed EMERGENCY DEPARTMENT Observed: 06/09/2018 Status: F Source: [place] SUMMARY 10:00 PM [facility] REPOSITORY [facility] Medical Records Department [address] [place] [address] [place] [address] Emergency Department Summary 12/09/22 2154 MR#: [id number] Acct: [id number] Name: FRANK LUNDY Rep #: [id number] : 1940 77 From: Lv Abernathy MD [...] management to assist with discharge planning and long-term placement Disposition: 23 hours observation medical/surgical unit Impression: 1. Worsening dementia 2. Depression anxiety not suicidal 3. History of hypertension 4. History hypercholesterolemia This note was generated with [employer] dictation software. It may contain incorrect words, [...] your Primary Care Provider. Call [facility] ([phone]) or report to the closest Emergency Room. Call 911 if necessary. 06/09/18 2200 <Electronically signed by Lv Abernathy MD> Date Lv Abernathy MD Cosigner Signature (If Indicated): Date CC: Yang Carver MD URINALYSIS, COMPLETE Collected: 06/09/2018 Status: F Source: [place] 9:20 PM [facility] REPOSITORY Order Comment: How was Urine Obtained? [...] URINE SEEN Performed By: #### L400.0001 #### [facility] [address] [place], [place], [address] CBC W/DIFF, AUTOMATED Collected: 06/09/2018 Status: F Source: [place] 9:05 PM [facility] REPOSITORY TYPE CODE TESTS RESULT OUT [...] Lymph 1.65 Performed By: #### L100.0100 #### [facility] [address] [facility] [place], [place], [address] BASIC METABOLIC Collected: 06/09/2018 Status: F Source: [place] PROFILE (BMP) 9:05 PM [facility] REPOSITORY TYPE CODE TESTS RESULT OUT [...] GAP 11 Performed By: #### L500.2500 #### [facility] [address] [facility] [place], [address] EMERGENCY DEPARTMENT Observed: 05/27/2018 Status: F Source: [place] SUMMARY 1:59 PM [facility] REPOSITORY [facility] Medical Records Department [address] [place] [address] Emergency Department Summary 05/27/18 1353 MR#: [id number] Acct: [id number] Name: FRANK LUNDY Rep #: [id number] : 1940 77 From: Angel Mcdonald PCP: [...] Impression: Anxiety This note was generated with [employer] dictation software. It may contain incorrect words, [...] your Primary Care Provider. Call [facility] ([phone]) or report to the closest Emergency Room. Call 911 if necessary. 05/27/18 1359 <Electronically signed by Angel Mcdonald> Date Angel Mcdonald Cosigner Signature (If Indicated): Date CC: Yang Carver MD BASIC METABOLIC Collected: 05/27/2018 Status: F Source: [place] PROFILE ([facility]) 12:50 PM [facility] REPOSITORY TYPE CODE TESTS RESULT OUT [...] GAP 6 Performed By: #### L500.2500 #### [facility] [address] [place], [address] CBC W/DIFF, AUTOMATED Collected: 05/27/2018 Status: F Source: [place] 12:50 PM [facility] REPOSITORY TYPE CODE TESTS RESULT OUT [...] Lymph 1.32 Performed By: #### L100.0100 #### [facility] [address] [place], [place], [address] URINALYSIS, COMPLETE Collected: 05/27/2018 Status: F Source: [place] 12:50 PM [facility] REPOSITORY Order Comment: Order Date: 05/27/18 How [...] Normal AMORPHOUS Performed By: #### L400.0001 #### [facility] [address] [place], [address] URINE SODIUM Collected: 05/15/2018 Status: F Source: [place] 11:32 AM [facility] REPOSITORY Order Comment: PER DR COYNE DO NA URINE FIRST AND THEN IF THERE IS ENOUGH TO DO OSMOLOLITY URINE. TYPE CODE TESTS RESULT OUT OF RANGE REFERENCE UNITS LAB L501.5500 Not Establ. mmol/L Normal UR NA 17 Performed By: #### L501.5500, L501.7400 #### [facility] [address] [place], [address] OSMOLALITY, URINE Collected: 05/15/2018 Status: F Source: [place] 11:32 AM [facility] REPOSITORY Order Comment: PER DR COYNE DO [...] mOsm/kg Performed By: #### L501.5500, L501.7400 #### [facility] [address] [facility] [place], [address] BASIC METABOLIC Collected: 05/14/2018 Status: F Source: [place] PROFILE (BMP) 1:53 PM [facility] REPOSITORY TYPE CODE TESTS RESULT OUT [...] GAP 10 Performed By: #### L500.2500 #### [facility] [address] [place], [place], [address] Observed: 05/08/2018 Status: F Source: [place] CULTURE, URINE 3:56 PM [facility] REPOSITORY Urine Culture Below infection level. ORGANISM 1: Mixed Gram Pos AND Gram Neg Org Norborne Count <1000 Performed By: #### M100.0650 #### [facility] [address] [place], [address] CBC W/DIFF, AUTOMATED Collected: 05/08/2018 Status: F Source: [place] 3:40 PM [facility] REPOSITORY TYPE CODE TESTS RESULT OUT [...] Lymph 1.43 Performed By: #### L100.0100 #### [facility] [address] [place], [address] COMPREHENSIVE METABOLIC Collected: 05/08/2018 Status: F Source: [facility] 3:40 PM [facility] REPOSITORY TYPE CODE TESTS RESULT OUT [...] 10 Performed By: #### L500.4050, L501.9520 #### [facility] [address] [place], [address] THYROID STIM HORMONE Collected: 05/08/2018 Status: F Source: [place] (TSH) 3:40 PM [facility] REPOSITORY TYPE CODE TESTS RESULT OUT OF RANGE REFERENCE UNITS LAB L501.9520 0.358-3.74 uIU/mL Normal TSH 1.03 Performed By: #### L500.4050, L501.9520 #### [facility] [address] [place], [address] 12 LEAD ELECTROCARDIOGRAM Observed: 04/28/2018 Status: F Source: [place] 12:23 PM [facility] REPOSITORY [facility] [address] [place] [address] 12 Lead EKG 04/25/18 1455 MR#: [id number] Acct: [id number] Name: FRANK LUNDY Rep #: [id number] : 1940 77 From: Trenton Cid MD [...] ECG Confirmed by JOSE ROBERTO MERCHANT, TRENTON ([id number]), editor school photograph EBONY MEDLEY ([id number]) on 04/28/2018 12:23:10 PM Referred By: DEXTER Confirmed By:TRENTON CID MD 04/28/18 1223 Date Trenton Cid MD CC: Kamilah Mejias MD; Yang Carver MD Signed EMERGENCY DEPARTMENT Observed: 04/26/2018 Status: F Source: [place] SUMMARY 1:38 AM [facility] REPOSITORY [facility] Medical Records Department [address] [place] [address] Emergency Department Summary 04/25/18 1514 MR#: [id number] Acct: [id number] Name: FRANK LUNDY Rep #: [id number] : 1940 77 From: Kamilah Mejias MD [...] of dementia This note was generated with [employer] dictation software. It may contain incorrect words, [...] your Primary Care Provider. Call [facility] ([phone]) or report to the closest Emergency Room. Call 911 if necessary. 04/26/18 0138 <Electronically signed by Kamilah Mejias MD> Date Kamilah Mejias MD Cosigner Signature (If Indicated): Date CC: Yang Carver MD DISCHARGE INSTRUCTION Observed: 04/25/2018 Status: F Source: [place] 6:07 PM [facility] REPOSITORY [facility] Medical Records Department [address] [place] [address] Discharge Instruction 04/25/18 1807 MR#: [id number] Acct: [id number] Name: FRANK LUNDY Rep #: [id number] : 1940 77 From: Kamilah Mejias MD [...] your Primary Care Provider. Call [facility] ([phone]) or report to the closest Emergency Room. Call 911 if necessary. 04/25/18 1807 <Electronically signed by Kamilah Mejias MD> Date Kamilah Mejias MD Cosigner Signature (If Indicated): Date CC: Yang Carver MD URINALYSIS, COMPLETE Collected: 04/25/2018 Status: F Source: [place] 4:35 PM [facility] REPOSITORY Order Comment: Order Date: 04/25/18 How was Urine Obtained? NURSING EDUCATION CONSULTANT TO SPECIFY TYPE CODE TESTS RESULT OUT [...] URINE SEEN Performed By: #### L400.0001 #### [facility] [address] [place], [address] CHEST 1 VIEW Observed: 04/25/2018 Status: F Source: [place] (PORTABLE) 3:15 PM [facility] REPOSITORY [facility] Imaging Services [address] [place] [address] Chest 1 View (Portable) MR#: [id number] Acct: [id number] Name: FRANK LUNDY Rep #: [id number] : 1940 F 77 From: Cedric Lewis MD PCP: Yang Carver MD, Chi Status: PRE ER Study: Chest 1 View (Portable) Date of Exam: 04/25/18 Exam# [id number] Ordering Dr: Kamilah Mejias MD STUDY: X-RAY [...] CC: Kamilah Mejias MD; Yang Carver MD Risk Control Director: Signed BRAIN/HEAD WITHOUT Observed: 04/25/2018 Status: F Source: [place] CONTRAST 3:15 PM [facility]OSPITAL REPOSITORY [facility] Imaging Services [address] [place] [address] Brain/Head without Contrast MR#: [id number] Acct: [id number] Name: FRANK LUNDY Rep #: [id number] : 1940 F 77 From: Ayad Tobias MD PCP: Yang Carver MD, Chi Status: REG ER Study: Brain/Head without Contrast Date of Exam: 04/25/18 Exam# [id number] Ordering Dr: Kamilah Mejias MD STUDY: CT [...] CC: Kamilah Mejias MD; Yang Carver MD Risk Control Director: Signed BEDSIDE GLUCOSE Collected: 04/25/2018 Status: F Source: [place] 3:05 PM [facility] REPOSITORY TYPE CODE TESTS RESULT OUT OF RANGE REFERENCE UNITS LAB L501.080 70-110 mg/dL Normal BEDSIDE GLU 109 Result Comment: MANAGEMENT OF PATIENT CARE PER NURSING PROTOCOL Performed By: #### L501.080 #### [facility] Point of Care [address] [place] [address] CBC W/DIFF, AUTOMATED Collected: 04/25/2018 Status: F Source: [place] 2:55 PM [facility] REPOSITORY TYPE CODE TESTS RESULT OUT [...] Lymph 1.12 Performed By: #### L100.0100 #### [facility] [address] [facility] [address] [place], [place], [address] BASIC METABOLIC Collected: 04/25/2018 Status: F Source: [place] PROFILE (BMP) 2:55 PM [facility] REPOSITORY TYPE CODE TESTS RESULT OUT [...] 8 Performed By: #### L500.2500, L501.4010 #### [facility] [address] [place], [address] TROPONIN-I Collected: 04/25/2018 Status: F Source: [place]OM 2:55 PM [facility] REPOSITORY TYPE CODE TESTS RESULT OUT OF RANGE REFERENCE UNITS LAB L501.4010 <0.045 ng/mL Normal < 0.015 TROPONIN-I Result Comment: TROPONIN-I EXPECTED VALUES <0.045 Negative 0.045 - 0.590 Consistent with Cardiac Damage > OR = 0.600 Critical Value Not every elevated troponin is indicative of GA. These values should be used with clinical judgement in examining the patient's clinical picture for diagnosis. To establish a diagnosis of GA versus myocardial injury, there must be a demonstrated rise and/or fall in the troponin values, in addition to ischemic symptoms, EKG changes, new regional wall motion abnormality, and/or angiographical evidence. PLEASE NOTE: REFERENCE RANGES EDITED 17 Performed By: #### L500.2500, L501.4010 #### [facility] [address] [place], [address] GASTRIC EMPTYING Observed: 04/08/2018 Status: F Source: [place] STUDY 9:43 AM [facility] REPOSITORY [facility] Imaging Services [address] [place] [address] Gastric Emptying Study MR#: [id number] Acct: [id number] Name: FRANK LUNDY Rep #: [id number] : 1940 F 77 From: Trever Schultz DO PCP: Felix MERCHANT,Yang James Status: REG CLI Study: Gastric Emptying Study Date of Exam: 04/08/18 Exam# [id number] Ordering Dr: Yang Carver MD CLINICAL: 77-year-old [...] Service support , CC: Yang Carver MD Risk Control Director: Signed EMERGENCY DEPARTMENT Observed: 04/06/2018 Status: F Source: [place] SUMMARY 3:00 PM [facility] REPOSITORY [facility] Medical Records Department [address] [place] [address] Emergency Department Summary 04/05/18 1012 MR#: [id number] Acct: [id number] Name: FRANK LUNDY Rep #: [id number] : 1940 77 From: Vincent Damon DO [...] Keflex [] This note was generated with [employer] dictation software. It may contain incorrect words, [...] your Primary Care Provider. Call [facility] ([phone]) or report to the closest Emergency Room. Call 911 if necessary. 04/06/18 1500 <Electronically signed by Vincent Damon DO> Date Vincent Damon DO Cosigner Signature (If Indicated): Date CC: Yang Carver MD DISCHARGE INSTRUCTION Observed: 04/05/2018 Status: F Source: [place] 1:22 PM [facility] REPOSITORY [facility] Medical Records Department [address] [place] [address] Discharge Instruction 04/05/18 1321 MR#: [id number] Acct: [id number] Name: FRANK LUNDY Rep #: [id number] : 1940 77 From: Vincent Damon DO [...] your Primary Care Provider. Call [facility] ([phone]) or report to the closest Emergency Room. Call 911 if necessary. 04/05/18 1322 <Electronically signed by Vincent Damon DO> Date Vincent Damon DO Cosigner Signature (If Indicated): Date CC: Yang Carver MD DISCHARGE SUMMARY Observed: 04/01/2018 Status: F Source: [place] 7:55 AM [facility] REPOSITORY [facility] Medical Records Department [address] [place] [address] Discharge Summary 04/01/18 0752 MR#: [id number] Acct: [id number] Name: FRANK LUNDY Rep #: [id number] : 1940 77 From: Lopez March MD PCP: Yang Carver MD, Chi Status: ADM MORENO Y Location: [place] [address] Discharge Date and Diagnosis - Problem List [...] applicable Code Visit OBSV E AND M: 52705 Observation care discharge Patient Problems: Active and [...] DISCHARGE INSTRUCTION Observed: 04/01/2018 Status: F Source: [place] 7:52 AM [facility] REPOSITORY [facility] Medical Records Department [address] [place] [address] Instructions for Home/Discharge Instructions 04/01/18 0751 MR#: [id number] Acct: [id number] Name: FRANK LUNDY Rep #: [id number] : 1940 77 From: Lopez March MD [...] F Source: [place] PROFILE (BMP) 6:05 AM [facility] REPOSITORY TYPE CODE TESTS RESULT OUT [...] GAP 9 Performed By: #### L500.2500 #### [facility] [address] [facility] [place], [address] CBC W/DIFF, AUTOMATED Collected: 04/01/2018 Status: F Source: [place] 6:05 AM [facility] REPOSITORY TYPE CODE TESTS RESULT OUT [...] LYMPHOPENIA NOTED. Performed By: #### L100.0100 #### [facility] [address] [facility] 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 Smoking Status: Never smoker - *Family [...] prophylaxis Code Visit OBSV E AND M: 43095 Initial observation care L2 03/31/18 2019 <Electronically signed by Trenton Baez MD> Date Trenton Baez MD Cosigner Signature: Date (if applicable) CC: Trenton Baez MD; Yang Carver MD Signed EMERGENCY DEPARTMENT Observed: 03/31/2018 Status: F Source: [place] SUMMARY 8:09 PM [facility] REPOSITORY [facility] Medical Records Department [address] [place] [address] Emergency Department Summary 03/31/18 1728 MR#: [id number] Acct: [id number] Name: FRANK LUNDY Rep #: [id number] : 1940 77 From: Siddhartha Almeida DO [...] Anaphylactic reaction This note was generated with [employer] dictation software. It may contain incorrect words, spelling, and punctuation that were not noted in review of the chart prior to signing ED Disposition - Plan for ED Patient: Disposition: [facility] Chief Complaint: Allergic Reaction Diagnosis: Anaphylactic reaction Referrals: Yang Carver Chi, MD [Primary Care Provider] - What to do if you have Problems For any increased pain, shortness of breath, bleeding, nausea or vomiting, chest pain, or any unexpected problems, contact your Primary Care Provider. Call [facility] ([phone]) or report to the closest Emergency Room. Call 911 if necessary. 03/31/182008 <Electronically signed by Siddhartha Almeida DO> Date Siddhartha Almeida DO Cosigner Signature (If Indicated): Date CC: Yang Carver MD CBC W/DIFF, AUTOMATED Collected: 03/24/2018 Status: F Source: [place] 4:41 PM [facility] REPOSITORY TYPE CODE TESTS RESULT OUT [...] 1.36 Performed By: #### L100.0100 #### [facility] [address] [place], [place], [address] VITAMIN D,25 HYDROXY Collected: 03/24/2018 Status: F Source: [place] 4:41 PM [facility] REPOSITORY TYPE CODE TESTS RESULT OUT OF RANGE REFERENCE UNITS LAB L506.1000 29.95-100.01 ng/mL Normal Vitamin D 42.2 25-OH Result Comment: Vitamin D 25(OH) Status Range Deficiency <20 ng/mL (50nmol/L) Insuffciency 20 - 30 ng/mL (50 - 75 nmol/L) Sufficiency 30 - 100 ng/mL (75 - 250 nmol/L) Toxicity >100 ng/mL (>250 nmol/L) Performed By: #### L506.1000 #### [facility] [address] [place], [place], [address] COMPREHENSIVE METABOLIC Collected: 03/24/2018 Status: F Source: TOM [facility] 4:41 PM [facility] REPOSITORY TYPE CODE TESTS RESULT OUT [...] 8 Performed By: #### L500.4050, L501.9520 #### [facility] [address] [place], [address] THYROID STIM HORMONE Collected: 03/24/2018 Status: F Source: [place] (TSH) 4:41 PM [facility] REPOSITORY TYPE CODE TESTS RESULT OUT OF RANGE REFERENCE UNITS LAB L501.9520 0.358-3.74 uIU/mL Normal TSH 1.66 Performed By: #### L500.4050, L501.9520 #### [facility] [address] [place], [address] EMERGENCY DEPARTMENT Observed: 03/19/2018 Status: F Source: [place] SUMMARY 5:21 PM [facility] REPOSITORY [facility] Medical Records Department [address] [place] [address] Emergency Department Summary 03/19/18 1605 MR#: [id number] Acct: [id number] Name: FRANK LUNDY Rep #: [id number] : 1940 77 From: Dick Cornell MD PCP: Felix MERCHANT,Yang [facility] Status: DEP ER - ER Visit Summary Date of Service: 03/19/18 Chief Complaint: Fall History of Present Illness: 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 Car[facility]. She reports it is [...] it well. This note was generated with [employer] dictation software. It may contain incorrect words, [...] your Primary Care Provider. Call [facility] ([phone]) or report to the closest Emergency Room. Call 911 if necessary. 03/19/18 1721 <Electronically signed by Dick Cornell MD> Date Dick Cornell MD Cosigner Signature (If Indicated): Date CC: Yang Carver MD CARDIOLOGY VISIT Observed: 02/19/2018 Status: F Source: [place] REPORT 11:51 AM [facility] REPOSITORY [facility] [address] [place] [address] [address] [place] [address] OFFICE VISIT Date of Service: 02/14/18 MR#: [id number] Acct: [id number] Name: FRANK LUNDY Rep #: [id number] : 1940 Provider: LITA Perez Age/Sex: 77/F [place] [facility] Status: Signed HPI HPI Details: FRANK LUNDY, [...] brachial Intake Visit Reasons: 1 Y FU 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 Follow Up 12 Months ([employer]) Coding Level of Care Code Off vis,est,level [...] 02/14/18 1039 <Electronically signed by Mauricio Perez INTERNAL SALES-C> Date Mauricio Perez INTERNAL SALES-C 02/19/18 1151<Electronically signed by Angel Humphries MD> Cosigner Signature: Date (if applicable) Angel Humphries MD CC: Yang Carver MD CBC W/DIFF, AUTOMATED Collected: 01/02/2018 Status: F Source: [place] 2:08 PM [facility] REPOSITORY TYPE CODE TESTS RESULT OUT [...] Lymph 1.20 Performed By: #### L100.0100 #### [facility] [address] [place], [place], [address] COMPREHENSIVE METABOLIC Collected: 01/02/2018 Status: F Source: [facility] 2:08 PM [facility] REPOSITORY TYPE CODE TESTS RESULT OUT [...] 8 Performed By: #### L500.4050, L501.9520 #### [facility] [address] [place], [place], [address] THYROID STIM HORMONE Collected: 01/02/2018 Status: F Source: [place] (TSH) 2:08 PM [facility] REPOSITORY TYPE CODE TESTS RESULT OUT OF RANGE REFERENCE UNITS LAB L501.9520 0.358-3.74 uIU/mL Normal TSH 1.03 Performed By: #### L500.4050, L501.9520 #### [facility] [address] [place], [place], [address] VITAMIN D,25 HYDROXY Collected: 01/02/2018 Status: F Source: [place] 2:08 PM [facility] REPOSITORY TYPE CODE TESTS RESULT OUT OF RANGE REFERENCE UNITS LAB L506.1000 29.95-100.01 ng/mL Normal Vitamin D 44.6 25-OH Result Comment: Vitamin D 25(OH) Status Range Deficiency <20 ng/mL (50nmol/L) Insuffciency 20 - 30 ng/mL (50 - 75 nmol/L) Sufficiency 30 - 100 ng/mL (75 - 250 nmol/L) Toxicity >100 ng/mL (>250 nmol/L) Performed By: #### L506.1000 #### [facility] [address] [facility] [address] [place], [place], [address] BASIC METABOLIC Collected: 12/23/2017 Status: F Source: [place] PROFILE (BMP) 2:03 PM [facility] REPOSITORY TYPE CODE TESTS RESULT OUT [...] GAP 6 Performed By: #### L500.2500 #### [facility] [address] [facility] [place], [place], [address] CBC W/DIFF, AUTOMATED Collected: 12/23/2017 Status: F Source: [place] 2:03 PM [facility] REPOSITORY TYPE CODE TESTS RESULT OUT [...] Lymph 1.40 Performed By: #### L100.0100 #### [facility] [address] [facility] [place], [address] EMERGENCY DEPARTMENT Observed: 10/13/2017 Status: F Source: [place] SUMMARY 2:07 AM [facility] REPOSITORY [facility] Medical Records Department [address] [place] [address] Emergency Department Summary 10/12/17 2214 MR#: [id number] Acct: [id number] Name: FRANK LUNDY Rep #: [id number] : 1940 77 From: Kamilah Mejias MD PCP: Felix MERCHANT,[employer] Status: REG ER - ER Visit Summary [...] neck strain This note was generated with [employer] dictation software. It may contain incorrect words, [...] your Primary Care Provider. Call [facility] ([phone]) or report to the closest Emergency Room. Call 911 if necessary. 10/13/17[address] <Electronically signed by Kamilah Mejias MD> Date Kamilah Mejias MD Cosigner Signature (If Indicated): Date CC: Yang Carver MD DISCHARGE INSTRUCTION Observed: 10/13/2017 Status: F Source: TOM 2:00 AM [facility] REPOSITORY [facility] Medical Records Department [address] [place] [address] Discharge Instruction 10/13/17199 MR#: [id number] Acct: [id number] Name: FRANK LUNDY Rep #: [id number] : 1940 77 From: Kamilah Mejias MD [...] your Primary Care Provider. Call [facility] ([phone]) or report to the closest Emergency Room. Call 911 if necessary. 10/13/17 0200 <Electronically signed by Kamilah Mejias MD> Date Kamilah Mejias MD Cosigner Signature (If Indicated): Date CC: Yang Carver MD SPINE THORACIC Observed: 10/12/2017 Status: F Source: [place] WITHOUT CONTRAS 11:55 PM [facility] REPOSITORY [facility] Imaging Services [address] [place] [address] Spine Thoracic without Contras MR#: [id number] Acct: [id number] Name: FRANK LUNDY Rep #: [id number] : 1940 F 77 From: Renato Reveles MD PCP: Yang Carver MD, Chi Status: REG ER Study: Spine Thoracic without Contras Date of Exam: 10/13/17 Exam# [id number] Ordering Dr: Kamilah Mejias MD STUDY: CT [...] CC: Kamilah Mejias MD; Yang Carver MD Risk Control Director: Signed THORACIC SPINE 3 Observed: 10/12/2017 Status: F Source: [place] VIEWS 10:13 PM [facility] REPOSITORY [facility] Imaging Services [address] [place] [address] Thoracic Spine 3 Views MR#: [id number] Acct: [id number] Name: FRANK LUNDY Rep #: [id number] : 1940 F 77 From: Renato Reveles MD PCP: Yang Carver MD, Chi Status: REG ER Study: Thoracic Spine 3 Views Date of Exam: 10/12/17 Exam# [id number] Ordering Dr: Kamilah Mejias MD STUDY: X-RAY [...] CC: Kamilah Mejias MD; Yang Carver MD Risk Control Director: Signed SPINE CERVICAL Observed: 10/12/2017 Status: F Source: [place] WITHOUT CONTRAS 10:12 PM [facility] REPOSITORY [facility] Imaging Services [address] [place] [address] Spine Cervical without Contras MR#: [id number] Acct: [id number] Name: FRANK LUNDY Rep #: [id number] : 1940 F 77 From: Stella Holland MD PCP: Yang Carver MD, Chi Status: REG ER Study: Spine Cervical without Contras Date of Exam: 10/12/17 Exam# [id number] Ordering Dr: Kamilah Mejias MD CT Spine [...] CC: Kamilah Mejias MD; Yang Carver MD Risk Control Director: Signed BRAIN/HEAD WITHOUT Observed: 10/12/2017 Status: F Source: [place] CONTRAST 10:12 PM [facility] REPOSITORY [facility] Imaging Services [address] [place] [address] Brain/Head without Contrast MR#: [id number] Acct: [id number] Name: FRANK LUNDY Rep #: [id number] : 1940 F 77 From: Jus Faith PCP: Yang Carver MD, Chi Status: REG ER Study: Brain/Head without Contrast Date of Exam: 10/12/17 Exam# [id number] Ordering Dr: Kamilah Mejias MD STUDY: CT [...] CC: Kamilah Mejias MD; Yang Carver MD Risk Control Director: Signed Observed: 10/08/2017 Status: C Source: [place] RESPIRATORY PANEL 3:53 PM [facility] MOLECULAR REPOSITORY RESULTS CALLED TO VIKY YATES 10/09/17 1511 Jenny Torres. REPORT READ BACK BY SAME. RP PANEL Normal Reference Range = Not Detected Copy of report sent to Infection Control Printer [id number] 10/09/17 8858 DGRADY. RESULTS CALLED TO DR CARVER NURSE [...] HUMAN META Performed By: #### M100.638 #### [facility] [place], [address] CBC W/DIFF, AUTOMATED Collected: 10/02/2017 Status: F Source: [place] 1:13 PM [facility] REPOSITORY TYPE CODE TESTS RESULT OUT [...] Lymph 1.46 Performed By: #### L100.0100 #### [facility] [address] [place] [address], [id number] VITAMIN D,25 HYDROXY Collected: 10/02/2017 Status: F Source: [place] 1:13 PM [facility] REPOSITORY TYPE CODE TESTS RESULT OUT OF RANGE REFERENCE UNITS LAB L506.1000 29.95-100.01 ng/mL Normal Vitamin D 45.8 25-OH Result Comment: Vitamin D 25(OH) Status Range Deficiency <20 ng/mL (50nmol/L) Insuffciency 20 - 30 ng/mL (50 - 75 nmol/L) Sufficiency 30 - 100 ng/mL (75 - 250 nmol/L) Toxicity >100 ng/mL (>250 nmol/L) Performed By: #### L506.1000 #### [facility] [address] [place], [place], [id number] COMPREHENSIVE METABOLIC Collected: 10/02/2017 Status: F Source: [place]OM [place] 1:13 PM [facility] REPOSITORY TYPE CODE TESTS RESULT OUT [...] 6 Performed By: #### L500.4050, L501.9520 #### [facility] [address] [place], [address] THYROID STIM HORMONE Collected: 10/02/2017 Status: F Source: TOM (TSH) 1:13 PM [facility] HOSPITAL REPOSITORY TYPE CODE TESTS RESULT OUT OF RANGE REFERENCE UNITS LAB L501.9520 0.358-3.74 uIU/mL Normal TSH 1.40 Performed By: #### L500.4050, L5.9520 #### [facility] [address] [place], [address] ALLERGIES ALLERGIES DATE TYPE / CODE NAME / CODE REACTION SEVERITY SOURCE 07/29/2018 Drug cephalexin/ Angioedema Unknown [place] [facility] Allergy/4160 [id number]( [facility](SNOMED RXNORM) Repository CT) 07/29/2018 Drug doxycycline Angioedema Unknown [place] [facility] Allergy/4160 /[id number] [facility](SNOMED (RXNORM) Repository CT) 07/29/2018 Drug sulfamethox Hives Unknown [place] [facility] Allergy/4160 azole/F0060 [facility](SNOMED [address](RXNOR [address]ository CT) M) 07/29/2018 Drug trimethopri Hives Unknown [place] [facility] Allergy/4160 m/[id number] [facility](SNOMED 3(RXNORM) Repository CT) 07/29/2018 Drug ceftriaxone Anaphylaxis Unknown [place] [facility] Allergy/4160 /[id number] [facility](SNOMED (RXNORM) Repository CT) ENCOUNTERS ENCOUNTERS ADMIT/DISCHARGE ACCOUNT ADMITTING ENCOUNTER LOCATION SOURCE NUMBER CLASS 07/29/2018/ [id number] [place] 9 2 [facility] ing:ED Repository 07/15/2018 [id number] Ambulatory [place] 3 [facility] ing:LAB.FUTUR Repository E 07/14/2018 [id number] Ambulatory [place] 3 [facility] ing:POLAB3 Repository 06/26/2018 [id number] Ambulatory [place] 2 [facility] ing:RAD Repository 06/21/2018/ [id number] [facility] [place] [facility] [place] 8 7 [facility] ing:EDRoom: Repository MS324 06/10/2018/ [id number] [place]on Baez Inpatient [place] 8 9 Encounter [facility] ing:BP9Rulr: Repository GH031Csg: 1 06/10/2018 [id number] [place]on Baez Ambulatory BMSBuilding:B [place] 0 [facility] Repository 06/09/2018 [id number] [place]on Baez Ambulatory BMSBuilding:B [place] 0 [place] Repository 06/09/2018 [id number] [place]on Baez Ambulatory BMSBuilding:B [place] 2 [place].[facility] Repository 05/27/2018/ [id number] Emergency [place] 8 3 [facility] ing:ED Repository 05/15/2018 [id number] Ambulatory [place] 0 [facility] ing:POLAB3 Repository 05/14/2018 [id number] Ambulatory [place] 6 [facility] ing:POLAB3 Repository 05/08/2018 [id number] Ambulatory [place] 5 [facility] ing:POLAB3 Repository 04/25/2018/ [id number] Emergency [place] 8 7 [facility] ing:ED Repository 04/08/2018 [id number] Ambulatory [place] 7 [facility] ing:NM Repository 04/05/2018/ [id number] Emergency [place] 8 5 [facility] ing:ED Repository 03/31/2018/ [id number] [place] Baez Ambulatory [place] 8 3 [facility] ing:QH3Qnkl: Repository LN935Vis: 1 03/31/2018 [id number] [place]on Baez Ambulatory BMSBuilding:B [place] 5 [place] Repository 03/31/2018 [id number] Ambulatory BMSBuilding:B [place] 6 [facility] Repository 03/24/2018 [id number] Ambulatory [place] 3 [facility] ing:POLAB3 Repository 03/19/2018/ [id number] Emergency [place] 8 8 [facility] ing:ED Repository 02/14/2018/ [id number] Ambulatory BMSBuilding:B [place] 8 1 [facility] Repository 01/02/2018 [id number] Ambulatory [place] 8 [facility] ing:POLAB3 Repository 12/23/2017 [id number] Ambulatory [place] 3 [facility] ing:POLAB3 Repository 10/12/2017/ [id number] Emergency [place] 8 0 [facility] ing:ED Repository 10/08/2017 [id number] Ambulatory [place] 6 [facility] ing:PSN Repository 10/02/2017 [id number] Ambulatory [place] 7 [facility] ing:POLAB3 Repository PAYERS PAYERS ENCOUNTER GUARANTOR PAYER SUBSCRIBER SOURCE 07/29/2018 FRANK M Primary FRANK M [place] [id number] Insurance:MEDICARE BRINKERHOFFDOB: On license of [facility] PART A [facility] [id number] Number: Repository [address]Uly: [phone] [id number] [phone] () Date:2018-07-29 07/29/2018 Secondary FRANK M [place] Insurance:FORE BRINKERHOFFDOB: [facility] Number: [id number] Hospital [id number] Repository Date:1340-58-09PY [address] [place], [place] [address]YU: 07/29/2018 Tertiary NOT GIVENUNK [place] Insurance:SELF PAY [facility] Number: Effective Repository Date:2018-07-29 07/15/2018 FRANK M Primary FRANK M [place] [id number] Insurance:MEDICARE BRINKERHOFFDOB: On license of [facility] PART A [facility] [id number] Number: Repository [address]Tap: [phone] [id number] [phone] (HP) Date:2018-07-15 07/15/2018 Secondary FRANK M [place] Insurance:FORE BRINKERHOFFDOB: Community THOUGHTPolicy Number: [id number] Hospital [id number] Repository Date:9698-24-75NH [address] [place] [address]XU: 07/15/2018 Tertiary NOT GIVENUNK [place] Insurance:SELF PAY [facility] Number: Effective Repository Date:2018-07-15 07/14/2018 FRANK M Primary FRANK M [place] [id number] Insurance:MEDICARE BRINKERHOFFDOB: On license of [facility] PART A [facility] [id number] Number: Repository [address]Hoc: 330 [id number] [phone] () Date:2018-07-14 07/14/2018 Secondary FRANK M [place] Insurance:FORE BRINKERHOFFDOB: Community THOUGHTPolicy Number: [id number] Hospital [id number] Repository Date:8626-75-98RT [address] [place] [address]TC: 07/14/2018 Tertiary NOT GIVENUNK [place] Insurance:SELF PAY [facility] Number: Effective Repository Date:2018-07-14 06/26/2018 FRANK M Primary FRANK M [place] [id number] Insurance:MEDICARE BRINKERHOFFDOB: On license of [facility] PART A [facility] [id number] Number: Repository [address]Xam: 330 [id number] [phone] () Date:2018-06-26 06/26/2018 Secondary FRANK M [place] Insurance:FORE BRINKERHOFFDOB: [facility]: [id number] Hospital [id number] Repository Date:2603-07-33GY [address] [place] [address]TZ: 06/26/2018 Tertiary NOT GIVENUNK [place] Insurance:SELF PAY [facility] Number: Effective Repository Date:2018-06-26 06/21/2018 FRANK M Primary FRANK M [place] [id number] Insurance:MEDICARE [facility] [id number] Number: Repository [address]Ucx: [phone] [id number] [phone] () Date:2018-06-21 06/21/2018 Secondary FRANK M [place] Insurance:FORE BRINKERHOFFDOB: [facility] THOUGHTPolicy Number: [id number] Hospital [id number] Repository Date:1376-18-27TX [address] [facility] [place] [address]CH: 06/21/2018 Tertiary NOT GIVENUNK [place] Insurance:SELF PAY [facility] Number: Effective Repository Date:2018-06-21 06/10/2018 FRANK M Primary FRANK M [place] [id number] Insurance:MEDICARE BRINKERHOFFDOB: On license of [facility] PART A [facility] [id number] Number: Repository [address]Ths: 330 [id number] [phone] () Date:2018-06-09 06/10/2018 Secondary FRANK M [place] Insurance:FORE BRINKERHOFFDOB: [facility] THOUGHTPolicy Number: [id number] Hospital [id number] Repository Date:8602-85-68JC [address] [place], [place] [address]FB: 06/10/2018 Tertiary NOT GIVENUNK [place] Insurance:SELF PAY [facility] Number: Effective Repository Date:2018-06-09 06/10/2018 FRANK M Primary FRNAK M [place] [id number] Insurance:MEDICARE BRINKERHOFFDOB: On license of [facility] PART A [facility] [id number] Number: Repository [address]Ngp: [phone] [id number] [phone] (HP) Date:2018-06-09 06/10/2018 Secondary FRANK M [place] Insurance:FORE BRINKERHOFFDOB: Community THOUGHTPolicy Number: [id number] Hospital [id number] Repository Date:9504-21-12JZ [address] [place] [address]NT: 06/10/2018 Tertiary NOT GIVENUNK [place] Insurance:SELF PAY [facility] Number: Effective Repository Date:2018-06-10 06/09/2018 FRANK M Primary FRANK M [place] [id number] Insurance:MEDICARE BRINKERHOFFDOB: On license of [facility] PART A [facility] [id number] Number: Repository [address]Mnt: 330 [id number] [phone] () Date:2018-06-09 06/09/2018 Secondary FRANK M [place] Insurance:FORE BRINKERHOFFDOB: Community THOUGHTPolicy Number: [id number] Hospital [id number] Repository Date:5588-83-98WF [address] [place] [address]IW: 06/09/2018 Tertiary NOT GIVENUNK [place] Insurance:SELF PAY [facility] Number: Effective Repository Date:2018-06-09 06/09/2018 FRANK M Primary FRANK M [place] [id number] Insurance:MEDICARE BRINKERHOFFDOB: On license of [facility] PART A [facility] [id number] Number: Repository [address]Rei: 330 [id number] [phone] (HP) Date:2018-06-09 06/09/2018 Secondary FR[place] M [place] Insurance:FORE BRINKERHOFFDOB: [facility] THOUGHTPolicy Number: [id number] Hospital [id number] Repository Date:1260-26-07JK [address] [place] [address]PM: 06/09/2018 Tertiary NOT GIVENUNK [place] Insurance:SELF PAY [facility] Number: Effective Repository Date:2018-06-09 05/27/2018 FRANK M Primary FRANK M [place] [id number] Insurance:MEDICARE BRINKERHOFFDOB: On license of [facility] PART A olic [id number] Number: Repository [address]Eyt: ([phone] [id number] [phone] () Date:2018-05-27 05/27/2018 Secondary FRANK M [place] Insurance:FORE BRINKERHOFFDOB: [facility] THOUGHTPolicy Number: [id number] Hospital [id number] Repository Date:8311-03-83AQ [address] [facility] [place] [address]PZ: 05/27/2018 Tertiary NOT GIVENUNK [place] Insurance:SELF PAY [facility] Number: Effective Repository Date:2018-05-27 05/15/2018 FRANK M Primary FRANK M [place] [id number] Insurance:MEDICARE BRINKERHOFFDOB: On license of [facility] PART A [facility] [id number] Number: Repository [address]Eui: 330 [id number] [phone] () Date:2018-05-15 05/15/2018 Secondary FRANK M [place] Insurance:FORE BRINKERHOFFDOB: [facility] THOUGHTPolicy Number: [id number] Hospital [id number] Repository Date:6996-88-52HZ [address] [place], [place] [address]WW: 05/15/2018 Tertiary NOT GIVENUNK [place] Insurance:SELF PAY [facility] Number: Effective Repository Date:2018-05-15 05/14/2018 FRANK M Primary FRANK M [place] [id number] Insurance:MEDICARE BRINKERHOFFDOB: On license of [facility] PART A [facility] [id number] Number: Repository [address]Jlh: [phone] [id number] [phone] (HP) Date:2018-05-14 05/14/2018 Secondary FRANK M [place] Insurance:FORE BRINKERHOFFDOB: Community THOUGHTPolicy Number: [id number] Hospital [id number] Repository Date:7050-28-79KH [address] [place] [address]UC: 05/14/2018 Tertiary NOT GIVENUNK [place] Insurance:SELF PAY [facility] Number: Effective Repository Date:2018-05-14 05/08/2018 FRANK M Primary FRANK M [place] [id number] Insurance:MEDICARE BRINKERHOFFDOB: On license of [facility] PART A [facility] [id number] Number: Repository [address]Rgl: 330 [id number] [phone] () Date:2018-05-08 05/08/2018 Secondary FR[place] M [place] Insurance:FORE BRINKERHOFFDOB: Community THOUGHTPolicy Number: [id number] Hospital [id number] Repository Date:3665-11-08KF [address] [place] [address]LG: 05/08/2018 Tertiary NOT GIVENUNK [place] Insurance:SELF PAY [facility] Number: Effective Repository Date:2018-05-08 04/25/2018 FRANK M Primary FRANK M [place] [id number] Insurance:MEDICARE BRINKERHOFFDOB: On license of [facility] PART A [facility] [id number] Number: Repository [address]Kix: 330 [id number] [phone] (HP) Date:2018-04-25 04/25/2018 Secondary FRANK M [place] Insurance:FORE BRINKERHOFFDOB: [facility] THOUGHTPolicy Number: [id number] Hospital [id number] Repository Date:1437-69-69DJ [address] [place] [address]YG: 04/25/2018 Tertiary NOT GIVENUNK [place] Insurance:SELF PAY [facility] Number: Effective Repository Date:2018-04-25 04/08/2018 FRANK M Primary FRANK M [place] [id number] Insurance:MEDICARE BRINKERHOFFDOB: On license of [facility] PART A olic [id number] Number: Repository [address]Bau: 330 [id number] [phone] () Date:2018-03-31 04/08/2018 Secondary FRANK M [place] Insurance:FORE BRINKERHOFFDOB: [facility] THOUGHTPolicy Number: [id number] Hospital [id number] Repository Date:0251-51-66YR [address] [place] [address]LE: 04/08/2018 Tertiary NOT GIV[place]UNK [place] Insurance:SELF PAY [facility] Number: Effective Repository Date:2018-03-31 04/05/2018 FRANK M Primary FRANK M [place] [id number] Insurance:MEDICARE BRINKERHOFFDOB: On license of [facility] PART A [facility] [id number] Number: Repository [address]Kia: 330 [id number] [phone] () Date:2018-04-05 04/05/2018 Secondary FR[place] M [place] Insurance:FORE BRINKERHOFFDOB: [facility] THOUGHTPolicy Number: [id number] Hospital [id number] Repository Date:8794-27-05JB [address] [facility] [place] [address]NY: 04/05/2018 Tertiary NOT GIV[place]UNK [place] Insurance:SELF PAY [facility] Number: Effective Repository Date:2018-04-05 03/31/2018 FRANK M Primary FRANK M [place] [id number] Insurance:MEDICARE BRINKERHOFFDOB: On license of [facility] PART A [facility] [id number] Number: Repository [address]Ipq: (270) [id number] [phone] (HP) Date:2018-03-31 03/31/2018 Secondary FRANK M [place] Insurance:FORE BRINKERHOFFDOB: Community THOUGHTPolicy Number: [id number] Hospital [id number] Repository Date:7557-25-10LL [address] [place] [address]VD: 03/31/2018 Tertiary NOT GIVENUNK [place] Insurance:SELF PAY [facility] Number: Effective Repository Date:2018-03-31 03/31/2018 FRANK M Primary FRANK M [place] [id number] Insurance:MEDICARE BRINKERHOFFDOB: On license of [facility] PART A [facility] [id number] Number: Repository [address]Yoq: 330 [id number] [phone] (HP) Date:2018-03-31 03/31/2018 Secondary FRANK M [place] Insurance:FORE BRINKERHOFFDOB: [facility] Number: [id number] Hospital [id number] Repository Date:6296-64-76SY [address] [place] [address]QE: 03/31/2018 Tertiary NOT GIVENUNK [place] Insurance:SELF PAY [facility] Number: Effective Repository Date:2018-03-31 03/31/2018 FRANK M Primary FRANK M [place] [id number] Insurance:MEDICARE BRINKERHOFFDOB: On license of [facility] PART A [facility] [id number] Number: Repository [address]Jkk: 330 [id number] [phone] (HP) Date:2018-03-31 03/31/2018 Secondary FR[place] M [place] Insurance:FORE BRINKERHOFFDOB: [facility] Number: [id number] Hospital [id number] Repository Date:3247-48-31YQ [address] [place] [address]SB: 03/31/2018 Tertiary NOT [place]UNK [place] Insurance:SELF PAY [facility] Number: Effective Repository Date:2018-03-31 03/24/2018 FRANK M Primary FRANK M [place] [id number] Insurance:MEDICARE BRINKERHOFFDOB: On license of [facility] PART A [facility] [id number] Number: Repository [address]Sdo: 330 [id number] [phone] () Date:2018-03-24 03/24/2018 Secondary FRANK M [place] Insurance:FORE BRINKERHOFFDOB: [facility] THOUGHTPolicy Number: [id number] Hospital [id number] Repository Date:9295-88-37OH [address] [facility] [address]CK: 03/24/2018 Tertiary NOT GIVENUNK [place] Insurance:SELF PAY [facility] Number: Effective Repository Date:2018-03-24 03/19/2018 FRANK M Primary FR[place] M [place] [id number] Insurance:MEDICARE BRINKERHOFFDOB: On license of [facility] PART A [facility] [id number] Number: Repository [address]Qnv: 330 [id number] [phone] () Date:2018-03-19 03/19/2018 Secondary FRANK M [place] Insurance:FORE BRINKERHOFFDOB: [facility] THOUGHTPolicy Number: [id number] Hospital [id number] Repository Date:4262-22-34KP [address] [place], [place] [address]WR: 03/19/2018 Tertiary NOT GIV[place]UNK [place] Insurance:SELF PAY [facility] Number: Effective Repository Date:2018-03-19 02/14/2018 FRANK M Primary FR[place] M [place] [id number] Insurance:MEDICARE BRINKERHOFFDOB: On license of [facility] PART A [facility] [id number] Number: Repository [address]Cgy: (646) [id number] [phone] (HP) Date:2017-06-25 02/14/2018 Secondary FR[place] M [place] Insurance:FORE BRINKERHOFFDOB: Community THOUGHTPolicy Number: [id number] Hospital [id number] Repository Date:4942-00-48BU [address] [place] [address]CX: 02/14/2018 Tertiary NOT GIVENUNK [place] Insurance:SELF PAY [facility] Number: Effective Repository Date:2017-06-25 01/02/2018 FRANK M Primary FRANK M [place] [id number] Insurance:MEDICARE BRINKERHOFFDOB: On license of [facility] PART A [facility] [id number] Number: Repository [address]Wck: 330 [id number] [phone] () Date:2018-01-02 01/02/2018 Secondary FRANK M [place] Insurance:FORE BRINKERHOFFDOB: Community THOUGHTPoly Number: [id number] Hospital [id number] Repository Date:6075-08-61DA [address] [place] [address]ZM: 01/02/2018 Tertiary NOT GIVENUNK [place] Insurance:SELF PAY [facility] Number: Effective Repository Date:2018-01-02 12/23/2017 FRANK M Primary FRANK M [place] [id number] Insurance:MEDICARE BRINKERHOFFDOB: On license of [facility] PART A [facility] [id number] Number: Repository [address]Lwx: 330 [id number] [phone] (HP) Date:2017-12-23 12/23/2017 Secondary FRANK M [place] Insurance:FORE BRINKERHOFFDOB: [facility] Number: [id number] Hospital [id number] Repository Date:4837-76-67EH [address] [place] [address]KX: 12/23/2017 Tertiary NOT GIV[place]UNK [place] Insurance:SELF PAY [facility] Number: Effective Repository Date:2017-12-23 10/12/2017 FRANK M Primary FRANK M [place] [id number] Insurance:COMMERCIAL BRINKERHOFFDOB: On license of [facility] OTHER 2Policy Number: [id number] [id number] Repository [address]Jjq: 330) Date:3119-86-10KHM [phone] () [address] [address]CO: 10/12/2017 Secondary FRANK M [place] Insurance:MEDICARE BRINKERHOFFDOB: [facility] PART A [facility] [id number] Hospital Number: Repository [id number] Date:2017-10-12 10/12/2017 Tertiary [place] M [place] Insurance:FORE BRINKERHOFFDOB: [facility] Number: [id number] Hospital [id number] Repository Date:7727-05-82XB [address] [place] [address]LI: 10/12/2017 Tertiary NOT GIVENUNK [place] Insurance:SELF PAY [facility] Number: Effective Repository Date:2017-10-12 10/08/2017 Frank Primary Frank [place] [id number] Insurance:MEDICARE BrinkerhoffDOB: [facility] PART A [facility] [id number] Number: Repository [address]Ykt: 330 [id number] [phone] () Date:2017-10-08 10/08/2017 Secondary [place] Insurance:FORE BrinkerhoffDOB: [facility] Number: [id number] Hospital [id number] Repository Date:4789-99-69DY [address] [place] [address]AC: 10/08/2017 Tertiary NOT GIVENUNK [place] Insurance:SELF PAY [facility] Number: Effective Repository Date:2017-10-08 10/02/2017 Frank Primary Frank [place] [id number] Insurance:MEDICARE BrinkerhoDOB: [facility] PART A BPolicy [id number] Hospital [address] Number: Repository [address]Vmu: ([phone]) [id number] [phone] () Date:2017-10-02 10/02/2017 Secondary [place] Insurance:[facility] Number: [id number] Hospital [id number] Repository Date:1111-02-10QF [address] [place] [address]MP: 10/02/2017 Tertiary NOT GIVENUNK [place] Insurance:SELF PAY [facility] Number: Effective Repository Date:2017-10-02
== END 2018-07-29 16:43 | disposition home or self-care (01) ==
PROVIDERS: Emergency Provider Emergency Medicine; Family Provider Family Medicine Geriatric Medicine; PCP Family Medicine Geriatric Medicine
DX: F03.90 Unspecified dementia, unspecified severity, without behavioral disturbance, psychotic disturbance, mood disturbance, and anxiety (principal); E78.00 Pure hypercholesterolemia, unspecified; I10 Essential (primary) hypertension; F32.9 Major depressive disorder, single episode, unspecified; I42.9 Cardiomyopathy, unspecified
CPT/HCPCS: 80048; 81001; 85025; 99284

== ENCOUNTER → 2018-09-24 13:58 | Outpatient (CLI) | payer MEDICARE, OTHER, SELFPAY ==
[2018-09-24 15:48] LABS: Absolute Lymphocyte Count 1.38 X10^3/ul (0.83-4.51); Absolute Neutrophil Count 5.1 X10^3/uL (2.0-7.7); Basophil# 0.02 X10^3/uL; Basophil% 0.3 % (0-1); Eosinophil# 0.07 X10^3/uL; Hematocrit 39.1 % (37-47); Hemoglobin 10.5 g/dl (12.0-15.0); Lymphocyte # 1.38 X10^3/ul (4.0); Lymphocyte % 19.3 % (19-41); Mean Corp Hgb Conc 26.9 g/gl (32-36); Mean Corpuscular Hgb 24.9 pg (27.0-32.0); Mean Corpuscular Volume 92.7 fL (81-99); Mean Platelet Vol. 9.3 fl (6.2-12.0); Monocyte# 0.54 X10^3/uL; Monocyte% 7.6 % (0-10); Neutrophil # 5.12 X10^3/uL (2.7-7.7); Neutrophil % 71.5 % (47-70); Platelet Count 319 K/mm3 (150-450); RBC Distribution Width CV 13.4 % (11.6-14.6); RBC Distribution Width SD 44.6 fl (35.1-43.9); Red Blood Count 4.22 M/mm3 (4.2-5.4); White Blood Count 7.2 K/mm3 (4.4-11.0)
[2018-09-24 15:58] LABS: Vitamin D,25 Hydroxy 37.5 ng/mL (29.95-100.01)
[2018-09-24 16:06] LABS: ALB/GLOB Ratio 1.1 RATIO (0.9-2.4); AST(SGOT) 25 U/L (15-37); Alanine Aminotransfer ALT/SGPT 28 U/L (13-56); Albumin, Serum 3.5 g/dL (3.2-5.0); Alkaline Phosphatase 99 U/L (45-117); Anion Gap 10 (5-15); BUN 14 mg/dL (7-18); BUN/Creat Ratio 15.1 RATIO (10-20); Calcium,Total 8.4 mg/dL (8.5-10.1); Chloride 96 mmol/L (98-107); Creatinine, Serum 0.93 mg/dL (0.55-1.02); EST Glomerular Filtration Rate 62 mL/min (>60); Est Glom Filt Rate - Afr Amer 75 mL/min (>60); Globulin 3.3 g/dL (2.2-4.2); Glucose 103 mg/dL (74-106); Potassium 3.6 mmol/L (3.5-5.1); Protein, Total 6.8 g/dL (6.4-8.2); Sodium Level 133 mmol/L (136-145); Thyroid Stim Hormone (TSH) 1.38 uIU/mL (0.358-3.74)
[2018-09-24 16:28] LABS: POSITIVE COUNT NO; POSITIVE DIFFERENTIAL NO; POSITIVE MORPHOLOGY NO
== END ==
PROVIDERS: Family Provider Family Medicine Geriatric Medicine; PCP Family Medicine Geriatric Medicine; Visit Provider Family Medicine Geriatric Medicine
DX: I10 Essential (primary) hypertension (principal); E55.9 Vitamin D deficiency, unspecified
CPT/HCPCS: 36415; 80053; 82306; 84443; 85025

== ENCOUNTER → 2018-12-05 12:06 | Outpatient (CLI) | payer MEDICARE, OTHER, SELFPAY ==
--- NOTE | 2018-12-05 12:26 | RAD_ITS ---
STUDY: X-RAY - ABDOMEN/PELVIS REASON FOR EXAM: Female, 78 years old. Abdominal pain. TECHNIQUE: 3 views of the abdomen and pelvis. COMPARISON: June 26, 2018. FINDINGS: Small left pleural effusion. Cardiomegaly. Nonobstructive bowel gas pattern. Osseous structures are demineralized. Degenerative changes at the spine and hips and pelvis. Osteopenia/osteoporosis. No acute soft tissue abnormalities. RAD/Abd Inc Decub and/or Erect IMPRESSION: Nonobstructive bowel gas pattern Small left pleural effusion Cardiomegaly Electronically Signed: Siddhartha Lizama DO at 13:26 EDT Tel , Service support ,
[2018-12-05 13:19] LABS: Absolute Lymphocyte Count 1.47 X10^3/ul (0.83-4.51); Absolute Neutrophil Count 5.8 X10^3/uL (2.0-7.7); Basophil# 0.03 X10^3/uL; Basophil% 0.4 % (0-1); Eosinophil# 0.05 X10^3/uL; Eosinophils% 0.6 % (0-5); Hematocrit 40.3 % (37-47); Hemoglobin 13.8 g/dl (12.0-15.0); Lymphocyte # 1.47 X10^3/ul (4.0); Lymphocyte % 17.8 % (19-41); Mean Corp Hgb Conc 34.2 g/gl (32-36); Mean Corpuscular Hgb 30.2 pg (27.0-32.0); Mean Corpuscular Volume 88.2 fL (81-99); Monocyte# 0.85 X10^3/uL; Monocyte% 10.3 % (0-10); Neutrophil # 5.82 X10^3/uL (2.7-7.7); Neutrophil % 70.7 % (47-70); Platelet Count 305 K/mm3 (150-450); RBC Distribution Width CV 13.1 % (11.6-14.6); RBC Distribution Width SD 41.7 fl (35.1-43.9); Red Blood Count 4.57 M/mm3 (4.2-5.4); White Blood Count 8.2 K/mm3 (4.4-11.0)
[2018-12-05 13:26] LABS: POSITIVE COUNT NO; POSITIVE DIFFERENTIAL NO; POSITIVE MORPHOLOGY NO
[2018-12-05 13:45] LABS: Anion Gap 7 (5-15); BUN 14 mg/dL (7-18); BUN/Creat Ratio 14.7 RATIO (10-20); Calcium,Total 8.9 mg/dL (8.5-10.1); Chloride 101 mmol/L (98-107); Creatinine, Serum 0.95 mg/dL (0.55-1.02); EST Glomerular Filtration Rate 60 mL/min (>60); Est Glom Filt Rate - Afr Amer 73 mL/min (>60); Glucose 82 mg/dL (74-106); Potassium 3.9 mmol/L (3.5-5.1); Sodium Level 137 mmol/L (136-145)
== END ==
LOC: POLAB3 12:07 → RAD 12:21
PROVIDERS: Family Provider Family Medicine Geriatric Medicine; PCP Family Medicine Geriatric Medicine; Referring Provider Family Medicine Geriatric Medicine; Visit Provider Family Medicine Geriatric Medicine
DX: R10.9 Unspecified abdominal pain (principal)
CPT/HCPCS: 36415; 74019; 80048; 85025

== ENCOUNTER → 2018-12-24 | Outpatient (CLI) | payer MEDICARE, OTHER, SELFPAY ==
--- NOTE | 2018-12-24 16:41 | RAD_ITS ---
STUDY: X-RAY - ABDOMEN/PELVIS REASON FOR EXAM: Female, 78 years old. Abdominal pain and distention, possible fecal impaction TECHNIQUE: 3 AP views COMPARISON: None. FINDINGS: Normal visualized lung bases. There is a moderate amount of colonic fecal material. There is no demonstrated free abdominal air. The visualized liver, spleen and kidneys are grossly normal in size and morphology. Normal soft tissue structures. There are diffuse degenerative changes of the visualized lumbar spine. RAD/Abd Inc Decub and/or Erect IMPRESSION: No acute findings, retained stool Electronically Signed: Mack Casey MD at 17:02 EDT , Service support ,
[2018-12-24 17:29] LABS: Absolute Lymphocyte Count 1.97 X10^3/ul (0.83-4.51); Absolute Neutrophil Count 4.3 X10^3/uL (2.0-7.7); Basophil# 0.03 X10^3/uL; Basophil% 0.4 % (0-1); Eosinophil# 0.04 X10^3/uL; Eosinophils% 0.6 % (0-5); Hematocrit 37.6 % (37-47); Lymphocyte # 1.97 X10^3/ul (4.0); Lymphocyte % 27.9 % (19-41); Mean Corp Hgb Conc 34.6 g/gl (32-36); Mean Corpuscular Volume 86.8 fL (81-99); Monocyte# 0.69 X10^3/uL; Monocyte% 9.8 % (0-10); Platelet Count 308 K/mm3 (150-450); RBC Distribution Width CV 12.9 % (11.6-14.6); RBC Distribution Width SD 39.8 fl (35.1-43.9); Red Blood Count 4.33 M/mm3 (4.2-5.4); White Blood Count 7.1 K/mm3 (4.4-11.0)
[2018-12-24 17:47] LABS: ALB/GLOB Ratio 1.1 RATIO (0.9-2.4); AST(SGOT) 23 U/L (15-37); Alanine Aminotransfer ALT/SGPT 22 U/L (13-56); Albumin, Serum 3.5 g/dL (3.2-5.0); Alkaline Phosphatase 99 U/L (45-117); Anion Gap 6 (5-15); BUN 15 mg/dL (7-18); Calcium,Total 8.6 mg/dL (8.5-10.1); Chloride 99 mmol/L (98-107); EST Glomerular Filtration Rate 57 mL/min (>60); Est Glom Filt Rate - Afr Amer 69 mL/min (>60); Globulin 3.2 g/dL (2.2-4.2); Glucose 72 mg/dL (74-106); Potassium 3.8 mmol/L (3.5-5.1); Protein, Total 6.7 g/dL (6.4-8.2); Sodium Level 131 mmol/L (136-145); Thyroid Stim Hormone (TSH) 1.27 uIU/mL (0.358-3.74)
[2018-12-24 17:50] LABS: POSITIVE COUNT NO; POSITIVE DIFFERENTIAL NO; POSITIVE MORPHOLOGY NO
== END | disposition home or self-care (01) ==
LOC: POLAB3 16:23 → RAD 16:40
PROVIDERS: Family Provider Family Medicine Geriatric Medicine; PCP Family Medicine Geriatric Medicine; Referring Provider Family Medicine Geriatric Medicine; Visit Provider Family Medicine Geriatric Medicine
DX: K56.41 Fecal impaction (principal); R53.83 Other fatigue
CPT/HCPCS: 36415; 74019; 80053; 84443; 85025

== ENCOUNTER → 2018-12-25 09:43 | Outpatient (CLI) | payer MEDICARE, OTHER, SELFPAY | PROVIDERS: Family Provider Family Medicine Geriatric Medicine; PCP Family Medicine Geriatric Medicine; Referring Provider Family Medicine Geriatric Medicine; Visit Provider Family Medicine Geriatric Medicine | DX: K92.2 Gastrointestinal hemorrhage, unspecified (principal) | CPT/HCPCS: 82274 ==

== ENCOUNTER → 2019-01-16 10:46 | Outpatient (CLI) | payer MEDICARE, OTHER, SELFPAY ==
[2019-01-16 13:08] LABS: Absolute Lymphocyte Count 1.21 X10^3/ul (0.83-4.51); Absolute Neutrophil Count 5.1 X10^3/uL (2.0-7.7); Basophil# 0.02 X10^3/uL; Basophil% 0.3 % (0-1); Eosinophil# 0.04 X10^3/uL; Eosinophils% 0.6 % (0-5); Hematocrit 38.5 % (37-47); Hemoglobin 13.1 g/dl (12.0-15.0); Lymphocyte # 1.21 X10^3/ul (4.0); Lymphocyte % 17.1 % (19-41); Mean Corpuscular Hgb 29.7 pg (27.0-32.0); Mean Corpuscular Volume 87.3 fL (81-99); Mean Platelet Vol. 9.1 fl (6.2-12.0); Monocyte# 0.71 X10^3/uL; Monocyte% 10.1 % (0-10); Neutrophil # 5.07 X10^3/uL (2.7-7.7); Neutrophil % 71.8 % (47-70); Platelet Count 309 K/mm3 (150-450); RBC Distribution Width CV 13.1 % (11.6-14.6); RBC Distribution Width SD 40.5 fl (35.1-43.9); Red Blood Count 4.41 M/mm3 (4.2-5.4); White Blood Count 7.1 K/mm3 (4.4-11.0)
[2019-01-16 13:12] LABS: POSITIVE COUNT NO; POSITIVE DIFFERENTIAL NO; POSITIVE MORPHOLOGY NO
[2019-01-16 13:36] LABS: ALB/GLOB Ratio 1.1 RATIO (0.9-2.4); AST(SGOT) 21 U/L (15-37); Alanine Aminotransfer ALT/SGPT 24 U/L (13-56); Albumin, Serum 3.6 g/dL (3.2-5.0); Alkaline Phosphatase 100 U/L (45-117); Anion Gap 8 (5-15); BUN 14 mg/dL (7-18); BUN/Creat Ratio 14.8 RATIO (10-20); Calcium,Total 8.7 mg/dL (8.5-10.1); Chloride 97 mmol/L (98-107); Creatinine, Serum 0.94 mg/dL (0.55-1.02); EST Glomerular Filtration Rate 61 mL/min (>60); Est Glom Filt Rate - Afr Amer 73 mL/min (>60); Globulin 3.2 g/dL (2.2-4.2); Glucose 92 mg/dL (74-106); Protein, Total 6.8 g/dL (6.4-8.2); Sodium Level 133 mmol/L (136-145)
== END ==
PROVIDERS: Family Provider Family Medicine Geriatric Medicine; PCP Family Medicine Geriatric Medicine; Visit Provider Family Medicine Geriatric Medicine
DX: I10 Essential (primary) hypertension (principal)
CPT/HCPCS: 36415; 80053; 84443; 85025

== ENCOUNTER 2019-02-23 15:33 | Emergency (ER) | payer MEDICARE, OTHER, SELFPAY ==
[2019-02-23 15:34] VITALS: BP 208/94; PULSE 64; RESP 16; TEMP 37.1; O2SAT 96; BMI 22.3
[2019-02-23 16:25] LABS: Absolute Lymphocyte Count 1.57 X10^3/uL (0.83-4.51); Absolute Neutrophil Count 4.5 X10^3/uL (2.0-7.7); Basophil# 0.03 X10^3/uL; Basophil% 0.4 % (0-1); Eosinophil# 0.06 X10^3/uL; Eosinophils% 0.9 % (0-5); Hematocrit 38.9 % (37-47); Hemoglobin 13.4 g/dL (12.0-15.0); Lymphocyte # 1.57 X10^3/ul (4.0); Lymphocyte % 23.1 % (19-41); Mean Corp Hgb Conc 34.4 g/dL (32-36); Mean Corpuscular Hgb 30.2 pg (27.0-32.0); Mean Corpuscular Volume 87.8 fL (81-99); Mean Platelet Vol. 8.6 fl (6.2-12.0); Monocyte# 0.62 X10^3/uL; Monocyte% 9.1 % (0-10); NRBC Flagged by Analyzer 0 % (0-5); Neutrophil # 4.49 X10^3/uL (2.7-7.7); Neutrophil % 66.1 % (47-70); Platelet Count 275 K/mm3 (150-450); RBC Distribution Width SD 41.4 fl (35.1-43.9); Red Blood Count 4.43 M/mm3 (4.2-5.4); White Blood Count 6.8 K/mm3 (4.4-11.0)
[2019-02-23 16:38] LABS: ALB/GLOB Ratio 1.1 RATIO (0.9-2.4); AST(SGOT) 21 U/L (15-37); Alanine Aminotransfer ALT/SGPT 20 U/L (13-56); Albumin, Serum 3.6 g/dL (3.2-5.0); Alkaline Phosphatase 96 U/L (45-117); Anion Gap 8 (5-15); BUN 10 mg/dL (7-18); BUN/Creat Ratio 11.3 RATIO (10-20); Calcium,Total 8.6 mg/dL (8.5-10.1); Chloride 102 mmol/L (98-107); Creatinine, Serum 0.88 mg/dL (0.55-1.02); EST Glomerular Filtration Rate 65 mL/min (>60); Est Glom Filt Rate - Afr Amer 79 mL/min (>60); Estimated Creatinine Clearance 45.88 ml/min; Globulin 3.3 g/dL (2.2-4.2); Glucose 90 mg/dL (74-106); Lipase 141 U/L (73-393); Potassium 3.5 mmol/L (3.5-5.1); Protein, Total 6.9 g/dL (6.4-8.2); Sodium Level 135 mmol/L (136-145)
[2019-02-23] MEDS: Haloperidol Lactate 5 MG/ML Vial 1 MG IM (16:44)
--- NOTE | 2019-02-23 16:45 | ED.VIS.GEN ---
History of Present Illness Chief Complaint: General Illness Informant: Patient, Family Onset: - - 1 year Narrative: Patient presents with nausea which is ongoing from morning to about mid afternoon this is been ongoing for about a year. She has seen multiple physicians and there was no cause identified. She apparently was bad enough by 3 PM today that they decided come to the emergency department. She is brought by her . She denies any abdominal pain. She denies headache fever chills. She denies chest pain or shortness of breath. Her main complaint is nausea. She denies any current headache or vision changes Past Medical History - Allergies and Home Meds Allergies/Adverse Reactions: Allergies ceftriaxone [From Rocephin] Allergy (Verified 02/23/19 15:39) Anaphylaxis cephalexin [From Keflex] Allergy (Verified 02/23/19 15:39) Angioedema doxycycline Allergy (Verified 02/23/19 15:39) Angioedema sulfamethoxazole [From Bactrim] Allergy (Verified 02/23/19 15:39) Hives trimethoprim [From Bactrim] Allergy (Verified 02/23/19 15:39) Hives Primary Care Physician: Yang Wahsington Chi, MD [Primary Care Provider] - Past Medical History: - - Reviewed, there are multiple medical histories including new onset dementia Surgical History: cholecystectomy, tonsillectomy Smoking Status: Never smoker - Family History Paternal Family History: Family History (Last Updated 02/14/18 @ 10:05 by Amanda Peoples) Father CAD (coronary artery disease) Hypertension Mother Hypertension Sister Hypertension CAD (coronary artery disease) Family History: Reports: No pertinent history Maternal Family History: Family History (Last Updated 02/14/18 @ 10:05 by Amanda Peoples) Father CAD (coronary artery disease) Hypertension Mother Hypertension Sister Hypertension CAD (coronary artery disease) Family History: Reports: No pertinent history Review of Systems All systems negative except as indicated General: Denies: Fever Eyes: Denies: Visual changes - left Cardiovascular: Denies: Chest pain, Palpitations Respiratory: Denies: Dyspnea, Cough Gastrointestinal: Reports: Nausea. Denies: Abdominal pain, Vomiting Skin: Denies: Rash Neurological: Denies: Headache, Weakness Psych: Reports: Anxiety. Denies: Depression Hematologic: Denies: Easy bruising Physical Exam Vital Signs/Narrative: Vital Signs Temp Pulse Resp BP Pulse Ox 02/23/19 15:34 98.8 F 64 16 208/94 H 96 General: Well nourished, Well developed Head: Normocephalic Eyes: Perrl, EOMI ENT: Moist mucous membranes Cardiovascular: Regular rate, Regular rhythm Respiratory: No distress, CTA bilaterally Abdomen: Soft, Nontender Back: Nontender, Normal Inspection Extremities: Nontender, No edema Skin: Normal color Neurological: Alert, Oriented x3 Psychological: Normal affect Diagnostic/Tx/Re-eval - Medical Decision Making Patient has a normal work-up. She is given IM Haldol. She improved. I will discharge her with antiemetics for home. This is chronic recurrent for the year no further diagnostic studies are needed ED Disposition - Plan for ED Patient: Disposition: Home or Assisted Living Diagnosis: Nausea Instructions: Zofran (Po) Prescriptions: Ondansetron [Zofran Odt] 4 mg PO Q8H PRN PRN #15 tab PRN Reason: Nausea Prescription Printed Referrals: Yang Washington Chi, MD [Primary Care Provider] - 3-5 Days
[2019-02-23 18:10] VITALS: BP 189/84; PULSE 65; RESP 22; O2SAT 97
== END 2019-02-23 18:10 | disposition home or self-care (01) ==
PROVIDERS: Emergency Provider Emergency Medicine; Family Provider Family Medicine Geriatric Medicine; PCP Family Medicine Geriatric Medicine
DX: R11.0 Nausea (principal); F03.90 Unspecified dementia, unspecified severity, without behavioral disturbance, psychotic disturbance, mood disturbance, and anxiety; Z90.49 Acquired absence of other specified parts of digestive tract; Z88.1 Allergy status to other antibiotic agents; Z88.2 Allergy status to sulfonamides
CPT/HCPCS: 80053; 83690; 85025; 99284; A4216

== ENCOUNTER → 2019-03-03 14:35 | Outpatient (CLI) | payer MEDICARE, OTHER, SELFPAY ==
[2019-02-23 15:34] VITALS: BMI 22.3
--- NOTE | 2019-03-03 15:15 | RAD_ITS ---
STUDY: X-RAY - ABDOMEN/PELVIS REASON FOR EXAM: Female, 78 years old. Intermittent constipation and diarrhea TECHNIQUE: 3 AP films COMPARISON: None. FINDINGS: Normal visualized lung bases. There is an unremarkable bowel gas pattern. There is no demonstrated free abdominal air. The visualized liver, spleen and kidneys are grossly normal in size and morphology. Normal soft tissue structures. There are diffuse degenerative changes of the visualized lumbar spine. RAD/Abd Inc Decub and/or Erect IMPRESSION: No acute findings Electronically Signed: Mack Casey MD at 16:36 EDT , Service support ,
== END ==
PROVIDERS: Family Provider Family Medicine Geriatric Medicine; PCP Family Medicine Geriatric Medicine; Referring Provider Family Medicine Geriatric Medicine; Visit Provider Family Medicine Geriatric Medicine
DX: K56.41 Fecal impaction (principal)
CPT/HCPCS: 74019

== ENCOUNTER → 2019-03-19 16:45 | Outpatient (CLI) | payer MEDICARE, OTHER, SELFPAY ==
[2019-02-23 15:34] VITALS: BMI 22.3
--- NOTE | 2019-03-19 16:48 | RAD_ITS ---
STUDY: X-RAY - ABDOMEN/PELVIS REASON FOR EXAM: Female, 78 years old. Abdominal pain TECHNIQUE: Flat and upright COMPARISON: March 03, 2019. FINDINGS: There are prominent markings in left lower lobe which may represent subsegmental atelectasis or infiltrate. There is an unremarkable bowel gas pattern. There is no demonstrated free abdominal air. The visualized liver, spleen and kidneys are grossly normal in size and morphology. Normal soft tissue structures. Lumbar spine demonstrates mild scoliosis and degenerative change RAD/Abd Inc Decub and/or Erect IMPRESSION: Asymmetric prominence of the lung markings in left lower lobe possibly representing subsegmental atelectasis or infiltrate. Clinical correlation recommended No acute abnormalities within the abdomen or pelvis Electronically Signed: Ector Blake MD at 18:00 EDT , Service support ,
[2019-03-19 17:24] LABS: Absolute Lymphocyte Count 1.65 X10^3/uL (0.83-4.51); Absolute Neutrophil Count 4.6 X10^3/uL (2.0-7.7); Basophil# 0.04 X10^3/uL; Basophil% 0.6 % (0-1); Eosinophils% 1.4 % (0-5); Hematocrit 39.1 % (37-47); Hemoglobin 13.3 g/dL (12.0-15.0); Lymphocyte # 1.65 X10^3/ul (4.0); Lymphocyte % 23.7 % (19-41); Mean Corpuscular Hgb 30.8 pg (27.0-32.0); Mean Corpuscular Volume 90.5 fL (81-99); Mean Platelet Vol. 8.7 fl (6.2-12.0); Monocyte# 0.58 X10^3/uL; Monocyte% 8.3 % (0-10); NRBC Flagged by Analyzer 0 % (0-5); Neutrophil # 4.56 X10^3/uL (2.7-7.7); Neutrophil % 65.4 % (47-70); Platelet Count 274 K/mm3 (150-450); RBC Distribution Width SD 42.8 fl (35.1-43.9); Red Blood Count 4.32 M/mm3 (4.2-5.4)
[2019-03-19 18:12] LABS: ALB/GLOB Ratio 1.2 RATIO (0.9-2.4); AST(SGOT) 22 U/L (15-37); Alanine Aminotransfer ALT/SGPT 19 U/L (13-56); Albumin, Serum 3.7 g/dL (3.2-5.0); Alkaline Phosphatase 97 U/L (45-117); Anion Gap 7 (5-15); BUN 11 mg/dL (7-18); Calcium,Total 8.9 mg/dL (8.5-10.1); Chloride 100 mmol/L (98-107); Creatinine, Serum 0.92 mg/dL (0.55-1.02); EST Glomerular Filtration Rate 63 mL/min (>60); Est Glom Filt Rate - Afr Amer 76 mL/min (>60); Globulin 3.2 g/dL (2.2-4.2); Glucose 98 mg/dL (74-106); Potassium 3.9 mmol/L (3.5-5.1); Protein, Total 6.9 g/dL (6.4-8.2); Sodium Level 135 mmol/L (136-145)
== END ==
PROVIDERS: Family Provider Family Medicine Geriatric Medicine; PCP Family Medicine Geriatric Medicine; Referring Provider Family Medicine Geriatric Medicine; Visit Provider Family Medicine Geriatric Medicine
DX: R10.9 Unspecified abdominal pain (principal); I10 Essential (primary) hypertension
CPT/HCPCS: 36415; 74019; 80053; 85025

== ENCOUNTER → 2019-04-16 11:09 | Outpatient (CLI) | payer MEDICARE, OTHER, SELFPAY ==
[2019-04-03 14:11] VITALS: BMI 21.6
[2019-04-16 12:48] LABS: Absolute Lymphocyte Count 1.32 X10^3/uL (0.83-4.51); Absolute Neutrophil Count 5.8 X10^3/uL (2.0-7.7); Basophil# 0.05 X10^3/uL; Basophil% 0.6 % (0-1); Eosinophil# 0.04 X10^3/uL; Eosinophils% 0.5 % (0-5); Hematocrit 39.6 % (37-47); Hemoglobin 13.3 g/dL (12.0-15.0); Lymphocyte # 1.32 X10^3/ul (4.0); Lymphocyte % 16.8 % (19-41); Mean Corp Hgb Conc 33.6 g/dL (32-36); Mean Corpuscular Hgb 30.2 pg (27.0-32.0); Mean Corpuscular Volume 89.8 fL (81-99); Mean Platelet Vol. 9.1 fl (6.2-12.0); Monocyte# 0.59 X10^3/uL; Monocyte% 7.5 % (0-10); NRBC Flagged by Analyzer 0 % (0-5); Neutrophil # 5.82 X10^3/uL (2.7-7.7); Neutrophil % 74.1 % (47-70); Platelet Count 309 K/mm3 (150-450); RBC Distribution Width CV 13.1 % (11.6-14.6); RBC Distribution Width SD 43.5 fl (35.1-43.9); Red Blood Count 4.41 M/mm3 (4.2-5.4); White Blood Count 7.9 K/mm3 (4.4-11.0)
[2019-04-16 13:05] LABS: Vitamin D,25 Hydroxy 39.8 ng/mL (29.95-100.01)
[2019-04-16 13:29] LABS: ALB/GLOB Ratio 1.1 RATIO (0.9-2.4); AST(SGOT) 21 U/L (15-37); Alanine Aminotransfer ALT/SGPT 22 U/L (13-56); Albumin, Serum 3.8 g/dL (3.2-5.0); Alkaline Phosphatase 99 U/L (45-117); Anion Gap 7 (5-15); BUN 10 mg/dL (7-18); Calcium,Total 9.2 mg/dL (8.5-10.1); Chloride 97 mmol/L (98-107); Creatinine, Serum 0.84 mg/dL (0.55-1.02); EST Glomerular Filtration Rate 70 mL/min (>60); Est Glom Filt Rate - Afr Amer 84 mL/min (>60); Globulin 3.5 g/dL (2.2-4.2); Glucose 98 mg/dL (74-106); Potassium 3.8 mmol/L (3.5-5.1); Protein, Total 7.3 g/dL (6.4-8.2); Sodium Level 132 mmol/L (136-145); Thyroid Stim Hormone (TSH) 1.56 uIU/mL (0.358-3.74)
== END ==
PROVIDERS: Family Provider Family Medicine Geriatric Medicine; PCP Family Medicine Geriatric Medicine; Visit Provider Family Medicine Geriatric Medicine
DX: D55.9 Anemia due to enzyme disorder, unspecified (principal); I10 Essential (primary) hypertension
CPT/HCPCS: 36415; 80053; 82306; 84443; 85025

== ENCOUNTER → 2019-05-12 16:05 | Outpatient (CLI) | payer MEDICARE, OTHER, SELFPAY ==
[2019-04-03 14:11] VITALS: BMI 21.6
--- NOTE | 2019-05-12 16:10 | RAD_ITS ---
STUDY: X-RAY - ABDOMEN/PELVIS REASON FOR EXAM: Female, 78 years old. Abdominal pain TECHNIQUE: Single AP view of the abdomen / pelvis. COMPARISON: None. FINDINGS: Normal visualized lung bases. There is an unremarkable bowel gas pattern. There is no demonstrated free abdominal air. The visualized liver, spleen and kidneys are grossly normal in size and morphology. Normal soft tissue structures. Normal visualized osseous structures. RAD/Abd Inc Decub and/or Erect IMPRESSION: Normal x-ray examination of the abdomen and pelvis. Electronically Signed: Jim Patterson MD at 23:08 EST , Service support ,
== END ==
PROVIDERS: Family Provider Family Medicine Geriatric Medicine; PCP Family Medicine Geriatric Medicine; Referring Provider Family Medicine Geriatric Medicine; Visit Provider Family Medicine Geriatric Medicine
DX: K56.41 Fecal impaction (principal)
CPT/HCPCS: 74019

== ENCOUNTER 2019-07-04 17:47 | Emergency (ER) | payer MEDICARE, OTHER, SELFPAY ==
[2019-04-03 14:11] VITALS: BMI 21.6
[2019-07-04 17:48] VITALS: BP 149/95; PULSE 88; RESP 18; TEMP 36.3; O2SAT 93; BMI 20.7
--- NOTE | 2019-07-04 19:28 | RAD_ITS ---
STUDY: X-RAY - ACUTE ABDOMINAL SERIES REASON FOR EXAM: Female, 78 years old. CONSTIPATION TECHNIQUE: Single view of the chest. Supine, 4 view(s) of the abdomen were obtained. COMPARISON: May 12, 2019 FINDINGS: There are stable left basilar streaky opacities. Normal size heart. Normal mediastinum and janice. Normal visualized pulmonary arteries. Normal visualized aortic arch and descending thoracic aorta. There are air fluid levels associated with prominent and mildly distended loops of small bowel. There is gas within the expected region of the rectum. There are diffuse degenerative changes of the visualized lumbar spine. RAD/Acute Abdomen Inc Chest IMPRESSION: Findings suggestive of an underlying small bowel ileus or evolving partial small bowel obstruction. Electronically Signed: Brit Vidal MD at 22:02 EST Tel , Service support ,
[2019-07-04 22:11] VITALS: BP 184/85; PULSE 64; RESP 16
--- NOTE | 2019-07-04 22:24 | ED.VISSUMM ---
- ER Visit Summary Date of Service: 07/04/19 Chief Complaint: Constipation History of Present Illness: The patient is a 78 F who presents with constipation that has been constant for several days. Patient has a history of dementia and does not remember exactly when her last bowel movement was. Patient thinks it may have been yesterday. Patient states she feels bound up in her lower abdomen. Patient denies any fevers or chills. Patient denies any nausea or vomiting. Patient denies any dysuria or hematuria. Patient has laxatives at home which have not been helping. Physical Examination: Vital signs are stable. Patient is afebrile. Patient is in no acute distress. Oral mucosa is pink and moist. Neck is supple. Trachea is midline. There is no JVD. Heart was regular rate and rhythm. Lungs are clear and equal bilaterally. Abdomen is soft. Bowel sounds are normal. There is no tenderness. There is no guarding noted. Cranial nerves II through XII are intact. There are no focal motor or sensory deficits noted. Test Results: Acute abdominal x-rays were obtained. There is suggestion of an underlying ileus. This was interpreted by the radiologist and myself. Emergency Department Course and Treatment: Patient was given a soapsuds enema here. Patient was unable to hold much of the fluid however, she was able to have a bowel movement after this. Patient felt better after this. Patient was given a prescription for MiraLAX. Patient was instructed to follow-up with her primary care physician in 3 to 5 days. 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 Patient and her understood and were agreeable with the plan. All questions were answered. Disposition: Discharge home Impression: Constipation This note was generated with [employer] dictation software. It may contain incorrect words, spelling, and punctuation that were not noted in review of the chart prior to signing ED Disposition - Plan for ED Patient: Disposition: Home or Assisted Living Diagnosis: Constipation Instructions: CONSTIPATION (Adult) Prescriptions: Polyethylene Glycol 3350 [Miralax] 17 gm PO DAILY #10 packet Prescription Printed Referrals: Yang Washington Chi, MD [Primary Care Provider] - 3-5 Days
[2019-07-04 22:34] VITALS: RESP 16
== END 2019-07-04 22:35 | disposition home or self-care (01) ==
PROVIDERS: Emergency Provider Emergency Medicine; Family Provider Family Medicine Geriatric Medicine; PCP Family Medicine Geriatric Medicine
DX: K59.00 Constipation, unspecified (principal); F03.90 Unspecified dementia, unspecified severity, without behavioral disturbance, psychotic disturbance, mood disturbance, and anxiety; K21.9 Gastro-esophageal reflux disease without esophagitis; E78.00 Pure hypercholesterolemia, unspecified; Z79.899 Other long term (current) drug therapy
CPT/HCPCS: 74022; 99284

== ENCOUNTER → 2019-07-17 11:42 | Outpatient (CLI) | payer MEDICARE, OTHER, SELFPAY ==
[2019-07-04 17:48] VITALS: BMI 20.7
[2019-07-17 12:44] LABS: Absolute Lymphocyte Count 1.03 X10^3/uL (0.83-4.51); Absolute Neutrophil Count 4.5 X10^3/uL (2.0-7.7); Basophil# 0.03 X10^3/uL; Basophil% 0.5 % (0-1); Eosinophil# 0.02 X10^3/uL; Eosinophils% 0.3 % (0-5); Hematocrit 38.2 % (37-47); Hemoglobin 12.7 g/dL (12.0-15.0); Lymphocyte # 1.03 X10^3/ul (4.0); Lymphocyte % 16.9 % (19-41); Mean Corp Hgb Conc 33.2 g/dL (32-36); Mean Corpuscular Hgb 30.2 pg (27.0-32.0); Mean Platelet Vol. 8.9 fl (6.2-12.0); Monocyte# 0.51 X10^3/uL; Monocyte% 8.3 % (0-10); NRBC Flagged by Analyzer 0 % (0-5); Neutrophil % 73.7 % (47-70); Platelet Count 320 K/mm3 (150-450); RBC Distribution Width CV 13.3 % (11.6-14.6); RBC Distribution Width SD 44.1 fl (35.1-43.9); White Blood Count 6.1 K/mm3 (4.4-11.0)
[2019-07-17 12:52] LABS: Vitamin D,25 Hydroxy 34.2 ng/mL (29.95-100.01)
[2019-07-17 13:05] LABS: AST(SGOT) 21 U/L (15-37); Alanine Aminotransfer ALT/SGPT 22 U/L (13-56); Albumin, Serum 3.4 g/dL (3.2-5.0); Alkaline Phosphatase 96 U/L (45-117); Anion Gap 6 (5-15); BUN 9 mg/dL (7-18); BUN/Creat Ratio 9.2 RATIO (10-20); Calcium,Total 8.9 mg/dL (8.5-10.1); Chloride 101 mmol/L (98-107); Creatinine, Serum 0.98 mg/dL (0.55-1.02); EST Glomerular Filtration Rate 58 mL/min (>60); Est Glom Filt Rate - Afr Amer 70 mL/min (>60); Globulin 3.5 g/dL (2.2-4.2); Glucose 97 mg/dL (74-106); Potassium 3.6 mmol/L (3.5-5.1); Protein, Total 6.9 g/dL (6.4-8.2); Sodium Level 134 mmol/L (136-145); Thyroid Stim Hormone (TSH) 1.32 uIU/mL (0.358-3.74)
== END ==
PROVIDERS: Family Provider Family Medicine Geriatric Medicine; PCP Family Medicine Geriatric Medicine; Visit Provider Family Medicine Geriatric Medicine
DX: I10 Essential (primary) hypertension (principal); E55.9 Vitamin D deficiency, unspecified
CPT/HCPCS: 36415; 80053; 82306; 84443; 85025

== ENCOUNTER 2019-12-09 17:49 | Emergency (ER) | payer MEDICARE, OTHER, SELFPAY ==
[2019-12-09 17:50] VITALS: BP 180/92; PULSE 67; RESP 15; TEMP 36; O2SAT 93; BMI 22.1
--- NOTE | 2019-12-09 18:50 | RAD_ITS ---
STUDY: X-RAY - ABDOMEN/PELVIS REASON FOR EXAM: Female, 79 years old. ABDOMINAL PAIN, CONSTIPATION TECHNIQUE: KUB COMPARISON: None. FINDINGS: Normal visualized lung bases. There is diffuse ileus with fecal retention in the left colon.. There is no demonstrated free abdominal air. The visualized liver, spleen and kidneys are grossly normal in size and morphology. Calcified densities are seen in the left upper quadrant possibly representing renal stones. Lumbar spine demonstrates scoliosis and degenerative change. RAD/Abdomen Single View IMPRESSION: Diffuse ileus pattern with fecal retention in the left colon. No evidence for small bowel obstruction. Cannot exclude left renal calculi. Electronically Signed: Ector Blake MD at 19:07 EDT , Service support ,
--- NOTE | 2019-12-09 18:57 | ED.VISSUMM ---
- ER Visit Summary Date of Service: 12/09/19 Chief Complaint: Abdominal pain History of Present Illness: The patient is a 79 F presenting with abdominal pain. She believes it started approximately 2 days ago. She complains of diffuse abdominal pain. She denies nausea or vomiting. She believes her last bowel movement was 2 days ago. Her states she has a history of dementia and is not sure when her last bowel movement was. She has had similar symptoms in the past that were relieved with enemas. She takes MiraLAX at home. She denies fever. Denies chest pain or shortness of breath. Denies urinary complaints. Denies other complaints. Physical Examination: Vitals are stable. Patient is afebrile. Alert no acute distress. HEENT exam is unremarkable. Neck is supple. Lungs are clear and equal bilaterally. Heart is regular rate and rhythm. Abdomen is soft mild diffuse tenderness with no rebound or guarding Extremities are unremarkable. Skin is warm and dry. No focal neurologic deficit. Remainder of exam is unremarkable. Emergency Department Course and Treatment: Abdominal x-ray shows diffuse ileus pattern with fecal retention in the left colon. No evidence for small bowel obstruction. Cannot exclude left renal calculi. Patient was given a soapsuds enema and had a large bowel movement. She feels improved. Urinalysis is unremarkable with no blood. Patient is resting comfortably on reevaluation. She is advised to follow up with her primary care physician. Advised return to the ED for worsening complaints. Disposition: Discharge home Impression: Constipation This note was generated with [employer] dictation software. It may contain incorrect words, spelling, and punctuation that were not noted in review of the chart prior to signing ED Disposition - Plan for ED Patient: Disposition: Home or Assisted Living Instructions: ED Constipation Referrals: Yang Washington Chi, MD [Primary Care Provider] -
[2019-12-09 20:28] LABS: Bacteria 0 SEEN /hpf (None Seen); Mucous, Urine 0 SEEN /hpf (<or=2+); Red Blood Cells-Urine 0 SEEN /hpf (0-5); Squamous Epithelial Cells - UA 0 SEEN /hpf (5-10); White Blood Cells 0 SEEN /hpf (0-5)
[2019-12-09 20:39] LABS: Color, Urine Yellow (Yellow); Glucose, Dipstick Normal (Normal); Ketone-Dipstick Negative (Negative); Leukocyte Esterase-Dipstick Negative /ul (Negative); Nitrite-Dipstick Negative (Negative); Occult Blood-Urine Negative /ul (Negative); Protein-Dipstick Negative (Negative); Specific Gravity, Urine 1.015 (1.002-1.030); Urine Bilirubin Dipstick Negative (Negative); Urine Clarity Clear (Clear); Urine Urobilinogen Normal (Normal)
--- NOTE | 2019-12-09 20:49 | ED.DEP ---
ED Disposition - Plan for ED Patient: Instructions: ED Constipation Referrals: Yang Washington Chi, MD [Primary Care Provider] -
[2019-12-09 21:16] VITALS: BP 156/74; PULSE 69; RESP 14; O2SAT 97
== END 2019-12-09 21:17 | disposition home or self-care (01) ==
LOC: ED 19:39
PROVIDERS: Emergency Provider Emergency Medicine; PCP Family Medicine Geriatric Medicine
DX: K59.00 Constipation, unspecified (principal); F03.90 Unspecified dementia, unspecified severity, without behavioral disturbance, psychotic disturbance, mood disturbance, and anxiety; Z90.49 Acquired absence of other specified parts of digestive tract; K56.7 Ileus, unspecified
CPT/HCPCS: 74018; 81001; 99284

== ENCOUNTER → 2019-12-14 15:40 | Outpatient (CLI) | payer MEDICARE, OTHER, SELFPAY ==
[2019-12-09 17:50] VITALS: BMI 22.1
[2019-12-14 17:12] LABS: Absolute Lymphocyte Count 1.56 X10^3/uL (0.83-4.51); Absolute Neutrophil Count 5.2 X10^3/uL (2.0-7.7); Basophil# 0.02 X10^3/uL; Basophil% 0.3 % (0-1); Eosinophil# 0.05 X10^3/uL; Eosinophils% 0.7 % (0-5); Hematocrit 36.6 % (37-47); Hemoglobin 12.2 g/dL (12.0-15.0); Lymphocyte # 1.56 X10^3/ul (4.0); Lymphocyte % 20.7 % (19-41); Mean Corp Hgb Conc 33.3 g/dL (32-36); Mean Corpuscular Hgb 30.3 pg (27.0-32.0); Mean Platelet Vol. 9.1 fl (6.2-12.0); Monocyte# 0.65 X10^3/uL; Monocyte% 8.6 % (0-10); NRBC Flagged by Analyzer 0 % (0-5); Neutrophil # 5.21 X10^3/uL (2.7-7.7); Neutrophil % 69.3 % (47-70); Platelet Count 279 K/mm3 (150-450); RBC Distribution Width CV 13.1 % (11.6-14.6); RBC Distribution Width SD 43.5 fl (35.1-43.9); Red Blood Count 4.02 M/mm3 (4.2-5.4); White Blood Count 7.5 K/mm3 (4.4-11.0)
[2019-12-14 17:24] LABS: Anion Gap 10 (5-15); BUN 11 mg/dL (7-18); BUN/Creat Ratio 12.5 RATIO (10-20); Calcium,Total 7.9 mg/dL (8.5-10.1); Chloride 105 mmol/L (98-107); Creatinine, Serum 0.88 mg/dL (0.55-1.02); EST Glomerular Filtration Rate 66 mL/min (>60); Est Glom Filt Rate - Afr Amer 80 mL/min (>60); Glucose 82 mg/dL (74-106); Potassium 3.2 mmol/L (3.5-5.1); Sodium Level 137 mmol/L (136-145)
== END ==
PROVIDERS: PCP Family Medicine Geriatric Medicine; Visit Provider Family Medicine Geriatric Medicine
DX: R53.83 Other fatigue (principal); N39.0 Urinary tract infection, site not specified
CPT/HCPCS: 36415; 80048; 85025; 87086; 87088; 87186

== ENCOUNTER → 2019-12-22 09:57 | Outpatient (CLI) | payer MEDICARE, OTHER, SELFPAY ==
[2019-12-09 17:50] VITALS: BMI 22.1
[2019-12-22 12:46] LABS: Anion Gap 6 (5-15); BUN 13 mg/dL (7-18); BUN/Creat Ratio 11.8 RATIO (10-20); Calcium,Total 8.9 mg/dL (8.5-10.1); Chloride 100 mmol/L (98-107); EST Glomerular Filtration Rate 51 mL/min (>60); Est Glom Filt Rate - Afr Amer 61 mL/min (>60); Glucose 97 mg/dL (74-106); Potassium 3.7 mmol/L (3.5-5.1); Sodium Level 134 mmol/L (136-145)
== END ==
PROVIDERS: PCP Family Medicine Geriatric Medicine; Visit Provider Family Medicine Geriatric Medicine
DX: E87.6 Hypokalemia (principal)
CPT/HCPCS: 36415; 80048

== ENCOUNTER → 2020-01-20 11:31 | Outpatient (CLI) | payer MEDICARE, OTHER, SELFPAY ==
[2020-01-20 12:06] LABS: Absolute Neutrophil Count 5.5 X10^3/uL (2.0-7.7); Basophil# 0.03 X10^3/uL; Basophil% 0.4 % (0-1); Eosinophil# 0.02 X10^3/uL; Eosinophils% 0.3 % (0-5); Hemoglobin 13.2 g/dL (12.0-15.0); Lymphocyte % 17.3 % (19-41); Mean Corp Hgb Conc 33.8 g/dL (32-36); Mean Corpuscular Hgb 30.8 pg (27.0-32.0); Mean Corpuscular Volume 90.9 fL (81-99); Monocyte# 0.64 X10^3/uL; Monocyte% 8.5 % (0-10); NRBC Flagged by Analyzer 0 % (0-5); Neutrophil # 5.49 X10^3/uL (2.7-7.7); Neutrophil % 73.1 % (47-70); Platelet Count 298 K/mm3 (150-450); RBC Distribution Width CV 13.1 % (11.6-14.6); Red Blood Count 4.29 M/mm3 (4.2-5.4); White Blood Count 7.5 K/mm3 (4.4-11.0)
[2020-01-20 12:33] LABS: AST(SGOT) 20 U/L (15-37); Alanine Aminotransfer ALT/SGPT 24 U/L (13-56); Albumin, Serum 3.6 g/dL (3.2-5.0); Alkaline Phosphatase 106 U/L (45-117); Anion Gap 7 (5-15); BUN 13 mg/dL (7-18); BUN/Creat Ratio 12.1 RATIO (10-20); Calcium,Total 8.6 mg/dL (8.5-10.1); Chloride 100 mmol/L (98-107); Creatinine, Serum 1.07 mg/dL (0.55-1.02); EST Glomerular Filtration Rate 52 mL/min (>60); Est Glom Filt Rate - Afr Amer 63 mL/min (>60); Globulin 3.7 g/dL (2.2-4.2); Glucose 84 mg/dL (74-106); Potassium 4.2 mmol/L (3.5-5.1); Protein, Total 7.3 g/dL (6.4-8.2); Sodium Level 133 mmol/L (136-145); Thyroid Stim Hormone (TSH) 1.75 uIU/mL (0.358-3.74)
== END ==
PROVIDERS: PCP Family Medicine Geriatric Medicine; Visit Provider Family Medicine Geriatric Medicine
DX: I10 Essential (primary) hypertension (principal); E55.9 Vitamin D deficiency, unspecified
CPT/HCPCS: 36415; 80053; 82306; 84443; 85025

== ENCOUNTER → 2020-04-06 | Outpatient (CLI) | payer MEDICARE, OTHER, SELFPAY ==
[2020-04-04 13:57] VITALS: BMI 20.6
[2020-04-06 18:03] LABS: AST(SGOT) 19 U/L (15-37); Alanine Aminotransfer ALT/SGPT 23 U/L (13-56); Albumin, Serum 3.6 g/dL (3.2-5.0); Alkaline Phosphatase 102 U/L (45-117); Bilirubin, Direct 0.12 mg/dL (0.00-0.30); Globulin 3.4 g/dL (2.2-4.2); Lipase 127 U/L (73-393)
== END | disposition home or self-care (01) ==
LOC: MTLAB 16:10
PROVIDERS: PCP Family Medicine Geriatric Medicine; Referring Provider Internal Medicine Gastroenterology; Visit Provider Internal Medicine Gastroenterology
DX: R11.2 Nausea with vomiting, unspecified (principal)
CPT/HCPCS: 36415; 80076; 83690

== ENCOUNTER → 2020-04-26 13:57 | Outpatient (CLI) | payer MEDICARE, OTHER, SELFPAY ==
[2020-04-04 13:57] VITALS: BMI 20.6
--- NOTE | 2020-04-26 14:11 | RAD_ITS ---
STUDY: X-RAY CHEST REASON FOR EXAM: Female, 79 years old. Shortness of breath TECHNIQUE: Frontal and lateral views of the chest COMPARISON: 07/04/19 FINDINGS: The lungs are clear. There are no pleural effusions. There is no pneumothorax. The heart is normal in size. The visualized osseous structures are within normal limits. RAD/Chest PA and Lateral IMPRESSION: No acute thoracic pathology. Electronically Signed: Ayad Tobias, at 17:46 EDT Tel , Service support ,
== END ==
PROVIDERS: PCP Family Medicine Geriatric Medicine; Referring Provider Family Medicine Geriatric Medicine; Visit Provider Family Medicine Geriatric Medicine
DX: R06.02 Shortness of breath (principal)
CPT/HCPCS: 71046

== ENCOUNTER → 2020-05-19 13:36 | Outpatient (CLI) | payer MEDICARE, OTHER, SELFPAY ==
[2020-04-04 13:57] VITALS: BMI 20.6
[2020-05-19 16:47] LABS: Absolute Lymphocyte Count 1.56 X10^3/uL (0.83-4.51); Absolute Neutrophil Count 5.3 X10^3/uL (2.0-7.7); Basophil# 0.04 X10^3/uL; Basophil% 0.5 % (0-1); Eosinophil# 0.03 X10^3/uL; Eosinophils% 0.4 % (0-5); Hematocrit 39.9 % (37-47); Hemoglobin 13.2 g/dL (12.0-15.0); Lymphocyte # 1.56 X10^3/ul (4.0); Lymphocyte % 20.6 % (19-41); Mean Corp Hgb Conc 33.1 g/dL (32-36); Mean Corpuscular Hgb 29.9 pg (27.0-32.0); Mean Corpuscular Volume 90.5 fL (81-99); Mean Platelet Vol. 9.1 fl (6.2-12.0); Monocyte# 0.58 X10^3/uL; Monocyte% 7.7 % (0-10); NRBC Flagged by Analyzer 0 % (0-5); Neutrophil # 5.32 X10^3/uL (2.7-7.7); Neutrophil % 70.3 % (47-70); Platelet Count 321 K/mm3 (150-450); RBC Distribution Width CV 13.1 % (11.6-14.6); RBC Distribution Width SD 43.3 fl (35.1-43.9); Red Blood Count 4.41 M/mm3 (4.2-5.4); White Blood Count 7.6 K/mm3 (4.4-11.0)
[2020-05-19 17:12] LABS: ALB/GLOB Ratio 1.1 RATIO (0.9-2.4); AST(SGOT) 22 U/L (15-37); Alanine Aminotransfer ALT/SGPT 24 U/L (13-56); Albumin, Serum 3.6 g/dL (3.2-5.0); Alkaline Phosphatase 108 U/L (45-117); Anion Gap 8 (5-15); BUN 10 mg/dL (7-18); BUN/Creat Ratio 8.9 RATIO (10-20); Calcium,Total 8.7 mg/dL (8.5-10.1); Chloride 102 mmol/L (98-107); Creatinine, Serum 1.12 mg/dL (0.55-1.02); EST Glomerular Filtration Rate 50 mL/min (>60); Est Glom Filt Rate - Afr Amer 60 mL/min (>60); Globulin 3.3 g/dL (2.2-4.2); Glucose 94 mg/dL (74-106); Potassium 3.7 mmol/L (3.5-5.1); Protein, Total 6.9 g/dL (6.4-8.2); Sodium Level 133 mmol/L (136-145); Thyroid Stim Hormone (TSH) 1.38 uIU/mL (0.358-3.74)
== END ==
PROVIDERS: PCP Family Medicine Geriatric Medicine; Visit Provider Family Medicine Geriatric Medicine
DX: F05 Delirium due to known physiological condition (principal); N39.0 Urinary tract infection, site not specified
CPT/HCPCS: 36415; 80053; 84443; 85025; 87086; 87088; 87186

== ENCOUNTER → 2020-07-25 14:32 | Outpatient (CLI) | payer MEDICARE, OTHER, SELFPAY ==
[2020-04-04 13:57] VITALS: BMI 20.6
[2020-07-25 17:31] LABS: Absolute Lymphocyte Count 1.46 X10^3/uL (0.83-4.51); Absolute Neutrophil Count 5.2 X10^3/uL (2.0-7.7); Basophil# 0.03 X10^3/uL; Basophil% 0.4 % (0-1); Eosinophil# 0.04 X10^3/uL; Eosinophils% 0.6 % (0-5); Hematocrit 38.2 % (37-47); Hemoglobin 12.6 g/dL (12.0-15.0); Lymphocyte # 1.46 X10^3/ul (4.0); Lymphocyte % 20.1 % (19-41); Mean Corpuscular Hgb 30.2 pg (27.0-32.0); Mean Corpuscular Volume 91.6 fL (81-99); Monocyte# 0.49 X10^3/uL; Monocyte% 6.7 % (0-10); NRBC Flagged by Analyzer 0 % (0-5); Neutrophil # 5.21 X10^3/uL (2.7-7.7); Neutrophil % 71.8 % (47-70); Platelet Count 318 K/mm3 (150-450); RBC Distribution Width CV 13.2 % (11.6-14.6); RBC Distribution Width SD 44.6 fl (35.1-43.9); Red Blood Count 4.17 M/mm3 (4.2-5.4); White Blood Count 7.3 K/mm3 (4.4-11.0)
[2020-07-25 17:36] LABS: Vitamin D,25 Hydroxy 34.3 ng/mL
[2020-07-25 17:46] LABS: AST(SGOT) 23 U/L (15-37); Alanine Aminotransfer ALT/SGPT 23 U/L (13-56); Albumin, Serum 3.4 g/dL (3.2-5.0); Alkaline Phosphatase 104 U/L (45-117); Anion Gap 8 (5-15); BUN 8 mg/dL (7-18); BUN/Creat Ratio 8.8 RATIO (10-20); Calcium,Total 8.5 mg/dL (8.5-10.1); Chloride 99 mmol/L (98-107); Creatinine, Serum 0.91 mg/dL (0.55-1.02); EST Glomerular Filtration Rate 63 mL/min (>60); Est Glom Filt Rate - Afr Amer 76 mL/min (>60); Globulin 3.3 g/dL (2.2-4.2); Glucose 93 mg/dL (74-106); Potassium 3.5 mmol/L (3.5-5.1); Protein, Total 6.7 g/dL (6.4-8.2); Sodium Level 134 mmol/L (136-145); Thyroid Stim Hormone (TSH) 1.09 uIU/mL (0.358-3.74)
== END ==
PROVIDERS: PCP Family Medicine Geriatric Medicine; Visit Provider Family Medicine Geriatric Medicine
DX: I10 Essential (primary) hypertension (principal); E55.9 Vitamin D deficiency, unspecified
CPT/HCPCS: 36415; 80053; 82306; 84443; 85025

== ENCOUNTER → 2020-08-01 15:38 | Outpatient (CLI) | payer MEDICARE, OTHER, SELFPAY ==
[2020-04-04 13:57] VITALS: BMI 20.6
== END ==
PROVIDERS: PCP Family Medicine Geriatric Medicine; Visit Provider Family Medicine Geriatric Medicine
DX: N39.0 Urinary tract infection, site not specified (principal)
CPT/HCPCS: 87077; 87086; 87088; 87186

== ENCOUNTER 2020-08-18 12:48 | Emergency (ER) | payer MEDICARE, OTHER, SELFPAY ==
[2020-04-04 13:57] VITALS: BMI 20.6
[2020-08-18 12:49] VITALS: BP 159/80; PULSE 75; RESP 24; TEMP 36.3; O2SAT 98; BMI 28.3
--- NOTE | 2020-08-18 13:52 | ED.DCSUM_ITS ---
History of Present Illness Chief Complaint: General Illness Informant: Patient Narrative: 79-year-old female with dementia presents with her with concern for fever at home. Patient has a home health care that takes care of her. They felt she had a fever this morning. Patient is difficult historian. Cannot provide an accurate history of present illness. Past Medical History - Allergies and Home Meds Allergies/Adverse Reactions: Allergies ceftriaxone [From Rocephin] Allergy (Verified 08/18/20 12:51) Anaphylaxis cephalexin [From Keflex] Allergy (Verified 08/18/20 12:51) Angioedema doxycycline Allergy (Verified 08/18/20 12:51) Angioedema sulfamethoxazole [From Bactrim] Allergy (Verified 08/18/20 12:51) Hives trimethoprim [From Bactrim] Allergy (Verified 08/18/20 12:51) Hives Primary Care Physician: Yang Washington Chi, MD [Primary Care Provider] - Prior records reviewed: Yes Past Medical History: - - HTN, HLD, Dementia Surgical History: cholecystectomy, tonsillectomy Lives: Spouse/ Significant Other Smoking Status: Never smoker Alcohol: None Drugs: None - Family History Paternal Family History: Family History (Last Reviewed 04/03/19 @ 14:[address] Angel Humphries MD) Father CAD (coronary artery disease) Hypertension Mother Hypertension Sister Hypertension CAD (coronary artery disease) Family History: Reports: No pertinent history Maternal Family History: Family History (Last Reviewed 04/03/19 @ 14:[address] Angel Humphries MD) Father CAD (coronary artery disease) Hypertension Mother Hypertension Sister Hypertension CAD (coronary artery disease) Family History: Reports: No pertinent history Review of Systems General: Reports: Fever. Denies: Chills, Sweats Eyes: Denies: Visual changes - bilaterally, Diplopia ENT: Denies: Rhinorrhea, Sore throat Cardiovascular: Denies: Chest pain, Palpitations Respiratory: Denies: Dyspnea, Cough, Dyspnea on exertion Gastrointestinal: Denies: Abdominal pain, Nausea, Vomiting, Diarrhea, Melena, Hematochezia Genitourinary: Denies: Dysuria, Hematuria, Frequency Musculoskeletal: Denies: Back pain, Extremity Pain Skin: Denies: Rash, Wounds Neurological: Denies: Headache, Weakness, Numbness Physical Exam Vital Signs/Narrative: Vital Signs Temp Pulse Resp BP Pulse Ox 02/11/21 12:49 97.4 F L 75 24 H 159/80 H 98 Inital Vital Signs reviewed: Yes General: Well nourished, Well developed, No Acute Distress Head: Normocephalic, Atraumatic Eyes: Perrl, EOMI ENT: Moist mucous membranes, No rhinorrhea Neck: Supple, Nontender Cardiovascular: Regular rate, Regular rhythm, No murmurs Respiratory: No distress, CTA bilaterally, Chest nontender Abdomen: Soft, Nontender, Nondistended, Normal bowel sounds Back: Nontender, Normal Inspection Extremities: Nontender, No edema Skin: Normal color, No rash Neurological: Alert, Oriented x3, Cranial nerves II-XII grossly intact, Normal Strength, Normal Sensation Psychological: Normal affect, Normal Mood Diagnostic/Tx/Re-eval Chest X-Ray - ED: 1 View, Read by ED Physician, Read by Radiologist, Normal Clinical Impression(s) from Imaging Studies Chest X-Ray 08/18/20 15:10 IMPRESSION: There is paravertebral left mediastinal mass has nonspecific appearance may represent a neoplastic process measures approximately 11 x 3 cm on the frontal view. Further evaluation by CT scan can be helpful. Electronically Signed: Cedric Lewis MD at 16:15 EST Tel , Service support , Laboratory Data 08/18/20 08/18/20 08/18/20 13:40 13:40 16:15 WBC 6.0 RBC 4.13 L Hgb 12.7 Hct 37.0 MCV 89.6 MCH 30.8 MCHC 34.3 RDW Std Deviation 43.0 RDW Coeff of Laura 13.1 Plt Count 312 MPV 8.5 Immature Gran % (Auto) 0.500 Neut % (Auto) 71.0 H Lymph % (Auto) 20.1 [place] % (Auto) 7.2 Eos % (Auto) 0.5 Baso % (Auto) 0.7 Absolute Neuts (auto) 4.2 Absolute Lymphs (auto) 1.20 Nucleated RBC % 0 Sodium 135 L Potassium 3.0 L Chloride 101 Carbon Dioxide 30.0 Anion Gap 4 L BUN 9 Creatinine 1.02 Estim Creat Clear Calc 32.64 Est GFR (MDRD) Af Amer 67 Est GFR (MDRD) Non-Af 55 L BUN/Creatinine Ratio 8.8 L Glucose 101 Calcium 8.8 Total Bilirubin 0.50 AST 19 ALT 23 Alkaline Phosphatase 94 Total Protein 6.8 Albumin 3.5 Globulin 3.3 Albumin/Globulin Ratio 1.1 Urine Color Yellow Urine Clarity Cloudy Urine pH 8.0 Ur Specific [place] 1.010 Urine Protein Negative Urine Glucose (UA) Normal Urine Ketones Negative Urine Occult Blood Negative Urine Nitrite Negative Urine Bilirubin Negative Urine Urobilinogen Normal Ur Leukocyte Esterase Negative - Medical Decision Making Patient appers well and nontoxic. Vital signs within normal limits. Patient presented for a subjective fever at home. Coronavirus negative. Other lab work within normal limits. Chest x-ray interpreted by myself shows no evidence of infiltrate or cardiomegaly. Radiology concurs. Urine shows no evidence of infection. Patient will be discharged home to follow-up with her primary care. Stable at time of discharge. Impression: 1. Subjective fever ED Disposition - Plan for ED Patient: Disposition: Home or Assisted Living Instructions: ED FUO Adult Referrals: Yang Washington Chi, MD [Primary Care Provider] - 2 Days
[2020-08-18 13:55] LABS: Absolute Neutrophil Count 4.2 X10^3/uL (2.0-7.7); Basophil# 0.04 X10^3/uL; Basophil% 0.7 % (0-1); Eosinophil# 0.03 X10^3/uL; Eosinophils% 0.5 % (0-5); Hemoglobin 12.7 g/dL (12.0-15.0); Lymphocyte % 20.1 % (19-41); Mean Corp Hgb Conc 34.3 g/dL (32-36); Mean Corpuscular Hgb 30.8 pg (27.0-32.0); Mean Corpuscular Volume 89.6 fL (81-99); Mean Platelet Vol. 8.5 fl (6.2-12.0); Monocyte# 0.43 X10^3/uL; Monocyte% 7.2 % (0-10); NRBC Flagged by Analyzer 0 % (0-5); Neutrophil # 4.24 X10^3/uL (2.7-7.7); Platelet Count 312 K/mm3 (150-450); RBC Distribution Width CV 13.1 % (11.6-14.6); Red Blood Count 4.13 M/mm3 (4.2-5.4)
[2020-08-18 14:11] LABS: ALB/GLOB Ratio 1.1 RATIO (0.9-2.4); AST(SGOT) 19 U/L (15-37); Alanine Aminotransfer ALT/SGPT 23 U/L (13-56); Albumin, Serum 3.5 g/dL (3.2-5.0); Alkaline Phosphatase 94 U/L (45-117); Anion Gap 4 (5-15); BUN 9 mg/dL (7-18); BUN/Creat Ratio 8.8 RATIO (10-20); Calcium,Total 8.8 mg/dL (8.5-10.1); Chloride 101 mmol/L (98-107); Creatinine, Serum 1.02 mg/dL (0.55-1.02); EST Glomerular Filtration Rate 55 mL/min (>60); Est Glom Filt Rate - Afr Amer 67 mL/min (>60); Estimated Creatinine Clearance 32.64 ml/min; Globulin 3.3 g/dL (2.2-4.2); Glucose 101 mg/dL (74-106); Protein, Total 6.8 g/dL (6.4-8.2); Sodium Level 135 mmol/L (136-145)
[2020-08-18] MEDS: Potassium Chloride Oral Tablet 20 MEQ 40 MEQ PO (15:01)
--- NOTE | 2020-08-18 15:10 | RAD_ITS ---
STUDY: X-RAY CHEST REASON FOR EXAM: Female, 79 years old. fever, sent for a COVID test TECHNIQUE: Single AP portable view of the chest. COMPARISON: None. FINDINGS: The lungs are clear and expanded. There is no demonstrated pleural abnormality. Normal size heart. There is paravertebral left mediastinal mass has nonspecific appearance may represent a neoplastic process measures approximately 11 x 3 cm on the frontal view. Further evaluation by CT scan can be helpful. Normal visualized pulmonary arteries. Normal visualized aortic arch and descending thoracic aorta. Normal visualized thoracic spine. Normal visualized ribs, clavicles, and shoulders. There is no demonstrated abnormality of the visualized soft tissue structures of the upper abdomen. RAD/Chest 1 View (Portable) IMPRESSION: There is paravertebral left mediastinal mass has nonspecific appearance may represent a neoplastic process measures approximately 11 x 3 cm on the frontal view. Further evaluation by CT scan can be helpful. Electronically Signed: Cedric Lewis MD at 16:15 EST Tel , Service support ,
[2020-08-18 16:55] LABS: Mucous, Urine 0 SEEN /hpf (<or=2+); Red Blood Cells-Urine 0 SEEN /hpf (0-5); Squamous Epithelial Cells - UA 0 SEEN /hpf (5-10); White Blood Cells 0 SEEN /hpf (0-5)
[2020-08-18 16:59] LABS: Color, Urine Yellow (Yellow); Glucose, Dipstick Normal (Normal); Ketone-Dipstick Negative (Negative); Leukocyte Esterase-Dipstick Negative /ul (Negative); Nitrite-Dipstick Negative (Negative); Occult Blood-Urine Negative /ul (Negative); Protein-Dipstick Negative (Negative); Urine Bilirubin Dipstick Negative (Negative); Urine Clarity Cloudy (Clear); Urine Urobilinogen Normal (Normal)
[2020-08-18 17:05] VITALS: BP 186/89; PULSE 73; RESP 18; O2SAT 97
[2020-08-18 17:15] LABS: Amorphous Sediment 1+; Bacteria RARE /hpf (None Seen)
== END 2020-08-18 17:30 | disposition home or self-care (01) ==
PROVIDERS: Emergency Provider Emergency Medicine; PCP Family Medicine Geriatric Medicine
DX: R50.9 Fever, unspecified (principal); I10 Essential (primary) hypertension; E78.5 Hyperlipidemia, unspecified; F03.90 Unspecified dementia, unspecified severity, without behavioral disturbance, psychotic disturbance, mood disturbance, and anxiety; Z82.49 Family history of ischemic heart disease and other diseases of the circulatory system; Z88.1 Allergy status to other antibiotic agents; Z88.2 Allergy status to sulfonamides; Z90.49 Acquired absence of other specified parts of digestive tract
CPT/HCPCS: 71045; 80053; 81001; 85025; 87426; 99283; J7030; A4216

== ENCOUNTER 2020-08-25 12:59 | Outpatient (RCR) | payer MEDICARE, OTHER, SELFPAY | END 2020-08-25 23:59 | LOC: IMMUN 12:59 | PROVIDERS: PCP Family Medicine Geriatric Medicine; Referring Provider Family Medicine; Visit Provider Family Medicine | DX: Z23 Encounter for immunization (principal) | CPT/HCPCS: 0011A; 0012A; 91301 ==

== ENCOUNTER → 2020-09-01 16:55 | Outpatient (CLI) | payer MEDICARE, OTHER, SELFPAY ==
[2020-08-18 12:49] VITALS: BMI 28.3
== END ==
PROVIDERS: PCP Family Medicine Geriatric Medicine; Visit Provider Family Medicine Geriatric Medicine
DX: R06.89 Other abnormalities of breathing (principal)
CPT/HCPCS: 87635; C9803; U0005; U0003

== ENCOUNTER → 2020-09-21 05:00 | Outpatient (REF) | payer MEDICARE, OTHER, SELFPAY ==
[2020-09-21 07:22] LABS: Absolute Lymphocyte Count 1.76 X10^3/uL (0.83-4.51); Absolute Neutrophil Count 3.3 X10^3/uL (2.0-7.7); Basophil# 0.02 X10^3/uL; Basophil% 0.4 % (0-1); Eosinophil# 0.09 X10^3/uL; Eosinophils% 1.6 % (0-5); Hematocrit 34.6 % (37-47); Hemoglobin 11.6 g/dL (12.0-15.0); Lymphocyte # 1.76 X10^3/ul (4.0); Lymphocyte % 31.3 % (19-41); Mean Corp Hgb Conc 33.5 g/dL (32-36); Mean Corpuscular Hgb 31.1 pg (27.0-32.0); Mean Corpuscular Volume 92.8 fL (81-99); Mean Platelet Vol. 8.9 fl (6.2-12.0); Monocyte# 0.45 X10^3/uL; NRBC Flagged by Analyzer 0 % (0-5); Neutrophil # 3.29 X10^3/uL (2.7-7.7); Neutrophil % 58.3 % (47-70); Platelet Count 286 K/mm3 (150-450); RBC Distribution Width CV 13.2 % (11.6-14.6); RBC Distribution Width SD 45.5 fl (35.1-43.9); Red Blood Count 3.73 M/mm3 (4.2-5.4); White Blood Count 5.6 K/mm3 (4.4-11.0)
[2020-09-21 07:32] LABS: Anion Gap 3 (5-15); BUN 7 mg/dL (7-18); BUN/Creat Ratio 7.7 RATIO (10-20); Calcium,Total 8.7 mg/dL (8.5-10.1); Chloride 106 mmol/L (98-107); Creatinine, Serum 0.91 mg/dL (0.55-1.02); EST Glomerular Filtration Rate 63 mL/min (>60); Est Glom Filt Rate - Afr Amer 76 mL/min (>60); Glucose 89 mg/dL (74-106); Potassium 3.7 mmol/L (3.5-5.1); Sodium Level 140 mmol/L (136-145)
== END ==
LOC: OLS.WHLTSB 05:00
PROVIDERS: PCP Family Medicine Geriatric Medicine; Visit Provider Family Medicine
DX: G30.9 Alzheimer's disease, unspecified (principal); F06.4 Anxiety disorder due to known physiological condition; F33.0 Major depressive disorder, recurrent, mild; I63.50 Cerebral infarction due to unspecified occlusion or stenosis of unspecified cerebral artery; K21.9 Gastro-esophageal reflux disease without esophagitis
CPT/HCPCS: 36415; 80048; 85025

== ENCOUNTER → 2020-12-06 05:00 | Outpatient (REF) | payer MEDICARE, OTHER, SELFPAY ==
[2020-12-06 08:49] LABS: Absolute Lymphocyte Count 1.22 X10^3/uL (0.83-4.51); Absolute Neutrophil Count 3.4 X10^3/uL (2.0-7.7); Basophil# 0.01 X10^3/uL; Basophil% 0.2 % (0-1); Eosinophil# 0.09 X10^3/uL; Eosinophils% 1.8 % (0-5); Hematocrit 31.5 % (37-47); Hemoglobin 10.7 g/dL (12.0-15.0); Lymphocyte # 1.22 X10^3/ul (0.83-4.51); Lymphocyte % 23.9 % (19-41); Mean Corpuscular Volume 94.3 fL (81-99); Mean Platelet Vol. 8.8 fl (6.2-12.0); Monocyte% 7.8 % (0-10); NRBC Flagged by Analyzer 0 % (0-5); Neutrophil # 3.37 X10^3/uL (2.7-7.7); Neutrophil % 66.1 % (47-70); Platelet Count 336 K/mm3 (150-450); RBC Distribution Width CV 13.5 % (11.6-14.6); RBC Distribution Width SD 46.2 fl (35.1-43.9); Red Blood Count 3.34 M/mm3 (4.2-5.4); White Blood Count 5.1 K/mm3 (4.4-11.0)
[2020-12-06 09:10] LABS: Anion Gap 7 (5-15); BUN 7 mg/dL (7-18); BUN/Creat Ratio 10.4 RATIO (10-20); Calcium,Total 8.4 mg/dL (8.5-10.1); Chloride 102 mmol/L (98-107); Creatinine, Serum 0.67 mg/dL (0.55-1.02); EST Glomerular Filtration Rate 89 mL/min (>60); Est Glom Filt Rate - Afr Amer 108 mL/min (>60); Glucose 79 mg/dL (74-106); Sodium Level 139 mmol/L (136-145)
== END ==
LOC: OLS.WHLTSB 05:00
PROVIDERS: PCP Family Medicine Geriatric Medicine; Visit Provider Family Medicine
DX: G30.9 Alzheimer's disease, unspecified (principal); F06.4 Anxiety disorder due to known physiological condition; F33.0 Major depressive disorder, recurrent, mild; I63.50 Cerebral infarction due to unspecified occlusion or stenosis of unspecified cerebral artery; K21.9 Gastro-esophageal reflux disease without esophagitis
CPT/HCPCS: 36415; 80048; 85025

== ENCOUNTER → 2020-12-21 05:00 | Outpatient (REF) | payer MEDICARE, OTHER, SELFPAY ==
[2020-12-21 08:23] LABS: Anion Gap 6 (5-15); BUN 6 mg/dL (7-18); BUN/Creat Ratio 8.8 RATIO (10-20); Calcium,Total 8.1 mg/dL (8.5-10.1); Chloride 104 mmol/L (98-107); Creatinine, Serum 0.68 mg/dL (0.55-1.02); EST Glomerular Filtration Rate 87 mL/min (>60); Est Glom Filt Rate - Afr Amer 106 mL/min (>60); Glucose 91 mg/dL (74-106); Potassium 3.2 mmol/L (3.5-5.1); Sodium Level 139 mmol/L (136-145)
== END ==
LOC: OLS.WHLTSB 05:00
PROVIDERS: PCP Family Medicine Geriatric Medicine; Visit Provider Family Medicine
DX: G30.9 Alzheimer's disease, unspecified (principal); F06.4 Anxiety disorder due to known physiological condition; K59.00 Constipation, unspecified; M62.81 Muscle weakness (generalized); R26.2 Difficulty in walking, not elsewhere classified; I10 Essential (primary) hypertension; R48.8 Other symbolic dysfunctions; E78.49 Other hyperlipidemia
CPT/HCPCS: 36415; 80048

== ENCOUNTER → 2021-03-08 | Outpatient (REF) | payer MEDICARE, OTHER, SELFPAY ==
[2021-03-08 07:57] LABS: Absolute Lymphocyte Count 1.49 X10^3/uL (0.83-4.51); Absolute Neutrophil Count 3.2 X10^3/uL (2.0-7.7); Basophil# 0.04 X10^3/uL; Basophil% 0.7 % (0-1); Eosinophil# 0.16 X10^3/uL; Eosinophils% 2.9 % (0-5); Hematocrit 35.4 % (37-47); Hemoglobin 11.9 g/dL (12.0-15.0); Lymphocyte # 1.49 X10^3/ul (0.83-4.51); Lymphocyte % 27.3 % (19-41); Mean Corp Hgb Conc 33.6 g/dL (32-36); Mean Corpuscular Hgb 31.6 pg (27.0-32.0); Mean Corpuscular Volume 94.1 fL (81-99); Mean Platelet Vol. 8.8 fl (6.2-12.0); Monocyte% 9.2 % (0-10); NRBC Flagged by Analyzer 0 % (0-5); Neutrophil # 3.24 X10^3/uL (2.7-7.7); Neutrophil % 59.4 % (47-70); Platelet Count 268 K/mm3 (150-450); RBC Distribution Width CV 12.9 % (11.6-14.6); RBC Distribution Width SD 44.6 fl (35.1-43.9); Red Blood Count 3.76 M/mm3 (4.2-5.4); White Blood Count 5.5 K/mm3 (4.4-11.0)
[2021-03-08 08:04] LABS: Anion Gap 3 (5-15); BUN 12 mg/dL (7-18); BUN/Creat Ratio 18.2 RATIO (10-20); Calcium,Total 8.8 mg/dL (8.5-10.1); Chloride 107 mmol/L (98-107); Creatinine, Serum 0.66 mg/dL (0.55-1.02); EST Glomerular Filtration Rate 91 mL/min (>60); Est Glom Filt Rate - Afr Amer 110 mL/min (>60); Glucose 69 mg/dL (74-106); Potassium 3.7 mmol/L (3.5-5.1); Sodium Level 139 mmol/L (136-145)
== END ==
LOC: OLS.WHLTSB
PROVIDERS: PCP Family Medicine Geriatric Medicine; Visit Provider Family Medicine
DX: G30.9 Alzheimer's disease, unspecified (principal); F06.4 Anxiety disorder due to known physiological condition; F33.0 Major depressive disorder, recurrent, mild; I63.50 Cerebral infarction due to unspecified occlusion or stenosis of unspecified cerebral artery; K21.9 Gastro-esophageal reflux disease without esophagitis
CPT/HCPCS: 36415; 80048; 85025

== ENCOUNTER → 2021-04-07 05:00 | Outpatient (REF) | payer MEDICARE, OTHER, SELFPAY ==
[2021-04-07 07:42] LABS: Hematocrit 35.9 % (37-47); Hemoglobin 11.9 g/dL (12.0-15.0); Mean Corp Hgb Conc 33.1 g/dL (32-36); Mean Corpuscular Hgb 31.2 pg (27.0-32.0); Mean Corpuscular Volume 94.2 fL (81-99); Platelet Count 263 K/mm3 (150-450); RBC Distribution Width CV 12.8 % (11.6-14.6); RBC Distribution Width SD 44.3 fl (35.1-43.9); Red Blood Count 3.81 M/mm3 (4.2-5.4); White Blood Count 5.2 K/mm3 (4.4-11.0)
[2021-04-07 08:18] LABS: AST(SGOT) 18 U/L (15-37); Alanine Aminotransfer ALT/SGPT 22 U/L (13-56); Albumin, Serum 2.9 g/dL (3.2-5.0); Alkaline Phosphatase 68 U/L (45-117); Bilirubin, Direct < 0.05 mg/dL (0.00-0.30); Globulin 3.2 g/dL (2.2-4.2); Protein, Total 6.1 g/dL (6.4-8.2)
[2021-04-07 08:21] LABS: Valproic Acid (Depakene) Level 17 ug/mL (50-100)
== END ==
LOC: OLS.WHLTSB 05:00
PROVIDERS: PCP Family Medicine Geriatric Medicine; Visit Provider Family Medicine
DX: G30.9 Alzheimer's disease, unspecified (principal); F06.4 Anxiety disorder due to known physiological condition; K59.00 Constipation, unspecified; M62.81 Muscle weakness (generalized); R26.2 Difficulty in walking, not elsewhere classified; R48.8 Other symbolic dysfunctions; E78.49 Other hyperlipidemia
CPT/HCPCS: 36415; 80076; 80164; 85027

== ENCOUNTER → 2021-06-07 05:00 | Outpatient (REF) | payer MEDICARE, OTHER, SELFPAY ==
[2021-06-07 09:25] LABS: Absolute Lymphocyte Count 1.55 X10^3/uL (0.83-4.51); Absolute Neutrophil Count 3.1 X10^3/uL (2.0-7.7); Basophil# 0.04 X10^3/uL; Basophil% 0.7 % (0-1); Eosinophil# 0.12 X10^3/uL; Eosinophils% 2.2 % (0-5); Hematocrit 35.1 % (37-47); Hemoglobin 11.8 g/dL (12.0-15.0); Lymphocyte # 1.55 X10^3/ul (0.83-4.51); Lymphocyte % 28.9 % (19-41); Mean Corp Hgb Conc 33.6 g/dL (32-36); Mean Corpuscular Hgb 31.6 pg (27.0-32.0); Mean Corpuscular Volume 94.1 fL (81-99); Mean Platelet Vol. 9.3 fl (6.2-12.0); Monocyte# 0.55 X10^3/uL; Monocyte% 10.2 % (0-10); NRBC Flagged by Analyzer 0 % (0-5); Neutrophil # 3.08 X10^3/uL (2.7-7.7); Neutrophil % 57.4 % (47-70); Platelet Count 249 K/mm3 (150-450); RBC Distribution Width CV 13.6 % (11.6-14.6); RBC Distribution Width SD 47.4 fl (35.1-43.9); Red Blood Count 3.73 M/mm3 (4.2-5.4); White Blood Count 5.4 K/mm3 (4.4-11.0)
[2021-06-07 09:46] LABS: Anion Gap 5 (5-15); BUN 12 mg/dL (7-18); BUN/Creat Ratio 15.4 RATIO (10-20); Calcium,Total 8.6 mg/dL (8.5-10.1); Chloride 103 mmol/L (98-107); Creatinine, Serum 0.78 mg/dL (0.55-1.02); EST Glomerular Filtration Rate 75 mL/min (>60); Est Glom Filt Rate - Afr Amer 91 mL/min (>60); Glucose 74 mg/dL (74-106); Potassium 4.1 mmol/L (3.5-5.1); Sodium Level 140 mmol/L (136-145)
== END ==
LOC: OLS.WHLTSB 05:00
PROVIDERS: PCP Family Medicine Geriatric Medicine; Visit Provider Family Medicine
DX: G30.9 Alzheimer's disease, unspecified (principal); F06.4 Anxiety disorder due to known physiological condition; F33.0 Major depressive disorder, recurrent, mild; I63.50 Cerebral infarction due to unspecified occlusion or stenosis of unspecified cerebral artery; K21.9 Gastro-esophageal reflux disease without esophagitis
CPT/HCPCS: 36415; 80048; 85025

== ENCOUNTER → 2021-07-10 | Outpatient (REF) | payer MEDICARE, OTHER, SELFPAY ==
[2021-07-10 07:06] LABS: Absolute Lymphocyte Count 1.47 X10^3/uL (0.83-4.51); Absolute Neutrophil Count 3.2 X10^3/uL (2.0-7.7); Basophil# 0.04 X10^3/uL; Basophil% 0.7 % (0-1); Eosinophil# 0.11 X10^3/uL; Eosinophils% 2.1 % (0-5); Hematocrit 36.2 % (37-47); Hemoglobin 12.1 g/dL (12.0-15.0); Lymphocyte # 1.47 X10^3/ul (0.83-4.51); Lymphocyte % 27.5 % (19-41); Mean Corp Hgb Conc 33.4 g/dL (32-36); Mean Corpuscular Volume 95.8 fL (81-99); Mean Platelet Vol. 9.4 fl (6.2-12.0); Monocyte# 0.51 X10^3/uL; Monocyte% 9.5 % (0-10); NRBC Flagged by Analyzer 0 % (0-5); Neutrophil # 3.19 X10^3/uL (2.7-7.7); Neutrophil % 59.6 % (47-70); Platelet Count 242 K/mm3 (150-450); RBC Distribution Width CV 13.4 % (11.6-14.6); RBC Distribution Width SD 47.8 fl (35.1-43.9); Red Blood Count 3.78 M/mm3 (4.2-5.4); White Blood Count 5.4 K/mm3 (4.4-11.0)
[2021-07-10 07:33] LABS: Valproic Acid (Depakene) Level 28 ug/mL (50-100)
[2021-07-10 07:37] LABS: AST(SGOT) 28 U/L (15-37); Alanine Aminotransfer ALT/SGPT 25 U/L (13-56); Albumin, Serum 2.8 g/dL (3.2-5.0); Alkaline Phosphatase 62 U/L (45-117); Bilirubin, Direct 0.05 mg/dL (0.00-0.30); Globulin 3.5 g/dL (2.2-4.2); Protein, Total 6.3 g/dL (6.4-8.2)
== END | disposition home or self-care (01) ==
LOC: OLS.WHLTSB 04:00
PROVIDERS: PCP Family Medicine Geriatric Medicine; Visit Provider Family Medicine
DX: G30.9 Alzheimer's disease, unspecified (principal)
CPT/HCPCS: 36415; 80076; 80164; 85025

== ENCOUNTER → 2021-08-24 | Outpatient (REF) | payer MEDICARE, OTHER, SELFPAY ==
[2021-08-24 08:17] LABS: Vitamin B12 805 pg/mL (211-911)
[2021-08-24 11:48] LABS: Iron 73 ug/dL (50-170)
== END | disposition home or self-care (01) ==
LOC: OLS.WHLTSB 04:00
PROVIDERS: PCP Family Medicine Geriatric Medicine; Referring Provider Family Medicine; Visit Provider Family Medicine
DX: K14.0 Glossitis (principal); F06.4 Anxiety disorder due to known physiological condition; R13.11 Dysphagia, oral phase; K59.00 Constipation, unspecified; M62.81 Muscle weakness (generalized); R26.2 Difficulty in walking, not elsewhere classified
CPT/HCPCS: 36415; 82607; 82746; 83540

== ENCOUNTER → 2021-09-05 | Outpatient (REF) | payer MEDICARE, OTHER, SELFPAY ==
[2021-09-05 06:07] LABS: Absolute Lymphocyte Count 1.53 X10^3/uL (0.83-4.51); Absolute Neutrophil Count 3.4 X10^3/uL (2.0-7.7); Basophil# 0.03 X10^3/uL; Basophil% 0.5 % (0-1); Eosinophil# 0.21 X10^3/uL; Eosinophils% 3.7 % (0-5); Hematocrit 34.4 % (37-47); Hemoglobin 11.6 g/dL (12.0-15.0); Lymphocyte # 1.53 X10^3/ul (0.83-4.51); Lymphocyte % 26.7 % (19-41); Mean Corp Hgb Conc 33.7 g/dL (32-36); Mean Corpuscular Hgb 31.6 pg (27.0-32.0); Mean Corpuscular Volume 93.7 fL (81-99); Mean Platelet Vol. 9.2 fl (6.2-12.0); Monocyte% 8.7 % (0-10); NRBC Flagged by Analyzer 0 % (0-5); Neutrophil # 3.43 X10^3/uL (2.7-7.7); Neutrophil % 59.7 % (47-70); Platelet Count 207 K/mm3 (150-450); RBC Distribution Width CV 13.1 % (11.6-14.6); RBC Distribution Width SD 44.7 fl (35.1-43.9); Red Blood Count 3.67 M/mm3 (4.2-5.4); White Blood Count 5.7 K/mm3 (4.4-11.0)
[2021-09-05 06:33] LABS: Valproic Acid (Depakene) Level 62 ug/mL (50-100)
[2021-09-05 06:42] LABS: AST(SGOT) 22 U/L (15-37); Alanine Aminotransfer ALT/SGPT 22 U/L (13-56); Albumin, Serum 2.8 g/dL (3.2-5.0); Alkaline Phosphatase 73 U/L (45-117); Anion Gap 4 (5-15); BUN 16 mg/dL (7-18); BUN/Creat Ratio 19.3 RATIO (10-20); Calcium,Total 8.5 mg/dL (8.5-10.1); Chloride 105 mmol/L (98-107); Creatinine, Serum 0.83 mg/dL (0.55-1.02); EST Glomerular Filtration Rate 70 mL/min (>60); Est Glom Filt Rate - Afr Amer 85 mL/min (>60); Globulin 3.2 g/dL (2.2-4.2); Glucose 92 mg/dL (74-106); Potassium 3.7 mmol/L (3.5-5.1); Sodium Level 137 mmol/L (136-145)
== END | disposition home or self-care (01) ==
LOC: OLS.WHLTCC 05:00
PROVIDERS: PCP Family Medicine Geriatric Medicine; Visit Provider Family Medicine
DX: I63.50 Cerebral infarction due to unspecified occlusion or stenosis of unspecified cerebral artery (principal); F06.4 Anxiety disorder due to known physiological condition; R52 Pain, unspecified; K14.0 Glossitis; R13.11 Dysphagia, oral phase; K59.00 Constipation, unspecified; M62.81 Muscle weakness (generalized); R26.2 Difficulty in walking, not elsewhere classified
CPT/HCPCS: 36415; 80048; 80076; 80164; 85025

== ENCOUNTER → 2021-09-11 | Outpatient (REF) | payer MEDICARE, OTHER, SELFPAY ==
[2021-09-11 08:41] LABS: Absolute Lymphocyte Count 1.72 X10^3/uL (0.83-4.51); Basophil# 0.03 X10^3/uL; Basophil% 0.6 % (0-1); Eosinophil# 0.17 X10^3/uL; Eosinophils% 3.2 % (0-5); Hematocrit 34.8 % (37-47); Hemoglobin 11.6 g/dL (12.0-15.0); Lymphocyte # 1.72 X10^3/ul (0.83-4.51); Lymphocyte % 31.9 % (19-41); Mean Corp Hgb Conc 33.3 g/dL (32-36); Mean Corpuscular Volume 96.1 fL (81-99); Mean Platelet Vol. 9.9 fl (6.2-12.0); Monocyte# 0.44 X10^3/uL; Monocyte% 8.2 % (0-10); NRBC Flagged by Analyzer 0 % (0-5); Neutrophil % 55.5 % (47-70); Platelet Count 217 K/mm3 (150-450); RBC Distribution Width CV 13.1 % (11.6-14.6); RBC Distribution Width SD 46.3 fl (35.1-43.9); Red Blood Count 3.62 M/mm3 (4.2-5.4); White Blood Count 5.4 K/mm3 (4.4-11.0)
[2021-09-11 08:54] LABS: Valproic Acid (Depakene) Level 38 ug/mL (50-100)
[2021-09-11 09:20] LABS: AST(SGOT) 32 U/L (15-37); Alanine Aminotransfer ALT/SGPT 31 U/L (13-56); Albumin, Serum 2.8 g/dL (3.2-5.0); Alkaline Phosphatase 75 U/L (45-117); Anion Gap 3 (5-15); BUN 15 mg/dL (7-18); BUN/Creat Ratio 17.4 RATIO (10-20); Bilirubin, Direct 0.06 mg/dL (0.00-0.30); Calcium,Total 8.3 mg/dL (8.5-10.1); Chloride 105 mmol/L (98-107); Creatinine, Serum 0.86 mg/dL (0.55-1.02); EST Glomerular Filtration Rate 67 mL/min (>60); Est Glom Filt Rate - Afr Amer 81 mL/min (>60); Globulin 3.3 g/dL (2.2-4.2); Glucose 83 mg/dL (74-106); Potassium 3.9 mmol/L (3.5-5.1); Protein, Total 6.1 g/dL (6.4-8.2); Sodium Level 139 mmol/L (136-145)
== END | disposition home or self-care (01) ==
LOC: OLS.WHLTSB 04:00
PROVIDERS: PCP Family Medicine Geriatric Medicine; Referring Provider Family Medicine; Visit Provider Family Medicine
DX: G30.9 Alzheimer's disease, unspecified (principal); F29 Unspecified psychosis not due to a substance or known physiological condition; F06.4 Anxiety disorder due to known physiological condition; R52 Pain, unspecified; K14.0 Glossitis; R13.11 Dysphagia, oral phase; K59.00 Constipation, unspecified
CPT/HCPCS: 36415; 80048; 80076; 80164; 85025